=== PATIENT | male | born 1935 | race Caucasian/White ===

== ENCOUNTER → 2017-08-15 09:50 | Outpatient (CLI) | payer MEDICARE, BC, SELFPAY ==
--- NOTE | 2017-08-15 10:01 | XR_ITS ---
EXAM: XR lumbar spine min 4V HISTORY: Low back pain following injury ITS.REASON: LOW BACK PAIN ORDERING PHYSICIAN: Yovani Mosley MD PATIENT AGE: 81 years COMPARISON: None FINDINGS: There is multilevel degenerative disc disease with osteophytosis from L1 to L5. There is slight decrease in height anteriorly at L4. This however was present on previous CT scan of the abdomen on 11/29/2010. No acute fracture or dislocation is evident. No lytic or blastic change. There is minimal thoracolumbar curvature convex left. IMPRESSION: 1. No acute fracture. 2. 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
== END ==
PROVIDERS: PCP Family Medicine; Visit Provider Family Medicine
DX: M54.5 Low back pain (principal)
CPT/HCPCS: 72110

== ENCOUNTER → 2017-08-27 14:02 | Outpatient (CLI) | payer MEDICARE, BC, SELFPAY ==
--- NOTE | 2017-08-27 14:09 | MR_ITS ---
MR lumbar spine wo con, MR 3-d myelogram/MRCP Ordering Physician: Yovani Mosley MD Patient Age: 81 years: Male HISTORY: ITS.REASON: LOW BACK PAIN, LUMBAR DISC DISEASE, LUMBAR SPONDYLOSIS Low back pain left hip pain for many years. No known injury. TECHNIQUE: Sagittal STIR, T1, T2, axial T1 & T2. On 1.5T Siemens wide bore MRI. From Volume acquisition 3-D MR myelogram image performed on MRI wkstation. Additional sagittal thin section T2 weighted dataset obtained from this latter acquisition as well (---76 CPT) COMPARISON :No lumbar studies for comparison Previous axial only CT abdomen pelvis images from 2010 . FINDINGS L5/S1. Disc space fairly well maintained. Moderate posterior element hypertrophy L4/5. Marked degenerative disc space narrowing. Spondylosis with posterior endplate ridging and mild disc bulge most evident towards right & left neuroforamen. Moderate bilateral facet hypertrophy. Appears to be a previous laminectomy based on today images here, as well as February 2011 CT L3/4. Moderately pronounced spinal stenosis most evident at this level. . Marked degenerative disc space narrowing with moderate diffuse disc bulge. Prominent ligament flavum hypertrophy & prominent facet hypertrophy. Features combine yielding pronounced central canal stenosis . Findings here most suspect as origin of right orbit left L3 or L4 symptoms if present L2/3.: Moderate central canal spinal stenosis at L2/3 Mild disc space narrowing. Diffuse disc bulge, eccentric to the left. Prominent, exuberant facet hypertrophy. Features combine to yield moderate central canal stenosis. . Prominent bilateral foraminal encroachment mainly due to the facet hypertrophy L1/2.. Levoscoliosis most evident at this level with associated degenerative disc space narrowing to the right. Prominent Marginal osteophytes to anteriorly into the right most evident at this level. Marginal osteophytes also noted but pronounced at to levels just below this. Posteriorly at L1/2 there is diffuse disc bulge is most evident to the right. Moderate bilateral foraminal encroachment most evident the right. T12/L1 disc intact. Mild facet arthropathy slightly generous posterior thecal sac. T11/12 disc intact. Trace facet arthropathy. Conus ends appropriately at T12/L1 There are reactive endplate signal changes about the degenerated L3/4 & L1/2 narrowed disc space also noted. 3-D MR myelogram image set shows: L3/4 with pronounced spinal stenosis. L2/3 with moderate associated canal stenosis. L1/2: Mild spinal stenosis indentation upon the right aspect of thecal sac with slight bulging of thecal sac posteriorly at L4/5 reflecting the laminectomy Cyst versus motion artifact signal at the posterior midportion both kidneys -----IMPRESSION--------- Multilevel spinal stenosis. Lumbar spondylosis with Prominent degenerative disc changes Prominent multilevel facet and posterior element hypertrophy L3/4: Prominent central canal stenosis L3/4.. . Degenerative disc bulge with Prominent posterior element hypertrophy.--yield pronounced central canal stenosis & bilateral foraminal encroachment, left >right.. . L2/3. Moderate central canal spinal stenosis.: Prominent posterior element hypertrophy with mild central disc bulge the left. Mild foraminal encroachment L1/2. Marked disc space narrowing to right -with levoscoliosis this level Posterior endplate hypertrophic ridging with disc bulge most evident to right.. Generous Facet hypertrophy.. Resulting Bilateral foraminal encroachment right >left;,. Mild central canal stenosis
== END ==
PROVIDERS: PCP Family Medicine; Visit Provider Family Medicine
DX: M54.5 Low back pain (principal); M51.9 Unspecified thoracic, thoracolumbar and lumbosacral intervertebral disc disorder; M47.816 Spondylosis without myelopathy or radiculopathy, lumbar region
CPT/HCPCS: 72148; 76376

== ENCOUNTER → 2017-09-18 10:16 | Outpatient (POV) | payer MEDICARE, BC, SELFPAY ==
[2017-09-18 10:30] VITALS: BP 118/77; PULSE 73; RESP 18; TEMP 36.5; BMI 27.1
--- NOTE | 2017-09-18 10:56 | HMH.PMCON ---
Assessment and Plan (1) Degenerative joint disease (DJD) of lumbar spine Current visit: Yes Status: Chronic Category: Medical Code(s): M47.816 - Spondylosis without myelopathy or radiculopathy, lumbar region (2) Lumbar radiculopathy Current visit: Yes Status: Chronic Category: Medical Code(s): M54.16 - Radiculopathy, lumbar region (3) Facet hypertrophy Current visit: Yes Status: Chronic Category: Medical Code(s): M47.9 - Spondylosis, unspecified (4) Bulging disc Current visit: Yes Status: Chronic Category: Medical (5) Spinal stenosis Current visit: Yes Status: Chronic Category: Medical Code(s): M48.00 - Spinal stenosis, site unspecified (6) Post laminectomy syndrome Current visit: Yes Status: Chronic Category: Medical Code(s): M96.1 - Postlaminectomy syndrome, not elsewhere classified - Assessment and plan all Dx Assessment and Plan for all problems:: The patient and I had a long discussion about differing sources of pain in his back. I believe starting out he would benefit from a lumbar epidural steroid injection at L4-L5. Patient and I discussed the procedure risks and benefits I also gave him education to take home with him. He states he wishes to proceed with this. If the lumbar epidural injection does not help we may consider facet joint injections. Patient not currently on any blood thinners. Patient has had physical therapy in the past with no relief. Patient is not wanting to take any pain medications. Patient is still active and wants to become more functional. We will ask insurance for approval of this. This note was dictated using voice recognition software and may contain errors or omissions HPI - Data of Consult Consult date: 09/18/17 Requesting Physician: Kat Bowman APRN Primary Care Provider: Yovani Mosley MD Family Provider: Referral Provider, - Consult Narrative Reason for consult: Low back pain History of present illness: Mr. Bernstein is a 81 year old male who presents today to discuss his low back pain. Patient has had a laminectomy in the past. Patient rates his pain a 4 out of 10 today. He states that it is achy and constant. Patient has had a recent MRI. Patient states that his pain does worsen when he is standing for long periods of time he has low back pain that radiates into the right leg at times. Pain does not radiate past the knee. Patient not currently on any medications for this. . FINDINGS -----IMPRESSION--------- Multilevel spinal stenosis. Lumbar spondylosis with Prominent degenerative disc changes Prominent multilevel facet and posterior element hypertrophy L3/4: Prominent central canal stenosis L3/4.. . Degenerative disc bulge with Prominent posterior element hypertrophy.--yield pronounced central canal stenosis & bilateral foraminal encroachment, left >right.. . L2/3. Moderate central canal spinal stenosis.: Prominent posterior element hypertrophy with mild central disc bulge the left. Mild foraminal encroachment L1/2. Marked disc space narrowing to right -with levoscoliosis this level Posterior endplate hypertrophic ridging with disc bulge most evident to right.. Generous Facet hypertrophy.. Resulting Bilateral foraminal encroachment right >left;,. Mild central canal stenosis Dictated By: Ramakrishna Noble Signed By: <Electronically signed by Ramakrishna Noble in OV> 08/28/17 [id number] CC: Kat Bowman APRN [facility] History I have reviewed the patient's past medical history: Yes Medical History: Reports:: Hyperlipidemia Denies:: Cancer, Diabetes Mellitus Type 1, Diabetes Mellitus Type 2, Internal Pacemaker, MRSA Other Surgeries: No: Pacemaker Amputation: No - *Social History Educational Level: Completed High School Smoking Status: Never smoker Alcohol Intake: never Occupational Status: retired Housing: house - Psychiatric History Expresses thoughts of harming gareth
--- NOTE | 2017-09-18 11:46 | P.CONS_ITS ---
Assessment and Plan (1) Degenerative joint disease (DJD) of lumbar spine Current visit: Yes Status: Chronic Category: Medical Code(s): M47.816 - Spondylosis without myelopathy or radiculopathy, lumbar region (2) Lumbar radiculopathy Current visit: Yes Status: Chronic Category: Medical Code(s): M54.16 - Radiculopathy, lumbar region (3) Facet hypertrophy Current visit: Yes Status: Chronic Category: Medical Code(s): M47.9 - Spondylosis, unspecified (4) Bulging disc Current visit: Yes Status: Chronic Category: Medical (5) Spinal stenosis Current visit: Yes Status: Chronic Category: Medical Code(s): M48.00 - Spinal stenosis, site unspecified (6) Post laminectomy syndrome Current visit: Yes Status: Chronic Category: Medical Code(s): M96.1 - Postlaminectomy syndrome, not elsewhere classified - Assessment and plan all Dx Assessment and Plan for all problems:: The patient and I had a long discussion about differing sources of pain in his back. I believe starting out he would benefit from a lumbar epidural steroid injection at L4-L5. Patient and I discussed the procedure risks and benefits I also gave him education to take home with him. He states he wishes to proceed with this. If the lumbar epidural injection does not help we may consider facet joint injections. Patient not currently on any blood thinners. Patient has had physical therapy in the past with no relief. Patient is not wanting to take any pain medications. Patient is still active and wants to become more functional. We will ask insurance for approval of this. This note was dictated using voice recognition software and may contain errors or omissions HPI - Data of Consult Consult date: 09/18/17 Requesting Physician: Kat Bowman APRN Primary Care Provider: Yovani Mosley MD Family Provider: Referral Provider, - Consult Narrative Reason for consult: Low back pain History of present illness: Mr. Bernstein is a 81 year old male who presents today to discuss his low back pain. Patient has had a laminectomy in the past. Patient rates his pain a 4 out of 10 today. He states that it is achy and constant. Patient has had a recent MRI. Patient states that his pain does worsen when he is standing for long periods of time he has low back pain that radiates into the right leg at times. Pain does not radiate past the knee. Patient not currently on any medications for this. . FINDINGS -----IMPRESSION--------- Multilevel spinal stenosis. Lumbar spondylosis with Prominent degenerative disc changes Prominent multilevel facet and posterior element hypertrophy L3/4: Prominent central canal stenosis L3/4.. . Degenerative disc bulge with Prominent posterior element hypertrophy.--yield pronounced central canal stenosis & bilateral foraminal encroachment, left >right.. . L2/3. Moderate central canal spinal stenosis.: Prominent posterior element hypertrophy with mild central disc bulge the left. Mild foraminal encroachment L1/2. Marked disc space narrowing to right -with levoscoliosis this level Posterior endplate hypertrophic ridging with disc bulge most evident to right.. Generous Facet hypertrophy.. Resulting Bilateral foraminal encroachment right >left;,. Mild central canal stenosis Dictated By: Ramakrishna Noble Signed By: <Electronically signed by Ramakrishna Noble in OV> 08/28/17 [id number] CC: Kat Bowman APRN [facility] History I have reviewed the patient's past medical history: Yes Medic
== END ==
PROVIDERS: PCP Family Medicine; Visit Provider Clinical Nurse Specialist Family Health
DX: M48.061 Spinal stenosis, lumbar region without neurogenic claudication (principal)
CPT/HCPCS: 99202

== ENCOUNTER 2017-10-19 12:04 | Day surgery (SDC) | payer MEDICARE, BC, SELFPAY ==
[2017-10-19 12:39] VITALS: BP 151/81; PULSE 65; RESP 18; O2SAT 96; BMI 27.1
--- NOTE | 2017-10-19 12:42 | PC.NURSE ---
patient alert/oriented. no labored breathing noted, patient appropriate prior to procedure.
[2017-10-19 13:14] VITALS: BP 145/90; PULSE 68; RESP 18
--- NOTE | 2017-10-19 13:15 | HMH.PMPROC ---
- Procedure Date: 10/19/17 Time: 13:18 Anesthesiologist:: Willy Alonso MD Complications:: None Pre-procedure Diagnosis:: Degenerative disc disease of lumbar spine, lumbar radiculopathy, bulging disc, postlaminectomy syndrome Post-procedure Diagnosis:: Same Indications for Procedure:: Patient is a pleasant 81-year-old male who presents today for his first lumbar epidural steroid injection. Patient rates his pain a 5 out of 10 today. He states that the aching constant. Patient has had a recent MRI. Patient states that his low back pain radiates into his right leg at times. Patient is interested in injectable therapies. Patient and I discussed lumbar epidural steroid injection. He wishes to proceed. Procedure Details:: Informed consent was obtained and the risk and benefits of the procedure was explained to the patient. The patient was taken to the procedure room. The patient was placed prone on the procedure table. The patient was prepped and draped in sterile fashion. C-arm fluoroscopy was used to view the lumbar spine. Skin and subcutaneous tissues were anesthetized using lidocaine. I placed an 18-gauge epidural needle and advanced into the L4-L5 interspace using fluoroscopic guidance and [id number] to air. After confirmation of needle placement in the epidural space with dye I injected 2 mL of lidocaine 1.5% with Depo-Medrol 80 mg. Patient tolerated the procedure well with no complications. Plan and Disposition:: We will follow-up with this patient in 2-3 weeks in our clinic. Patient is to call the office if he has any concerns or needs anything prior to his appointment. We will reassess his symptoms at that time.
[2017-10-19 13:19] VITALS: BP 136/100; PULSE 74; RESP 18
--- NOTE | 2017-10-19 13:20 | P.PCN_ITS ---
- Procedure Date: 10/19/17 Time: 13:18 Anesthesiologist:: Willy lAonso MD Complications:: None Pre-procedure Diagnosis:: Degenerative disc disease of lumbar spine, lumbar radiculopathy, bulging disc, postlaminectomy syndrome Post-procedure Diagnosis:: Same Indications for Procedure:: Patient is a pleasant 81-year-old male who presents today for his first lumbar epidural steroid injection. Patient rates his pain a 5 out of 10 today. He states that the aching constant. Patient has had a recent MRI. Patient states that his low back pain radiates into his right leg at times. Patient is interested in injectable therapies. Patient and I discussed lumbar epidural steroid injection. He wishes to proceed. Procedure Details:: Informed consent was obtained and the risk and benefits of the procedure was explained to the patient. The patient was taken to the procedure room. The patient was placed prone on the procedure table. The patient was prepped and draped in sterile fashion. C-arm fluoroscopy was used to view the lumbar spine. Skin and subcutaneous tissues were anesthetized using lidocaine. I placed an 18-gauge epidural needle and advanced into the L4-L5 interspace using fluoroscopic guidance and [id number] to air. After confirmation of needle placement in the epidural space with dye I injected 2 mL of lidocaine 1.5 % with Depo-Medrol 80 mg. Patient tolerated the procedure well with no complications. Plan and Disposition:: We will follow-up with this patient in 2-3 weeks in our clinic. Patient is to call the office if he has any concerns or needs anything prior to his appointment. We will reassess his symptoms at that time.
[2017-10-19 13:26] VITALS: BP 133/72; PULSE 59; RESP 16; O2SAT 97
== END 2017-10-19 13:30 | disposition home or self-care (01) ==
LOC: SC.PAINP 12:05
PROVIDERS: PCP Family Medicine; Visit Provider Anesthesiology
DX: M51.16 Intervertebral disc disorders with radiculopathy, lumbar region (principal); M96.1 Postlaminectomy syndrome, not elsewhere classified
CPT/HCPCS: 62323; J1040; Q9966

== ENCOUNTER → 2017-11-05 09:43 | Outpatient (POV) | payer MEDICARE, BC, SELFPAY ==
[2017-11-05 10:12] VITALS: BP 122/77; PULSE 79; RESP 20; TEMP 36.4; O2SAT 95; BMI 27.1
--- NOTE | 2017-11-05 10:32 | HMH.PAINSOAP ---
[facility] Pain Management SOAP Note Subjective:: Patient is a pleasant 81-year-old white male who presents today for follow-up after lumbar epidural steroid injections. Patient states his left-sided pain symptomology has resolved completely. Patient is still having a little bit of pain in his low back however he has had about 80% relief in his symptomology. Patient rates his pain a 4 out of 10 today. Patient states that it is achy at times. Patient is interested in another lumbar epidural steroid injection. Patient currently is not on any anticoagulation therapies. ROS General: no recent weight change, no fever, no sleep disturbances Respiratory: no cough, no shortness of air, no recurring pulmonary infections Cardiovascular/Peripheral Vascular: No chest pain, No palpitations, no edema, no shortness of breath. Gastrointestinal: no incontinence, normal bowel movements reported Genitourinary: no incontinence Musculoskeletal: Back pain Psychiatric: normal mood/ affect, Neurological: [denies weakness in extremities], [denies balance issues] Objective:: Physical Exam General: Alert and oriented x3, no acute distress, pleasant and cooperative, [on room air] Lungs: Resps E/U, Symmetrical chest expansion, Eyes: PERRL Musculoskeletal: Flexion and extension of lumbar spine somewhat guarded secondary to pain, deep tendon reflexes normal, strength in upper and lower extremities [5/5], slightly antalgic gait noted, positive straight leg test bilaterally 30? Neurological: speech clear, project admin equal, no gross sensory deficits Assessment:: Degenerative disc disease of lumbar spine, lumbar radiculopathy, bulging disc, postlaminectomy syndrome Plan:: We will do a repeat L4-L5 and and given the efficacy of the last one. Patient and I discussed potentially facet joint injections in the future. Patient states his left-sided pain symptomology has resolved. Patient did well with his injection. Patient's tried and failed medications, anti-inflammatories, physical therapy. This note was dictated using voice recognition software and may contain errors or omissions
--- NOTE | 2017-11-05 10:35 | P.CONS_ITS ---
[facility] Pain Management SOAP Note Subjective:: Patient is a pleasant 81-year-old white male who presents today for follow-up after lumbar epidural steroid injections. Patient states his left-sided pain symptomology has resolved completely. Patient is still having a little bit of pain in his low back however he has had about 80% relief in his symptomology. Patient rates his pain a 4 out of 10 today. Patient states that it is achy at times. Patient is interested in another lumbar epidural steroid injection. Patient currently is not on any anticoagulation therapies. ROS General: no recent weight change, no fever, no sleep disturbances Respiratory: no cough, no shortness of air, no recurring pulmonary infections Cardiovascular/Peripheral Vascular: No chest pain, No palpitations, no edema, no shortness of breath. Gastrointestinal: no incontinence, normal bowel movements reported Genitourinary: no incontinence Musculoskeletal: Back pain Psychiatric: normal mood/ affect, Neurological: [denies weakness in extremities], [denies balance issues] Objective:: Physical Exam General: Alert and oriented x3, no acute distress, pleasant and cooperative, [ on room air] Lungs: Resps E/U, Symmetrical chest expansion, Eyes: PERRL Musculoskeletal: Flexion and extension of lumbar spine somewhat guarded secondary to pain, deep tendon reflexes normal, strength in upper and lower extremities [5/5], slightly antalgic gait noted, positive straight leg test bilaterally 30? Neurological: speech clear, cardiovascular technician equal, no gross sensory deficits Assessment:: Degenerative disc disease of lumbar spine, lumbar radiculopathy, bulging disc, postlaminectomy syndrome Plan:: We will do a repeat L4-L5 and and given the efficacy of the last one. Patient and I discussed potentially facet joint injections in the future. Patient states his left-sided pain symptomology has resolved. Patient did well with his injection. Patient's tried and failed medications, anti-inflammatories, physical therapy. This note was dictated using voice recognition software and may contain errors or omissions
== END ==
PROVIDERS: PCP Family Medicine; Visit Provider Clinical Nurse Specialist Family Health
DX: M54.16 Radiculopathy, lumbar region (principal)
CPT/HCPCS: 99212

== ENCOUNTER → 2017-12-03 14:37 | Outpatient (POV) | payer MEDICARE, BC, SELFPAY ==
[2017-12-03 14:59] VITALS: BP 138/69; PULSE 98; RESP 18; TEMP 36.6; O2SAT 97; BMI 27.1
--- NOTE | 2017-12-03 15:23 | HMH.PAINSOAP ---
[facility] Pain Management SOAP Note Subjective:: Patient is a pleasant 81-year-old white male who presents today for follow-up after his second lumbar epidural steroid injection. Patient states he is 90-95% better. He rates his pain a 0 out of 10 today. Patient is doing extremely well at this time. Patient would like to follow-up on an as-needed basis. ROS General: no recent weight change, no fever, no sleep disturbances Respiratory: no cough, no shortness of air, no recurring pulmonary infections Cardiovascular/Peripheral Vascular: No chest pain, No palpitations, no edema, no shortness of breath. Gastrointestinal: no incontinence, normal bowel movements reported Genitourinary: no incontinence Musculoskeletal: Back pain, bilateral leg pain Psychiatric: normal mood/ affect, [denies depression], [denies anxiety] Neurological: [denies weakness in extremities], [denies balance issues] Objective:: Physical Exam General: Alert and oriented x3, no acute distress, pleasant and cooperative, [on room air] Lungs: Resps E/U, Symmetrical chest expansion, Eyes: PERRL Musculoskeletal: Flexion and extension of lumbar spine somewhat guarded secondary to pain, deep tendon reflexes normal, strength in upper and lower extremities [5/5], slightly antalgic gait noted Neurological: speech clear, pairing machine operator equal, no gross sensory deficits Assessment:: Degenerative disc disease of the lumbar spine with lumbar radiculopathy symptoms and postlaminectomy syndrome of the lumbar spine Plan:: We will follow-up with this patient on an as-needed basis. Patient has been instructed to call the office when his pain begins to return. This note was dictated using voice recognition software and may contain errors or omissions
== END ==
PROVIDERS: PCP Family Medicine; Visit Provider Clinical Nurse Specialist Family Health
DX: M54.16 Radiculopathy, lumbar region (principal)
CPT/HCPCS: 99212

== ENCOUNTER → 2019-03-18 14:28 | Outpatient (CLI) | payer SELFPAY ==
--- NOTE | 2019-03-18 14:48 | CT_ITS ---
PROCEDURE: CT HEART W CALCIUM SCORE CLINICAL HISTORY: SCREENING COMPARISON: No exams were available for comparison TECHNIQUE: Axial images obtained with sagittal and coronal reformats. All CT scans at the facility use one or more dose reduction, viz: automated exposure control, ma/kV adjustment per patient size (including targeted exams where dose is matched to indication, i.e. head), or iterative reconstruction technique. FINDINGS: Coronary artery calcium score is 1905 indicate extensive calcific plaque burden with very high cardiovascular disease risk.. Review of the images shows a small hypoattenuating area in the attic dome on the left at 7 mm consistent with a hepatic cyst There is a noncalcified nodule in the right upper lobe anterior laterally at 3 mm nonspecific. Degenerative changes are present in the thoracic spine. IMPRESSION: Extensive plaque burden with very high cardiovascular disease risk Dictated by: Chapin Morrison MD 03/18/2019 16:41 Signed by: <Electronically signed by Chapin Morrison MD in OV> 03/18/2019 16:41
== END ==
PROVIDERS: PCP Family Medicine; Visit Provider Internal Medicine Cardiovascular Disease
DX: Z13.6 Encounter for screening for cardiovascular disorders (principal)
CPT/HCPCS: 75571

== ENCOUNTER → 2019-04-03 09:16 | Outpatient (CLI) | payer MEDICARE, BC, SELFPAY ==
--- NOTE | 2019-04-03 09:19 | CA_ITS ---
APPROVED REPORT Bedspread Folder: MARIAJOSE Laterality: Bilateral Study Quality: Good Indications: dizziness Risk Factors Hyperlipidemia Doppler Spectral Velocity Analysis ECA (R) 83.80/9.64 cm/s ECA (L) 74.50/9.84 cm/s dICA (R) 79.80/18.50 cm/s dICA (L) 82.30/25.50 cm/s Skyler (R) 77.80/17.80 cm/s Skyler (L) 52.30/16.60 cm/s pICA (R) 51.90/12.60 cm/s pICA (L) 51.70/14.00 cm/s dCCA (R) 51.90/11.90 cm/s dCCA (L) 37.10/8.90 cm/s pCCA (R) 48.10/10.70 cm/s pCCA (L) 51.90/12.60 cm/s Vert (R) 31.90/11.10 cm/s Vert (L) 31.60/9.13 cm/s ICA/CCA 1.54 ICA/CCA 2.22 Findings Duplex evaluation demonstrates stenosis of the right proximal internal carotid artery <20% with PSV <140 cm/sec, EDV <100 cm/sec, and IC/CC Ratio <4.0. Duplex evaluation demonstrates stenosis of the left proximal internal carotid artery <20% with PSV <140 cm/sec, EDV <100 cm/sec, and IC/CC Ratio <4.0. Antegrade flow seen bilateral vertebral arteries. Conclusion Duplex evaluation demonstrates stenosis of the right proximal internal carotid artery <20% with PSV <140 cm/sec, EDV <100 cm/sec, and IC/CC Ratio <4.0. Duplex evaluation demonstrates stenosis of the left proximal internal carotid artery <20% with PSV <140 cm/sec, EDV <100 cm/sec, and IC/CC Ratio <4.0. Antegrade flow seen bilateral vertebral arteries. Electronically signed by : Chapin Morrison MD 04/03/2019 13:20:49
--- NOTE | 2019-04-03 09:19 | US_ITS ---
APPROVED REPORT Exam Type: Lower Extremity Segmental Pressures Head Turbine Operator: Casandra Mccray RDCS Indications Claudication: Rest Pain: Risk Factors Hypertension Hyperlipidemia Cardiac Disease Pressures/Indices Right Indices Left Indices Brachial 148.00 mmHg Brachial 151.00 mmHg Low Thigh 157.00 mmHg 1.04 Low Thigh 159.00 mmHg 1.05 Calf 167.00 mmHg 1.11 Calf 163.00 mmHg 1.08 Ankle(PT) 166.00 mmHg 1.10 Ankle(PT) 174.00 mmHg 1.15 Ankle(DP) 167.00 mmHg 1.11 Ankle(DP) 171.00 mmHg 1.13 Digit 119.00 mmHg 0.79 Digit 148.00 mmHg 0.98 Findings R LUIS A 1.1 L LUIS A 1.2 R TBI .8 L TBI 1.0 NORMAL WAVEFORMS AND PULSES Conclusion Normal Electronically signed by : Chapin Morrison MD 04/03/2019 13:20:02
== END ==
PROVIDERS: PCP Family Medicine; Visit Provider Physician Assistant
DX: M79.604 Pain in right leg; M79.605 Pain in left leg; E78.5 Hyperlipidemia, unspecified; I25.10 Atherosclerotic heart disease of native coronary artery without angina pectoris; R06.09 Other forms of dyspnea; R42 Dizziness and giddiness; R93.1 Abnormal findings on diagnostic imaging of heart and coronary circulation; Z82.49 Family history of ischemic heart disease and other diseases of the circulatory system; Z95.5 Presence of coronary angioplasty implant and graft; I70.213 Atherosclerosis of native arteries of extremities with intermittent claudication, bilateral legs
CPT/HCPCS: 93880; 93923

== ENCOUNTER → 2019-04-07 08:13 | Outpatient (CLI) | payer MEDICARE, BC, SELFPAY ==
[2019-04-07 08:30] LABS: Basophils # 0.1 K/mm3 (0-0.2); Eosinophils # 0.3 K/mm3 (0.0-0.4); Eosinophils % 4.6 % (0.1-12.0); Hematocrit 48.8 % (42.0-52.0); Hemoglobin 16.4 g/dL (14.1-18.0); Lymphocytes # 1.4 K/mm3 (0.7-4.5); Lymphocytes % 19.7 % (10-50); Mean Corpuscular HGB Conc 33.6 g/dL (31.8-35.4); Mean Corpuscular Volume 92.3 fl (80-94); Mean Platelet Volume 7.8 fl (7.4-10.4); Monocytes # 0.5 K/mm3 (0.1-1.0); Monocytes % 6.8 % (1.7-9.3); Neutrophils # 4.8 K/mm3 (1.8-7.8); Neutrophils % 67.8 % (37.0-80.0); Platelet Count 298 K/mm3 (142-424); Red Blood Count 5.29 M/mm3 (4.60-6.20); Red Cell Distribution Width 13.4 % (11.5-17.5); White Blood Count 7.1 K/mm3 (4.8-10.8)
[2019-04-07 08:56] LABS: Anion Gap 9.7 mEq/L (5-15); Blood Urea Nitrogen 26 mg/dL (7-18); Calcium 9.2 mg/dL (8.5-10.1); Carbon Dioxide 30 mmol/L (21.0-32.0); Chloride 105 mmol/L (98-107); Creatinine,Serum 1.21 mg/dL (0.70-1.30); Estimated Glomerular Filt Rate 57 ml/min (>60); GFR (African American) 69 ML/MIN (>60); Glucose 104 mg/dL (74-106); Potassium 4.7 mmoL/L (3.5-5.1); Sodium 140 mmol/L (136-145)
[2019-04-07 09:26] LABS: Alanine Aminotransferase 31 U/L (12-78); Albumin Level 3.5 gm/dL (3.4-5.0); Alkaline Phosphatase 70 U/L (46-116); Aspartate Amino Transferase 24 U/L (15-37); Bilirubin,Direct 0.1 mg/dL (0.0-0.2); Bilirubin,Indirect 0.6 mg/dL (0.0-0.9); Bilirubin,Total 0.7 mg/dL (0.2-1.0); Chol/HDL Ratio 2.9 (1-3.5); Cholesterol 153 mg/dL (140-200); HDL Cholesterol 52 mg/dL (27-67); LDL Cholesterol 82 mg/dL (0-130); Total Protein,Serum 6.7 gm/dL (6.4-8.2); Triglycerides 95 mg/dL (30-200); VLDL Cholesterol 19 mg/dL (0-40)
== END ==
PROVIDERS: Internal Medicine; Visit Provider Physician Assistant
DX: I25.10 Atherosclerotic heart disease of native coronary artery without angina pectoris (principal); E78.5 Hyperlipidemia, unspecified; R06.09 Other forms of dyspnea; R93.1 Abnormal findings on diagnostic imaging of heart and coronary circulation; Z82.49 Family history of ischemic heart disease and other diseases of the circulatory system; Z95.5 Presence of coronary angioplasty implant and graft
CPT/HCPCS: 36415; 80048; 80061; 80076; 85025

== ENCOUNTER → 2019-04-10 10:23 | Outpatient (CLI) | payer MEDICARE, BC, SELFPAY | PROVIDERS: PCP Family Medicine; Visit Provider Physician Assistant | DX: R06.00 Dyspnea, unspecified (principal) | CPT/HCPCS: 94060; 94640 ==

== ENCOUNTER → 2019-12-29 13:49 | Outpatient (CLI) | payer MEDICARE, BC, SELFPAY ==
--- NOTE | 2019-12-29 13:56 | XR_ITS ---
PROCEDURE: XR KNEE LT 4V CLINICAL INDICATION: left knee swelling and pain COMPARISON: No exams were available for comparison FINDINGS: No fracture or dislocation. No lytic or blastic change. There is normal mineralization. There are mild osteoarthritic changes of the medial compartment and patellofemoral joint. Vascular calcifications are present. There is prominent subcutaneous soft tissue swelling in the prepatellar region and infrapatellar area. No underlying radiopaque foreign body or soft tissue gas apparent. Other findings:None. IMPRESSION: Mild degenerative changes with prominent prepatellar and infrapatellar soft tissue swelling which could be seen with bursitis Dictated by: Chapin Morrison MD 12/29/2019 15:53 Electronically signed by Chapin Morrison MD in [place] 12/29/2019 15:53
== END ==
PROVIDERS: PCP Family Medicine; Visit Provider Internal Medicine
DX: E78.5 Hyperlipidemia, unspecified (principal); I25.10 Atherosclerotic heart disease of native coronary artery without angina pectoris; M25.562 Pain in left knee
CPT/HCPCS: 73564

== ENCOUNTER 2020-02-24 15:23 | Emergency (ER) | payer MEDICARE, BC, SELFPAY ==
[2020-02-24 15:24] VITALS: BP 140/90; PULSE 62; RESP 17; TEMP 36.8; O2SAT 99; BMI 22.9
--- NOTE | 2020-02-24 15:35 | HMH.EDEXTP ---
ED Disposition Clinical Impression: Finger avulsion Qualifiers: Encounter type: initial encounter Qualified Code(s): S61.209A - Unspecified open wound of unspecified finger without damage to nail, initial encounter Open fracture of finger of right hand Qualifiers: Encounter type: initial encounter Finger: middle finger Phalanx: distal Fracture alignment: nondisplaced Qualified Code(s): S62.662B - Nondisplaced fracture of distal phalanx of right middle finger, initial encounter for open fracture Disposition: Home, Self-Care Condition on Discharge: Good Instructions: DI for Finger Fracture, DI for Avulsion Laceration (Not Requiring Sutures) Referrals: Kimmy Shukla MD [Physician] - 3 days - Critical Care Critical Care Time: No Attestation: On , the high probability of a clinically significant, sudden or life threatening deterioration of the following system(s) required my full and direct attention, intervention and personal management. The time I documented below is in addition to time spent performing reported procedures but includes the following listed in this critical care notation. Medical Decision Making - Medical Records Medical records reviewed: Yes: I reviewed the patient's medical records. - [place] Inquiry Pt receiving controlled substance: Yes [place] was queried for this patient: No Risks and benefits of using a controlled substance: were discussed with pt by me Vital Signs: 02/24/20 15:24 Temperature 98.2 F Temperature Source Oral Pulse Rate [Right] 62 Respiratory Rate 17 Blood Pressure [Right Arm] 140/90 Blood Pressure Mean [Right Arm] 106 02 Sat by Pulse Oximetry 99 Orders (Tests/Meds): ED MEDICATIONS Discontinued Medications Generic Name Dose Route Start Last Admin Trade Name Joshuaq PRN Reason Stop Dose Admin Cephalexin HCl 500 mg 02/24/20 15:51 Cephalexin 500mg Capsule PO 02/24/20 15:52 ONCE ONE Protocol Lidocaine HCl 20 ml 02/24/20 15:46 Lidocaine 1% 20ml Mdv SQ 02/24/20 15:47 ONCE ONE Tetanus/Reduced Diphtheria/Acell Pertussis 0.5 ml 02/24/20 15:43 Adacel Tdap 0.5ml Syringe IM 02/24/20 15:44 .ONCE ONE ORDERS Category Date Time Status Finger XR right minimum 2 views [XR finger RT min 2V] Exams 02/24/20 15:42 Taken Stat - Radiology Data #1 Image(s): Hand Image Reviewed: Yes I reviewed the patient's radiology image Distal tuft fracture of the right third digit Medical Decision Narrative: Patient with distal tip avulsion. Tetanus updated here. Finger was blocked with 1% lidocaine, wound was cleaned and bandaged. Given Keflex here for technically open fracture of the distal tuft of the finger. Discharged home with prescription for the same and advised follow-up outpatient with Ortho for further wound healing and evaluation. Extremity Problem HPI - General Stated complaint: AO 1430 Laceration to middle f left hand Time Seen by Provider: 02/24/20 15:35 Mode of Arrival: Ambulatory Source of Information: Patient Limitations: No Limitations - History of Present Illness HPI Narrative: This is an 84-year-old [id number] male who presents to the emergency department for injury to the right third digit that occurred just prior to arrival. He states he cut the tip of the finger between 2 pieces of metal. Unknown tetanus status. - Related Data Home Medications Medication Instructions Recorded Confirmed Aspirin [Aspir-Low] 81 mg PO DAILY 09/18/17 12/11/19 Atorvastatin Calcium [Atorvastatin 20 mg PO DAILY 09/18/17 12/11/19 20mg Tab] Levothyroxine Sodium 25 mcg PO DAILY 09/18/17 12/11/19 [Levothyroxine 25mcg (0.025mg) Tab] cholecalciferol (vitamin D3) 1,250 1,250 mcg PO QWEEK 12/29/19 12/29/19 mcg (50,000 unit) capsule Previous Rx's Medication Instructions Recorded clopidogrel 75 mg tablet 75 mg PO DAILY #30 tab 10/13/19 Allergies Allergy/AdvReac Type Severity Reaction Stat
--- NOTE | 2020-02-24 15:42 | XR_ITS ---
PROCEDURE: XR FINGER RT MIN 2V CLINICAL INDICATION: cut finger on metal Laceration/crush injury to distal right middle finger. COMPARISON: No exams were available for comparison FINDINGS: There is amputation of the distal tip of the 3rd distal phalanx/distal end of the right middle finger. The amputation bed of the finger is unremarkable. No fracture or dislocation. No lytic or blastic change. There is normal mineralization. There are mild/moderate degenerative arthritic changes seen in the PIP and DIP joints of the fingers. Other findings:Diffuse mild soft tissue swelling of the right middle finger. IMPRESSION: 1. Amputation of the distal tip of the 3rd distal phalanx/distal end of the right middle finger. 2. Diffuse mild soft tissue swelling of the right middle finger Dictated by: Adria Chavez 02/24/2020 16:32 Electronically signed by Adria Chavez in [place] 02/24/2020 16:32
[2020-02-24 16:58] VITALS: BP 140/85; PULSE 87; RESP 18; TEMP 36.8; O2SAT 98
== END 2020-02-24 17:00 | disposition home or self-care (01) ==
PROVIDERS: Emergency Provider Emergency Medicine; PCP Family Medicine
DX: S61.212A Laceration without foreign body of right middle finger without damage to nail, initial encounter (principal); S62.662B Nondisplaced fracture of distal phalanx of right middle finger, initial encounter for open fracture; W26.8XXA Contact with other sharp object(s), not elsewhere classified, initial encounter; Y92.018 Other place in single-family (private) house as the place of occurrence of the external cause; Z23 Encounter for immunization; E78.5 Hyperlipidemia, unspecified; Z86.718 Personal history of other venous thrombosis and embolism; Z88.5 Allergy status to narcotic agent
CPT/HCPCS: 73140; 90471; 90715; 96372; 99282

== ENCOUNTER → 2020-02-25 14:21 | Outpatient (CLI) | payer MEDICARE, BC, SELFPAY ==
--- NOTE | 2020-02-25 14:43 | ECG_ITS ---
APPROVED REPORT Exam: Resting ECG HR:52 bpm ECG Measurements Heart Rate 52 AXES UT 144 P 57 QRSd 80 QRS 50 QT 424 T 60 QTc 394 <Conclusion> Sinus bradycardia Otherwise normal ECG Electronically signed by : Dion Salvador, 02/27/2020 12:30:59
--- NOTE | 2020-02-25 14:47 | XR_ITS ---
PROCEDURE: XR CHEST 2V CLINICAL HISTORY: SOB Weakness. COMPARISON: CXR CHEST(2 VIEWS-NOT PORTABLE) from 08/12/2014 FINDINGS: No acute bony abnormalities. The cardiomediastinal silhouette and pulmonary vascularity are within normal limits. There is atherosclerotic calcification of the aortic arch. The lungs are somewhat hyperinflated, compatible with COPD. No demonstrated consolidation, vascular congestion or pleural effusion of the visualized lungs. There is bony demineralization. Mildly increased thoracic kyphosis. Degenerative spondylitic changes are seen mostly in the visualized lower cervical spine. IMPRESSION: 1. No acute findings. Stable appearing chest. Dictated by: Adria Chavez 02/25/2020 15:44 Electronically signed by Adria Chavez in [place] 02/25/2020 15:44
[2020-02-25 15:10] LABS: Basophils # 0.1 K/mm3 (0-0.2); Basophils % 0.9 % (0.1-2.0); Eosinophils # 0.3 K/mm3 (0.0-0.4); Eosinophils % 3.8 % (0.1-12.0); Hematocrit 45.6 % (42.0-52.0); Hemoglobin 15.3 g/dL (14.1-18.0); Lymphocytes % 24.8 % (10-50); Mean Corpuscular HGB Conc 33.4 g/dL (31.8-35.4); Mean Corpuscular Hemoglobin 30.6 pg (27.0-31.2); Mean Corpuscular Volume 91.5 fl (80-94); Mean Platelet Volume 8.3 fl (7.4-10.4); Monocytes # 0.5 K/mm3 (0.1-1.0); Neutrophils # 5.3 K/mm3 (1.8-7.8); Neutrophils % 64.6 % (37.0-80.0); Platelet Count 278 K/mm3 (142-424); Red Blood Count 4.99 M/mm3 (4.60-6.20); Red Cell Distribution Width 13.4 % (11.5-17.5); White Blood Count 8.2 K/mm3 (4.8-10.8)
[2020-02-25 16:04] LABS: Chloride 104 mmol/L (98-107); Potassium 5.1 mmoL/L (3.5-5.1); Sodium 139 mmol/L (136-145)
[2020-02-25 16:07] LABS: Alanine Aminotransferase 23 U/L (12-78); Albumin Level 3.7 g/dl (3.5-5.0); Albumin/Globulin Ratio 1.2 (1.1-1.8); Alkaline Phosphatase 74 U/L (38-126); Anion Gap 13.1 mEq/L (5-15); Aspartate Amino Transferase 29 U/L (17-59); Bilirubin,Total 0.7 mg/dl (0.2-1.3); Blood Urea Nitrogen 20 mg/dl (9-20); Calcium 9.3 mg/dl (8.4-10.2); Carbon Dioxide 27 mmol/L (22.0-30.0); Estimated Glomerular Filt Rate 71 ml/min (>60); GFR (African American) 86 ML/MIN (>60); Glucose 93 mg/dl (74-100); Total Protein,Serum 6.7 g/dl (6.3-8.2)
[2020-02-25 17:18] LABS: Coronavirus 19 IgG Antibody Negative (Negative); Coronavirus 19 IgM Antibody Negative (Negative)
== END ==
PROVIDERS: Visit Provider Orthopaedic Surgery
DX: S68.119A Complete traumatic metacarpophalangeal amputation of unspecified finger, initial encounter (principal)
CPT/HCPCS: 36415; 71046; 80053; 85025; 86328; 93005

== ENCOUNTER → 2020-02-26 10:35 | Day surgery (SDC) | payer MEDICARE, BC, SELFPAY ==
[2020-02-26 11:59] VITALS: BP 149/102; PULSE 62; RESP 18; TEMP 36.4; O2SAT 97; BMI 25.4
--- NOTE | 2020-02-26 15:22 | SUR.PREOP ---
Patient requested to leave after surgery was delayed.Dr. Frias Said patient can come in tomorrow for surgery or be seen in the office next week. Patient opted for surgery tomorrow. Ok'd a OR start time of [address] Frias. Patient is to be rescheduled for tomorrow () at 0900.
== END ==
PROVIDERS: PCP Family Medicine; Visit Provider Orthopaedic Surgery
DX: Z53.29 Procedure and treatment not carried out because of patient's decision for other reasons (principal)
CPT/HCPCS: J2704

== ENCOUNTER 2020-02-27 08:09 | Day surgery (SDC) | payer MEDICARE, BC, SELFPAY ==
[2020-02-27 08:12] VITALS: BMI 25.9
[2020-02-27 08:24] VITALS: BP 141/72; PULSE 62; RESP 18; TEMP 36.4; O2SAT 97
--- NOTE | 2020-02-27 09:32 | P.PN_ITS ---
[facility] Anesthesia Checklist - Structural Data Admitted From: Home Planned Operative Procedure/s: i/d r middle finger Consent for Planned Operative Procedure(s) Verified: Yes - Additional verifications Anesthesia Reactions: No Hx Blood Transfusions: No Blood Transfusion Reaction: No - Airway Assessment C-Spine Mobility Assessed: Yes TMJ Mobility Assessed: Yes Dentition: Poor Dentition - Neurological Assessment Level of Consciousness: Awake, Alert, Appropriate - Anesthesia Plan Anesthesia Risk discussed: Yes Anesthesia Plan: Verified ASA Class: II Anesthesia Type: MAC [facility] History I have reviewed the patient's past medical history: Yes Medical History: Reports:: Cancer, Deep Vein Thrombosis, Hyperlipidemia Denies:: Diabetes Mellitus Type 1, Diabetes Mellitus Type 2, Internal Pacemaker, MRSA, Seizures *Have you ever received a pneumonia vaccine?: Yes *Have you received a flu vaccine this season?: Yes Other Medical History: Reports: Thyroid Disease. Denies: Blood Transfusion Reaction Anesthesia experience/problems:: none Laterality Cases: Bilateral: Other Other Surgeries: Yes: Cardiac Catheterization, Colonoscopy, Coronary Stent, Hernia Repair, Other (L5 REPAIR). No: Pacemaker Amputation: No Fractures: Yes - *Social History Last grade of school completed: Advanced degree Smoking Status: Never smoker Alcohol Intake: never Substance Use Type: denies use *Occupational Status:: retired Housing: house Household Members: spouse *Travel in the last 8 weeks: None Family Hx:: No significant family history
[2020-02-27 10:32] VITALS: TEMP 43
[2020-02-27 11:00] VITALS: BP 135/83; PULSE 69; RESP 16; TEMP 36.6; O2SAT 93
[2020-02-27 11:15] VITALS: BP 136/76; PULSE 55; RESP 16; O2SAT 95
[2020-02-27 11:30] VITALS: BP 132/78; PULSE 55; RESP 16; O2SAT 94
--- NOTE | 2020-02-27 12:24 | HMH.OPNOTE ---
Date of procedure: 02/27/20 Pre-op Diagnosis:: Traumatic amputation, left middle finger Post-op Diagnosis:: Same Procedure performed:: Wound debridement/revision amputation tip of middle finger, left Surgeon:: Kieran Frias MD Butcherette(s):: Nurys Cash GOLF CART ASSEMBLER:: Yasir Sneed Anesthesia: MAC, local Estimated blood loss (mL): 2 Clinical Note:: The patient is an 84-year-old male with traumatic amputation through the distal phalanx of his right middle finger with loss of the soft tissues over the tip of the finger.? As patient has exposed bone of the distal phalanx with the deficient soft tissue coverage, further surgery is indicated in the form of wound debridement/revision amputation of the tip of the finger and closure as appropriate.? Nonsurgical management was discussed with the patient which involves letting the wound heal by secondary intention which could take few weeks. Patient preferred to have surgery and primary closure at this time. Please refer to my office note for full details. Operative findings:: Traumatic amputation through the right distal phalanx of the right middle finger with an open wound and loss of soft tissue coverage over the tip of the distal phalanx.? No evidence of obvious infection was noted.? After shortening the distal phalanx and debriding the skin and soft tissue, the stump was healthy with sufficient soft tissue coverage. Operative note:: On the day of the procedure the patient was met in the preoperative area and positively identified. I have again discussed the diagnosis, natural history and management options including both nonsurgical and surgical. The patient opted for debridement of the finger with revision amputation and primary closure of the right third finger. I have discussed the procedure, risks and benefits and alternatives. The complications discussed include but are not limited to infection, injury to nerves and blood vessels, bleeding, painful neuromas, nail deformity, tender scar, DVT/PE, phantom pain, CRPS (complex regional pain syndrome- pain, sensory and temperature changes, swelling and stiffness), incomplete relief of pain, incomplete return of function, and likely need for further surgery in future including amputation at a proximal level and also the risks of anesthesia including heart attack, stroke, and even . I have discussed how there is a small but real possibility of loss of use of the limb, loss of the limb or loss of life itself. I have also explained how additional surgery may be required if there are any complications or the stump is painful or unsightly. I have told the patient that we may have to perform the surgery as a 2-stage procedure with a delayed wound closure if the tissues appear unhealthy at surgery for primary closure. We have also discussed the postoperative management, recovery and rehabilitation and the likely need for hand therapy, the possibility of stiffness, osteomyelitis, chronic pain and we've also discussed the option of nonsurgical treatment.? The patient has asked appropriate questions. All his questions were answered and he verbalized a good understanding.? Patient desires to proceed with the debridement and revision amputation of the right third finger. The limb was appropriately marked and the initialed by me. Patient understood the risks, and no guarantees or assurances were given or implied. Patient was brought to the operating room and placed supine on the operating table. All the bony prominences were appropriately padded.? Patient had a MAC anesthesia. The right upper extremity was prepped and draped in the usual sterile fashion.? A preprocedure timeout was performed as per the hospital protocol. The skin incision was marked for revision amputation through the distal phalanx, preserving the base of the distal phalanx and as much of the normal skin/soft tissue as possible. Local ring block anesthesia was obtained with 10 cc of 0.5% Marcaine.? A finger tourni
== END 2020-02-27 11:30 | disposition home or self-care (01) ==
PROVIDERS: PCP Family Medicine; Visit Provider Orthopaedic Surgery
PROC: (CPT 26236; principal; 2020-02-27 08:45)
DX: S68.123A Partial traumatic metacarpophalangeal amputation of left middle finger, initial encounter (principal); W23.0XXA Caught, crushed, jammed, or pinched between moving objects, initial encounter; Y92.79 Other farm location as the place of occurrence of the external cause; I25.10 Atherosclerotic heart disease of native coronary artery without angina pectoris; Z95.5 Presence of coronary angioplasty implant and graft; E03.9 Hypothyroidism, unspecified; Z79.899 Other long term (current) drug therapy; Z79.01 Long term (current) use of anticoagulants
CPT/HCPCS: 26236; 87070; 87075; 87205; 96374; J2704

== ENCOUNTER → 2020-05-12 08:47 | Outpatient (CLI) | payer MEDICARE, BC, SELFPAY ==
--- NOTE | 2020-05-12 08:52 | XR_ITS ---
PROCEDURE: XR FINGER RT MIN 2V CLINICAL INDICATION: sp RT middle digit Pain, surgery COMPARISON: CR XR FINGER RT MIN 2V from 02/24/2020 FINDINGS: Status post amputation at the proximal aspect the distal phalanx of the 3rd finger. The amputation site is well-circumscribed. No soft tissue gas or radiopaque foreign body. Mild osteoarthritis of the scapho trapezium joint Other findings:None. IMPRESSION: Status post amputation of the distal phalanx proximal aspect with no acute finding Dictated by: Chapin Morrison MD 05/12/2020 16:45 Chapin Morrison MD in [place] 05/12/2020 16:45
== END ==
PROVIDERS: PCP Family Medicine; Visit Provider Orthopaedic Surgery
DX: S62.609B Fracture of unspecified phalanx of unspecified finger, initial encounter for open fracture (principal); Z09 Encounter for follow-up examination after completed treatment for conditions other than malignant neoplasm
CPT/HCPCS: 73140

== ENCOUNTER → 2020-10-05 06:17 | Outpatient (CLI) | payer MEDICARE, BC, SELFPAY ==
--- NOTE | 2020-10-05 06:20 | CA_ITS ---
APPROVED REPORT Exam: Exercise Treadmill Technologist: Maria Alejandra Jeffries Ht: 5 ft 9 in Wt: 177 lbs BSA: 1.96 m2 HR: 58 bpm BP: 147/82 mmHg Indications: Chest pain, Shortness of Breath Medical History Medications: Levothyroxine,,,,, Aspirin,,,,, Vitamin D3,,,,, Atorvastatin,,,,, CloPIdogrel,,,,, Stress Test Details Test: Chase HR Resting HR: 61 bpm Max Heart Rate (APMHR): 136.833220 bpm Max HR Achieved: 118 bpm Target HR (85% APMHR): 115.108108 bpm % of APMHR: 86.76 Recovery HR: 61 bpm BP Resting BP: 147.0/82.0 mmHg Max BP: 192.0/86.0 mmHg Recovery BP: 154.0/91.0 mmHg ECG Resting ECG: Sinus bradycardia, otherwise normal Clinical Exercise duration: 06:00 min Highest Stage Achieved: Exercise capacity: 4.6 METs Stress ECG Conclusion Patient exercised 6:00 on stage I of Chase Protocol (Stage I held to completion). Test stopped due to shortness of air. Symptoms: No chest pain. Arrhythmias/Ectopy: Rare PAC. Rare fusion beat. ST-T Changes: Allowing for motion artifact, the ST response to exercise appears within normal. Conclusion: Normal GXT. Myoview images reported separately. Electronically signed by : Derian Lynch, 10/05/2020 21:01:29
--- NOTE | 2020-10-05 06:20 | CA_ITS ---
APPROVED REPORT EXAM: Comprehensive 2D, Doppler, and color-flow Echocardiogram Commuter Pilot: Nelly Hernandez, RT(R) Ht: 5 ft 9 in Wt: 177lbs BSA: 1.96 BP: 127/69 mmHg Indications: cp, CAD, stent, hyperlipidemia, SOB 2D Dimensions LVOT 2.12 cm (M/F) 1.5-2.5 LVEF (Maharaj's) 56.90 % M: 52 - 72 LV Volume 75.80 mL M: 62 - 150 LV Volume Index 38.67 mL/m2 M: 34 - 74 M-Mode Dimensions RVDd 2.57 cm (0.9-2.6) LA Diam 3.85 cm (1.9-4.0) LVDd 4.64 cm (3.5-5.7) Ao Diam 2.97 cm (2.0-3.7) LVDs 3.35 cm (3.5-5.7) IVSd 0.93 cm (0.6-1.1) PWd 0.71 cm (0.6-1.1) EF (Teich) 53.90% FS 27.80% EDV (Teich) 99.30 mL ESV (Teich) 45.80 mL LV Diastology E Decel Time 170.00 (160-240 msec) E/A Ratio 0.9 MED E' 6.90 (< 7 cm/sec) E'/MED E' Ratio 11.94 (>14) LAT E' 7.30 (<10 cm/sec) E/LAT E' Ratio 11.29 (>14) Aortic Valve LVOT Max 114.00 (70-110 cm/s) LVOT VTI 21.73 cm AoV Peak Madhu. 125.00 (50-130 cm/s) AO Peak GR. 6.20 mmHg AO Mean GR. 3.70 (<5 mmHg) AO VTI 30.45 (18-25 cm) ADRYAN (VTI) 2.52 (2.5-4.5 cm2) Mitral Valve MV E Max Madhu. 82.00 (40-130 cm/s) MV A Velocity 91.00 (40-130 cm/s) E/A Ratio 0.91 MV Decel. Time 170.00 (160-240 ms) MV PHT 50.00 ms Tricuspid Valve TR P. Velocity 212.00 cm/s RAP Estimate 10.00 mmHg RVSP 27.90 mmHg Left Ventricle Left atrium is mildly enlarged, left ventricle is normal size, mild concentric left ventricular hypertrophy, visually estimated ejection fraction 55% with no regional wall motion abnormality, grade 1 diastolic dysfunction seen without tissue Doppler evidence of raise left atrial pressure. Right Ventricle Right atrium and right ventricle are normal size and contractility. Aortic Valve Aortic valve is minimally thickened and fibrosed, there is no aortic stenosis or aortic insufficiency. Mitral Valve Mitral valve leaflets are minimally thickened, there is no mitral stenosis, there is mild mitral regurgitation. Tricuspid Valve Tricuspid valve grossly normal, there is mild tricuspid regurgitation, calculated right ventricular systolic pressure is within normal range. Pulmonic Valve Pulmonic valve is poorly visualized. Great Vessels Aortic root is normal size. Pericardium No significant pericardial effusion noted. Conclusion 1. Mildly enlarged left atrium, normal left ventricular size, mild concentric left ventricular hypertrophy, visually estimated ejection fraction 55% with no regional wall motion abnormality, grade 1 diastolic dysfunction seen without tissue Doppler evidence of raise left atrial pressure. 2. Mild mitral and tricuspid regurgitation, calculated right ventricular systolic pressure within normal range. 3. No significant pericardial effusion noted. Electronically signed by : Derian Lynch, 10/05/2020 20:41:30
--- NOTE | 2020-10-05 06:20 | NM_ITS ---
APPROVED REPORT Exam: Nuclear Stress Test Indication: Chest pain, SOB, CAD, High cholesterol, Family history Patient Location: Outpatient Stress Tech: Maria Alejandra Jeffries MT Tech:Marni Lindsay, ARRT, RT (R)(N) Ht: 5 ft 11 in Wt: 160 lbs HR: 58 bpm BP: 147/87 mmHg BSA: 1.92 m2 BMI: 22.3 History: Chest pain, SOB, CAD, High cholesterol, Family history Procedure: Patient exercised on Chase protocol 6:00 minutes and sec, resting heart rate 58 bpm, resting blood pressure 147/87 mmHg, with exercise maximum heart rate achived was 118 bpm which is 87 % of the maximum predicted heart rate and blood pressure was 192/86 mmHg. Test was stopped due to SOA. Patient denied any complaint of chest pain. Patient has Poor exercise capacity, achieved 4.6 METs of workload on treadmill, the blood pressure response to exercise was Adequate. Electrocardiogram Resting electrocardiogram showed sinus rhythm, with exercise there is less than 1.[address] segment depression noted from the baseline EKG. The EKG portion of the exercise Myoview is negative for ischemia. Cardiac Stress and Resting SPECT Images: Cardiac Stress and Resting SPECT images were obtained using technetium 99m Myoview 30.9 mCi stress and 10.31 mCi at rest. Gated SPECT for analysis of segmental wall motion and calculation of the ejection fraction also done. Prone images were also obtained. Cardiac stress and resting SPECT images show uniform myocardial activity without segmental perfusion abnormality, computer derived ejection fraction is over 65% with no regional wall motion abnormality, right ventricle is normal size and contractility. Conclusion: 1. The EKG portion of the exercise Myoview is negative for ischemia, patient has poor exercise capacity achieving 4.6 METs of workload on treadmill, the blood pressure response to exercise was adequate, there was no exercise-induced chest discomfort. 2. No scintigraphic evidence of reversible ischemia seen at this level of exercise, computer derived ejection fraction is over 65% with no regional wall motion abnormality, right ventricle is normal size and contractility. Electronically signed by : Derian Lynch, 10/05/2020 21:10:16
--- NOTE | 2020-10-05 08:13 | HMH.ITSHM ---
Current Home Medications as stated by this patient [employer] or career services representative. []LEVOTHYROXINE CLOPIDOGREL ATORVASTATIN ASA VITMAIN D3
== END ==
PROVIDERS: PCP Family Medicine; Visit Provider Nurse Practitioner Family
DX: E78.5 Hyperlipidemia, unspecified (principal); I25.10 Atherosclerotic heart disease of native coronary artery without angina pectoris; I73.9 Peripheral vascular disease, unspecified; R06.09 Other forms of dyspnea; R42 Dizziness and giddiness; R93.1 Abnormal findings on diagnostic imaging of heart and coronary circulation; Z82.49 Family history of ischemic heart disease and other diseases of the circulatory system; Z95.5 Presence of coronary angioplasty implant and graft
CPT/HCPCS: 78452; 93017; 93306; A9502

== ENCOUNTER → 2021-03-30 10:06 | Outpatient (CLI) | payer MEDICARE, BC, SELFPAY ==
--- NOTE | 2021-03-30 10:12 | CT_ITS ---
PROCEDURE: CT SINUS WO CON CLINICAL HISTORY: SENSORINEURAL HEARING LOSS, BILATERAL COMPARISON: CT SINUS CT SINUS (MAX-FACIAL W/O CONT) from 09/01/2014 TECHNIQUE: Axial images obtained with sagittal and coronal reformats. All CT scans at the facility use one or more dose reduction, viz: automated exposure control, ma/kV adjustment per patient size (including targeted exams where dose is matched to indication, i.e. head), or iterative reconstruction technique. FINDINGS: No sinus air-fluid level or significant mucosal thickening evident. There is minimal rightward nasal septal deviation. The ostiomeatal complexes are patent. There are small bilateral foreign bullosa. Both maxillary and mandibular dental implants are present. At least 1 stem of the implant projects into the floor the left maxillary sinus and the right maxillary sinus. This is slightly more prominent on the left. Thin section images of the CP angles show no evidence of CP angle mass. No mastoid sinuses have an unremarkable appearance. Small CP angle lesions may not be visualized without IV contrast. IMPRESSION: 1. No obvious CP angle mass. Greater sensitivity could be obtained with IV contrast for small lesions. 2. No evidence of sinusitis. 3. One stem of the maxillary dental implants extend into the floor of the maxillary sinuses on both sides without overlying inflammatory change the Dictated by: Chapin Morrison MD 04/05/2021 08:33 Chapin Morrison MD in [place] 04/05/2021 08:33
== END ==
PROVIDERS: PCP Family Medicine; Visit Provider Otolaryngology
DX: H90.3 Sensorineural hearing loss, bilateral (principal)
CPT/HCPCS: 70486

== ENCOUNTER → 2021-05-03 09:12 | Outpatient (CLI) | payer MEDICARE, BC, SELFPAY | PROVIDERS: PCP Otolaryngology; Visit Provider Nurse Practitioner | DX: Z20.822 Contact with and (suspected) exposure to COVID-19 (principal) | CPT/HCPCS: C9803; U0003; U0005 ==

== ENCOUNTER → 2021-11-25 10:25 | Outpatient (CLI) | payer MEDICARE, BC, SELFPAY ==
--- NOTE | 2021-11-25 10:33 | CA_ITS ---
FINAL REPORT TECHNIQUE: Ultrasound images of the deep venous system were obtained from the left groin to the calf veins. CLINICAL HISTORY: edema x 3 weeks, denies trauma, patient states he takes Plavix daily. FINDINGS: The deep venous system is normally compressible. Normal flow is identified. There is a left inguinal lymph node measuring 1.9 cm. There is subcutaneous soft tissue edema in the left lower extremity. IMPRESSION: No evidence of left lower extremity DVT. Reviewed, Interpreted and Dictated by Yaya Funes MD Transcribed by Sandra Douglas Authenticated by Yaya Funes MD on 11/25/2021 01:27:26 PM [facility]
== END ==
PROVIDERS: PCP Family Medicine; Visit Provider Family Medicine
DX: R60.1 Generalized edema (principal)
CPT/HCPCS: 93971

== ENCOUNTER → 2022-05-30 14:36 | Outpatient (CLI) | payer MEDICARE, BC, SELFPAY ==
--- NOTE | 2022-05-30 14:45 | XR_ITS ---
FINAL REPORT CLINICAL HISTORY: persistant cough COMPARISON: 02/25/2020 FINDINGS: Two views of the chest were obtained. The heart size and pulmonary vascularity are within normal limits. The mediastinum is normal. No acute pulmonary abnormality is identified. There is no pneumothorax. The bony thorax is intact. There is moderate degenerative change of the thoracic spine. IMPRESSION: No active cardiopulmonary disease. Reviewed, Interpreted and Dictated by Tavo George III, MD Transcribed by Sandra Douglas Authenticated and [facility]
[2022-05-30 19:49] LABS: Anion Gap 8.9 mEq/L (5-15); Blood Urea Nitrogen 26 mg/dl (9-20); Calcium 9.4 mg/dl (8.4-10.2); Carbon Dioxide 29 mmol/L (22.0-30.0); Chloride 100 mmol/L (98-107); Estimated Glomerular Filt Rate 71 ml/min (>60); GFR (African American) 86 ML/MIN (>60); Glucose 92 mg/dl (74-100); Potassium 4.9 mmoL/L (3.5-5.1); Sodium 133 mmol/L (136-145)
== END ==
PROVIDERS: PCP Family Medicine; Visit Provider Family Medicine
DX: R05.3 Chronic cough (principal)
CPT/HCPCS: 71046; 80048

== ENCOUNTER → 2022-07-05 10:13 | Outpatient (CLI) | payer MEDICARE, BC, SELFPAY ==
--- NOTE | 2022-07-05 10:17 | CT_ITS ---
FINAL REPORT TECHNIQUE: Axial images were obtained from the lung apex to the mid abdomen by computed tomography. Coronal reformatted images were obtained. This study was performed with techniques to keep radiation doses as low as reasonably achievable, (ALARA). Individualized dose reduction techniques using automated exposure control or adjustment of mA and/or kV according to the patient's size were employed. CLINICAL HISTORY: Chronic COugh FINDINGS: There is no axillary adenopathy. There is no hilar or mediastinal adenopathy. Heart size is normal. There is no pericardial or pleural effusion. Limited images of the upper abdomen are unremarkable. No suspicious infiltrate or nodule is identified. There is mild dependent atelectasis. IMPRESSION: Mild dependent atelectasis, otherwise unremarkable exam. Reviewed, Interpreted and Dictated by Tavo George III, MD Transcribed by Sarah Conrad Authenticated and . [facility]
== END ==
PROVIDERS: PCP Family Medicine; Visit Provider Internal Medicine Pulmonary Disease
DX: R05.3 Chronic cough (principal)
CPT/HCPCS: 71250

== ENCOUNTER 2022-10-08 20:06 | Observation (INO) | payer MEDICARE, BC, SELFPAY ==
[2022-10-08] VITALS (8 sets, daily range): BP systolic 114–144; BP diastolic 59–85; PULSE 65–100; RESP 14–20; TEMP 36.6–36.7; O2SAT 95–98; BMI 23.9; BMI 24.0
--- NOTE | 2022-10-08 20:14 | XR_ITS ---
PROCEDURE INFORMATION: Exam: XR Chest Exam date and time: 10/08/2022 8:11 PM Age: 86 years old Clinical indication: Sternal or substernal pain; Prior surgery; Surgery date: 6+ months; Surgery type: Cardiac stents. ; Additional info: Chest pain, HX cad/stents TECHNIQUE: Imaging protocol: Radiologic exam of the chest. Views: 2 views. COMPARISON: CT CHEST WO CON 07/05/2022 10:20 AM FINDINGS: Lungs: Hyperlucent changes are demonstrated. Increase in the lung volumes is demonstrated. Pleural spaces: Unremarkable. No pleural effusion. No pneumothorax. Heart/Mediastinum: Unremarkable. No cardiomegaly. Diaphragm: There is flattening of the hemidiaphragms. Bones/joints: Unremarkable. IMPRESSION: 1. No evidence of acute cardiopulmonary disease. 2. Chronic obstructive pulmonary disease.
--- NOTE | 2022-10-08 20:14 | ECG_ITS ---
APPROVED REPORT Exam: Resting ECG HR:98 bpm ECG Measurements Heart Rate 98 AXES AK 155 P 63 QRSd 73 QRS 50 QT 316 T 73 QTc 371 Conclusion SINUS RHYTHM EARLY REPOLARIZATION [ST ELEVATION WITH NORMALLY INFLECTED T-WAVE] BORDERLINE ECG UNCONFIRMED REPORT Electronically signed by : Salomon Calloway MD 10/09/2022 19:28:05
--- NOTE | 2022-10-08 20:20 | PC.NURSE ---
patient gone to RAD at this time.
--- NOTE | 2022-10-08 20:24 | PC.NURSE ---
patient back in room at this time.
[2022-10-08 20:26] LABS: Basophils # 0.1 K/mm3 (0-0.2); Basophils % 0.4 % (0.1-2.0); Eosinophils # 0.2 K/mm3 (0.0-0.4); Eosinophils % 1.9 % (0.1-12.0); Hemoglobin 14.7 g/dL (14.1-18.0); Lymphocytes # 0.8 K/mm3 (0.7-4.5); Lymphocytes % 6.9 % (10-50); Mean Corpuscular HGB Conc 32.8 g/dL (31.8-35.4); Mean Corpuscular Hemoglobin 29.6 pg (27.0-31.2); Mean Corpuscular Volume 90.5 fl (80-94); Monocytes # 0.7 K/mm3 (0.1-1.0); Monocytes % 6.2 % (1.7-9.3); Neutrophils # 10.1 K/mm3 (1.8-7.8); Neutrophils % 84.5 % (37.0-80.0); Platelet Count 232 K/mm3 (142-424); Red Blood Count 4.97 M/mm3 (4.60-6.20); Red Cell Distribution Width 13.9 % (11.5-17.5); White Blood Count 11.9 K/mm3 (4.8-10.8)
--- NOTE | 2022-10-08 20:27 | PC.NURSE ---
in room at this time.
--- NOTE | 2022-10-08 20:29 | HMH.EDCP ---
Discharge Plan Disposition Patient Disposition: Admitted As Inpatient Chief Complaint: Chest Pain Prescriptions Prescriptions: No Action cyanocobalamin (vitamin B-12) 1,000 mcg tablet extended release 1,000 mcg PO DAILY Label Comments: TAKE 1 TABLET BY MOUTH ONCE DAILY ascorbic acid (vitamin C) 500 mg capsule 500 mg PO DAILY cholecalciferol (vitamin D3) 25 mcg (1,000 unit) capsule 25 mcg PO DAILY albuterol sulfate [Ventolin HFA] 90 mcg/actuation HFA aerosol inhaler 2 puff inhalation QID Qty: 6.7 2RF atorvastatin 20 mg tablet 20 mg PO DAILY Qty: 30 3RF levothyroxine 25 mcg tablet 25 mcg PO DAILY Qty: 30 4RF aspirin 81 MG tablet,delayed release (DR/EC) 81 mg PO DAILY acetaminophen [Pain Reliever (acetaminophen)] 500 mg tablet 1,000 mg PO Q6HP PRN (Reason: pain or fever) Label Comments: TAKE 2 TABLETS BY MOUTH EVERY 6 HOURS NEEDED FOR PAIN MAY BE TAKEN WITH IBUPROFEN pantoprazole 40 mg tablet,delayed release (DR/EC) 40 mg PO DAILY Label Comments: TAKE 1 TABLET BY MOUTH ONCE DAILY ibuprofen 600 mg tablet 600 mg PO Q6HP PRN (Reason: Pain) Label Comments: TAKE 1 TABLET BY MOUTH EVERY 6 HOURS NEEDED FOR PAIN clopidogrel 75 mg tablet See Rx Instructions .ROUTE .COMPLEX Rx Instructions: Take 1 tablet by mouth once daily famotidine 20 mg tablet 20 mg PO BID triamcinolone acetonide 0.1 % paste 1 applic dental TID Rx Instructions: use after food and/or drink and/or oral hygiene tamsulosin 0.4 mg capsule See Rx Instructions .ROUTE .COMPLEX Rx Instructions: TAKE 1 CAPSULE BY MOUTH ONCE DAILY AT NIGHT azelastine 137 mcg (0.1 %) aerosol,spray 2 spray intranasal HS Rx Instructions: administer into each nostril fluticasone propionate [Flonase Allergy Relief] 50 mcg/actuation spray,suspension 2 spray intranasal DAILY Rx Instructions: administer into each nostril budesonide-formoterol [Symbicort] 160-4.5 mcg/actuation HFA aerosol inhaler 2 puff inhalation BID Referrals Follow up/Referrals: Stephania Mehta MD [Primary Care Provider] - See instructions Clinical Impressions Clinical Impression: CAD (coronary artery disease), Angina at rest Discharge ED Provider: To (ED),Cam Goncalves Chest Pain HPI General Chief Complaint: Chest Pain Stated Complaint: Chest Pain Time Seen by Provider: 10/08/22 20:29 Mode of Arrival: Ambulatory Source of Information: Patient and Medical Record Limitations: No Limitations Description of Symptoms (Recalled from ER Triage Doc. by RN): Pt arrives via private vehicle. States that today at 1500 he was reading his newspaper when he began to have severe chest pain in the center of his chest that radiated to the right said of his neck. States that the pain was worse whenever he would breathe in but since 1500 the pain has eased up. States that the pain is now a 4/10 but whenever it started it was a 6/10. History of Present Illness HPI narrative: onset of chest pain this afternoon at rest with rad to neck - hx of cad with stents 2019- MD complaint: chest pain indicative of cardiac Onset (ago): hour(s) Duration: constant Activity at onset: during rest Pain location: left chest Severity: moderate Quality: tightness Pain radiation: neck Risk Factors for CAD: Family Hx of CAD Treatments prior to or on arrival for Cardiac Chest Pain: none PAO Score for Non-Stemi Age of Patient: 80-89 years old Heart Rate: 50-69 bpm Systolic Blood Pressure: 120-139 mmhg Serum Creatinine: 0.80-1.19 mg/dl CHF [place] Class: I-No CHF Other Risk Factors: None Non-Stemi Risk Score: 135 Risk Stratification: 109-140 = Intermediate Ri Related Data Prior Cardiac Testing/Procedures: Stenting Home Medications Medication Instructions Recorded Confirmed aspirin 81 mg tablet,delayed 81 mg PO DAILY Heart disease 09/18/17 10/08/22 release cholecalciferol
[2022-10-08 20:38] LABS: Coronavirus 19, PCR Not Detected (NotDetected); Influenza A, PCR Not Detected (NotDetected); Influenza B, PCR Not Detected (NotDetected)
[2022-10-08 20:45] LABS: Alanine Aminotransferase 28 U/L (12-78); Alkaline Phosphatase 67 U/L (38-126); Anion Gap 9.5 mEq/L (5-15); Aspartate Amino Transferase 42 U/L (17-59); Bilirubin,Direct 0.2 mg/dl (0.0-0.4); Bilirubin,Indirect 0.6 mg/dL (0.0-0.9); Bilirubin,Total 0.8 mg/dl (0.2-1.3); Bilirubin,Unconjugated 0.5 mg/dL (0.0-1.1); Blood Urea Nitrogen 22 mg/dl (9-20); Calcium 8.7 mg/dl (8.4-10.2); Carbon Dioxide 26 mmol/L (22.0-30.0); Chloride 103 mmol/L (98-107); Creatinine Clearance Estimated 55 mL/min (50-200); Estimated Glomerular Filt Rate 71 ml/min (>60); GFR (African American) 86 ML/MIN (>60); Glucose 159 mg/dl (74-100); Magnesium 1.8 mg/dl (1.6-2.3); Potassium 4.5 mmoL/L (3.5-5.1); Sodium 134 mmol/L (136-145); Total Protein,Serum 6.6 g/dl (6.3-8.2)
[2022-10-08 20:50] LABS: C-Reactive Protein 4.6 mg/L (0-4)
--- NOTE | 2022-10-08 20:53 | PC.NURSE ---
Rounded on patient, no needs voiced at this time.
[2022-10-08 20:56] LABS: NT Pro Brain Natriuretic Pep. 96.1 pg/mL (0-450)
[2022-10-08 20:57] LABS: Erythrocyte Sedimentation Rate 16 mm/hr (0-20); Troponin I < 0.01 ng/ml (0.00-0.034)
[2022-10-08 21:01] LABS: Procalcitonin 0.052 ng/mL (0.0-2.0); T4 (Thyroxine) 8.1 ug/dl (5.53-11.0)
--- NOTE | 2022-10-08 21:05 | PC.NURSE ---
Rechecked pt's pain after placing Nitro paste. He states the pain is more diminished and it is 1 out of 10 on LUGGAGE REPAIRER.
--- NOTE | 2022-10-08 21:08 | PC.NURSE ---
on phone with at this time.
--- NOTE | 2022-10-08 21:11 | PC.NURSE ---
patient Admitted to floor at this time.
[2022-10-08 21:15] LABS: Thyroid Stimulating Hormone 2.83 uIU/mL (0.465-4.68)
--- NOTE | 2022-10-08 21:35 | PC.NURSE ---
Called report to Nury SAMSON on 2nd floor
[2022-10-08 23:50] LABS: Troponin I < 0.01 ng/ml (0.00-0.034)
[2022-10-09] VITALS (13 sets, daily range): BP systolic 115–145; BP diastolic 54–79; PULSE 55–91; RESP 16–20; TEMP 36.4–36.6; O2SAT 93–98
[2022-10-09 02:47] LABS: Troponin I < 0.01 ng/ml (0.00-0.034)
[2022-10-09 06:28] LABS: Anion Gap 9.9 mEq/L (5-15); Blood Urea Nitrogen 18 mg/dl (9-20); Calcium 8.2 mg/dl (8.4-10.2); Carbon Dioxide 26 mmol/L (22.0-30.0); Chloride 104 mmol/L (98-107); Creatinine Clearance Estimated 55 mL/min (50-200); Estimated Glomerular Filt Rate 80 ml/min (>60); GFR (African American) 97 ML/MIN (>60); Glucose 88 mg/dl (74-100); Magnesium 1.9 mg/dl (1.6-2.3); Potassium 3.9 mmoL/L (3.5-5.1); Sodium 136 mmol/L (136-145)
[2022-10-09 06:40] LABS: Basophils # 0.1 K/mm3 (0-0.2); Basophils % 0.7 % (0.1-2.0); Eosinophils # 0.3 K/mm3 (0.0-0.4); Hematocrit 42.9 % (42.0-52.0); Hemoglobin 13.6 g/dL (14.1-18.0); Lymphocytes # 1.1 K/mm3 (0.7-4.5); Lymphocytes % 13.1 % (10-50); Mean Corpuscular HGB Conc 31.7 g/dL (31.8-35.4); Mean Corpuscular Hemoglobin 28.9 pg (27.0-31.2); Monocytes # 0.7 K/mm3 (0.1-1.0); Monocytes % 8.6 % (1.7-9.3); Neutrophils # 6.2 K/mm3 (1.8-7.8); Neutrophils % 74.7 % (37.0-80.0); Platelet Count 219 K/mm3 (142-424); Red Blood Count 4.71 M/mm3 (4.60-6.20); Red Cell Distribution Width 13.8 % (11.5-17.5); White Blood Count 8.3 K/mm3 (4.8-10.8)
--- NOTE | 2022-10-09 07:57 | HMH.PHAINT1 ---
Pharmacy Intervention Comments: Medication reconciliation completed using external fill history and list from recent PCP visit (09/29/22)
--- NOTE | 2022-10-09 08:00 | CA_ITS ---
APPROVED REPORT EXAM: Comprehensive 2D, Doppler, and color-flow Echocardiogram Assistant Hvac Mechanic: Ashlye Pritchard, RCS, RVS Ht: 5 ft 9 in Wt: 162lbs BSA: 1.89 BP: 114/63 mmHg Indications: CP, CAD -STENTS, SOB Echo Enhancing Agent Comments: Low parasternal windows. 2D Dimensions IVSd 0.95 cm M: 0.6-1.2 LVEF (Visual) 85.60 % PWd 0.97 cm M: 0.6 - 1.2 LVDd 4.77 cm M: 4.2 - 5.9 LVDs 2.15 cm M: 2.5 - 4.0 Aortic Root 3.63 cm M: 3.1 - 3.7 Left Atrium 3.24 cm M: 3.0 - 4.0 LVOT 2.05 cm (M/F) 1.5-2.5 M-Mode Dimensions LA Diam 3.81 cm (1.9-4.0) Ao Diam 3.32 cm (2.0-3.7) TAPSE 2.26 (<1.7) LV Diastology E Decel Time 297.00 (160-240 msec) E/A Ratio 0.76 MED E' 6.40 (< 7 cm/sec) MED A' 10.50 cm/s E'/MED E' Ratio 11.19 (>14) LAT E' 7.60 (<10 cm/sec) LAT A' 11.20 cm/s E/LAT E' Ratio 9.42 (>14) Aortic Valve LVOT Max 94.00 (70-110 cm/s) LVOT VTI 24.56 cm AoV Peak Madhu. 121.00 (50-130 cm/s) AO Peak GR. 5.90 mmHg AO Mean GR. 3.00 (<5 mmHg) AO VTI 24.21 (18-25 cm) ADRYAN (VTI) 3.35 (2.5-4.5 cm2) Mitral Valve MV A Velocity 95.00 (40-130 cm/s) E/A Ratio 0.76 MV Decel. Time 297.00 (160-240 ms) MV PHT 63.00 ms Tricuspid Valve TR P. Velocity 212.00 cm/s RAP Estimate 10.00 mmHg RVSP 28.00 mmHg Left Ventricle Technically difficult study because of the patient factors and poor acoustic windows. Left atrium is mildly enlarged, left ventricle is normal size mild concentric left ventricular hypertrophy, estimated ejection fraction 55% with no regional wall motion abnormality, grade 1 diastolic dysfunction seen without tissue Doppler evidence of late left atrial pressure. Right Ventricle Right atrium and right ventricle are mildly enlarged with normal contractility. Aortic Valve Aortic valve is thickened and calcified without aortic stenosis or aortic insufficiency. Mitral Valve Mitral valve leaflets are minimally thickened, there is mild mitral regurgitation. Tricuspid Valve Tricuspid valve grossly normal, there is mild tricuspid regurgitation, tricuspid regurgitation jet plasty is inadequate for calculation of the right ventricular systolic pressure. Pulmonic Valve Pulmonic valve is poorly visualized. Great Vessels Aortic root is normal size. Inferior vena cava is normal size with normal inspiratory collapse. Pericardium No significant pericardial effusion noted. Conclusion 1. Mild biatrial enlargement, normal left ventricular size, estimated ejection fraction 55% with no regional wall motion abnormality, grade 1 diastolic dysfunction seen without tissue Doppler evidence of raise left atrial pressure. 2. Mildly enlarged right ventricle with normal contractility. 3. Mild mitral and tricuspid regurgitation. 4. No significant pericardial effusion noted. 5. Inferior vena cava normal size. Normal inspiratory collapse. Electronically signed by : Derian Lynch MD 10/09/2022 21:04:07
--- NOTE | 2022-10-09 08:34 | EXP.CARD.CON ---
History of Present Illness History of Present Illness Consult date: 10/09/22 Requesting physician: Stephania Mehta Consult reason: chest pain Chief complaint: chest pain Additional Medical History:: 1. CAD A. TL to LAD, circumflex and RCA, 2019. DAPT with aspirin and Plavix since then. History of shortness of breath with Brilinta B. Exercise Myoview 10/05/2020, no ischemia with normal EF. Only achieved 4.6 METS of activity. 2. Hyperlipidemia 3. GERD 4. Echocardiogram, 10/05/2020, mild LAE, normal LV size, mild concentric LVH, EF 55% with no regional WMA, grade 1 day DD. Mild MR and TR. 5. Chronic cough A. CT of the chest, 07/05/2022, mild dependent atelectasis otherwise unremarkable. 6. Carotid duplex, 04/03/2019, less than 20% stenosis bilaterally 7. Abnormal EKG with early repolarization changes, chronic 8. Degenerative changes of the lumbar spine with history of lumbar radiculopathy, facet hypertrophy, bulging disc and spinal stenosis with postlaminectomy syndrome. History of present illness: 86-year-old white male with known history of three-vessel coronary artery disease status post stenting in 2019 presented to the emergency department by private vehicle for onset of chest pain while at rest yesterday. Initially described as a 6 out of 10 pain that improved after nitroglycerin in the ER and resolved overnight with Nitropaste. Patient denies any discomfort this morning. Chest pain described as a heavy pressure sensation across the chest and aching that radiated up into the neck. He denies any exertional symptoms recently but has noted some left-sided chest discomfort and back discomfort recently. He was seeing Dr. Zhao for chronic cough with some treatment for possible GERD. EKG this admission is sinus rhythm with early repolarization changes consistent with prior EKG tracings. Troponins have returned normal. Cardiology consulted for evaluation and recommendation. [facility] Disclaimer: The information contained in this section may have been updated after the patient was seen, as this information can be updated by other users. Medical History (Updated 10/08/22 @ 22:08 by Ciera Antoine RN) Allergic rhinitis Angina, class IV Asthma Benign prostatic hyperplasia (BPH) with straining on urination Bronchitis CAD (coronary artery disease) Chronic cough Dental implant pain Dizziness Dyspnea Family history of heart disease Gastritis GERD without esophagitis High coronary artery calcium score HLD (hyperlipidemia) Lichen planus Lip fissure Other seborrheic keratosis Persistent cough Rhinitis Rupture, artery Slipped intervertebral disc Surgical History (Updated 10/08/22 @ 22:07 by Ciera Antoine RN) Previous back surgery Stented coronary artery Family History No significant family history Heart disease Social History (Updated 10/08/22 @ 22:09 by Ciera Antoine RN) Smoking Status: Never smoker second hand exposure: No alcohol intake: never substance use type: denies use current occupational status: retired Travel in the last 8 weeks: None household members: spouse housing: house current occupational exposures/hazards: No caffeine: Yes Review of Systems Review of Systems Review of systems:: pertinent systems reviewed and negative unless documented below *Cardiovascular Cardiovascular: Reports as per HPI and Reports chest pain *Respiratory Respiratory: Reports cough *Gastrointestinal Gastrointestinal: Reports dyspepsia Exam Data for Last 24 hours Vital signs and Labs for Last 24 Hours: Temp Pulse Resp BP Pulse Ox 98 F 66 16 128/68 98 10/09/22 04:00 10/09/22 04:00 10/09/22 04:00 10/09/22 04:00 10/09/22 04:00 Laboratory Results - last 24 hr 10/08/22 20:10: WBC 11.9 H, RBC 4.97, Hgb 14.7, Hct 45.0, MCV 90.5, MCH 29.6, MCHC 32.8, RDW 13.9, Plt Count 232, MPV 9.0, Neut % (Auto) 84.5 H, Lymph
--- NOTE | 2022-10-09 08:38 | IR_ITS ---
APPROVED REPORT Patient Location: Inpatient Brimming Machine Operator: CURTIS Suh RT (R) PROCEDURES Left heart catheterization Left ventriculogram Selective coronary angiogram INDICATION Known three-vessel coronary disease, Unstable angina Informed consent was obtained prior to the procedure. COMPLICATIONS None Estimated Blood Loss: Less than 10 ML TECHNIQUE One percent lidocaine used to anesthetize the right anterior aspect of the wrist. The right radial artery was accessed via the Seldinger technique. A 6 K[place] sheath was placed in the right radial artery. 2.5 mg of verapamil, 800 mcg of nitroglycerin, 1mg Lidocaine and 5000 U Heparin were given through the arterial sheath. The papa catheter was also used to perform left heart catheterization, left ventriculogram and selective coronary angiogram. At the end of the procedure the sheath was removed good hemostasis was achieved using Traclet band, patient was transferred to the postop holding area in stable condition. ANGIOGRAPHIC RESULTS The left main artery Normal The left anterior descending artery Has a stent in the proximal segment which is widely patent free of in-stent restenosis with excellent proximal and distal transitioning The circumflex artery Has a stent in the proximal segment which is widely patent free of in-stent restenosis with excellent proximal and distal transitioning The right coronary artery Is a dominant vessel and has proximal 10 to 20% stenosis with additional eccentric 20% stenosis followed by a mid vessel stent which is widely patent free of in-stent restenosis with excellent proximal distal transitioning. There are additional distal 20% stenosis The CAL[place]RESE ventriculogram reveals Hyperdynamic 75% The left ventricular end-diastolic pressure 15 mmHg IMPRESSION Widely patent stents with excellent proximal and distal transitioning in all 3 vessels with excellent inline distal flow Hyperdynamic ventricle which is the likely etiology for patient's angina Borderline elevated LVEDP PLAN 1. Medical management 2. Consider evaluation of noncardiac chest pain Electronically signed by : Sean Vizcaino MD 10/09/2022 13:44:58
--- NOTE | 2022-10-09 09:06 | EXP.HP ---
History of Present Illness *Admission Date: 10/09/22 *Reason for visit:: Chest pain *History of present illness: Mr. Bernstein is an 85-year-old male patient with a history of hyperlipidemia, hypothyroidism, diverticulosis, melanoma, lumbar disc disease, hearing deficit and coronary artery disease who presented to [facility] emergency room for evaluation after experiencing 3 hours of midsternal chest discomfort which possibly could have radiated into the right side of his neck. He denies any associated symptoms such as shortness of breath, nausea and vomiting, and palpitations. He denies having leg edema. He states after arriving to the ER medication given there relieved his pain.In the ER he was given a liter of IV fluids with aspirin, nitroglycerin sublingually and Nitropaste. He was then admitted with a cardiology referral. Cardiology has seen him with the following notation: Plan 1.? Chest pain with concern for unstable angina in a patient with known three-vessel disease and prior coronary stenting in 2019.? Recommend left heart catheterization for evaluation of symptoms.? Risk, benefits and procedure explained to the patient he agrees to proceed.? Continue aspirin and Plavix therapy 2.? History of hyperlipidemia, continue statin therapy At present patient is comfortable.Chest x-ray showed no evidence of acute cardiopulmonary disease with chronic obstructive pulmonary disease.Troponin I has been normal with normal renal function and electrolytes. Echocardiogram has been completed with pending results. [facility] Disclaimer: The information contained in this section may have been updated after the patient was seen, as this information can be updated by other users. Medical History (Updated 10/08/22 @ 22:08 by Ciera Antoine RN) Allergic rhinitis Angina, class IV Asthma Benign prostatic hyperplasia (BPH) with straining on urination Bronchitis CAD (coronary artery disease) Chronic cough Dental implant pain Dizziness Dyspnea Family history of heart disease Gastritis GERD without esophagitis High coronary artery calcium score HLD (hyperlipidemia) Lichen planus Lip fissure Other seborrheic keratosis Persistent cough Rhinitis Rupture, artery Slipped intervertebral disc Surgical History (Updated 10/08/22 @ 22:07 by Ciera Antoine RN) Previous back surgery Stented coronary artery Family History (Updated 10/09/22 @ 09:13 by Sandra Horne APRN) Diabetes Coronary artery disease Heart disease Social History (Updated 10/08/22 @ 22:09 by Ciera Antoine RN) Smoking Status: Never smoker second hand exposure: No alcohol intake: never substance use type: denies use current occupational status: retired Travel in the last 8 weeks: None household members: spouse housing: house current occupational exposures/hazards: No caffeine: Yes Review of Systems Constitutional Constitutional: Denies body ache(s), Denies fever(s) and Denies headache(s) Eyes Eyes: Denies change in vision ENT Ears, Nose, Mouth, and Throat: Reports abnormal hearing, Denies dizziness, Denies otalgia, Denies headache(s), Reports post nasal drip and Denies sore throat *Cardiovascular Cardiovascular: Reports chest pain (Midsternal across entire chest), Denies dyspnea, Denies irregular heart rhythm and Denies leg edema *Respiratory Respiratory: Denies chest congestion, Reports cough (Of long duration since last summer), Denies dyspnea and Denies hemoptysis *Gastrointestinal Gastrointestinal: Denies change in stool character, Denies constipation, Denies heartburn, Denies nausea and Denies vomiting *Genitourinary Genitourinary: Denies difficulty urinating *Musculoskeletal Musculoskeletal: Denies muscle weakness and Denies myalgias *Neurologic Neurologic: Reports abnormal hearing, Denies dizziness and Denies headache(s) Meds Home Medications and Allergies Home Medications Medication Instructions Recorded
--- NOTE | 2022-10-09 15:02 | PC.NURSE ---
PT IS RESTING IN BED. ALERT AND ORIENTED X4. PT IS VERY [place]. PT HAS AMBULATED IN THE ROOM SEVERAL TIMES THIS SHIFT. EATING AND DRINKING WELL. CATH VSS. PT IS HOPING TO GET TO GO HOME THIS EVENING. WILL CONTINUE TO MONITOR.
--- NOTE | 2022-10-10 14:24 | CARE MANAGER ---
Attempted to contact patient related to hospital discharge. Phone number is a busy signal and so I contacted his sister and she states he is hard to get ahold of as he doesn't stay home. She will give him my number and message. MALI Berry
--- NOTE | 2022-10-11 09:08 | CARE MANAGER ---
Patient returned call relating to hospital discharge. He states he is doing very well and denies any questions or concerns. MALI Berry
--- NOTE | 2022-10-12 08:35 | EXP.DC.SUM ---
General Admission date:: 10/08/22 Discharge date: 10/10/22 HPI HPI HPI: Mr. Bernstein is an 85-year-old male patient with a history of hyperlipidemia, hypothyroidism, diverticulosis, melanoma, lumbar disc disease, hearing deficit and coronary artery disease who presented to [facility] emergency room for evaluation after experiencing 3 hours of midsternal chest discomfort which possibly could have radiated into the right side of his neck. He denies any associated symptoms such as shortness of breath, nausea and vomiting, and palpitations. He denies having leg edema. He states after arriving to the ER medication given there relieved his pain. In the ER he was given a liter of IV fluids with aspirin, nitroglycerin sublingually and Nitropaste. He was then admitted with a cardiology referral. Cardiology has seen him with the following notation: Plan 1.? Chest pain with concern for unstable angina in a patient with known three-vessel disease and prior coronary stenting in 2019.? Recommend left heart catheterization for evaluation of symptoms.? Risk, benefits and procedure explained to the patient he agrees to proceed.? Continue aspirin and Plavix therapy 2.? History of hyperlipidemia, continue statin therapy At present patient is comfortable. Chest x-ray showed no evidence of acute cardiopulmonary disease with chronic obstructive pulmonary disease. Troponin I has been normal with normal renal function and electrolytes. Echocardiogram has been completed with pending results. Hospital Course Hospital Course Hospital Course: Cardiology recommended a left heart cath and this was performed. The patient had widely patent stents with excellent proximal distal transitioning in all 3 vessels and excellent inline distal flow. There was a hyperdynamic ventricle which was likely the etiology for the patient's angina and a borderline elevated LVEDP. Cardiology recommended medical management and evaluation of noncardiac chest pain. The patient was stable to be discharged and will follow up with both cardiology and Dr. Mehta. Exam Data for Last 24 hours Vital signs and Labs for Last 24 Hours: Temp Pulse Resp BP Pulse Ox 97.5 F L 63 20 122/54 L 95 10/09/22 17:00 10/09/22 18:00 10/09/22 18:00 10/09/22 18:00 10/09/22 18:00 I & O for Last 24 hours: Intake & Output 10/09/22 10/10/22 10/11/22 10/12/22 11:59 11:59 11:59 11:59 Intake Total 1429 / 1429 240 / 240 Output Total 0 / 0 Balance 1429 / 1429 240 / 240 Weight 162 lb 0.001 oz Narrative: Constitutional Constitutional: no acute distress Comments: Lying in bed fully dressed and appears comfortable *Routine HEENT Exam Head: Present normocephalic and atraumatic Eye: Present PERRL; Absent conjunctival icterus, scleral injection or conjunctivae pink ENT: Present mucous membranes moist and oropharynx clear *Routine Neck Exam Neck: Present supple; Absent carotid bruit, lymphadenopathy or thyromegaly Routine Chest/Breast/Axilla Exam Chest wall: Absent tenderness *Routine Respiratory Exam Respiratory: Present rhonchi (Scattered posteriorly) *Routine Cardiovascular Exam Cardiovascular: Present RRR *Routine Abdominal Exam Abdominal: Present soft and normoactive bowel sounds; Absent tenderness or distended *Routine Rectal Exam Rectal:: deferred *Routine Genitalia Exam Genitalia:: deferred *Routine Extremities Exam Extremities: Absent edema or calf tenderness *Routine Neurological Exam Neurological: Present alert and oriented X3 DS: Diagnosis Discharge Diagnosis (1) Angina at rest: Status: Acute (2) CAD (coronary artery disease): Status: Chronic (3) Stented coronary artery: Status: Chronic (4) HLD (hyperlipidemia): Status: Chronic (5) GERD without esophagitis: Status: Acute Meds Home Medications and Allergies Home Medications Medication Instructions Recorded Confirmed Type aspirin 81 mg tablet,delaye
== END 2022-10-09 20:02 | disposition home or self-care (01) ==
LOC: ER 21:09 → 2ND 21:28
PROVIDERS: Internal Medicine; Admitting Provider Family Medicine; Emergency Provider Emergency Medicine; PCP Family Medicine; Visit Provider Family Medicine
DX: I25.118 Atherosclerotic heart disease of native coronary artery with other forms of angina pectoris (principal); Z95.5 Presence of coronary angioplasty implant and graft; E78.2 Mixed hyperlipidemia; K21.9 Gastro-esophageal reflux disease without esophagitis; Z79.899 Other long term (current) drug therapy; R06.9 Unspecified abnormalities of breathing; Z82.49 Family history of ischemic heart disease and other diseases of the circulatory system; Z20.822 Contact with and (suspected) exposure to COVID-19
CPT/HCPCS: G0378; 36415; 71046; 80048; 80076; 83735; 83880; 84145; 84436; 84443; 84484; 85025; 85651; 86140; 93005; 93306; 93458; 99152; 99153; 99285; C1725; C1769; C9803; J1644; Q9967; U0003; U0005

== ENCOUNTER 2022-12-24 02:43 | Observation (INO) | payer MEDICARE, BC, SELFPAY ==
[2022-12-24] VITALS (10 sets, daily range): BP systolic 102–130; BP diastolic 56–89; PULSE 51–96; RESP 16–19; TEMP 36.2–37.1; O2SAT 95–100; BMI 23.6; BMI 24.3; BMI 21.9
--- NOTE | 2022-12-24 03:02 | CT_ITS ---
PROCEDURE INFORMATION: Exam: CT Abdomen And Pelvis With Contrast Exam date and time: 12/24/2022 3:26 AM Age: 87 years old Clinical indication: Other: Rectal bleeding TECHNIQUE: Imaging protocol: Computed tomography of the abdomen and pelvis with contrast. Radiation optimization: All CT scans at this facility use at least one of these dose optimization techniques: automated exposure control; mA and/or kV adjustment per patient size (includes targeted exams where dose is matched to clinical indication); or iterative reconstruction. Contrast material: ISOVUE; Contrast volume: 75 ml; Contrast route: IV; REPORTING DATA: Count of CT and Cardiac NM exams in prior 12 months: This patient has received [address] and 0 known cardiac nuclear medicine studies in the 12 months prior to the current study. COMPARISON: CT CHEST WO CON 07/05/2022 10:20 AM FINDINGS: Coronary arteries: Extensive coronary calcifications. Liver: Normal. No mass. Gallbladder and bile ducts: Normal. No calcified stones. No ductal dilation. Pancreas: The pancreas is diffusely atrophic. Spleen: Normal. No splenomegaly. Adrenal glands: Normal. No mass. Kidneys and ureters: Bilateral simple appearing renal cysts are noted. No renal stone or obstruction present. Stomach and bowel: Rectum is distended. There are multiple sites of what appears to be active hemorrhage within the sigmoid colon. See series 3 image 94 through 96 Appendix: No evidence of appendicitis. Intraperitoneal space: Unremarkable. No free air. No significant fluid collection. Vasculature: Extensive aortic atherosclerosis without evidence of aneurysm. Lymph nodes: Unremarkable. No enlarged lymph nodes. Urinary bladder: Unremarkable as visualized. Reproductive: Unremarkable as visualized. Bones/joints: Unremarkable. No acute fracture. Soft tissues: Unremarkable. IMPRESSION: 1. Active sigmoid hemorrhage likely present. Correlation with colonoscopy may be helpful. This is in the region of diverticuli which may be the cause. 2. Extensive coronary atherosclerosis. COMMENTS: Consistent with the [employer]'s Incidental Findings Committee white paper (J Am Carissa Radiol 2018): Any incidental renal lesion less than 1 cm or classified as too small to characterize, or any incidental cystic renal lesion characterized as simple-appearing, is likely benign. No follow-up imaging is recommended for these lesions per consensus recommendations based on imaging criteria.
[2022-12-24 03:08] LABS: Occult Blood,Stool Positive (Negative)
[2022-12-24 03:09] LABS: Basophils # 0.1 K/mm3 (0-0.2); Basophils % 0.8 % (0.1-2.0); Eosinophils # 0.5 K/mm3 (0.0-0.4); Eosinophils % 6.5 % (0.1-12.0); Hematocrit 42.5 % (42.0-52.0); Hemoglobin 14.1 g/dL (14.1-18.0); Lymphocytes # 1.6 K/mm3 (0.7-4.5); Lymphocytes % 20.6 % (10-50); Mean Corpuscular HGB Conc 33.1 g/dL (31.8-35.4); Mean Corpuscular Hemoglobin 29.3 pg (27.0-31.2); Mean Corpuscular Volume 88.7 fl (80-94); Mean Platelet Volume 8.5 fl (7.4-10.4); Monocytes # 0.6 K/mm3 (0.1-1.0); Neutrophils # 4.8 K/mm3 (1.8-7.8); Neutrophils % 64.1 % (37.0-80.0); Platelet Count 316 K/mm3 (142-424); Red Blood Count 4.79 M/mm3 (4.60-6.20); Red Cell Distribution Width 13.7 % (11.5-17.5); White Blood Count 7.5 K/mm3 (4.8-10.8)
[2022-12-24 03:14] LABS: Alanine Aminotransferase 24 U/L (12-78); Albumin Level 3.9 g/dl (3.5-5.0); Albumin/Globulin Ratio 1.2 (1.1-1.8); Alkaline Phosphatase 72 U/L (38-126); Anion Gap 16.4 mEq/L (5-15); Aspartate Amino Transferase 31 U/L (17-59); Bilirubin,Total 0.4 mg/dl (0.2-1.3); Blood Urea Nitrogen 28 mg/dl (9-20); Carbon Dioxide 25 mmol/L (22.0-30.0); Chloride 103 mmol/L (98-107); Creatinine Clearance Estimated 55 mL/min (50-200); Estimated Glomerular Filt Rate 71 ml/min (>60); GFR (African American) 86 ML/MIN (>60); Globulin 3.2 g/dL (1.3-3.2); Glucose 99 mg/dl (74-100); Potassium 4.4 mmoL/L (3.5-5.1); Sodium 140 mmol/L (136-145); Total Protein,Serum 7.1 g/dl (6.3-8.2)
[2022-12-24 03:14] LABS: Coronavirus 19, PCR Not Detected (NotDetected); Influenza A, PCR Not Detected (NotDetected); Influenza B, PCR Not Detected (NotDetected)
[2022-12-24 03:20] LABS: C-Reactive Protein 51.1 mg/L (0-4)
[2022-12-24 03:33] LABS: Procalcitonin 0.057 ng/mL (0.0-2.0)
[2022-12-24 03:34] LABS: Erythrocyte Sedimentation Rate 41 mm/hr (0-20)
--- NOTE | 2022-12-24 04:12 | PC.NURSE ---
rina on phone with RADHA
--- NOTE | 2022-12-24 04:24 | PC.NURSE ---
Dr. Ariza at
--- NOTE | 2022-12-24 04:25 | HMH.EDGIBL ---
Discharge Plan Disposition Patient Disposition: Admitted Chief Complaint: GI Bleed Clinical Impressions Clinical Impression: Lower gastrointestinal hemorrhage Discharge ED Provider: To (ED)Cam GI Bleed HPI General Chief complaint: GI Bleed Stated complaint: blood in stool Time Seen by Provider: 12/24/22 04:00 Mode of Arrival: Ambulatory Source of Information: Patient and Medical Record Limitations: No Limitations Description of Symptoms (Recalled from ER Triage Doc. by RN): pt reports having a BM this am that was bright red blood the pt has no hx of gi bleed or any other GI isses. the pt states that he did have a slight bloody stool yesterday. the pt has no complaints of pain at this time History of Present Illness HPI Narrative: brrb which started tonight - no fever or vomiting MD complaint: gross hematochezia Onset (ago): hour(s) Consistency: intermittent Severity: moderate Associated symptoms: denies other symptoms Related Data Home Medications Medication Instructions Recorded Confirmed aspirin 81 mg tablet,delayed 81 mg PO DAILY Heart disease 09/18/17 12/24/22 release clopidogrel 75 mg tablet 75 mg PO DAILY Blood thinner 10/23/22 12/24/22 atorvastatin 20 mg tablet See Rx Instructions .Route 12/24/22 12/24/22 .COMPLEX High cholesterol budesonide-formoterol HFA 160 2 puff inhalation BID Breathing 12/24/22 12/24/22 mcg-4.5 mcg/actuation aerosol problems inhaler (Symbicort) tamsulosin 0.4 mg capsule See Rx Instructions .Route 12/24/22 12/24/22 .COMPLEX prostate Previous Rx's Medication Instructions Recorded levothyroxine 25 mcg tablet 25 mcg PO DAILY thyroid #30 tabs 06/07/22 Allergies Allergy/AdvReac Type Severity Reaction Status Date / Time acetaminophen [From Lortab] AdvReac Mild Verified 12/22/22 09:53 hydrocodone [From Lortab] AdvReac Mild Verified 12/22/22 09:53 [facility] Disclaimer: The information contained in this section may have been updated after the patient was seen, as this information can be updated by other users. Medical History Allergic rhinitis Allergic rhinitis Angina, class IV Asthma Benign prostatic hyperplasia (BPH) with straining on urination Bronchitis CAD (coronary artery disease) Chronic cough Dental implant pain Dizziness Dyspnea Family history of heart disease Gastritis GERD without esophagitis High coronary artery calcium score HLD (hyperlipidemia) Lichen planus Lip fissure He needs to let the ENT examine the lip lesion Mild persistent asthma Other seborrheic keratosis Persistent cough Rhinitis Rupture, artery Slipped intervertebral disc Surgical History Previous back surgery Stented coronary artery Family History Other Coronary artery disease Diabetes Heart disease Social History Smoking Status: Never smoker second hand exposure: No alcohol intake: never substance use type: denies use current occupational status: retired Travel in the last 8 weeks: None household members: spouse housing: house current occupational exposures/hazards: No caffeine: Yes ROS Obtained: Yes All systems reviewed & no additional complaints except as documented Physical Exam General General appearance: alert Head Head exam: normocephalic Eye Eye exam: Present PERRL and EOMI; Absent scleral icterus ENT ENT exam: Present mucous membranes moist Neck Neck exam: Present trachea midline Respiratory Respiratory exam: Present normal lung sounds bilaterally; Absent respiratory distress Cardiovascular Cardiovascular exam: Present regular rate, systolic murmur and +S4 Abdominal Exam Abdominal exam: Present soft; Absent tenderness or guarding Extremities Exam Extremities exam: Present f
--- NOTE | 2022-12-24 04:28 | PC.NURSE ---
DR. CORTEZ ON PHONE WITH DR. ROSE.
--- NOTE | 2022-12-24 04:32 | PC.NURSE ---
paged dr ness @ this time
--- NOTE | 2022-12-24 04:34 | PC.NURSE ---
rina on phone with dr ness
--- NOTE | 2022-12-24 04:35 | PC.NURSE ---
PATIENT ADMITTED TO [address] OLIVA TO DR. RUTH WITH DX OF GI BLEED.
--- NOTE | 2022-12-24 05:07 | PC.NURSE ---
Pt arrived to floor via wheelchair @ 0505
--- NOTE | 2022-12-24 05:07 | PC.NURSE ---
Addendum entered by Abby Rianey RN 12/24/22 05:09: PATIENT ARRIVED AT 0505. Original Note: RECEIVED PHONE REPORT FROM MARY/ED NURSE AT 0450. PATIENT ARRIVED TO THE FLOOR VIA W/C. DIAGNOSIS ACTIVE SIGMOID HEMMORRHAGE.
--- NOTE | 2022-12-24 06:43 | PC.NURSE ---
PATIENT WENT TO BR AND REPORTS PASSED PURE BLOOD . FLUSHED BEFORE STAFF INSPECTED.
--- NOTE | 2022-12-24 08:16 | HMH.PHAINT1 ---
Pharmacy Intervention Comments: MEDICATION RECONCILIATION COMPLETED ON PATIENT USING EXTERNAL FILL HISTORY FROM PHARMACY. -MARIE TONG, CODEYD
--- NOTE | 2022-12-24 08:18 | EXP.SURG.CON ---
History of Present Illness *Admission Date: 12/24/22 *Reason for visit:: Diverticular bleed *History of present illness: This is an 87-year-old gentleman seen in consultation from his primary service after presenting to the emergency department with bright red blood per rectum. Evaluation included a CT scan that showed changes consistent with likely diverticular bleed. Please see HPI forwarded from emergency department evaluation below. He states that he feels fine right now . He did note some bright red blood per rectum just a little bit ago with a bowel movement. Forwarded from emergency department evaluation: General Description of Symptoms (Recalled from ER Triage Doc. by RN): pt reports having a BM this am that was bright red blood the pt has no hx of gi bleed or any other GI isses. the pt states that he did have a slight bloody stool yesterday. the pt has no complaints of pain at this time History of Present Illness HPI Narrative: brrb which started tonight - no fever or vomiting MD complaint: gross hematochezia Onset (ago): hour(s) Consistency: intermittent Severity: moderate Associated symptoms: denies other symptoms PFSH PFS Disclaimer: The information contained in this section may have been updated after the patient was seen, as this information can be updated by other users. Medical History Allergic rhinitis Allergic rhinitis Angina, class IV Asthma Benign prostatic hyperplasia (BPH) with straining on urination Bronchitis CAD (coronary artery disease) Chronic cough Dental implant pain Dizziness Dyspnea Family history of heart disease Gastritis GERD without esophagitis High coronary artery calcium score HLD (hyperlipidemia) Lichen planus Lip fissure He needs to let the ENT examine the lip lesion Mild persistent asthma Other seborrheic keratosis Persistent cough Rhinitis Rupture, artery Slipped intervertebral disc Surgical History Previous back surgery Stented coronary artery Family History Other Coronary artery disease Diabetes Heart disease Social History Smoking Status: Never smoker second hand exposure: No alcohol intake: never substance use type: denies use current occupational status: retired Travel in the last 8 weeks: None household members: spouse housing: house current occupational exposures/hazards: No caffeine: Yes Meds Home Medications and Allergies Home Medications Medication Instructions Recorded Confirmed Type aspirin 81 mg tablet,delayed 81 mg PO DAILY Heart disease 09/18/17 12/24/22 History release levothyroxine 25 mcg tablet 25 mcg PO DAILY thyroid #30 tabs 06/07/22 12/24/22 Rx clopidogrel 75 mg tablet 75 mg PO DAILY [employer] 10/23/22 12/24/22 History atorvastatin 20 mg tablet 20 mg PO DAILY Cholesterol 12/24/22 12/24/22 History budesonide-formoterol HFA 160 2 puff inhalation BID Breathing 12/24/22 12/24/22 History mcg-4.5 mcg/actuation aerosol problems inhaler (Symbicort) montelukast 10 mg tablet 10 mg PO PM Allergy symptoms 12/24/22 12/24/22 History tamsulosin 0.4 mg capsule 0.4 mg PO HS prostate 12/24/22 12/24/22 History New Prescriptions to Start Prescriptions: Allergies Allergy/AdvReac Type Severity Reaction Status Date / Time acetaminophen [From Lortab] AdvReac Mild Verified 12/22/22 09:53 hydrocodone [From Lortab] AdvReac Mild Verified 12/22/22 09:53 Exam (Inpt) Vital signs and Labs for Last 24 Hours: Temp Pulse Resp BP Pulse Ox 97.8 F 54 L 17 105/56 L 97 12/24/22 08:00 12/24/22 08:00 12/24/22 08:00 12/24/22 08:00 12/24/22 08:00 Laboratory Results - last 24 hr
--- NOTE | 2022-12-24 08:52 | EXP.HP ---
History of Present Illness *Admission Date: 12/24/22 *Reason for visit:: Rectal bleeding *History of present illness: This is an 87-year-old gentleman seen in consultation from his primary service after presenting to the emergency department with bright red blood per rectum. Evaluation included a CT scan that showed changes consistent with likely diverticular bleed. Please see HPI forwarded from emergency department evaluation below. He states that he feels fine right now . He did note some bright red blood per rectum just a little bit ago with a bowel movement. Above note per surgery consultation: I am cross covering for Dr. Mehta in his absence-I have seen and examined patient this morning. He reports that he has been told he has diverticulosis in the past because he remembers being told I could not eat corn on the cob up. He had no pain but was fairly concerned about the significant rectal bleeding that he noticed at home. No vomiting, no diarrhea. No abdominal pains. No recent dietary indiscretions that he can recall. [facility] Disclaimer: The information contained in this section may have been updated after the patient was seen, as this information can be updated by other users. Medical History Allergic rhinitis Allergic rhinitis Angina, class IV Asthma Benign prostatic hyperplasia (BPH) with straining on urination Bronchitis CAD (coronary artery disease) Chronic cough Dental implant pain Dizziness Dyspnea Family history of heart disease Gastritis GERD without esophagitis High coronary artery calcium score HLD (hyperlipidemia) Lichen planus Lip fissure He needs to let the ENT examine the lip lesion Mild persistent asthma Other seborrheic keratosis Persistent cough Rhinitis Rupture, artery Slipped intervertebral disc Surgical History Previous back surgery Stented coronary artery Family History Other Coronary artery disease Diabetes Heart disease Social History Smoking Status: Never smoker second hand exposure: No alcohol intake: never substance use type: denies use current occupational status: retired Travel in the last 8 weeks: None household members: spouse housing: house current occupational exposures/hazards: No caffeine: Yes Review of Systems Review of Systems Review of systems:: pertinent systems reviewed and negative unless documented below Meds Home Medications and Allergies Home Medications Medication Instructions Recorded Confirmed Type aspirin 81 mg tablet,delayed 81 mg PO DAILY Heart disease 09/18/17 12/24/22 History release levothyroxine 25 mcg tablet 25 mcg PO DAILY thyroid #30 tabs 06/07/22 12/24/22 Rx clopidogrel 75 mg tablet 75 mg PO DAILY [employer] 10/23/22 12/24/22 History atorvastatin 20 mg tablet 20 mg PO DAILY Cholesterol 12/24/22 12/24/22 History budesonide-formoterol HFA 160 2 puff inhalation BID Breathing 12/24/22 12/24/22 History mcg-4.5 mcg/actuation aerosol problems inhaler (Symbicort) montelukast 10 mg tablet 10 mg PO PM Allergy symptoms 12/24/22 12/24/22 History tamsulosin 0.4 mg capsule 0.4 mg PO HS prostate 12/24/22 12/24/22 History New Prescriptions to Start Prescriptions: Allergies Allergy/AdvReac Type Severity Reaction Status Date / Time acetaminophen [From Lortab] AdvReac Mild Verified 12/22/22 09:53 hydrocodone [From Lortab] AdvReac Mild Verified 12/22/22 09:53 Exam Data for Last 24 hours Vital signs and Labs for Last 24 Hours: Temp Pulse Resp BP Pulse Ox 97.8 F 54 L 17 105/56 L 97 12/24/22 08:00 12/24/22 08:00 12/24/22 08:00 12/24/22 08:00 12/24/22 08:00 Laboratory Results - last 24 hr 12/24/22 02:55: WBC 7.5, RBC 4.79, Hgb 14.1, Hct 42.
[2022-12-24 08:58] LABS: Chloride 107 mmol/L (98-107); Potassium 4.3 mmoL/L (3.5-5.1); Sodium 139 mmol/L (136-145)
[2022-12-24 09:01] LABS: Anion Gap 12.3 mEq/L (5-15); Blood Urea Nitrogen 24 mg/dl (9-20); Carbon Dioxide 24 mmol/L (22.0-30.0); Creatinine Clearance Estimated 49 mL/min (50-200); Estimated Glomerular Filt Rate 80 ml/min (>60); GFR (African American) 97 ML/MIN (>60)
[2022-12-24 09:02] LABS: Calcium 8.2 mg/dl (8.4-10.2); Glucose 98 mg/dl (74-100)
[2022-12-24 09:06] LABS: Monocytes # 0.4 K/mm3 (0.1-1.0)
[2022-12-24 09:11] LABS: Basophils % 0.5 % (0.1-2.0); Eosinophils # 0.2 K/mm3 (0.0-0.4); Eosinophils % 3.2 % (0.1-12.0); Hematocrit 36.2 % (42.0-52.0); Lymphocytes # 0.8 K/mm3 (0.7-4.5); Mean Corpuscular HGB Conc 31.8 g/dL (31.8-35.4); Mean Corpuscular Hemoglobin 28.6 pg (27.0-31.2); Mean Corpuscular Volume 90.1 fl (80-94); Mean Platelet Volume 8.5 fl (7.4-10.4); Monocytes % 5.2 % (1.7-9.3); Neutrophils # 5.6 K/mm3 (1.8-7.8); Neutrophils % 79.1 % (37.0-80.0); Platelet Count 265 K/mm3 (142-424); Red Blood Count 4.02 M/mm3 (4.60-6.20); Red Cell Distribution Width 13.6 % (11.5-17.5); White Blood Count 7.1 K/mm3 (4.8-10.8)
[2022-12-24 09:13] LABS: Hemoglobin 11.5 g/dL (14.1-18.0)
[2022-12-24 18:24] LABS: Hematocrit 36.4 % (42.0-52.0); Hemoglobin 11.5 g/dL (14.1-18.0)
[2022-12-25 04:00] VITALS: BP 103/60; PULSE 83; RESP 18; TEMP 36.6; O2SAT 96; BMI 22.0
--- NOTE | 2022-12-25 04:27 | PC.NURSE ---
Pt. is aox4 and very hard of hearing, up with stand by assist times one, on clears, 18g L AC NS @100, VSS.
[2022-12-25 06:21] LABS: Basophils % 0.6 % (0.1-2.0); Eosinophils # 0.3 K/mm3 (0.0-0.4); Eosinophils % 5.4 % (0.1-12.0); Hematocrit 34.7 % (42.0-52.0); Hemoglobin 11.1 g/dL (14.1-18.0); Lymphocytes # 1.1 K/mm3 (0.7-4.5); Lymphocytes % 18.4 % (10-50); Mean Corpuscular Hemoglobin 28.9 pg (27.0-31.2); Mean Corpuscular Volume 90.3 fl (80-94); Mean Platelet Volume 8.3 fl (7.4-10.4); Monocytes # 0.4 K/mm3 (0.1-1.0); Monocytes % 7.4 % (1.7-9.3); Neutrophils # 4.1 K/mm3 (1.8-7.8); Neutrophils % 68.3 % (37.0-80.0); Platelet Count 263 K/mm3 (142-424); Red Blood Count 3.84 M/mm3 (4.60-6.20); Red Cell Distribution Width 13.6 % (11.5-17.5); White Blood Count 5.9 K/mm3 (4.8-10.8)
[2022-12-25 06:26] LABS: Anion Gap 10.1 mEq/L (5-15); Blood Urea Nitrogen 18 mg/dl (9-20); Calcium 8.1 mg/dl (8.4-10.2); Carbon Dioxide 24 mmol/L (22.0-30.0); Chloride 108 mmol/L (98-107); Creatinine Clearance Estimated 50 mL/min (50-200); Estimated Glomerular Filt Rate 80 ml/min (>60); GFR (African American) 97 ML/MIN (>60); Glucose 87 mg/dl (74-100); Potassium 4.1 mmoL/L (3.5-5.1); Sodium 138 mmol/L (136-145)
[2022-12-25 07:25] VITALS: BP 136/74; PULSE 80; RESP 19; TEMP 36.4; O2SAT 91
[2022-12-25 08:00] VITALS: O2SAT 91
--- NOTE | 2022-12-25 09:51 | EXP.SURG.PN ---
Subjective Patient reports: no new complaints and feels better Narrative: The patient states that his last bowel movement was pretty much normal Exam Data for Last 24 hours Vital signs and Labs for Last 24 Hours: Temp Pulse Resp BP Pulse Ox 97.6 F 80 19 136/74 91 L 12/25/22 07:25 12/25/22 07:25 12/25/22 07:25 12/25/22 07:25 12/25/22 08:00 Laboratory Results - last 24 hr 12/24/22 17:45: Hgb 11.5 L, Hct 36.4 L 12/25/22 05:57: WBC 5.9, RBC 3.84 L, Hgb 11.1 L, Hct 34.7 L, MCV 90.3, MCH 28.9, MCHC 32.0, RDW 13.6, Plt Count 263, MPV 8.3, Neut % (Auto) 68.3, Lymph % (Auto) 18.4, Gregg % (Auto) 7.4, Eos % (Auto) 5.4, Baso % (Auto) 0.6, Neut # (Auto) 4.1, Lymph # (Auto) 1.1, Gregg # (Auto) 0.4, Eos # (Auto) 0.3, Baso # (Auto) 0.0 12/25/22 05:57: Sodium 138, Potassium 4.1, Chloride 108 H, Carbon Dioxide 24, Anion Gap 10.1, BUN 18, Creatinine 0.90, Estimated Creat Clear 50, Estimated GFR 80, Est GFR ( Amer) 97, Glucose 87, Calcium 8.1 L I & O for Last 24 hours: Intake & Output 12/22/22 12/23/22 12/24/22 12/25/22 11:59 11:59 11:59 11:59 Intake Total 1520 / 1520 Output Total 0 / 0 525 / 525 Balance 0 / 0 995 / 995 Weight 147 lb 11.2 oz 148 lb 14.4 oz Constitutional Constitutional: no acute distress *Routine Respiratory Exam Respiratory: Absent respiratory distress *Routine Cardiovascular Exam Cardiovascular: Absent tachycardia Progress Note: A&P Assessment and plan (1) Diverticular hemorrhage: Status: Acute Assessment and plan: No evidence of continued blood loss No need for urgent intervention Continue management as per primary service (2) HTN (hypertension): Status: Acute (3) CAD (coronary artery disease): Status: Chronic (4) Stented coronary artery: Status: Chronic (5) HLD (hyperlipidemia): Status: Chronic
[2022-12-25 11:02] VITALS: BP 124/60; PULSE 65; RESP 17; TEMP 36.5; O2SAT 98
--- NOTE | 2022-12-25 11:46 | EXP.ACUTE.PN ---
Subjective *Date: 12/25/22 *Time: 11:46 Interval history: He states he feels well this morning and has rested well. He has had 2 bowel movements without evidence of blood. Medical Exam Vital signs and Labs for Last 24 Hours: Vital Signs Temp Pulse Resp BP Pulse Ox 12/25/22 11:02 97.7 F 65 17 124/60 98 12/25/22 08:00 91 L 12/25/22 07:25 97.6 F 80 19 136/74 91 L 12/25/22 04:00 97.9 F 83 18 103/60 L 96 12/24/22 23:57 97.8 F 96 H 16 114/56 L 96 12/24/22 19:29 97.7 F 62 16 122/65 98 12/24/22 16:00 98.8 F 51 L 19 111/60 98 Intake and Output 12/24/22 12/25/22 12/25/22 19:59 03:59 11:59 Intake Total 480 / 1520 800 / 1520 240 / 1520 Output Total 0 / 525 0 / 525 525 / 525 Balance 480 / 995 800 / 995 -285 / 995 Intake: Intake, Oral Amount 480 / 720 240 / 720 Intake, Total IV Amount 800 / 800 0.9 % Sodium Chloride 1000ML 1, 800 / 800 000 ml @ 100 mls/hr IV .Q10H COUNTS INCLUDE 234 BEDS AT THE [facility] Rx#:[id number] Output: Output, Urine Amount 0 / 525 0 / 525 525 / 525 Other: Number of Unmeasured Voids 1 1 1 Number of Bowel Movements 1 Weight 148 lb 14.4 oz Patient Weight 12/25/22 11:59 Weight 148 lb 14.4 oz Laboratory Results - last 24 hr 12/24/22 17:45: Hgb 11.5 L, Hct 36.4 L 12/25/22 05:57: WBC 5.9, RBC 3.84 L, Hgb 11.1 L, Hct 34.7 L, MCV 90.3, MCH 28.9, MCHC 32.0, RDW 13.6, Plt Count 263, MPV 8.3, Neut % (Auto) 68.3, Lymph % (Auto) 18.4, Noble % (Auto) 7.4, Eos % (Auto) 5.4, Baso % (Auto) 0.6, Neut # (Auto) 4.1, Lymph # (Auto) 1.1, Noble # (Auto) 0.4, Eos # (Auto) 0.3, Baso # (Auto) 0.0 12/25/22 05:57: Sodium 138, Potassium 4.1, Chloride 108 H, Carbon Dioxide 24, Anion Gap 10.1, BUN 18, Creatinine 0.90, Estimated Creat Clear 50, Estimated GFR 80, Est GFR ( Amer) 97, Glucose 87, Calcium 8.1 L I & O for Labs for Last 24 Hours: Intake & Output 12/22/22 12/23/22 12/24/22 12/25/22 11:59 11:59 11:59 11:59 Intake Total 1520 / 1520 Output Total 0 / 0 525 / 525 Balance 0 / 0 995 / 995 Weight 147 lb 11.2 oz 148 lb 14.4 oz Head: Present normocephalic ENT: Present mucous membranes moist Neck: Present normal inspection Respiratory: Present CTA bilaterally and able to speak in complete sentences; Absent respiratory distress Cardiac: Present Reg Rate and Rhythm and S4 GI: Present soft; Absent distention, tenderness, guarding, rebound or rigidity Rectal (male): Present normal rectal tone; Absent black stool, bloody stool, fecal impaction, hemorrhoids or normal prostate (enlarged, smooth) (male): Present normal inspection Extremities: Absent edema Skin: Present intact Neuro: Present alert and oriented x 3 Comment:: Marked hearing deficit Additional Findings:: Note relative stability of H&H Assessment and Plan *Assessment and plan (1) Diverticular hemorrhage: Status: Acute Category: Medical Code(s): K57.31 - Diverticulosis of large intestine without perforation or abscess with bleeding (2) Allergic rhinitis: Status: Acute Category: Medical Code(s): J30.9 - Allergic rhinitis, unspecified (3) Mild persistent asthma: Status: Chronic Category: Medical Code(s): J45.30 - Mild persistent asthma, uncomplicated (4) Chronic cough: Status: Chronic Category: Medical Code(s): R05.3 - Chronic cough (5) Degenerative joint disease (DJD) of lumbar spine: Status: Chronic Category: Medical Code(s): M47.816 - Spondylosis without myelopathy or radiculopathy, lumbar region (6) Benign prostatic hyperplasia (BPH) with straining on urination: Status: Acute Category: Medical Code(s): N40.1 - Benign prostatic hyperplasia with lower urinary tract symptoms; R39.16 - Straining to void (7) Stented coronary artery: Status: Chronic Category: Surgical Code(s): Z95.5 - Presence of coronary angioplasty implant and graft Plan He would like to
--- NOTE | 2022-12-25 12:21 | PC.NURSE ---
called 's and 's office left a message to please call patient with appointment
--- NOTE | 2022-12-25 12:30 | HMH.PHAINT1 ---
Pharmacy Intervention Comments: Discharge medication counseling completed. Patient was starting Align probiotic, Miralax, and levofloxacin. I mentioned possible side effects of stomach upset and/or diarrhea while taking the antibiotic and encouraged him to take it with food to avoid this. He was a bit confused about what the probiotic was for and seemed to understand when I said it would help improve gut health. Patient was told to hold his clopidogrel for now. Verified that these new meds were being sent to the patient's preferred pharmacy ([facility]). Patient is hard of hearing, so much of this had to be repeated a few times. He verbalized understanding and did not have any further questions.
--- NOTE | 2022-12-26 23:57 | EXP.DC.SUM ---
General Admission date:: 12/24/22 Discharge date: 12/25/22 HPI HPI HPI: This is an 87-year-old gentleman seen in consultation from his primary service after presenting to the emergency department with bright red blood per rectum. Evaluation included a CT scan that showed changes consistent with likely diverticular bleed. Please see HPI forwarded from emergency department evaluation below. He states that he feels fine right now . He did note some bright red blood per rectum just a little bit ago with a bowel movement. Above note per surgery consultation: I am cross covering for Dr. Mehta in his absence-I have seen and examined patient this morning. He reports that he has been told he has diverticulosis in the past because he remembers being told I could not eat corn on the cob up. He had no pain but was fairly concerned about the significant rectal bleeding that he noticed at home. No vomiting, no diarrhea. No abdominal pains. No recent dietary indiscretions that he can recall. Hospital Course Hospital Course Hospital Course: The patient had a diverticular hemorrhage. It was felt the vast majority of diverticular bleeds spontaneously resolve therefore there was no proctoscopic evaluation. His aspirin and Plavix were held and a clear liquid diet was ordered. He had no further evidence of blood loss and Dr. Geiger did not feel he needed urgent intervention. By 12/24/2022 he felt well and had 2 bowel movements without evidence of blood. He wanted to be discharged. MiraLAX and align probiotics were both ordered. He was discharged on Levaquin 500 mg daily for 7 days. His Plavix will continue to be held but he will continue his aspirin 81 mg daily and follow-up with Dr. Mehta. Exam Data for Last 24 hours Vital signs and Labs for Last 24 Hours: Temp Pulse Resp BP Pulse Ox 97.7 F 65 17 124/60 98 12/25/22 11:02 12/25/22 11:02 12/25/22 11:02 12/25/22 11:02 12/25/22 11:02 I & O for Last 24 hours: Intake & Output 12/24/22 12/25/22 12/26/22 12/27/22 11:59 11:59 11:59 11:59 Intake Total 1520 / 1520 240 / 240 Output Total 0 / 0 525 / 525 Balance 0 / 0 995 / 995 240 / 240 Weight 147 lb 11.2 oz 148 lb 14.4 oz Narrative: Constitutional Constitutional: no acute distress and cooperative Comments: Lying in bed fully dressed and appears comfortable --- very hard of hearing but otherwise oriented x3 *Routine HEENT Exam Head: Present normocephalic and atraumatic Eye: Present PERRL; Absent conjunctival icterus, scleral injection or conjunctivae pink ENT: Present mucous membranes moist and oropharynx clear *Routine Neck Exam Neck: Present supple; Absent carotid bruit, lymphadenopathy or thyromegaly Routine Chest/Breast/Axilla Exam Chest wall: Absent tenderness *Routine Respiratory Exam Respiratory: Present rhonchi (Scattered posteriorly) *Routine Cardiovascular Exam Cardiovascular: Present RRR *Routine Abdominal Exam Abdominal: Present soft and normoactive bowel sounds; Absent tenderness or distended *Routine Rectal Exam Rectal:: deferred *Routine Genitalia Exam Genitalia:: deferred *Routine Extremities Exam Extremities: Absent edema or calf tenderness *Routine Neurological Exam Neurological: Present alert and oriented X3 DS: Diagnosis Discharge Diagnosis (1) Diverticular hemorrhage: Status: Resolved Code(s): K57.31 - Diverticulosis of large intestine without perforation or abscess with bleeding (2) Allergic rhinitis: Status: Inactive Code(s): J30.9 - Allergic rhinitis, unspecified (3) Mild persistent asthma: Status: Inactive Code(s): J45.30 - Mild persistent asthma, uncomplicated (4) Chronic cough: Status: Inactive Code(s): R05.3 - Chronic cough (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
--- NOTE | 2022-12-27 14:02 | CARE MANAGER ---
Unable to reach patient via telephone to discuss recent discharge. Does not answer and has no VM.
== END 2022-12-25 12:47 | disposition home or self-care (01) ==
LOC: ER 02:49 → 2ND 04:43
PROVIDERS: Admitting Provider Internal Medicine Adolescent Medicine; Emergency Provider Emergency Medicine; PCP Family Medicine; Visit Provider Family Medicine
DX: I10 Essential (primary) hypertension; I25.10 Atherosclerotic heart disease of native coronary artery without angina pectoris; Z95.5 Presence of coronary angioplasty implant and graft; J45.30 Mild persistent asthma, uncomplicated; M47.816 Spondylosis without myelopathy or radiculopathy, lumbar region; N40.1 Benign prostatic hyperplasia with lower urinary tract symptoms; K57.31 Diverticulosis of large intestine without perforation or abscess with bleeding; Z79.899 Other long term (current) drug therapy; R39.16 Straining to void; Z20.822 Contact with and (suspected) exposure to COVID-19
CPT/HCPCS: G0378; 36415; 74177; 80048; 80053; 82272; 84145; 85014; 85018; 85025; 85651; 86140; 87635; 87636; 94640; 99285; C9803; G0328; J2405; Q9967; U0003; U0005

== ENCOUNTER → 2022-12-26 12:40 | Outpatient (CLI) | payer MEDICARE, BC, SELFPAY ==
[2022-12-26 18:48] LABS: Basophils % 0.7 % (0.1-2.0); Eosinophils # 0.3 K/mm3 (0.0-0.4); Eosinophils % 5.4 % (0.1-12.0); Hematocrit 31.9 % (42.0-52.0); Hemoglobin 10.2 g/dL (14.1-18.0); Lymphocytes # 0.9 K/mm3 (0.7-4.5); Lymphocytes % 15.7 % (10-50); Mean Corpuscular HGB Conc 31.8 g/dL (31.8-35.4); Mean Corpuscular Hemoglobin 29.4 pg (27.0-31.2); Mean Corpuscular Volume 92.6 fl (80-94); Mean Platelet Volume 9.3 fl (7.4-10.4); Monocytes # 0.4 K/mm3 (0.1-1.0); Monocytes % 7.3 % (1.7-9.3); Neutrophils # 4.2 K/mm3 (1.8-7.8); Neutrophils % 70.8 % (37.0-80.0); Platelet Count 283 K/mm3 (142-424); Red Blood Count 3.45 M/mm3 (4.60-6.20); Red Cell Distribution Width 13.6 % (11.5-17.5); White Blood Count 5.9 K/mm3 (4.8-10.8)
[2022-12-26 18:53] LABS: Chloride 105 mmol/L (98-107); Sodium 138 mmol/L (136-145)
[2022-12-26 18:54] LABS: Potassium 4.2 mmoL/L (3.5-5.1)
[2022-12-26 18:56] LABS: Blood Urea Nitrogen 21 mg/dl (9-20); Estimated Glomerular Filt Rate 71 ml/min (>60); GFR (African American) 86 ML/MIN (>60)
[2022-12-26 18:57] LABS: Anion Gap 13.2 mEq/L (5-15); Calcium 8.3 mg/dl (8.4-10.2); Carbon Dioxide 24 mmol/L (22.0-30.0); Glucose 126 mg/dl (74-100)
== END ==
PROVIDERS: PCP Family Medicine; Visit Provider Family Medicine
DX: M47.816 Spondylosis without myelopathy or radiculopathy, lumbar region (principal); D64.9 Anemia, unspecified
CPT/HCPCS: 80048; 85025

== ENCOUNTER → 2023-01-03 10:36 | Outpatient (CLI) | payer MEDICARE, BC, SELFPAY ==
[2023-01-03 11:34] LABS: Hematocrit 35.1 % (42.0-52.0); Hemoglobin 11.1 g/dL (14.1-18.0)
== END ==
PROVIDERS: PCP Family Medicine; Visit Provider Surgery
DX: D64.9 Anemia, unspecified (principal)
CPT/HCPCS: 36415; 85014; 85018

== ENCOUNTER → 2023-01-17 12:41 | Outpatient (CLI) | payer MEDICARE, BC, SELFPAY ==
[2023-01-17 12:56] LABS: Hematocrit 36.7 % (42.0-52.0)
== END ==
PROVIDERS: PCP Family Medicine; Visit Provider Surgery
DX: D64.9 Anemia, unspecified (principal)
CPT/HCPCS: 36415; 85014; 85018

== ENCOUNTER → 2023-01-17 14:34 | Outpatient (CLI) | payer MEDICARE, BC, SELFPAY ==
--- NOTE | 2023-01-17 14:39 | XR_ITS ---
FINAL REPORT CLINICAL HISTORY: hoarness FINDINGS: SINGLE VIEW CHEST The heart size is normal. The mediastinum is normal. The lungs are clear. There is no pneumothorax. IMPRESSION: No acute cardiopulmonary process. Reviewed, Interpreted and Dictated by Yaya Funes MD Transcribed by Danielle Ryan Authenticated and [facility]
== END ==
PROVIDERS: PCP Family Medicine; Visit Provider Student in an Organized Health Care Education/Training Program
DX: R49.0 Dysphonia (principal)
CPT/HCPCS: 36415; 71045; 85014; 85018

== ENCOUNTER → 2023-03-20 13:12 | Outpatient (CLI) | payer MEDICARE, BC, SELFPAY ==
[2023-03-20 18:35] LABS: Chloride 106 mmol/L (98-107); Sodium 141 mmol/L (136-145)
[2023-03-20 18:38] LABS: Blood Urea Nitrogen 26 mg/dl (9-20); Carbon Dioxide 26 mmol/L (22.0-30.0); Estimated Glomerular Filt Rate 57 ml/min (>60); GFR (African American) 69 ML/MIN (>60)
[2023-03-20 18:39] LABS: Glucose 86 mg/dl (74-100)
[2023-03-20 18:43] LABS: Basophils % 0.4 % (0.1-2.0); Eosinophils # 0.4 K/mm3 (0.0-0.4); Eosinophils % 4.1 % (0.1-12.0); Hematocrit 46.2 % (42.0-52.0); Hemoglobin 14.7 g/dL (14.1-18.0); Lymphocytes # 1.6 K/mm3 (0.7-4.5); Lymphocytes % 16.4 % (10-50); Mean Corpuscular HGB Conc 31.7 g/dL (31.8-35.4); Mean Corpuscular Hemoglobin 29.4 pg (27.0-31.2); Mean Corpuscular Volume 92.7 fl (80-94); Mean Platelet Volume 10.3 fl (7.4-10.4); Monocytes # 0.6 K/mm3 (0.1-1.0); Monocytes % 6.3 % (1.7-9.3); Neutrophils # 7.1 K/mm3 (1.8-7.8); Neutrophils % 72.9 % (37.0-80.0); Platelet Count 283 K/mm3 (142-424); Red Blood Count 4.98 M/mm3 (4.60-6.20); Red Cell Distribution Width 13.9 % (11.5-17.5); White Blood Count 9.8 K/mm3 (4.8-10.8)
== END ==
PROVIDERS: PCP Family Medicine; Visit Provider Family Medicine
DX: K57.92 Diverticulitis of intestine, part unspecified, without perforation or abscess without bleeding (principal); I10 Essential (primary) hypertension
CPT/HCPCS: 80048; 85025

== ENCOUNTER → 2023-06-19 09:19 | Outpatient (CLI) | payer MEDICARE, BC, SELFPAY ==
[2023-06-19 10:15] VITALS: PULSE 58; PULSE 61
== END ==
PROVIDERS: PCP Family Medicine; Visit Provider Internal Medicine Pulmonary Disease
DX: R06.09 Other forms of dyspnea (principal); J45.30 Mild persistent asthma, uncomplicated; R05.3 Chronic cough
CPT/HCPCS: 94060; 94640; 94726; 94727; 94729

== ENCOUNTER → 2023-06-26 06:49 | Outpatient (CLI) | payer MEDICARE, BC, SELFPAY ==
[2023-06-26 19:00] LABS: Basophils # 0.1 K/mm3 (0-0.2); Basophils % 0.7 % (0.1-2.0); Eosinophils # 0.2 K/mm3 (0.0-0.4); Eosinophils % 2.2 % (0.1-12.0); Hematocrit 46.9 % (42.0-52.0); Hemoglobin 15.4 g/dL (14.1-18.0); Lymphocytes # 1.2 K/mm3 (0.7-4.5); Lymphocytes % 12.9 % (10-50); Mean Corpuscular HGB Conc 32.8 g/dL (31.8-35.4); Mean Corpuscular Volume 94.6 fl (80-94); Mean Platelet Volume 10.8 fl (7.4-10.4); Monocytes # 0.5 K/mm3 (0.1-1.0); Monocytes % 5.9 % (1.7-9.3); Neutrophils # 7.2 K/mm3 (1.8-7.8); Neutrophils % 78.2 % (37.0-80.0); Platelet Count 240 K/mm3 (142-424); Red Blood Count 4.96 M/mm3 (4.60-6.20); Red Cell Distribution Width 14.3 % (11.5-17.5); White Blood Count 9.2 K/mm3 (4.8-10.8)
[2023-06-26 19:16] LABS: Chloride 102 mmol/L (98-107); Potassium 4.4 mmoL/L (3.5-5.1); Sodium 137 mmol/L (136-145)
[2023-06-26 19:19] LABS: Anion Gap 10.4 mEq/L (5-15); Blood Urea Nitrogen 29 mg/dl (9-20); Calcium 8.8 mg/dl (8.4-10.2); Carbon Dioxide 29 mmol/L (22.0-30.0); Estimated Glomerular Filt Rate 57 ml/min (>60); GFR (African American) 69 ML/MIN (>60); Glucose 106 mg/dl (74-100)
== END ==
PROVIDERS: PCP Family Medicine; Visit Provider Family Medicine
DX: I10 Essential (primary) hypertension (principal); M47.816 Spondylosis without myelopathy or radiculopathy, lumbar region
CPT/HCPCS: 80048; 85025

== ENCOUNTER 2023-09-04 11:29 | Emergency (ER) | payer MEDICARE, BC, SELFPAY ==
[2023-09-04 11:30] VITALS: BP 116/63; PULSE 84; RESP 20; TEMP 36.8; O2SAT 98; BMI 22.4
[2023-09-04 11:38] LABS: Influenza A, PCR Not Detected (NotDetected); Influenza B, PCR Not Detected (NotDetected)
--- NOTE | 2023-09-04 11:41 | XR_ITS ---
FINAL REPORT CLINICAL HISTORY: COUGH X 3 WEEKS COMPARISON: 01/17/2023 FINDINGS: SINGLE-VIEW CHEST The heart size is normal. The mediastinum is normal. There are mild bibasilar opacities, may represent atelectasis or pneumonia. There are moderate degenerative changes of the thoracic spine. There is no pneumothorax. IMPRESSION: Bibasilar atelectasis versus pneumonia. Reviewed, Interpreted and Dictated by Tavo George III, MD Transcribed by Sandra Douglas Authenticated and [facility]
--- NOTE | 2023-09-04 11:53 | PC.NURSE ---
PT TO XR
--- NOTE | 2023-09-04 12:05 | PC.NURSE ---
DR HAIDER AT BEDSIDE
[2023-09-04 12:28] VITALS: BP 118/66; PULSE 75; RESP 20; O2SAT 96
[2023-09-04 12:40] LABS: Coronavirus 19, PCR Detected (NotDetected)
--- NOTE | 2023-09-04 12:45 | PC.NURSE ---
rounded on pt he is sleeping in chair no needs,call light at bs
[2023-09-04] MEDS: DEXAMETHASONE 4MG TABLET 10 MG PO (12:48)
--- NOTE | 2023-09-04 12:55 | HMH.EDGENADL ---
Discharge Plan Disposition Patient Disposition: Home, Self-Care Prescriptions Prescriptions: New Paxlovid 300 mg (150 mg x 2)-100 mg tablets,dose pack See Rx Instructions PO .COMPLEX Qty: 30 0RF Rx Instructions: take TWO 150 mg tablets of nirmatrelvir with ONE 100 mg tablet of ritonavir twice daily for 5 days No Action famotidine 20 mg tablet 20 mg PO DAILY ascorbate calcium (vitamin C) 500 mg tablet 500 mg PO DAILY vitamin B complex [B Complex-Vitamin B12] Tablet 1 tab PO DAILY cholecalciferol (vitamin D3) 25 mcg (1,000 unit) capsule 25 mcg PO DAILY fluticasone propionate [Flonase Allergy Relief] 50 mcg/actuation spray,suspension 2 spray intranasal DAILY 90 Days Qty: 16 2RF Rx Instructions: administer into each nostril ferrous sulfate 325 mg (65 mg iron) tablet 325 mg PO DAILY Qty: 30 2RF tamsulosin 0.4 mg capsule 0.4 mg PO HS Qty: 30 5RF atorvastatin 20 mg tablet See Rx Instructions .ROUTE .COMPLEX Qty: 90 0RF Dose Instruction: Take 1 tablet by mouth once daily Rx Instructions: Take 1 tablet by mouth once daily budesonide-formoterol [Symbicort] 160-4.5 mcg/actuation HFA aerosol inhaler 2 puff inhalation BID 90 Days Qty: 10.2 3RF levothyroxine 25 mcg tablet See Rx Instructions .ROUTE .COMPLEX Qty: 30 0RF Dose Instruction: TAKE 1 TABLET BY MOUTH ONCE DAILY FOR THYROID Rx Instructions: TAKE 1 TABLET BY MOUTH ONCE DAILY FOR THYROID aspirin 81 MG tablet,delayed release (DR/EC) 81 mg PO DAILY Referrals Follow up/Referrals: Stephania Camarena MD [Primary Care Provider] - See instructions Activity Restrictions/Add. Instructions Additional Instructions/Restrictions: Take Paxlovid as prescribed. Call your family doctor to establish care for this visit to the emergency department and schedule follow-up within 48 hours to ensure improvement. If you have any worsening of your condition or any other concerning signs or symptoms, return to the emergency department or your primary care doctor for further evaluation. Also taking a daily Zyrtec or Claritin can help with symptoms. Clinical Impressions Clinical Impression: COVID-19 Discharge ED Provider: Franc Cabrera General Adult HPI General Chief complaint: Upper Respiratory Infection Stated complaint: cough congestion, Time Seen by Provider: 09/04/23 11:35 Mode of Arrival: Ambulatory Source of Information: Patient Limitations: No Limitations Description of Symptoms (Recalled from ER Triage Doc. by RN): PT SENT FROM DR. CAMARENA'S OFFICE FOR FURTHER EVALUATION. REPORT CALLED EARLIER BY STAFF THAT PT NEEDED CXR, LABS AND COVID/FLU SWAB. PT C/O PRODUCTIVE COUGH X 3 WEEKS. PT DENIES PAIN OR FEVER History of Present Illness HPI narrative: 87-year-old male brought in as, CAD, hypertension, hyperlipidemia, presented with chronic cough. Patient states that he has had cough for about 3 weeks. Cough is productive of greenish/yellow sputum and has not changed. No fevers or chills, nausea vomiting, diarrhea, constipation, chest pain, shortness of breath, or any other concerns. Went to PCP. I spoke to PCP and he was worried about patient's color, oxygen saturations, and COVID. Referred him to the emergency department for further evaluation. Related Data Home Medications Medication Instructions Recorded Confirmed aspirin 81 mg tablet,delayed 81 mg PO DAILY Heart disease 09/18/17 09/04/23 release ascorbate calcium (vitamin C) 500 500 mg PO DAILY 04/25/23 09/04/23 mg tablet cholecalciferol (vitamin D3) 25 25 mcg PO DAILY 04/25/23 09/04/23 mcg (1,000 unit) capsule famotidine 20 mg tablet 20 mg PO DAILY 04/25/23 09/04/23 vitamin B complex (B 1 tab PO DAILY 04/25/23 09/04/23 Complex-Vitamin B12 tablet) Previous Rx's Medication Instructions Recorded ferrous sulfate 325 mg (65 mg 325 mg PO DAILY #30 tabs 06/12/23 iron) tablet atorvastatin 20 mg tablet See Rx Instructions .Route 06/18/23 .COMPLEX #90 tabs fluticasone propionate 50 2 spray intranasal DAILY 90 days 06/19/23 mcg/actuation nasal #16 grams spray,suspension (Flonase Allergy Relief) budesonide-formoterol HFA 160 2 puff inhalation BID 90 days 06/25/23 mcg-4.5 mcg/actuation aerosol #10.2 grams inhaler (Symbicort) tamsulosin 0.4 mg capsule 0.4 mg PO HS BPH #30 caps 06/26/23 levothyroxine 25 mcg tablet See Rx Instructions .Route 08/06/23 .COMPLEX #30 tabs nirmatrelvir 300 mg (150 mg See Rx Instructions PO .COMPLEX 09/04/23 x2)-ritonavir 100 mg tablet,dose #30 tabs pack (Paxlovid) Allergies Allergy/AdvReac Type Severity Reaction Status Date / Time acetaminophen [From Lortab] AdvReac Mild Verified 09/04/23 09:36 hydrocodone [From Lortab] AdvReac Mild Verified 09/04/23 09:36 [facility] Disclaimer: The information contained in this section may have been updated after the patient was seen, as this information can be updated by other users. Medical History (Updated 09/04/23 @ 12:54 by Franc Cabrera MD) Allergic rhinitis Allergic rhinitis Anemia Angina, class IV Asthma Benign prostatic hyperplasia (BPH) with straining on urination Bronchitis CAD (coronary artery disease) Chronic cough Cough Dental implant pain Dizziness Dyspnea Family history of heart disease Gastritis GERD without esophagitis High coronary artery calcium score HLD (hyperlipidemia) Hoarseness of voice Lichen planus Lip fissure Mild persistent asthma Other seborrheic keratosis Persistent cough Rhinitis Rupture, artery Slipped intervertebral disc Surgical History Previous back surgery Stented coronary artery Family History Other Coronary artery disease Diabetes Heart disease Social History Smoking Status: Never smoker second hand exposure: No alcohol intake: never substance use type: denies use current occupational status: retired Travel in the last 8 weeks: None household members: spouse housing: house current occupational exposures/hazards: No caffeine: Yes ROS Obtained: Yes All systems reviewed & no additional complaints except as documented Physical Exam General General appearance: alert and in no apparent distress Head Head exam: atraumatic and normocephalic Eye Eye exam: Present normal appearance, PERRL and EOMI ENT ENT exam: Present mucous membranes moist Neck Neck exam: Present normal inspection, full ROM and trachea midline Respiratory Respiratory exam: Absent respiratory distress, wheezes, stridor, accessory muscle use or prolonged expiratory phase Cardiovascular Cardiovascular exam: Present normal rhythm Abdominal Exam Abdominal exam: Present soft; Absent distention, tenderness, guarding, rebound or rigidity Extremities Exam Extremities exam: Absent edema Neurological Exam Neurological exam: Present alert, oriented X3, CN II-XII intact and normal gait; Absent motor sensory deficit Skin Skin exam: Present warm and dry; Absent diaphoresis or erythema Medical Decision Making Medical Records Medical records reviewed: Yes I reviewed the patient's medical records. [place] Inquiry Pt receiving controlled substance: No [place] was queried for this patient: No Vital Signs: 09/04/23 11:30 09/04/23 12:28 Temperature 98.2 F Temperature Source Oral Pulse Rate 75 Pulse Rate [Radial] 84 Respiratory Rate 20 20 Blood Pressure 118/66 Blood Pressure [Right Arm] 116/63 Blood Pressure Mean [Right Arm] 80 Blood Pressure Source Automatic Cuff Blood Pressure Source [Right Arm] Automatic Cuff Blood Pressure Position Sitting Blood Pressure Position [Right Arm] Sitting 02 Sat by Pulse Oximetry 98 96 Oxygen Delivery Method Room Air Room Air Lab Data Lab Results 09/04/23 11:34: SARS-CoV-2 (PCR) Detected A, Influenza A Untype (PCR) Not detected, Influenza Type B (PCR) Not detected Orders (Tests/Meds): ED MEDICATIONS Discontinued Medications Generic Name Dose Route Start Last Admin Trade Name Freq PRN Reason Stop Dose Admin Dexamethasone 10 mg 09/04/23 12:17 09/04/23 12:48 Dexamethasone 4mg Tablet PO 09/04/23 12:18 10 mg ONCE ONE Administration ORDERS Category Date Time Status CXR 2 view (NOT portable) [XR chest 2V] Stat Exams 09/04/23 11:41 Taken Rapid PCR Covid and Flu A/B Stat Lab 09/04/23 11:34 Completed Medical Decision Narrative: 87-year-old male brought in as, CAD, hypertension, hyperlipidemia, presented with chronic cough. Patient states that he has had cough for about 3 weeks. Cough is productive of greenish/yellow sputum and has not changed. No fevers or chills, nausea vomiting, diarrhea, constipation, chest pain, shortness of breath, or any other concerns. Went to PCP. I spoke to PCP and he was worried about patient's color, oxygen saturations, and COVID. Referred him to the emergency department for further evaluation. History was obtained via conversation with patient and PCP. On arrival, patient hemodynamically stable, alert, oriented x4, appropriate, GCS 15, moving all extremities spontaneously, pupils equal and reactive to light. Full physical exam performed and significant for well-appearing male no acute distress. Intermittently coughing, not producing anything. 97 to 100% on room air even after exertion. Cardiac exam within normal limits. Lungs clear to auscultation bilaterally anterior and posteriorly. Nontachypneic, nontachycardic. Differential includes viral syndrome, pneumonia, bronchitis, among others. Patient was given Decadron p.o. 10 mg for symptomatic management and correction of underlying abnormalities. Workup independently interpreted and significant for COVID-positive swab. Patient's chest x-ray without acute cardiopulmonary airspace disease. See radiology read for full review of final results. On reevaluation, patient resting comfortably in bed. Given patient presentation, workup, history, this most likely represents acute versus chronic COVID-19 bronchitis without hypoxemia. Because patient at baseline without signs or symptoms of clinical decompensation, deemed appropriate for discharge. Results were relayed to patient who voiced understanding and were agreeable to outpatient management and follow up. At the time of discharge the patient was hemodynamically stable, tolerating PO, and mobilizing appropriately. Critical Care Critical Care Time Critical Care Time: No
[2023-09-04 13:01] VITALS: BP 145/88; PULSE 88; RESP 16; TEMP 36.7
== END 2023-09-04 13:02 | disposition home or self-care (01) ==
PROVIDERS: Emergency Provider Emergency Medicine; PCP Family Medicine
DX: U07.1 COVID-19 (principal); R05.3 Chronic cough; I25.119 Atherosclerotic heart disease of native coronary artery with unspecified angina pectoris; I10 Essential (primary) hypertension; E78.5 Hyperlipidemia, unspecified; J45.30 Mild persistent asthma, uncomplicated; N40.0 Benign prostatic hyperplasia without lower urinary tract symptoms; D64.9 Anemia, unspecified; K21.9 Gastro-esophageal reflux disease without esophagitis
CPT/HCPCS: 71046; 87636; 99283

== ENCOUNTER 2024-08-01 09:27 | Outpatient (CLI) | payer MEDICARE, BC, SELFPAY ==
[2024-08-01] MEDS: ALBUTEROL 0.083% 2.5 MG/3 ML NEB IH (10:03)
--- NOTE | 2024-08-01 10:47 | PC.NURSE ---
PFT and 6 Minute Walk Test completed without incident. Albuterol 0.083% given via HHN, per written protocol, Pt tolerated tx well.
== END 2024-08-01 23:59 | disposition home or self-care (01) ==
LOC: RT 09:28
PROVIDERS: PCP Family Medicine; Visit Provider Internal Medicine Pulmonary Disease
DX: R06.02 Shortness of breath (principal)
CPT/HCPCS: 94060; 94618; 94726; 94729; J7613

== ENCOUNTER 2024-10-28 16:30 | Outpatient (CLI) | payer MEDICARE, BC, SELFPAY ==
[2024-10-28 20:21] LABS: Alanine Aminotransferase 22 U/L (12-78); Albumin Level 3.4 g/dl (3.5-5.0); Albumin/Globulin Ratio 1.4 (1.1-1.8); Alkaline Phosphatase 62 U/L (38-126); Anion Gap 10.6 mEq/L (5-15); Aspartate Amino Transferase 28 U/L (17-59); Bilirubin,Total 0.4 mg/dl (0.2-1.3); Blood Urea Nitrogen 30 mg/dl (9-20); Calcium 9.4 mg/dl (8.4-10.2); Carbon Dioxide 25 mmol/L (22.0-30.0); Chloride 108 mmol/L (98-107); Estimated Glomerular Filt Rate 57 ml/min (>60); GFR (African American) 69 ML/MIN (>60); Globulin 2.5 g/dL (1.3-3.2); Glucose 87 mg/dl (74-100); Potassium 4.6 mmoL/L (3.5-5.1); Sodium 139 mmol/L (136-145); Total Protein,Serum 5.9 g/dl (6.3-8.2)
[2024-10-28 20:51] LABS: Thyroid Stimulating Hormone 2.87 uIU/mL (0.465-4.68)
== END 2024-10-28 23:59 | disposition home or self-care (01) ==
LOC: LAB.DROPOF 10-29 14:06
PROVIDERS: PCP Family Medicine; Visit Provider Family Medicine
DX: I10 Essential (primary) hypertension (principal); E03.9 Hypothyroidism, unspecified
CPT/HCPCS: 80053; 84443

== ENCOUNTER 2025-01-12 00:36 | Emergency (ER) | payer MEDICARE, BC, SELFPAY ==
--- NOTE | 2025-01-12 00:49 | CT_ITS ---
PROCEDURE INFORMATION: Exam: CT Abdomen And Pelvis Without Contrast Exam date and time: 01/12/2025 1:05 AM Age: 89 years old Clinical indication: Other: Low L back paraspinal pain into hip; Additional info: Low L back paraspinal pain into hip no ttp TECHNIQUE: Imaging protocol: Computed tomography of the abdomen and pelvis without contrast. Total images: 298 Radiation optimization: All CT scans at this facility use at least one of these dose optimization techniques: automated exposure control; mA and/or kV adjustment per patient size (includes targeted exams where dose is matched to clinical indication); or iterative reconstruction. COMPARISON: CT ABDOMEN PELVIS W CON 12/24/2022 3:26 AM FINDINGS: Lungs: Lung bases are clear. Heart: Normal heart size. Coronary arteries: Extensive coronary artery calcifications. Liver: Small left hepatic cyst. Otherwise, unremarkable liver. Gallbladder and biliary ducts: Normal. No calcified stones. No ductal dilation. Pancreas: Mild pancreatic atrophy. No discrete mass or acute pancreatitis. Spleen: Normal. No splenomegaly. Adrenal glands: Normal. No mass. Kidneys and ureters: Punctate/fine bilateral intrarenal calculi. Small lower pole bilateral renal cortical cysts. No hydronephrosis or discrete renal mass. Chronic bilateral perinephric fat stranding. No ureteral stones. Stomach and bowel: Unremarkable stomach. Tiny duodenal diverticulum. No ileus or bowel obstruction. Fecalization of the distal ileum compatible with chronic stasis. Unremarkable terminal ileum. Moderate sigmoid diverticulosis without acute diverticulitis. Unremarkable rectum. Appendix: Normal appendix. Intraperitoneal space: Unremarkable. No free air. No significant fluid collection. Vasculature: Severe atherosclerotic vascular disease. Nonaneurysmal abdominal aorta. Lymph nodes: Unremarkable. No enlarged lymph nodes. Urinary bladder: Partially collapsed bladder. Reproductive: Moderate prostatomegaly. Bones/joints: Moderate to severe multilevel degenerative changes of the thoracolumbar spine. Osseous demineralization. Mild degenerative changes bilateral hips and SI joints. No acute osseous abnormality. Status post L4-L5 laminectomy. Soft tissues: Small fat containing right inguinal hernia. Suspect prior left inguinal hernia repair. IMPRESSION: 1. No acute intra-abdominal or pelvic process. 2. Punctate/fine bilateral nephrolithiasis. No obstructive uropathy. 3. Fecalization of distal small bowel compatible with chronic stasis. 4. Moderate sigmoid diverticulosis without acute diverticulitis. 5. Severe multilevel degenerative changes of the thoracolumbar spine. 6. Severe atherosclerotic vascular disease including extensive coronary artery calcifications. 7. Multiple additional chronic and incidental findings. COMMENTS: Consistent with the [employer]'s Incidental Findings Committee white paper (J Am Carissa Radiol 2018): Any incidental renal lesion less than 1 cm or classified as too small to characterize, or any incidental cystic renal lesion characterized as simple-appearing, is likely benign. No follow-up imaging is recommended for these lesions per consensus recommendations based on imaging criteria.
[2025-01-12 00:51] VITALS: BP 152/95; PULSE 64; RESP 18; TEMP 36.6; O2SAT 97; BMI 25.1
[2025-01-12] MEDS: LIDOCAINE 5% TRANSDERMAL PATCH 1 EACH TD (00:58)
[2025-01-12] MEDS: KETOROLAC 30MG/ML VIAL 15 MG IM (00:58)
--- OUTSIDE RECORDS SUMMARY | 2025-01-12 01:12 | XMS_ITS | Clinical Summary ---
Author Organization [facility] Address [address] [place] [address] Phone Care Team Providers Care Professor/Nurse Anesthetist Name Role Phone Lito Mehta MD Primary Care Provider [phone] Allergies Active Allergy Reactions Criticality Noted Date Comments Lorcet (Propoxyphene) Other (See Comments) 08/28/2016 Urine was discolored Medications atorvastatin (LIPITOR) 10 mg Oral Tablet Take 20 mg by mouth nightly. Active aspirin 81 mg Oral Tablet, Delayed Release (E.C.) Take by mouth nightly. Active levothyroxine (SYNTHROID) 25 mcg Oral Tablet Take 25 mcg by mouth daily. Active budesonide (ENTOCORT EC) 3 mg Oral Capsule, Delayed & Ext.Release Take 3 mg by mouth daily. Takes 2 capsules every evening Active FOLIC ACID/MULTIVIT-M IN/LUTEIN (CENTRUM SILVER ORAL) Take by mouth. Activ e cholecalciferol , vitamin D3, 25 mcg (1,000 unit) Oral Tablet Take 2 Tabs by mouth daily. Active moxifloxacin (VIGAMOX) 0.5 % Opht Drops Place 1 Drop into the right eye 4 times daily. Active nepafenac (ILEVRO) 0.3 % Opht Drops, Suspension Apply 1 Drop to eye daily. Active difluprednate (DUREZOL) 0.05 % Opht Drops Place 1 Drop into the right eye daily. Starting after after surgery Active clopidogreL (PLAVIX) 75 mg Oral Tablet Take 75 mg by mouth daily. Active cyanocobalamin 100 mcg Oral Tablet Take 100 mcg by mouth daily. Active ascorbic acid, vitamin C, (VITAMIN C) 100 mg Oral Tablet Take 100 mg by mouth daily. Active moxifloxacin (VIGAMOX) 0.5 % Opht Drops Place 1 Drop into the left eye 2 times daily. 0 2 Active difluprednate (DUREZOL) 0.05 % Opht Drops Place 1 Drop into the left eye 2 times daily. Can substitute Inveltys or Prednisolone 1 mL 2 Active nepafenac (ILEVRO) 0.3 % Opht Drops, Suspension Place 1 Drop into the left eye daily. Can substitute Bromsite or Prolensa 3 mL 2 Active fluticasone propionate (FLONASE) 50 mcg/actuation Nasl [place], Suspension 2 Sprays by Nasal route daily. Active famotidine (PEPCID) 20 mg Oral Tablet Take 20 mg by mouth daily. Active ferrous sulfate 325 mg (65 mg iron) Oral Tablet Take 325 mg by mouth daily. Active budesonide-form oteroL (SYMBICORT) 160-4.5 mcg/actuation Inhl HFA Aerosol Inhaler Inhale 2 Puffs into the lungs 2 times daily. Active olopatadine HCl (PATADAY ONCE DAILY RELIEF OPHT) Apply to eye. 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 CARDIAC SURGERY 07/30/2018 - 07/29/2019 cardiac stents CATARACT REMOVAL 2021 Eye/Left LEFT EYE COMPLEX CATARACT EXTRACTION WITH PHACOEMULSIFICATION AND INTRAOCULAR LENS; Surgeon: Alessandro Avery MD; Location: [facility]; Service: Ophthalmology Medical devices from this surgery are in the Medical Devices section. 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 Wears glasses Motion sickness Family History Medical History Relation Name Comments Early Father at age 64 Heart Disease Father Cataracts Mother Stroke Mother Relation Name Status Comments Father Mother Social History Tobacco Use Types Packs/Day Years Used Date Smoking Tobacco: Never Smokeless Tobacco: Never Alcohol Use Standard Drinks/Week Comments No 0 (1 standard drink = 0.6 oz pur e alcohol) Sex and Gender Information Value Date Recorded Sex Assigned at Not on file Legal Sex Male 8:17 AM EST Gender Identity Not on file Sexual Orientation Not on file Obstetrics History Last Filed Vital Signs Vital Sign Reading Time Taken Comments Blood Pressure 129/67 08/02/2023 1:10 PM EST Pulse 60 08/02/2023 1:10 PM EST Temperature 36.4 C (97.6 F) 08/02/2023 12:03 PM EST Respiratory Rate 16 08/02/2023 1:10 PM EST Oxygen Saturation 98% 08/02/2023 1:10 PM EST Inhaled Oxygen Concentration - - Weight 72.6 kg (160 lb) 07/19/2023 5:12 PM EST Height 175.3 cm (5' 9 ) 07/19/2023 5:12 PM EST Body Mass Index 23.63 07/19/2023 5:12 PM EST Plan of Treatment Health Maintenance Due Date Last Done Comments Wellness Exam Medicare 12/20/1938 Pneumococcal Vaccine 50+ (1 of 1 - PCV) 12/20/1985 Zoster (1 of 2) 12/20/1985 RSV or 60+ (1 - 1-dose 75+ series) 12/20/2010 COVID-19 Vaccine ( season) 2024 05/08/2022, 10/06/2021, 03/31/2021, Additional history exists Influenza Vaccine (Season Ended) 2025 05/29/2022, 06/07/2021, 05/01/2019, Additional history exists DTaP/TDaP/Td (2 - Td or Tdap) 02/23/2030 02/24/2020, 10/03/1996 Hepatitis B Vaccine Aged Out No longe r eligible based on patient's age to complete this topic Meningococcal B Vaccine Aged Out No l onger eligible based on patient's age to complete this topic Medical Devices Implanted Type Area Business Coordinator Device Identifier Shelf Expiration Date Model / Serial / Lot Dental Implants X 6 Left Inguinal Hernia Mesh (~2008) Lens Intraocular Preloaded 19.0 Diopter - [id number] Implanted:Qty: 1 on 08/30/2016 by Alessandro Avery MD at [facility] Right: Eye [employer]:SURG [id number] 10/27/2018 AU00T0.190 / [id number] / Lens Iol 1-Piece 19.0 Diopter Preloaded Acrylic Foldable Pc - [id number] Implanted:Qty: 1 on 2021 by Alessandro Avery MD at [facility] Left: Eye [employer]:SURG [id number] 08/24/2024 CNA0T0.190 / [id number] / Insurance MEDICARE [place] PART A AND B Member Subscriber Plan / Payer (Ef fective 2000-Present) Name:Kodak Bernstein Member ID:[id number] Relation to Subscriber:Self Name:Kodak Bernstein Subscriber ID:[id number] Payer ID:Not on file Group ID:Not on file Type:Not on file Address: [facility] [address] Care Teams Professor/Nurse Anesthetist Relationship Specialty Start Date End Date Lito Mehta MD PCP - General Psychiatry & Neurology-Neurology 12/12/21
--- OUTSIDE RECORDS SUMMARY | 2025-01-12 01:12 | XMS_ITS | Clinical Summary ---
Author Organization Healthcare Address [address] [place] [address] Care Team Providers Care Outsole Cementer Name Role Phone Yovani Mosley MD Primary Care Provider [phone] Social History Tobacco Use Types Packs/Day Years Used Date Smoking Tobacco: Never Alcohol Use Standard Drinks/Week Comments No 0 (1 standard drink = 0.6 oz pur e alcohol) Sex and Gender Information Value Date Recorded Sex Assigned at Not on file Legal Sex Male 8:51 PM EDT Gender Identity Not on file Sexual Orientation Not on file Last Filed Vital Signs Vital Sign Reading Time Taken Comments Blood Pressure - - Pulse - - Temperature - - Respiratory Rate - - Oxygen Saturation - - Inhaled Oxygen Concentration - - Weight 82.2 kg (181 lb 2.1 oz) 12/13/2016 11:19 AM EDT Height 175.3 cm (5' 9 ) 12/13/2016 11:19 AM EDT Body Mass Index 26.75 12/13/2016 11:19 AM EDT Plan of Treatment Not on file Care Teams Outsole Cementer Relationship Specialty Start Date End Date Yovani Mosley MD [address] [place] [address] [place] [address] PCP - General 12/10/20
--- NOTE | 2025-01-12 01:20 | HMH.EDGENADL ---
Discharge Plan Disposition Patient Disposition: Home, Self-Care Condition: Good Prescriptions Prescriptions: New lidocaine 5 % adhesive patch,medicated See Rx Instructions .ROUTE .COMPLEX Qty: 15 0RF Rx Instructions: Apply to most painful area for 12 hours, remove and leave off for 12 hours before using a new patch No Action ascorbate calcium (vitamin C) 500 mg tablet 500 mg PO DAILY vitamin B complex [B Complex-Vitamin B12] Tablet 1 tab PO DAILY cholecalciferol (vitamin D3) 25 mcg (1,000 unit) capsule 25 mcg PO DAILY ferrous sulfate 325 mg (65 mg iron) tablet See Rx Instructions .ROUTE .COMPLEX Qty: 90 1RF Dose Instruction: Take 1 tablet by mouth once daily Rx Instructions: Take 1 tablet by mouth once daily fluticasone propionate [Allergy Relief (fluticasone)] 50 mcg/actuation spray,suspension 1 spray intranasal DAILY Qty: 16 2RF Rx Instructions: administer into each nostril montelukast [Singulair] 10 mg tablet 10 mg PO DAILY Qty: 90 2RF atorvastatin 40 mg tablet 40 mg PO HS Qty: 90 3RF levothyroxine 50 mcg tablet 50 mcg PO DAILY Qty: 60 4RF tamsulosin 0.4 mg capsule See Rx Instructions .ROUTE .COMPLEX Qty: 90 0RF Dose Instruction: TAKE 1 CAPSULE BY MOUTH AT BEDTIME NIGHTLY Rx Instructions: TAKE 1 CAPSULE BY MOUTH AT BEDTIME NIGHTLY budesonide-formoterol [Breyna] 160-4.5 mcg/actuation HFA aerosol inhaler 1 inh inhalation QID PRN (Reason: shortness of breath or wheezing) Qty: 10.2 2RF aspirin 81 MG tablet,delayed release (DR/EC) 81 mg PO DAILY Referrals Follow up/Referrals: Provider,Referral, MD [Primary Care Provider, Medical] - See instructions Activity Restrictions/Add. Instructions Additional Instructions/Restrictions: You were evaluated in the ER and are believed to be appropriate for discharge at this time. Take Tylenol and ibuprofen at home if needed for pain, do not exceed the recommended dose on the bottle. Drink water and eat a small snack each time you take these medications to avoid side effects. Use the prescribed lidocaine patches as directed. Make an appointment with your primary care doctor for reevaluation in 2 to 3 days to discuss the age-related changes on your CT scan. Return to the ER with any new, worsening, or otherwise concerning symptoms. Clinical Impressions Clinical Impression: Degenerative joint disease (DJD) of lumbar spine, Bilateral kidney stones, Low back pain, Atherosclerosis of aorta Instructions Patient Instructions: DI for Low Back Pain Print Language Print Language: Turkmen Discharge ED Provider: Mel Del Real General Adult HPI General Chief complaint: Back Pain/Injury Stated complaint: back pain Time Seen by Provider: 01/12/25 00:42 Mode of Arrival: Ambulatory Source of Information: Patient Description of Symptoms (Recalled from ER Triage Doc. by RN): pt reports low back pain on the left side, pt denies any numbness or tingling. pt also denies any urinary symptoms. pt reports the pain is worse with laying and sitting. History of Present Illness HPI narrative: 89-year-old male presents to the ER with low left back pain and demonstrates to the left very low lumbar paraspinal area. Patient has no numbness, tingling, or weakness. No difficulty urinating or bowel or bladder incontinence. No saddle anesthesia. Patient reports the pain is worse when laying or sitting. He reports the pain has been going on for about 3 to 4 days. He has not taken any medications for it. He does not recall a specific injury. 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 He states he has not had any falls. No history of symptoms like this previously. Patient denies any dysuria or hematuria, no diarrhea, nausea, vomiting, or constipation. No history of kidney stones. Related Data Home Medications ?Medication ?Instructions ?Recorded ?Confirmed aspirin 81 mg tablet,delayed 81 mg PO DAILY Heart disease 09/18/17 10/28/24 release ascorbate calcium (vitamin C) 500 500 mg PO DAILY 04/25/23 10/28/24 mg tablet cholecalciferol (vitamin D3) 25 25 mcg PO DAILY 04/25/23 10/28/24 mcg (1,000 unit) capsule vitamin B complex (B 1 tab PO DAILY 04/25/23 10/28/24 Complex-Vitamin B12 tablet) Previous Rx's ?Medication ?Instructions ?Recorded montelukast 10 mg tablet 10 mg PO DAILY #90 tabs 08/01/24 (Singulair) levothyroxine 50 mcg tablet 50 mcg PO DAILY #60 tabs 10/14/24 atorvastatin 40 mg tablet 40 mg PO HS #90 tabs 10/28/24 ferrous sulfate 325 mg (65 mg See Rx Instructions .Route 10/28/24 iron) tablet .COMPLEX #90 tabs fluticasone propionate 50 1 spray intranasal DAILY rhinitis 10/28/24 mcg/actuation nasal #16 grams spray,suspension (Allergy Relief (fluticasone)) budesonide-formoterol HFA 160 1 inh inhalation QID PRN shortness 11/04/24 mcg-4.5 mcg/actuation aerosol of breath or wheezing #10.2 grams inhaler (Breyna) tamsulosin 0.4 mg capsule See Rx Instructions .Route 11/04/24 .COMPLEX #90 caps lidocaine 5 % topical patch See Rx Instructions topical 01/12/25 .COMPLEX #15 ea Allergies Allergy/AdvReac Type Severity Reaction Status Date / Time acetaminophen (From Lortab) AdvReac Mild Verified 10/28/24 15:06 hydrocodone (From Lortab) AdvReac Mild Verified 10/28/24 15:06 PFSH PFSH Disclaimer: The information contained in this section may have been updated after the patient was seen, as this information can be updated by other users. Medical History (Updated 01/12/25 @ 01:53 by Mel Del Real MD) Rhinitis Neoplasm of skin of face Candidal balanitis Papilloma Chronic asthmatic bronchitis Acquired hypothyroidism Hypoxia Cough Hoarseness of voice Anemia Allergic rhinitis Mild persistent asthma Slipped intervertebral disc Dental implant pain Rupture, artery Lip fissure Lichen planus GERD without esophagitis Gastritis Asthma Allergic rhinitis Chronic cough Other seborrheic keratosis Benign prostatic hyperplasia (BPH) with straining on urination Persistent cough Bronchitis Dizziness CAD (coronary artery disease) HLD (hyperlipidemia) High coronary artery calcium score Family history of heart disease Dyspnea Angina, class IV Surgical History Previous back surgery Stented coronary artery Family History Other Coronary artery disease Diabetes Heart disease Social History Smoking Status: Never smoker second hand exposure: No alcohol intake: never substance use type: denies use current occupational status: retired Travel in the last 8 weeks?: None household members: spouse housing: house current occupational exposures/hazards: No caffeine: Yes Have you lived/traveled outside US in past 30 days?: No Contact w/someone who lives/traveled outside US past 30 days?: No Exposure to someone with infectious disease in past 14 days?: No Do you have a fever (greater than 100.4 F or 38 C)?: No Have you tested positive for COVID-19?: No Exposed to someone with COVID-19 in past 14 days?: No Do you have a sore throat?: No Do you have a cough?: No Do you have any weakness?: No Do you have any diarrhea?: No Are you experiencing any unusual bleeding?: No Do you have any muscle aches/pain?: No Do you have any abdominal pain?: No Are you experiencing loss of taste or smell?: No Other Medical History Have you received the Flu Vaccine for this season: No Have you received the Pneumonia Vaccine: Yes ROS Obtained: Yes Systems reviewed as appropriate & no additional complaints except as documented Per HPI Physical Exam General General appearance: alert and in no apparent distress Head Head exam: atraumatic and normocephalic Eye Eye exam: Present PERRL and EOMI ENT ENT exam: Present mucous membranes moist Neck Neck exam: Present normal inspection and full ROM Chest Chest inspection: Present symmetric chest wall rise Respiratory Respiratory exam: Present normal lung sounds bilaterally; Absent respiratory distress, wheezes or stridor Cardiovascular Cardiovascular exam: Present regular rate and normal rhythm Abdominal Exam Abdominal exam: Present soft; Absent distention or tenderness Extremities Exam Extremities exam: Present full ROM; Absent edema or joint swelling Back Exam Back exam: Present full ROM; Absent tenderness, CVA tenderness (R), CVA tenderness (L) or muscle spasm Comment: Low left lumbar paraspinal area and area overlying the left sciatic notch as the area where patient reports pain but it is not reproducible with palpation, there is no evidence of trauma Neurological Exam Neurological exam: Present alert, oriented X3 and other (No saddle anesthesia, strength fully intact in all extremities, no other abnormalities on exam.); Absent motor sensory deficit Psychiatric Psychiatric exam: Present normal affect and normal mood Skin Skin exam: Present warm and dry Medical Decision Making Medical Records Medical records reviewed: Yes I reviewed the patient's medical records. Screening: Per USPSTF and CDC recommendations, given the prevalence of disease in our region, it is our hospital?s policy to screen for HIV and viral Hepatitis for all patients aged 18 and over and those with ongoing risk factors. [place] Inquiry Pt receiving controlled substance: No Vital Signs: 01/12/25 00:51 01/12/25 01:46 01/12/25 01:58 Temperature 97.9 F 98.1 F Temperature Source Oral Pulse Rate 64 64 Pulse Rate [Right] 64 Respiratory Rate 18 16 Blood Pressure 165/74 H 165/74 H Blood Pressure [Right Arm] 152/95 H Blood Pressure Mean [Right Arm] 114 02 Sat by Pulse Oximetry 97 96 Oxygen Delivery Method Room Air Orders (Tests/Meds): ED MEDICATIONS Discontinued Medications Generic Name Dose Route Start Last Admin Trade Name Freq PRN Reason Stop Dose Admin Ketorolac Tromethamine 15 mg 01/12/25 00:49 01/12/25 00:58 Ketorolac 30mg/Ml Vial IM 01/12/25 00:50 15 mg ONCE ONE Administration Lidocaine 1 each 01/12/25 00:49 01/12/25 00:58 Lidocaine 5% Transdermal Patch TD 01/12/25 00:50 1 each ONCE ONE Administration ORDERS Category Date Time Status CT abdomen pelvis wo con Stat Cat Scan 01/12/25 00:49 Completed Medical Decision Narrative: In summary, this 89-year-old male with history of CAD, hyperlipidemia, hypertension presents to the emergency department today with left-sided low back pain for multiple days. On initial evaluation patient is hemodynamically stable, afebrile, independently ambulatory into the ER, no red flag symptoms of cauda equina, no saddle anesthesia, paralysis, or bowel or bladder incontinence or retention. Patient also has no midline pain. He does not have any reproducible tenderness in the area where he describes pain. No CVA tenderness. No urinary or GI symptoms. Differential diagnosis includes but is not limited to muscle spasm, degenerative changes, radiculopathy, kidney stone was considered but is much less likely since patient has no CVA tenderness and no urinary symptoms as well as no history of stones, additionally I considered mass or more dangerous pathology but have low suspicion for these. Based on these concerns, I ordered CT abdomen pelvis without contrast to examine the muscles, bones, and organs in this area of the pain. Patient received Toradol and lidocaine patch for treatment. CT personally interpreted demonstrates degenerative changes of the low back, there are multiple areas of dense calcification including one that appears to be very close to if not slightly pressing on the psoas in the area of patient's pain which could be causing his discomfort. No surgical pathology. See radiology read for final interpretation. Incidental findings were discussed with the patient and he was recommended to follow these up with his primary care doctor. The patient is resting more comfortably since receiving Toradol and lidocaine patch. We discussed his results. I believe he is appropriate for discharge at this time and he is comfortable with this plan. Lidocaine patches were prescribed. Patient was given instructions on symptomatic management, follow up instructions, and return precautions for the emergency department. Patient indicated understanding and was discharged in stable condition. Patient ambulated independently from the ER Critical Care Critical Care Time Critical Care Time: No
[2025-01-12 01:46] VITALS: BP 165/74; PULSE 64; O2SAT 96
[2025-01-12 01:58] VITALS: BP 165/74; PULSE 64; RESP 16; TEMP 36.7; O2SAT 96
== END 2025-01-12 02:18 | disposition home or self-care (01) ==
PROVIDERS: Emergency Provider Emergency Medicine
DX: M47.816 Spondylosis without myelopathy or radiculopathy, lumbar region (principal); N20.0 Calculus of kidney; I70.0 Atherosclerosis of aorta; M54.50 Low back pain, unspecified
CPT/HCPCS: 74176; 96372; 99284; J1885

== ENCOUNTER 2025-01-15 02:36 | Emergency (ER) | payer MEDICARE, BC, SELFPAY ==
[2025-01-15 02:42] VITALS: BP 171/101; PULSE 69; RESP 18; TEMP 36.6; O2SAT 96; BMI 23.6
--- OUTSIDE RECORDS SUMMARY | 2025-01-15 02:47 | XMS_ITS | Clinical Summary ---
Author Organization Healthcare Address [address] [place] [address] Care Team Providers Care Light Rail Transit Operator Name Role Phone Yovani Mosley MD Primary Care Provider [phone] Social History Tobacco Use Types Packs/Day Years [...] of Treatment Not on file Care Teams Light Rail Transit Operator Relationship Specialty Start Date End Date Yovani Mosley MD [address] [place] [address] [place] [address] PCP - General 12/10/20
--- OUTSIDE RECORDS SUMMARY | 2025-01-15 02:48 | XMS_ITS | Clinical Summary ---
Author Organization [facility] Address [address] [facility] [place] [address] Phone Care Team Providers Care Coconut Boiler Name Role Phone Lito Mehta MD Primary Care Provider [phone] Allergies Active Allergy Reactions Criticality Noted Date [...] Active fluticasone propionate (FLONASE) 50 mcg/actuation Nasl [place], Suspension 2 Sprays by Nasal route daily. [...] LENS ; Surgeon: Alessandro Avery MD; Location: [facility]; Service: Ophthalmology Medical devices from this surgery are in the Medical Devices section. CARDIAC SURGERY 07/30/2018 - 07/29/2019 cardiac stents CATARACT REMOVAL 2021 Eye/Left LEFT EYE COMPLEX CATARACT EXTRACTION WITH PHACOEMULSIFICATION AND INTRAOCULAR LENS; Surgeon: Alessandro Avery MD; Location: [facility]; Service: Ophthalmology Medical devices from this surgery are in the Medical Devices section. BACK SURGERY EYE SURGERY 08/02/2023 Right RIGHT EYE YAG LASER CAPSULOTOMY; Surgeon: Alessandro Avery MD; Location: [facility]; Service: Ophthalmology Medical History Medical History Date [...] this topic Medical Devices Implanted Type Area Relocation Services Specialist Device Identifier Shelf Expiration Date Model / Serial / Lot Dental Implants X 6 Left Inguinal Hernia Mesh (~2008) Lens Intraocular Preloaded 19.0 Diopter - [id number] Implanted:Qty: 1 on 08/30/2016 by Alessandro Avery MD at [facility] Right: Eye [employer]:SURG [id number] 10/27/2018 AU00T0.190 / [id number] / Lens Iol 1-Piece 19.0 Diopter Preloaded Acrylic Foldable Pc - [id number] Implanted:Qty: 1 on 2021 by Alessandro Avery MD at [facility] Left: Eye [employer]:SURG [id number] 08/24/2024 CNA0T0.190 / [id number] / Insurance MEDICARE [place] PART A AND B Member Subscriber Plan / Payer (Ef fective 2000-Present) Name:Kodak Bernstein Member ID:[id number] Relation to Subscriber:Self Name:Kodak Bernstein Subscriber ID:[id number] Payer ID:Not on file Group ID:Not on file Type:Not on file Address: [facility] [address] Care Teams Coconut Boiler Relationship Specialty Start Date End Date Lito Mehta MD PCP - General Psychiatry & Neurology-Neurology 12/12/21
--- NOTE | 2025-01-15 02:55 | XR_ITS ---
PROCEDURE INFORMATION: Exam: XR Left Femur Exam date and time: 01/15/2025 3:18 AM Age: 89 years old Clinical indication: Pain; Thigh; Left; Additional info: Left hip pain TECHNIQUE: Imaging protocol: Radiologic exam of the left femur. Views: 2 views. COMPARISON: CR XR HIP LT 2-3V W/PELVIS 01/15/2025 3:18 AM FINDINGS: Bones/joints: No acute fracture. Tibiofemoral and patellofemoral degenerative changes. Soft tissues: Soft tissue vascular calcification. Other findings: Cortical density intact. IMPRESSION: No acute findings left femur radiographs.
--- NOTE | 2025-01-15 02:55 | XR_ITS ---
PROCEDURE INFORMATION: Exam: XR Left Hip Exam date and time: 01/15/2025 3:18 AM Age: 89 years old Clinical indication: Hip pain; Left hip; Additional info: Left posterior hip pain TECHNIQUE: Imaging protocol: Radiologic exam of the left hip. Views: 2 or 3 views hip with pelvis when performed. COMPARISON: CT ABDOMEN PELVIS WO CON 01/12/2025 1:05 AM FINDINGS: Bones/joints: No acute fracture or dislocation. Cortical density intact. Minimal bilateral hip medial joint space reduction. Lower lumbar degenerative disc disease with bridging syndesmophytes. Soft tissues: Soft tissues unremarkable. IMPRESSION: No acute findings.
--- NOTE | 2025-01-15 02:55 | XR_ITS ---
PROCEDURE INFORMATION: Exam: XR Left Knee Exam date and time: 01/15/2025 3:18 AM Age: 89 years old Clinical indication: Pain; Knee; Left; Additional info: Left hip pain TECHNIQUE: Imaging protocol: Radiologic exam of the left knee. Views: 3 views. COMPARISON: DX XR KNEE LT 4V 12/29/2019 2:06 PM FINDINGS: Bones/joints: Tibiofemoral and patellofemoral mild degenerative changes. No acute fracture. Cortical density intact. Soft tissues: Soft tissue vascular calcifications. IMPRESSION: No acute findings left knee radiographs.
[2025-01-15] MEDS: KETOROLAC 30MG/ML VIAL 15 MG IV (03:02)
[2025-01-15] MEDS: MORPHINE 2MG/ML SYRINGE 2 MG IV (03:02)
--- NOTE | 2025-01-15 03:08 | PC.NURSE ---
pt taken to radiology
[2025-01-15 03:10] LABS: Basophils % 0.5 % (0.1-2.0); Eosinophils # 0.4 Kmm3 (0.0-0.4); Eosinophils % 4.3 % (0.1-12.0); Hematocrit 42.1 % (42.0-52.0); Immature Granulocytes # 0.02 10^3uL; Immature Granulocytes % 0.2 %; Lymphocytes # 1.7 K/mm3 (0.7-4.5); Lymphocytes % 20.3 % (10-50); Mean Corpuscular HGB Conc 33.3 g/dL (31.8-35.4); Mean Corpuscular Volume 90.1 fl (80-94); Mean Platelet Volume 10.6 fl (7.4-10.4); Monocytes # 0.7 K/mm3 (0.1-1.0); Monocytes % 8.5 % (1.7-9.3); Neutrophils # 5.7 K/mm3 (1.8-7.8); Neutrophils % 66.2 % (37.0-80.0); Nucleated Red Blood Cells # 0 10^3/uL; Nucleated Red Blood Cells % 0 %; Platelet Count 238 K/mm3 (142-424); Red Blood Count 4.67 M/mm3 (4.60-6.20); Red Cell Distribution Width 13.2 % (11.5-17.5); White Blood Count 8.6 K/mm3 (4.8-10.8)
[2025-01-15 03:20] LABS: Alanine Aminotransferase 18 U/L (12-78); Albumin Level 3.9 g/dl (3.5-5.0); Albumin/Globulin Ratio 1.3 (1.1-1.8); Alkaline Phosphatase 67 U/L (38-126); Anion Gap 8.5 mEq/L (5-15); Aspartate Amino Transferase 25 U/L (17-59); Bilirubin,Total 0.7 mg/dl (0.2-1.3); Blood Urea Nitrogen 30 mg/dl (9-20); Carbon Dioxide 27 mmol/L (22.0-30.0); Chloride 107 mmol/L (98-107); Creatinine Clearance Estimated 40 mL/min (50-200); Estimated Glomerular Filt Rate 52 ml/min (>60); GFR (African American) 63 ML/MIN (>60); Globulin 3.1 g/dL (1.3-3.2); Glucose 90 mg/dl (74-100); Potassium 4.5 mmoL/L (3.5-5.1); Sodium 138 mmol/L (136-145)
--- NOTE | 2025-01-15 03:46 | HMH.EDGENADL ---
Discharge Plan Disposition Patient Disposition: Home, Self-Care Condition: Good Prescriptions Prescriptions: New methocarbamol 500 mg tablet 500 mg PO Q6H PRN (Reason: pain) Qty: 30 0RF No Action ascorbate calcium (vitamin C) 500 mg tablet 500 mg PO DAILY vitamin B complex [B Complex-Vitamin B12] Tablet 1 tab PO DAILY cholecalciferol (vitamin D3) 25 mcg (1,000 unit) capsule 25 mcg PO DAILY ferrous sulfate 325 mg (65 mg iron) tablet See Rx Instructions .ROUTE .COMPLEX Qty: 90 1RF Dose Instruction: Take 1 tablet by mouth once daily Rx Instructions: Take 1 tablet by mouth once daily fluticasone propionate [Allergy Relief (fluticasone)] 50 mcg/actuation spray,suspension 1 spray intranasal DAILY Qty: 16 2RF Rx Instructions: administer into each nostril montelukast [Singulair] 10 mg tablet 10 mg PO DAILY Qty: 90 2RF atorvastatin 40 mg tablet 40 mg PO HS Qty: 90 3RF levothyroxine 50 mcg tablet 50 mcg PO DAILY Qty: 60 4RF tamsulosin 0.4 mg capsule See Rx Instructions .ROUTE .COMPLEX Qty: 90 0RF Dose Instruction: TAKE 1 CAPSULE BY MOUTH AT BEDTIME NIGHTLY Rx Instructions: TAKE 1 CAPSULE BY MOUTH AT BEDTIME NIGHTLY budesonide-formoterol [Breyna] 160-4.5 mcg/actuation HFA aerosol inhaler 1 inh inhalation QID PRN (Reason: shortness of breath or wheezing) Qty: 10.2 2RF aspirin 81 MG tablet,delayed release (DR/EC) 81 mg PO DAILY lidocaine 5 % adhesive patch,medicated See Rx Instructions .ROUTE .COMPLEX Qty: 15 0RF Rx Instructions: Apply to most painful area for 12 hours, remove and leave off for 12 hours before using a new patch Referrals Follow up/Referrals: Hermelindo Major DO [Staff Physician, Orthopedics] - See instructions Tyson GILBERT MD [Primary Care Provider, Family Practice] - See instructions Activity Restrictions/Add. Instructions Additional Instructions/Restrictions: Please call Dr. Major's office and follow-up to be seen about your hip pain. Please follow-up with your primary care provider. Please return to the emergency department if you develop any new or worsening symptoms or become concerned for your health. I am sending in a prescription for Robaxin, a muscle relaxer. Please take it as needed for pain. Please use ice and heat as needed. Please continue to take Tylenol as needed. Clinical Impressions Clinical Impression: Acute pain of left hip Print Language Print Language: Chinese Discharge ED Provider: Sudeep Davis General Adult HPI General Chief complaint: PAIN Stated complaint: hip pain Time Seen by Provider: 01/15/25 02:40 Mode of Arrival: Ambulatory Source of Information: Patient Description of Symptoms (Recalled from ER Triage Doc. by RN): pt presents for eval of left hip pain that began x1 week ago with no injury. Pt reports recent ER visit for same complaint with no findings on imgaing and RX for lidocaine and muscle relaxers that are not helping his pain. Pt ambulatory to room with slow steady gait. History of Present Illness HPI narrative: 89-year-old male with no significant past medical history presents for continued left hip pain. He was seen here 3 days ago for similar symptoms. At that time per the note it was described more as low back. Today it seems more hip and is also radiating into his left knee, likely from changes in his ambulation pattern. Patient reports that he is able to walk on it without any significant difficulty besides pain. He does not feel unsteady or weak at all. He denies any falls. Related Data Home Medications ?Medication ?Instructions ?Recorded ?Confirmed aspirin 81 mg tablet,delayed 81 mg PO DAILY Heart disease 09/18/17 10/28/24 release ascorbate calcium (vitamin C) 500 500 mg PO DAILY 04/25/23 10/28/24 mg tablet cholecalciferol (vitamin D3) 25 25 mcg PO DAILY 04/25/23 10/28/24 mcg (1,000 unit) capsule vitamin B complex (B 1 tab PO DAILY 04/25/23 10/28/24 Complex-Vitamin B12 tablet) Previous Rx's ?Medication ?Instructions ?Recorded montelukast 10 mg tablet 10 mg PO DAILY #90 tabs 08/01/24 (Singulair) levothyroxine 50 mcg tablet 50 mcg PO DAILY #60 tabs 10/14/24 atorvastatin 40 mg tablet 40 mg PO HS #90 tabs 10/28/24 ferrous sulfate 325 mg (65 mg See Rx Instructions .Route 10/28/24 iron) tablet .COMPLEX #90 tabs fluticasone propionate 50 1 spray intranasal DAILY rhinitis 10/28/24 mcg/actuation nasal #16 grams spray,suspension (Allergy Relief (fluticasone)) budesonide-formoterol HFA 160 1 inh inhalation QID PRN shortness 11/04/24 mcg-4.5 mcg/actuation aerosol of breath or wheezing #10.2 grams inhaler (Breyna) tamsulosin 0.4 mg capsule See Rx Instructions .Route 11/04/24 .COMPLEX #90 caps lidocaine 5 % topical patch See Rx Instructions topical 01/12/25 .COMPLEX #15 ea methocarbamol 500 mg tablet 500 mg PO Q6H PRN pain #30 tabs 01/15/25 Allergies Allergy/AdvReac Type Severity Reaction Status Date / Time acetaminophen (From Lortab) AdvReac Mild Verified 10/28/24 15:06 hydrocodone (From Lortab) AdvReac Mild Verified 10/28/24 15:06 PFSH PFSH Disclaimer: The information contained in this section may have been updated after the patient was seen, as this information can be updated by other users. Medical History (Updated 01/15/25 @ 04:18 by Sudeep Davis MD) Rhinitis Neoplasm of skin of face Candidal balanitis Papilloma Chronic asthmatic bronchitis Acquired hypothyroidism Hypoxia Cough Hoarseness of voice Anemia Allergic rhinitis Mild persistent asthma Slipped intervertebral disc Dental implant pain Rupture, artery Lip fissure Lichen planus GERD without esophagitis Gastritis Asthma Allergic rhinitis Chronic cough Other seborrheic keratosis Benign prostatic hyperplasia (BPH) with straining on urination Persistent cough Bronchitis Dizziness CAD (coronary artery disease) HLD (hyperlipidemia) High coronary artery calcium score Family history of heart disease Dyspnea Angina, class IV Surgical History Previous back surgery Stented coronary artery Family History Other Coronary artery disease Diabetes Heart disease Social History Smoking Status: Never smoker second hand exposure: No alcohol intake: never substance use type: denies use current occupational status: retired Travel in the last 8 weeks?: None household members: spouse housing: house current occupational exposures/hazards: No caffeine: Yes Have you lived/traveled outside [place] in past 30 days?: No Contact w/someone who lives/traveled outside [place] past 30 days?: No Exposure to someone with infectious disease in past 14 days?: No Do you have a fever (greater than 100.4 F or 38 C)?: No Have you tested positive for COVID-19?: No Exposed to someone with COVID-19 in past 14 days?: No Do you have a sore throat?: No Do you have a cough?: No Do you have any weakness?: No Do you have any diarrhea?: No Are you experiencing any unusual bleeding?: No Do you have any muscle aches/pain?: No Do you have any abdominal pain?: No Are you experiencing loss of taste or smell?: No Other Medical History Have you received the Flu Vaccine for this season: No Have you received the Pneumonia Vaccine: Yes ROS Obtained: Yes All systems reviewed & no additional complaints except as documented Physical Exam General General appearance: alert and in no apparent distress Head Head exam: atraumatic and normocephalic Eye Eye exam: Present normal appearance, PERRL and EOMI ENT ENT exam: Present normal oropharynx and normal external ear exam Neck Neck exam: Present normal inspection and full ROM Chest Chest inspection: Present normal inspection and symmetric chest wall rise; Absent tenderness Respiratory Respiratory exam: Present normal lung sounds bilaterally; Absent respiratory distress Cardiovascular Cardiovascular exam: Present regular rate and normal rhythm Abdominal Exam Abdominal exam: Present soft; Absent distention, tenderness or guarding Extremities Exam Extremities exam: Present normal inspection; Absent edema or joint swelling Back Exam Back exam: Present normal inspection; Absent tenderness Neurological Exam Neurological exam: Present alert and oriented X3; Absent motor sensory deficit Psychiatric Psychiatric exam: Present normal affect and normal mood Skin Skin exam: Present warm, dry and normal color Lymphatic Lymphatic Findings: no adenopathy Medical Decision Making Medical Records Medical records reviewed: Yes I reviewed the patient's medical records. Screening: Per USPSTF and CDC recommendations, given the prevalence of disease in our region, it is our hospital?s policy to screen for HIV and viral Hepatitis for all patients aged 18 and over and those with ongoing risk factors. [place] Inquiry Pt receiving controlled substance: No [place] was queried for this patient: No Vital Signs: 01/15/25 02:42 01/15/25 04:02 Temperature 97.8 F Temperature Source Oral Pulse Rate 52 L Pulse Rate [Radial] 69 Respiratory Rate 18 16 Blood Pressure 163/72 H Blood Pressure [Right Arm] 171/101 H Blood Pressure Mean [Right Arm] 124 Blood Pressure Position [Right Arm] Sitting 02 Sat by Pulse Oximetry 96 96 Oxygen Delivery Method Room Air Room Air Lab Data Lab results reviewed: Yes I reviewed the patient's lab results. Lab Results 01/15/25 03:05: WBC 8.6, RBC 4.67, Hgb 14.0 L, Hct 42.1, MCV 90.1, MCH 30.0, MCHC 33.3, RDW 13.2, Plt Count 238, MPV 10.6 H, Neut % (Auto) 66.2, Lymph % (Auto) 20.3, [place] % (Auto) 8.5, Eos % (Auto) 4.3, Baso % (Auto) 0.5, Neut # (Auto) 5.7, Lymph # (Auto) 1.7, [place] # (Auto) 0.7, Eos # (Auto) 0.4, Baso # (Auto) 0.0, Sodium 138, Potassium 4.5, Chloride 107, Carbon Dioxide 27, Anion Gap 8.5, BUN 30 H, Creatinine 1.30 H, Estimated Creat Clear 40, Estimated GFR 52 L, Est GFR ( Amer) 63, Glucose 90, Calcium 10.0, Total Bilirubin 0.7, AST 25, ALT 18, Alkaline Phosphatase 67, Total Protein 7.0, Albumin 3.9, Globulin 3.1, Albumin/Globulin Ratio 1.3 01/15/25 03:05 01/15/25 03:05 Orders (Tests/Meds): ED MEDICATIONS Discontinued Medications Generic Name Dose Route Start Last Admin Trade Name Florina PRN Reason Stop Dose Admin Acetaminophen 1,000 mg 01/15/25 02:55 01/15/25 03:08 Acetaminophen 500mg Tab PO 01/15/25 02:56 Not Given ONCE ONE Ketorolac Tromethamine 15 mg 01/15/25 02:55 01/15/25 03:02 Ketorolac 30mg/Ml Vial IV 01/15/25 02:56 15 mg ONCE ONE Administration Morphine Sulfate 2 mg 01/15/25 02:55 01/15/25 03:02 Morphine 2mg/Ml Syringe IV 01/15/25 02:56 2 mg ONCE ONE Administration ORDERS Category Date Time Status Femur XR left 2 views [XR femur LT 2V] Stat Exams 01/15/25 02:55 Completed Hip XR left minimum 2 views [XR hip LT 2-3V w/pelvis] Exams 01/15/25 02:55 Completed Stat Knee XR left 3 views [XR knee LT 3V] Stat Exams 01/15/25 02:55 Taken CBC w/Auto Diff [Complete Blood Count Auto Diff] Stat Lab 01/15/25 03:05 Completed CMP [Comprehensive Metabolic Panel] Stat Lab 01/15/25 03:05 Completed Medical Decision Narrative: 89-year-old male with history of coronary artery disease, hypertension presents for left hip and left knee pain.. History was obtained via interactive discussion with patient, chart review. On arrival, patient is [afebrile, hemodynamically stable, satting appropriately, alert, oriented x4, GCS 15], moving all extremities spontaneously. Full physical exam performed and significant for no significant tenderness on exam. Patient points to his left buttock as the location of pain. He has normal sensation, strength and range of motion. Differential includes but is not limited to fracture, dislocation, arthritis, neurovascular/ligamentous injury. Patient had a CT scan a few days ago which showed no acute abnormalities to explain patient's pain. He reports it is remained stable/slightly worse since then. Patient was given 15 of Toradol and 2 of morphine IV, will evaluate with radiographs, basic labs ordered. On re-evaluation, patient reports some improvement in pain Laboratory workup independently interpreted by me and significant for stable chronic kidney disease, no significant leukocytosis.. Imaging independently interpreted by me and significant for chronic degenerative changes without acute fracture or dislocation. See radiology read for full review of final results. Admission for MRI for occult hip fracture was considered, but deemed unnecessary due to the fact the patient is still ambulatory without significant difficulty. I considered repeating CT imaging, but there does not seem to be any intra-abdominal pathology which is likely to be contributory given the buttock location of pain. Patient has normal cap refill, nothing to suggest vascular insufficiency. No radiating numbness tingling burning or neurodeficits to suggest spinal cord pathology. Given patient history, exam and workup, patient's presentation most likely represents osteoarthritis. Patient was discharged with prescription for low-dose Robaxin and given the clinic number for Dr. Major to follow-up. Return precautions given.. Procedures Risk/Benefits of Procedure(s) Were Explained: Yes Critical Care Critical Care Time Critical Care Time: No
[2025-01-15 04:02] VITALS: BP 163/72; PULSE 52; RESP 16; O2SAT 96
[2025-01-15 04:24] VITALS: BP 163/72; PULSE 59; RESP 18; TEMP 36.6; O2SAT 98
== END 2025-01-15 04:26 | disposition home or self-care (01) ==
PROVIDERS: Emergency Provider Emergency Medicine; PCP Family Medicine
DX: M25.552 Pain in left hip (principal)
CPT/HCPCS: 73502; 73552; 73562; 80053; 85025; 96374; 96375; 99284; J1885; J2270

== ENCOUNTER 2025-01-18 10:45 | Emergency (ER) | payer MEDICARE, BC, SELFPAY ==
[2025-01-18 10:55] VITALS: PULSE 71; RESP 16; TEMP 36.6; O2SAT 98; BMI 23.6
--- NOTE | 2025-01-18 11:18 | CT_ITS ---
PROCEDURE INFORMATION: Exam: CT Pelvis Without Contrast, Skeleton Exam date and time: 01/18/2025 11:33 AM Age: 89 years old Clinical indication: Other: Left hip pain, atraumatic TECHNIQUE: Imaging protocol: Computed tomography of the pelvis without contrast. Exam focused on the skeleton. Radiation optimization: All CT scans at this facility use at least one of these dose optimization techniques: automated exposure control; mA and/or kV adjustment per patient size (includes targeted exams where dose is matched to clinical indication); or iterative reconstruction. COMPARISON: CT ABDOMEN PELVIS WO CON 01/12/2025 1:05 AM FINDINGS: Intestine: Colonic diverticulosis without CT evidence of diverticulitis. Bones/joints: No acute fracture or dislocation. Mild degenerative changes at the sacroiliac joints bilaterally. Moderate disc space narrowing at L4-L5. Soft tissues: Unremarkable. IMPRESSION: No acute findings.
--- NOTE | 2025-01-18 11:20 | HMH.EDGENADL ---
Discharge Plan Disposition Patient Disposition: Home, Self-Care Condition: Fair Prescriptions Prescriptions: No Action ascorbate calcium (vitamin C) 500 mg tablet 500 mg PO DAILY vitamin B complex [B Complex-Vitamin B12] Tablet 1 tab PO DAILY cholecalciferol (vitamin D3) 25 mcg (1,000 unit) capsule 25 mcg PO DAILY ferrous sulfate 325 mg (65 mg iron) tablet See Rx Instructions .ROUTE .COMPLEX Qty: 90 1RF Dose Instruction: Take 1 tablet by mouth once daily Rx Instructions: Take 1 tablet by mouth once daily fluticasone propionate [Allergy Relief (fluticasone)] 50 mcg/actuation spray,suspension 1 spray intranasal DAILY Qty: 16 2RF Rx Instructions: administer into each nostril montelukast [Singulair] 10 mg tablet 10 mg PO DAILY Qty: 90 2RF atorvastatin 40 mg tablet 40 mg PO HS Qty: 90 3RF levothyroxine 50 mcg tablet 50 mcg PO DAILY Qty: 60 4RF tamsulosin 0.4 mg capsule See Rx Instructions .ROUTE .COMPLEX Qty: 90 0RF Dose Instruction: TAKE 1 CAPSULE BY MOUTH AT BEDTIME NIGHTLY Rx Instructions: TAKE 1 CAPSULE BY MOUTH AT BEDTIME NIGHTLY budesonide-formoterol [Breyna] 160-4.5 mcg/actuation HFA aerosol inhaler 1 inh inhalation QID PRN (Reason: shortness of breath or wheezing) Qty: 10.2 2RF aspirin 81 MG tablet,delayed release (DR/EC) 81 mg PO DAILY lidocaine 5 % adhesive patch,medicated See Rx Instructions .ROUTE .COMPLEX Qty: 15 0RF Rx Instructions: Apply to most painful area for 12 hours, remove and leave off for 12 hours before using a new patch methocarbamol 500 mg tablet 500 mg PO Q6H PRN (Reason: pain) Qty: 30 0RF Referrals Follow up/Referrals: Stephania Mehta MD [Primary Care Provider, Medical] - See instructions Hermelindo Major DO [Staff Physician, Orthopedics] - See instructions Activity Restrictions/Add. Instructions Additional Instructions/Restrictions: Your workup is significant for degenerative disease in your spine and your hip that is likely causing your pain. We recommend following up with your primary care provider to be referred to physical therapy. You can also speak to orthopedic surgery about options for injections or surgery for your pain. Clinical Impressions Clinical Impression: Degenerative joint disease (DJD) of lumbar spine, Osteoarthritis Print Language Print Language: Lao Discharge ED Provider: Luisa Courtney General Adult HPI General Chief complaint: PAIN Stated complaint: L Hip Pain Time Seen by Provider: 01/18/25 11:12 Mode of Arrival: Ambulatory Source of Information: Patient Description of Symptoms (Recalled from ER Triage Doc. by RN): pt c/o L hip pain that is 9/10 ongoing x10d. pt took methocaramol about 6h ago and tylenol early this am without any relief. pt has been seen here twice for the same pain and had images each time. pt denies any injury History of Present Illness HPI narrative: Patient is an 89-year-old with past medical history significant for degenerative disc disease osteoarthritis diverticulosis presents with left hip pain. Pain has been going on for 10 days patient took prescribed Robaxin without improvement of symptoms so came back this morning for reevaluation. No new falls no fevers chills numbness tingling. Has not followed up with his primary care provider because he has not been able to get an appointment and has not followed up with orthopedic surgery because he thought he could come back to the emergency department for pain relief. Pain is worse at the end of the day Related Data Home Medications ?Medication ?Instructions ?Recorded ?Confirmed aspirin 81 mg tablet,delayed 81 mg PO DAILY Heart disease 09/18/17 10/28/24 release ascorbate calcium (vitamin C) 500 500 mg PO DAILY 04/25/23 10/28/24 mg tablet cholecalciferol (vitamin D3) 25 25 mcg PO DAILY 04/25/23 10/28/24 mcg (1,000 unit) capsule vitamin B complex (B 1 tab PO DAILY 04/25/23 10/28/24 Complex-Vitamin B12 tablet) Previous Rx's ?Medication ?Instructions ?Recorded montelukast 10 mg tablet 10 mg PO DAILY #90 tabs 08/01/24 (Singulair) levothyroxine 50 mcg tablet 50 mcg PO DAILY #60 tabs 10/14/24 atorvastatin 40 mg tablet 40 mg PO HS #90 tabs 10/28/24 ferrous sulfate 325 mg (65 mg See Rx Instructions .Route 10/28/24 iron) tablet .COMPLEX #90 tabs fluticasone propionate 50 1 spray intranasal DAILY rhinitis 10/28/24 mcg/actuation nasal #16 grams spray,suspension (Allergy Relief (fluticasone)) budesonide-formoterol HFA 160 1 inh inhalation QID PRN shortness 11/04/24 mcg-4.5 mcg/actuation aerosol of breath or wheezing #10.2 grams inhaler (Breyna) tamsulosin 0.4 mg capsule See Rx Instructions .Route 11/04/24 .COMPLEX #90 caps lidocaine 5 % topical patch See Rx Instructions topical 01/12/25 .COMPLEX #15 ea methocarbamol 500 mg tablet 500 mg PO Q6H PRN pain #30 tabs 01/15/25 Allergies Allergy/AdvReac Type Severity Reaction Status Date / Time acetaminophen (From Lortab) AdvReac Mild Unknown Verified 01/18/25 11:01 allergy reaction hydrocodone (From Lortab) AdvReac Mild Unknown Verified 01/18/25 11:01 allergy reaction PFSH PFS Disclaimer: The information contained in this section may have been updated after the patient was seen, as this information can be updated by other users. Medical History (Updated 01/18/25 @ 13:18 by Luisa Courtney MD) Rhinitis Neoplasm of skin of face Candidal balanitis Papilloma Chronic asthmatic bronchitis Acquired hypothyroidism Hypoxia Cough Hoarseness of voice Anemia Allergic rhinitis Mild persistent asthma Slipped intervertebral disc Dental implant pain Rupture, artery Lip fissure Lichen planus GERD without esophagitis Gastritis Asthma Allergic rhinitis Chronic cough Other seborrheic keratosis Benign prostatic hyperplasia (BPH) with straining on urination Persistent cough Bronchitis Dizziness CAD (coronary artery disease) HLD (hyperlipidemia) High coronary artery calcium score Family history of heart disease Dyspnea Angina, class IV Surgical History Previous back surgery Stented coronary artery Family History Other Coronary artery disease Diabetes Heart disease Social History Smoking Status: Never smoker second hand exposure: No alcohol intake: never substance use type: denies use current occupational status: retired Travel in the last 8 weeks?: None household members: spouse housing: house current occupational exposures/hazards: No caffeine: Yes Have you lived/traveled outside US in past 30 days?: No Contact w/someone who lives/traveled outside US past 30 days?: No Exposure to someone with infectious disease in past 14 days?: No Do you have a fever (greater than 100.4 F or 38 C)?: No Have you tested positive for COVID-19?: No Exposed to someone with COVID-19 in past 14 days?: No Do you have a sore throat?: No Do you have a cough?: No Do you have any weakness?: No Do you have any diarrhea?: No Are you experiencing any unusual bleeding?: No Do you have any muscle aches/pain?: No Do you have any abdominal pain?: No Are you experiencing loss of taste or smell?: No Other Medical History Have you received the Flu Vaccine for this season: No Have you received the Pneumonia Vaccine: Yes ROS Obtained: Yes All systems reviewed & no additional complaints except as documented Physical Exam General General appearance: alert and in no apparent distress Head Head exam: atraumatic and normocephalic Eye Eye exam: Present PERRL ENT ENT exam: Present normal exam Neck Neck exam: Present full ROM; Absent tenderness Chest Chest inspection: Present normal inspection and symmetric chest wall rise Respiratory Respiratory exam: Absent respiratory distress Cardiovascular Cardiovascular exam: Present regular rate and normal rhythm Abdominal Exam Abdominal exam: Present soft; Absent distention, tenderness or guarding Extremities Exam Extremities exam: Present full ROM (Full range of motion of the left hip, no erythema of the hip) Back Exam Back exam: Present tenderness (Tenderness to the left paraspinal) Neurological Exam Neurological exam: Present alert, oriented X3 and normal gait; Absent motor sensory deficit Skin Skin exam: Present warm and dry Medical Decision Making Medical Records Screening: Per USPSTF and CDC recommendations, given the prevalence of disease in our region, it is our hospital?s policy to screen for HIV and viral Hepatitis for all patients aged 18 and over and those with ongoing risk factors. [place] Inquiry Pt receiving controlled substance: No Vital Signs: 01/18/25 10:55 01/18/25 12:43 01/18/25 13:20 Temperature 97.9 F Temperature Source Oral Pulse Rate 64 59 L Pulse Rate [Left] 71 Respiratory Rate 16 13 18 Blood Pressure 154/70 H 140/74 Blood Pressure Source [Right Arm] Automatic Cuff Blood Pressure Position [Right Arm] Sitting 02 Sat by Pulse Oximetry 98 100 98 Oxygen Delivery Method Room Air Room Air Lab Data Lab Results 01/18/25 12:40: Urine Color Yellow, Urine Appearance Clear, Urine pH 6.0, Ur Specific Delta 1.020, Urine Protein Negative, Urine Glucose (UA) Negative, Urine Ketones Negative, Urine Blood Trace-i, Urine Nitrate Negative, Urine Bilirubin Negative, Urine Urobilinogen 0.2, Ur Leukocyte Esterase Negative, Urine RBC Occasional, Urine WBC Occasional, Ur Squamous Epith Cells Occasional, Urine Bacteria Trace 01/18/25 12:41: WBC 9.4, RBC 4.79, Hgb 14.3, Hct 43.4, MCV 90.6, MCH 29.9, MCHC 32.9, RDW 13.2, Plt Count 240, MPV 10.7 H, Neut % (Auto) 70.4, Lymph % (Auto) 15.6, Drew % (Auto) 8.5, Eos % (Auto) 4.4, Baso % (Auto) 0.6, Neut # (Auto) 6.6, Lymph # (Auto) 1.5, Drew # (Auto) 0.8, Eos # (Auto) 0.4, Baso # (Auto) 0.1, ESR 13, Sodium 136, Potassium 4.5, Chloride 108 H, Carbon Dioxide 24, Anion Gap 8.5, BUN 34 H, Creatinine 1.20, Estimated Creat Clear 43, Estimated GFR 57 L, Est GFR ( Amer) 69, Glucose 99, Calcium 9.6, Total Bilirubin 0.6, AST 33, ALT 19, Alkaline Phosphatase 57, C-Reactive Protein 2.3, Total Protein 7.3, Albumin 4.1, Globulin 3.2, Albumin/Globulin Ratio 1.3 01/18/25 12:41 01/18/25 12:41 Orders (Tests/Meds): ED MEDICATIONS Generic Name Dose Route Start Last Admin Trade Name Freq PRN Reason Stop Dose Admin Oxycodone HCl 5 mg 01/18/25 12:35 01/18/25 13:04 Oxycodone 5mg Immediate Release Tablet PO 02/17/25 12:34 5 mg Q6HP PRN Administration Severe Pain (7-10) ORDERS Category Date Time Status CT bony pelvis Stat Cat Scan 01/18/25 11:18 Completed C-Reactive Protein Stat Lab 01/18/25 12:41 Completed Complete Blood Count Auto Diff Stat Lab 01/18/25 12:41 Completed Comprehensive Metabolic Panel Stat Lab 01/18/25 12:41 Completed Erythrocyte Sedimentation Rate Stat Lab 01/18/25 12:41 Completed Urinalysis and Microscopic Stat Lab 01/18/25 12:40 Completed Medical Decision Narrative: In summary, this 89-year-old male presents to the emergency department today with left hip pain. On initial evaluation patient is hemodynamically stable saturating properly on room air afebrile no acute distress. Differential diagnosis includes but is not limited to occult fracture osteoarthritis degenerative disc disease urolithiasis. Based on these concerns, I ordered CT bony pelvis UA ESR CRP. I reviewed prior ED visit note had CT abdomen pelvis with IV contrast and radiographs of the left hip with degenerative disc disease and osteoarthritis likely causing patient's pain. CT bony pelvis ordered for evaluation of occult fracture which is negative. Patient received oxycodone for treatment. Labs personally reviewed demonstrate no leukocytosis normal CRP. CT imaging personally interpreted demonstrate No acute fracture or dislocation, degenerative disease of the spine and hip. On reevaluation patient continues to be ambulatory. He requests pain medication to help him sleep. I recommended continuing the Tylenol and Robaxin and lidocaine patches that were prescribed by Dr. Davis and to follow-up with his primary care provider for physical therapy referral and Dr. Major with orthopedic surgery for further options and pain control for his likely osteoarthritis. Patient agreeable with this plan agreeable to discharge at this time. Critical Care Critical Care Time Critical Care Time: No
--- OUTSIDE RECORDS SUMMARY | 2025-01-18 11:21 | XMS_ITS | Clinical Summary ---
Author Organization [facility] Address [address] [facility] [place] [address] Phone Care Team Providers Care Silver Recovery Operator Name Role Phone Lito Mehta MD Primary Care Provider [phone] Allergies Active Allergy Reactions Criticality Noted Date [...] Active fluticasone propionate (FLONASE) 50 mcg/actuation Nasl Neola, Suspension 2 Sprays by Nasal route daily. [...] LENS ; Surgeon: Alessandro Avery MD; Location: [facility]; Service: Ophthalmology Medical devices from this surgery are in the Medical Devices section. CARDIAC SURGERY 07/30/2018 - 07/29/2019 cardiac stents CATARACT REMOVAL 2021 Eye/Left LEFT EYE COMPLEX CATARACT EXTRACTION WITH PHACOEMULSIFICATION AND INTRAOCULAR LENS; Surgeon: Alessandro Avery MD; Location: [facility]; Service: Ophthalmology Medical devices from this surgery are in the Medical Devices section. BACK SURGERY EYE SURGERY 08/02/2023 Right RIGHT EYE YAG LASER CAPSULOTOMY; Surgeon: Alessandro Avery MD; Location: [facility]; Service: Ophthalmology Medical History Medical History [...] this topic Medical Devices Implanted Type Area Cattle Trader Device Identifier Shelf Expiration Date Model / Serial / Lot Dental Implants X 6 Left Inguinal Hernia Mesh (~2008) Lens Intraocular Preloaded 19.0 Diopter - [id number] Implanted:Qty: 1 on 08/30/2016 by Alessandro Avery MD at [facility] Right: Eye [facility]:SURG [id number] 10/27/2018 AU00T0.190 / [id number] / Lens Iol 1-Piece 19.0 Diopter Preloaded Acrylic Foldable Pc - [id number] Implanted:Qty: 1 on 2021 by Alessandro Avery MD at [facility] Left: Eye [facility]:SURG [id number] 08/24/2024 CNA0T0.190 / [id number] / Insurance MEDICARE [place] PART A AND B Member Subscriber Plan / Payer (Ef fective 2000-Present) Name:Kodak Bernstein Member ID:[id number] Relation to Subscriber:Self Name:Kodak Bernstein Subscriber ID:[id number] Payer ID:Not on file Group ID:Not on file Type:Not on file Address: [facility] [address] Care Teams Silver Recovery Operator Relationship Specialty Start Date End Date Lito Mehta MD PCP - General Psychiatry & Neurology-Neurology 12/12/21
--- OUTSIDE RECORDS SUMMARY | 2025-01-18 11:21 | XMS_ITS | Clinical Summary ---
Author Organization Healthcare Address [address] [place] [address] Care Team Providers Care Coagulating Bath Mixer Name Role Phone Yovani Mosley MD Primary Care Provider [phone] Social History Tobacco Use Types Packs/Day Years [...] of Treatment Not on file Care Teams Coagulating Bath Mixer Relationship Specialty Start Date End Date Yovani Mosley MD [address] [place] [address] [place] [address] PCP - General 12/10/20
[2025-01-18 12:43] VITALS: BP 154/70; PULSE 64; RESP 13; O2SAT 100
[2025-01-18 12:47] LABS: Microscopic, Urine URINE MICROSCOPIC (MICROSCOPIC)
[2025-01-18 12:49] LABS: Basophils # 0.1 K/mm3 (0-0.2); Basophils % 0.6 % (0.1-2.0); Eosinophils # 0.4 Kmm3 (0.0-0.4); Eosinophils % 4.4 % (0.1-12.0); Hematocrit 43.4 % (42.0-52.0); Hemoglobin 14.3 g/dL (14.1-18.0); Immature Granulocytes # 0.05 10^3uL; Immature Granulocytes % 0.5 %; Lymphocytes # 1.5 K/mm3 (0.7-4.5); Lymphocytes % 15.6 % (10-50); Mean Corpuscular HGB Conc 32.9 g/dL (31.8-35.4); Mean Corpuscular Hemoglobin 29.9 pg (27.0-31.2); Mean Corpuscular Volume 90.6 fl (80-94); Mean Platelet Volume 10.7 fl (7.4-10.4); Monocytes # 0.8 K/mm3 (0.1-1.0); Monocytes % 8.5 % (1.7-9.3); Neutrophils # 6.6 K/mm3 (1.8-7.8); Neutrophils % 70.4 % (37.0-80.0); Nucleated Red Blood Cells # 0 10^3/uL; Nucleated Red Blood Cells % 0 %; Platelet Count 240 K/mm3 (142-424); Red Blood Count 4.79 M/mm3 (4.60-6.20); Red Cell Distribution Width 13.2 % (11.5-17.5); Red Cell Distribution Width-SD 44.1 fL; White Blood Count 9.4 K/mm3 (4.8-10.8)
[2025-01-18 12:58] LABS: Appearance,Urine CLEAR (Clear); Bilirubin,Urine Negative (Negative); Blood, Urine TRACE-I (Negative); Color,Urine YELLOW (Yellow); Glucose,Urine (UA) Negative (Negative); Ketones,Urine Negative (Negative); Leukocyte Esterase,Urine Negative (Negative); Nitrate,Urine Negative (Negative); Protein,Urine Negative (Negative); Urobilinogen,Urine 0.2 EU/dl (0.2)
[2025-01-18 13:00] LABS: Alanine Aminotransferase 19 U/L (12-78); Albumin Level 4.1 g/dl (3.5-5.0); Albumin/Globulin Ratio 1.3 (1.1-1.8); Alkaline Phosphatase 57 U/L (38-126); Anion Gap 8.5 mEq/L (5-15); Aspartate Amino Transferase 33 U/L (17-59); Bilirubin,Total 0.6 mg/dl (0.2-1.3); Blood Urea Nitrogen 34 mg/dl (9-20); Calcium 9.6 mg/dl (8.4-10.2); Carbon Dioxide 24 mmol/L (22.0-30.0); Chloride 108 mmol/L (98-107); Creatinine Clearance Estimated 43 mL/min (50-200); Estimated Glomerular Filt Rate 57 ml/min (>60); GFR (African American) 69 ML/MIN (>60); Globulin 3.2 g/dL (1.3-3.2); Glucose 99 mg/dl (74-100); Potassium 4.5 mmoL/L (3.5-5.1); Sodium 136 mmol/L (136-145); Total Protein,Serum 7.3 g/dl (6.3-8.2)
[2025-01-18] MEDS: OXYCODONE 5MG IMMEDIATE RELEASE TABLET 5 MG PO (13:04)
[2025-01-18 13:05] LABS: C-Reactive Protein 2.3 mg/L (0-4)
[2025-01-18 13:20] VITALS: BP 140/74; PULSE 59; RESP 18; O2SAT 98
[2025-01-18 13:20] LABS: Bacteria,Urine Trace /lpf; RBC,Urine Occasional #/hpf (0-3); Squamous Epithelial Cell,Urine Occasional #/hpf (0-5); WBC,Urine Occasional #/hpf (0-3)
[2025-01-18 13:22] LABS: Erythrocyte Sedimentation Rate 13 mm/hr (0-20)
[2025-01-18 13:36] VITALS: BP 136/75; PULSE 66; RESP 16; TEMP 36.6
== END 2025-01-18 13:37 | disposition home or self-care (01) ==
PROVIDERS: Emergency Provider Student in an Organized Health Care Education/Training Program; PCP Family Medicine
DX: M25.552 Pain in left hip (principal); M47.816 Spondylosis without myelopathy or radiculopathy, lumbar region
CPT/HCPCS: 72192; 80053; 81001; 85025; 85651; 86140; 99284

== ENCOUNTER 2025-02-02 15:00 | Outpatient (CLI) | payer MEDICARE, BC, SELFPAY ==
[2025-02-02 14:56] LABS: Microscopic, Urine URINE MICROSCOPIC (MICROSCOPIC)
--- OUTSIDE RECORDS SUMMARY | 2025-02-02 15:02 | XMS_ITS | Clinical Summary ---
Author Organization [facility] Address [address] [facility] [place] [address] Phone Care Team Providers Care Agricultural Equipment Design Engineer Name Role Phone Lito Mehta MD Primary Care Provider [phone] Allergies Active Allergy Reactions Criticality Noted Date [...] Active fluticasone propionate (FLONASE) 50 mcg/actuation Nasl Neon, Suspension 2 Sprays by Nasal route daily. [...] LENS ; Surgeon: Alessandro Avery MD; Location: [facility]; Service: Ophthalmology Medical devices from this surgery are in the Medical Devices section. CARDIAC SURGERY 07/30/2018 - 07/29/2019 cardiac stents CATARACT REMOVAL 2021 Eye/Left LEFT EYE COMPLEX CATARACT EXTRACTION WITH PHACOEMULSIFICATION AND INTRAOCULAR LENS; Surgeon: Alessandro Avery MD; Location: [facility]; Service: Ophthalmology Medical devices from this surgery are in the Medical Devices section. BACK SURGERY EYE SURGERY 08/02/2023 Right RIGHT EYE YAG LASER CAPSULOTOMY; Surgeon: Alessandro Avery MD; Location: [facility]; Service: Ophthalmology Medical History Medical History [...] 10/06/2021, 03/31/2021, Additional history exists Influenza Vaccine (#1) 2025 2, 06/07/2021, 05/01/2019, Additional history exists DTaP/TDaP/Td (2 - Td or Tdap) 02/23/2030 02/24/2020, 10/03/1996 Hepatitis B Vaccine Aged Out No longe r eligible based on patient's age to complete this topic Meningococcal B Vaccine Aged Out No l onger eligible based on patient's age to complete this topic Medical Devices Implanted Type Area Manager Strategic Sourcing Device Identifier Shelf Expiration Date Model / Serial / Lot Dental Implants X 6 Left Inguinal Hernia Mesh (~2008) Lens Intraocular Preloaded 19.0 Diopter - [id number] Implanted:Qty: 1 on 08/30/2016 by Alessandro Avery MD at [facility] Right: Eye [facility]:SURG [id number] 10/27/2018 AU00T0.190 / [id number] / Lens Iol 1-Piece 19.0 Diopter Preloaded Acrylic Foldable Pc - [id number] Implanted:Qty: 1 on 2021 by Alessandro Avery MD at [facility] Left: Eye [facility]:SURG [id number] 08/24/2024 CNA0T0.190 / [id number] / Insurance MEDICARE [place] PART A AND B Member Subscriber Plan / Payer (Ef fective 2000-Present) Name:Kodak Bernstein Member ID:[id number] Relation to Subscriber:Self Name:Kodak Bernstein Subscriber ID:[id number] Payer ID:Not on file Group ID:Not on file Type:Not on file Address: [facility] [address] Care Teams Agricultural Equipment Design Engineer Relationship Specialty Start Date End Date Lito Mehta MD PCP - General Psychiatry & Neurology-Neurology 12/12/21
--- OUTSIDE RECORDS SUMMARY | 2025-02-02 15:02 | XMS_ITS | Clinical Summary ---
Author Organization Healthcare Address [address] [place] [address] Care Team Providers Care Middle School English Teacher Name Role Phone Yovani Mosley MD Primary Care Provider + [phone] Social History Tobacco Use Types Packs/Day Years [...] of Treatment Not on file Care Teams Middle School English Teacher Relationship Specialty Start Date End Date Yovani Mosley MD [address] [place] [address] [place] [address] PCP - General 12/10/20
[2025-02-02 15:04] LABS: Bilirubin,Urine Negative (Negative); Color,Urine YELLOW (Yellow); Glucose,Urine (UA) Negative (Negative); Ketones,Urine Negative (Negative); Leukocyte Esterase,Urine Negative (Negative); PH,Urine 6.0 (5.0-8.5); Protein,Urine Negative (Negative); Specific Gravity, Urine 1.015 (1.005-1.030); Urobilinogen,Urine 0.2 EU/dl (0.2)
[2025-02-02 15:42] LABS: Bacteria,Urine Trace /lpf; Squamous Epithelial Cell,Urine Occasional #/hpf (0-5); WBC,Urine Occasional #/hpf (0-3)
== END 2025-02-02 23:59 | disposition home or self-care (01) ==
LOC: LAB.DROPOF 15:00
PROVIDERS: PCP Urology; Visit Provider Urology
DX: R31.9 Hematuria, unspecified (principal)
CPT/HCPCS: 81001

== ENCOUNTER 2025-02-08 00:11 | Emergency (ER) | payer MEDICARE, BC, SELFPAY ==
[2025-02-08] VITALS (7 sets, daily range): BP systolic 124–143; BP diastolic 66–86; PULSE 64–76; RESP 13–20; TEMP 36.7–37.1; O2SAT 94–98; BMI 23.6
--- NOTE | 2025-02-08 00:21 | CT_ITS ---
PROCEDURE INFORMATION: Exam: CTA Head With Contrast, Arteriography Exam date and time: 02/08/2025 12:41 AM Age: 89 years old Clinical indication: Stroke-like symptoms; Speech disturbance; Additional info: Possible stroke TECHNIQUE: Imaging protocol: Computed tomographic angiography of the head with contrast. Exam focused on the arteries. 3D rendering (Not supervised by radiologist): MIP and/or 3D reconstructed images were created by the technologist. Radiation optimization: All CT scans at this facility use at least one of these dose optimization techniques: automated exposure control; mA and/or kV adjustment per patient size (includes targeted exams where dose is matched to clinical indication); or iterative reconstruction. Contrast material: ISOVUE; Contrast volume: 80 ml; Contrast route: INTRAVENOUS (IV); COMPARISON: CT HEAD/BRAIN WO CON 02/08/2025 12:37 AM FINDINGS: ANTERIOR CIRCULATION: Right internal carotid artery: There are mural calcifications and plaque along the course of the intracranial internal carotid artery. There is 50% stenosis of the paraophthalmic segment. Right middle cerebral artery: No occlusion or significant stenosis. No aneurysm. Right anterior cerebral artery: No occlusion or significant stenosis. No aneurysm. Left internal carotid artery: There are mural calcifications and plaque along the course of the intracranial internal carotid artery. There is 50% stenosis of the paraophthalmic segment. Left middle cerebral artery: No occlusion or significant stenosis. No aneurysm. Left anterior cerebral artery: No occlusion or significant stenosis. No aneurysm. POSTERIOR CIRCULATION: Right vertebral artery: There are mural calcifications and plaque along the course of the intracranial vertebral artery. No occlusion or significant stenosis. No aneurysm. Left vertebral artery: There are mural calcifications and plaque along the course of the intracranial vertebral artery. No occlusion or significant stenosis. No aneurysm. Basilar artery: No occlusion or significant stenosis. No aneurysm. Right posterior cerebral artery: No occlusion or significant stenosis. No aneurysm. Left posterior cerebral artery: No occlusion or significant stenosis. No aneurysm. Brain: No definite mass, mass effect, or midline shift. Cerebral ventricles: No ventriculomegaly. Bones/joints: Unremarkable. No acute fracture. Soft tissues: Unremarkable. IMPRESSION: 1. There are atherosclerotic changes of the bilateral intracranial internal carotid artery segments. There is 50% stenosis of the bilateral paraophthalmic segments. 2. There are atherosclerotic changes of the bilateral intracranial vertebral artery segments. No significant stenosis or occlusion. 3. Otherwise no evidence of intracranial large vessel stenosis or occlusion of the remaining cerebral arteries. No evidence of aneurysm or AVM.
--- NOTE | 2025-02-08 00:21 | ECG_ITS ---
APPROVED REPORT Exam: Resting ECG HR:70 bpm ECG Measurements Heart Rate 70 AXES MA 154 P 61 QRSd 98 QRS -37 QT 364 T 69 QTc 385 Conclusion SINUS RHYTHM LEFT AXIS DEVIATION [QRS AXIS < -30] POSSIBLE RIGHT VENTRICULAR CONDUCTION DELAY [RSR (QR) IN V1/V2] MODERATE VOLTAGE CRITERIA FOR LVH, CONSIDER NORMAL VARIANT [MEETS CRITERIA IN ONE OF: R(aVL), S(V1), R(V5), R(V5/V6)+S(V1)] ABNORMAL ECG No STEMI Electronically signed by : WESTON BAR, 02/08/2025 07:07:08
--- NOTE | 2025-02-08 00:21 | CT_ITS ---
PROCEDURE INFORMATION: Exam: CTA Neck With Contrast Exam date and time: 02/08/2025 12:41 AM Age: 89 years old Clinical indication: Stroke-like symptoms; Speech disturbance; Additional info: Possible stroke TECHNIQUE: Imaging protocol: Computed tomographic angiography of the neck with contrast. Exam focused on the cervical segments of the vasculature. 3D rendering (Not supervised by radiologist): MIP and/or 3D reconstructed images were created by the technologist. Radiation optimization: All CT scans at this facility use at least one of these dose optimization techniques: automated exposure control; mA and/or kV adjustment per patient size (includes targeted exams where dose is matched to clinical indication); or iterative reconstruction. Contrast material: ISOVUE; Contrast volume: 80 ml; Contrast route: INTRAVENOUS (IV); COMPARISON: CT HEAD/BRAIN WO CON 02/08/2025 12:37 AM FINDINGS: Right common carotid artery: Unremarkable. No significant stenosis. No dissection or occlusion. Right internal carotid artery: There is calcified mural plaque at the carotid bifurcation, but no significant stenosis. The remaining extracranial segment is patent with no significant stenosis. No dissection or occlusion. Right external carotid artery: No occlusion or stenosis of the origin. Left common carotid artery: Unremarkable. No significant stenosis. No dissection or occlusion. Left internal carotid artery: There is calcified mural plaque at the carotid bifurcation, but no significant stenosis. The remaining extracranial segment is patent with no significant stenosis. No dissection or occlusion. Left external carotid artery: No occlusion or stenosis of the origin. Right vertebral artery: No stenosis. No dissection or occlusion. Left vertebral artery: No stenosis. No dissection or occlusion. Soft tissues: No significant soft tissue swelling. Bones/joints: No acute fracture. IMPRESSION: 1. Calcific atherosclerotic changes at the bilateral carotid bifurcations, but no significant stenosis or occlusion. 2. No evidence of stenosis or occlusion of the remaining cervical great vessels. No evidence of dissection. REFERENCES: NASCET CRITERIA. The degree of stenosis in the cervical segment of the internal carotid artery is based on NASCET criteria. Normal is no stenosis. Mild is less than 50% stenosis. Moderate is 50-69% stenosis. Severe is 70% to 99% stenosis. Total occlusion is no detectable patent lumen.
--- NOTE | 2025-02-08 00:21 | CT_ITS ---
PROCEDURE INFORMATION: Exam: CT Head Without Contrast Exam date and time: 02/08/2025 12:37 AM Age: 89 years old Clinical indication: Stroke-like symptoms; Speech disturbance; Additional info: Possible stroke TECHNIQUE: Imaging protocol: Computed tomography of the head without contrast. Radiation optimization: All CT scans at this facility use at least one of these dose optimization techniques: automated exposure control; mA and/or kV adjustment per patient size (includes targeted exams where dose is matched to clinical indication); or iterative reconstruction. Other technique: STROKE PROTOCOL was implemented. COMPARISON: CT SINUS WO CON 03/30/2021 10:20 AM FINDINGS: Brain: There is diffuse cortical volume loss and hypoattenuation of the deep white matter. No evidence of acute intracranial hemorrhage. No acute cerebral edema, mass effect or shift. Cerebral ventricles: No ventriculomegaly. Paranasal sinuses: Visualized sinuses are unremarkable. No fluid levels. Mastoid air cells: Visualized mastoid air cells are well aerated. Bones: Unremarkable. No acute fracture. Soft tissues: Unremarkable. IMPRESSION: No acute intracranial process. 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 ASSESSMENT: ASPECTS ([place] Stroke Program Early CT Score) is 10.
--- OUTSIDE RECORDS SUMMARY | 2025-02-08 00:27 | XMS_ITS | Clinical Summary ---
Author Organization Healthcare Address [address] [place] [address] Care Team Providers Care Mis Director Name Role Phone Yovani Mosley MD Primary Care Provider [phone] Social History Tobacco Use Types Packs/Day Years [...] of Treatment Not on file Care Teams Mis Director Relationship Specialty Start Date End Date Yovani Mosley MD [address] [place] [address] [place] [address] PCP - General 12/10/20
--- OUTSIDE RECORDS SUMMARY | 2025-02-08 00:27 | XMS_ITS | Clinical Summary ---
Author Organization [facility] Address [address] [place] [address] Phone Care Team Providers Care Die Lay Out Worker Name Role Phone Lito Mehta MD Primary Care Provider [phone] Allergies Active Allergy Reactions Criticality Noted Date [...] Active fluticasone propionate (FLONASE) 50 mcg/actuation Nasl [place], Suspension 2 Sprays by Nasal route daily. [...] LENS ; Surgeon: Alessandro Avery MD; Location: [facility]; Service: Ophthalmology Medical devices from this surgery are in the Medical Devices section. CARDIAC SURGERY 07/30/2018 - 07/29/2019 cardiac stents CATARACT REMOVAL 2021 Eye/Left LEFT EYE COMPLEX CATARACT EXTRACTION WITH PHACOEMULSIFICATION AND INTRAOCULAR LENS; Surgeon: Alessandro Avery MD; Location: [facility]; Service: Ophthalmology Medical devices from this surgery are in the Medical Devices section. BACK SURGERY EYE SURGERY 08/02/2023 Right RIGHT EYE YAG LASER CAPSULOTOMY; Surgeon: Alessandro Avery MD; Location: [facility]; Service: Ophthalmology Medical History Medical History Date [...] this topic Medical Devices Implanted Type Area House Decorator Device Identifier Shelf Expiration Date Model / Serial / Lot Dental Implants X 6 Left Inguinal Hernia Mesh (~2008) Lens Intraocular Preloaded 19.0 Diopter - [id number] Implanted:Qty: 1 on 08/30/2016 by Alessandro Avery MD at [facility] Right: Eye [employer] [facility]:SURG [id number] 10/27/2018 AU00T0.190 / [id number] / Lens Iol 1-Piece 19.0 Diopter Preloaded Acrylic Foldable Pc - [id number] Implanted:Qty: 1 on 2021 by Alessandro Avery MD at [facility] Left: Eye [employer] [id number] 08/24/2024 [id number] / [id number] / Insurance MEDICARE [place] PART A AND B Member Subscriber Plan / Payer (Ef fective 2000-Present) Name:Kodak Bernstein Member ID:[id number] Relation to Subscriber:Self Name:Kodak Bernstein Subscriber ID:[id number] Payer ID:Not on file Group ID:Not on file Type:Not on file Address: [facility] [address] Care Teams Die Lay Out Worker Relationship Specialty Start Date End Date Lito Mehta MD PCP - General Psychiatry & Neurology-Neurology 12/12/21
[2025-02-08] MEDS: SODIUM CHLORIDE 0.9% 10ML SYR (RAD ONLY) 10 ML IV (00:51)
[2025-02-08] MEDS: 0.9 % SODIUM CHLORIDE 50 ML VIAL IV (00:51)
[2025-02-08] MEDS: IOPAMIDOL-370 (76%);100ML BOTTLE 80 ML IV (00:51)
[2025-02-08 00:53] LABS: Albumin Level 3.7 g/dl (3.5-5.0); Chloride 101 mmol/L (98-107); Potassium 4.5 mmoL/L (3.5-5.1); Sodium 136 mmol/L (136-145)
[2025-02-08 00:56] LABS: Activated Partial Thrombo Time 26.2 seconds (22.8-30.6); Alanine Aminotransferase 17 U/L (12-78); Albumin/Globulin Ratio 1.3 (1.1-1.8); Alkaline Phosphatase 65 U/L (38-126); Anion Gap 14.5 mEq/L (5-15); Aspartate Amino Transferase 25 U/L (17-59); Bilirubin,Total 1.0 mg/dl (0.2-1.3); Blood Urea Nitrogen 26 mg/dl (9-20); Calcium 9.4 mg/dl (8.4-10.2); Carbon Dioxide 25 mmol/L (22.0-30.0); Cholesterol 184 mg/dl (140-200); Creatinine Clearance Estimated 43 mL/min (50-200); Creatinine,Serum 1.20 mg/dl (0.66-1.25); Estimated Glomerular Filt Rate 57 ml/min (>60); GFR (African American) 69 ML/MIN (>60); Globulin 2.8 g/dL (1.3-3.2); Glucose 100 mg/dl (74-100); INR 1.07 (0.9-1.1); Prothrombin Time 11.8 seconds (10.1-12.5); Total Protein,Serum 6.5 g/dl (6.3-8.2); Triglycerides 105 mg/dl (30-150)
--- NOTE | 2025-02-08 00:58 | PC.NURSE ---
Notified pt need of urine specimen
--- NOTE | 2025-02-08 01:00 | HMH.EDGENADL ---
Discharge Plan Disposition Patient Disposition: Xfer Short-Term Hosp Condition: Fair Prescriptions Prescriptions: No Action ascorbate calcium (vitamin C) 500 mg tablet 500 mg PO DAILY vitamin B complex [B Complex-Vitamin B12] Tablet 1 tab PO DAILY cholecalciferol (vitamin D3) 25 mcg (1,000 unit) capsule 25 mcg PO DAILY budesonide-formoterol [Breyna] 160-4.5 mcg/actuation HFA aerosol inhaler 1 inh inhalation BID 90 Days Qty: 10.2 2RF montelukast [Singulair] 10 mg tablet 10 mg PO DAILY Qty: 90 2RF ferrous sulfate 325 mg (65 mg iron) tablet See Rx Instructions .ROUTE .COMPLEX Qty: 90 1RF Dose Instruction: Take 1 tablet by mouth once daily Rx Instructions: Take 1 tablet by mouth once daily fluticasone propionate [Allergy Relief (fluticasone)] 50 mcg/actuation spray,suspension 1 spray intranasal DAILY Qty: 16 2RF Rx Instructions: administer into each nostril atorvastatin 40 mg tablet 40 mg PO HS Qty: 90 3RF ibuprofen 600 mg tablet 600 mg PO BID Qty: 40 0RF pregabalin 50 mg capsule 50 mg PO BID Qty: 60 2RF levothyroxine 50 mcg tablet 50 mcg PO DAILY Qty: 60 4RF tamsulosin [Flomax] 0.4 mg capsule 0.4 mg PO DAILY 90 Days Qty: 90 1RF Rx Instructions: Take 1/2 hour after same meal daily. nystatin-triamcinolone 100,000-0.1 unit/g-% cream 1 applic topical BID 30 Days Qty: 30 1RF Rx Instructions: apply lightly under the foreskin bid as needed aspirin 81 MG tablet,delayed release (DR/EC) 81 mg PO DAILY lidocaine 5 % adhesive patch,medicated See Rx Instructions .ROUTE .COMPLEX Qty: 15 0RF Rx Instructions: Apply to most painful area for 12 hours, remove and leave off for 12 hours before using a new patch methocarbamol 500 mg tablet 500 mg PO Q6H PRN (Reason: pain) Qty: 30 0RF Referrals Follow up/Referrals: Provider,Referral, [Primary Care Provider, Medical] - See instructions Clinical Impressions Clinical Impression: TIA (transient ischemic attack), Prerenal azotemia Print Language Print Language: Marshallese Discharge ED Provider: Del Real,Mikalah General Adult HPI General Chief complaint: Neuro Symptoms/Deficit Stated complaint: stroke like symptoms Time Seen by Provider: 02/08/25 00:20 Mode of Arrival: Wheelchair Source of Information: Patient and Relative Description of Symptoms (Recalled from ER Triage Doc. by RN): Pt family memer states pt was at mothers home at 6pm yesterday and family thought pt was having slurred speech. Family could not get a hold of pt later that evening. Sent cricket coach to do welfare check and pt states he is ok. Family state threy were worried he was having a stroke so they brought him in. Pt AOx4. Only complaint is lower back pain that is chronic. Stroke scale score 0 on assessment. History of Present Illness HPI narrative: 89-year-old male who lives independently presents to ER with family member concerned that other family members think the patient has slurred speech and may be having a stroke. The last time patient was seen to be normal was more than 24 hours ago on Sunday. Patient was visiting with family this evening around 6 PM and when he arrived and was visiting they noted that his speech seemed slurred and he did not seem like himself. Patient ended up going home and they could not get a hold of him so they sent the cricket coach to do a welfare check and the patient thought he was fine but family was worried he was potentially having a stroke so they brought him to the ER for further evaluation. Patient reports his only complaint currently is chronic low back pain which is no worse than normal. He does not feel like his speech is slurred or abnormal. He is completely oriented and aware of the situation. Patient reports no history of stroke or TIA, he does have history of CAD with stents, hyperlipidemia. Patient denies any headache or dizziness, no numbness, tingling, or weakness. He states he feels like with time his legs have gotten weaker but this is not anything new, this has been a chronic slow progression. He is not having any bowel or bladder incontinence or saddle anesthesia. No chest pain or difficulty breathing, no palpitations, he states he has been eating and drinking normally. Patient does not have a history of diabetes. No recent illness. Related Data Home Medications ?Medication ?Instructions ?Recorded ?Confirmed aspirin 81 mg tablet,delayed 81 mg PO DAILY Heart disease 09/18/17 02/02/25 release ascorbate calcium (vitamin C) 500 500 mg PO DAILY 04/25/23 02/02/25 mg tablet cholecalciferol (vitamin D3) 25 25 mcg PO DAILY 04/25/23 02/02/25 mcg (1,000 unit) capsule vitamin B complex (B 1 tab PO DAILY 04/25/23 02/02/25 Complex-Vitamin B12 tablet) Previous Rx's ?Medication ?Instructions ?Recorded atorvastatin 40 mg tablet 40 mg PO HS #90 tabs 10/28/24 ferrous sulfate 325 mg (65 mg See Rx Instructions .Route 10/28/24 iron) tablet .COMPLEX #90 tabs fluticasone propionate 50 1 spray intranasal DAILY rhinitis 10/28/24 mcg/actuation nasal #16 grams spray,suspension (Allergy Relief (fluticasone)) lidocaine 5 % topical patch See Rx Instructions topical 01/12/25 .COMPLEX #15 ea methocarbamol 500 mg tablet 500 mg PO Q6H PRN pain #30 tabs 01/15/25 ibuprofen 600 mg tablet 600 mg PO BID #40 tabs 01/20/25 pregabalin 50 mg capsule 50 mg PO BID pain #60 caps 01/27/25 levothyroxine 50 mcg tablet 50 mcg PO DAILY #60 tabs 01/28/25 budesonide-formoterol HFA 160 1 inh inhalation BID shortness of 01/29/25 mcg-4.5 mcg/actuation aerosol breath or wheezing 90 days #10.2 inhaler (Breyna) grams montelukast 10 mg tablet 10 mg PO DAILY #90 tabs 01/29/25 (Singulair) nystatin-triamcinolone 100,000 1 applic topical BID 30 days #30 02/02/25 unit/g-0.1 % topical cream grams tamsulosin 0.4 mg capsule (Flomax) 0.4 mg PO DAILY 90 days #90 caps 02/02/25 Allergies Allergy/AdvReac Type Severity Reaction Status Date / Time acetaminophen (From Lortab) AdvReac Mild Unknown Verified 02/02/25 08:49 allergy reaction hydrocodone (From Lortab) AdvReac Mild Unknown Verified 02/02/25 08:49 allergy reaction [facility] Disclaimer: The information contained in this section may have been updated after the patient was seen, as this information can be updated by other users. Medical History Phimosis of penis Resume use of the clotrimazole/betamethasone. May need referral. Sacroiliac joint disease Rhinitis Neoplasm of skin of face Candidal balanitis Papilloma Chronic asthmatic bronchitis Acquired hypothyroidism Hypoxia Cough Hoarseness of voice Anemia Allergic rhinitis Mild persistent asthma Slipped intervertebral disc Dental implant pain Rupture, artery Lip fissure He needs to let the ENT examine the lip lesion Lichen planus GERD without esophagitis Gastritis Asthma Allergic rhinitis Chronic cough Other seborrheic keratosis Benign prostatic hyperplasia (BPH) with straining on urination Persistent cough Bronchitis Dizziness CAD (coronary artery disease) HLD (hyperlipidemia) High coronary artery calcium score Family history of heart disease Dyspnea Angina, class IV Surgical History Previous back surgery Stented coronary artery Family History Other Coronary artery disease Diabetes Heart disease Social History Smoking Status: Never smoker second hand exposure: No alcohol intake: never substance use type: denies use current occupational status: retired Travel in the last 8 weeks?: None household members: spouse housing: house current occupational exposures/hazards: No caffeine: Yes Other Medical History Have you received the Flu Vaccine for this season: No Have you received the Pneumonia Vaccine: Yes ROS Obtained: Yes Systems reviewed as appropriate & no additional complaints except as documented Per HPI Physical Exam General General appearance: alert and in no apparent distress Head Head exam: atraumatic and normocephalic Eye Eye exam: Present PERRL and EOMI ENT ENT exam: Present mucous membranes moist Neck Neck exam: Present normal inspection and full ROM Chest Chest inspection: Present symmetric chest wall rise Respiratory Respiratory exam: Present normal lung sounds bilaterally; Absent respiratory distress, wheezes or stridor Cardiovascular Cardiovascular exam: Present regular rate and normal rhythm Abdominal Exam Abdominal exam: Present soft; Absent distention or tenderness Extremities Exam Extremities exam: Present full ROM and normal capillary refill; Absent tenderness or edema Back Exam Back exam: Present full ROM; Absent tenderness (No focal tenderness), CVA tenderness (R) or CVA tenderness (L) Neurological Exam Neurological exam: Present alert, oriented X3, CN II-XII intact (NIH 0 on my assessment, however family still believes patient has very mild slurred speech, if I am being generous with the NIH, his maximum NIH would be 1 based on family's report though I do not appreciate dysarthria) and normal gait; Absent motor sensory deficit Psychiatric Psychiatric exam: Present normal affect and normal mood Skin Skin exam: Present warm and dry Medical Decision Making Medical Records Medical records reviewed: Yes I reviewed the patient's medical records. Screening: Per USPSTF and CDC recommendations, given the prevalence of disease in our region, it is our hospital?s policy to screen for HIV and viral Hepatitis for all patients aged 18 and over and those with ongoing risk factors. [place] Inquiry Pt receiving controlled substance: No Vital Signs: 02/08/25 00:26 02/08/25 00:30 02/08/25 01:00 Temperature 98.7 F Temperature Source Oral Pulse Rate 64 76 Pulse Rate [Right Radial] 69 Respiratory Rate 13 18 18 Blood Pressure 131/71 128/67 Blood Pressure [Right Arm] 124/72 Blood Pressure Mean 103 101 Blood Pressure Mean [Right Arm] 89 Blood Pressure Source [Right Arm] Automatic Cuff Blood Pressure Position [Right Arm] Supine 02 Sat by Pulse Oximetry 94 L 94 L 95 Oxygen Delivery Method Room Air 02/08/25 01:30 02/08/25 02:01 02/08/25 02:31 Temperature Temperature Source Pulse Rate 72 Pulse Rate [Right Radial] Respiratory Rate 18 20 20 Blood Pressure 143/75 H 142/66 H 142/86 H Blood Pressure [Right Arm] Blood Pressure Mean Blood Pressure Mean [Right Arm] Blood Pressure Source [Right Arm] Blood Pressure Position [Right Arm] 02 Sat by Pulse Oximetry 97 Oxygen Delivery Method Lab Data Lab Results 02/08/25 00:15: PT 11.8, INR 1.07, APTT 26.2, Sodium 136, Potassium 4.5, Chloride 101, Carbon Dioxide 25, Anion Gap 14.5, BUN 26 H, Creatinine 1.20, Estimated Creat Clear 43, Estimated GFR 57 L, Est GFR ( Amer) 69, Glucose 100, Calcium 9.4, Total Bilirubin 1.0, AST 25, ALT 17, Alkaline Phosphatase 65, Troponin I 0.02, Total Protein 6.5, Albumin 3.7, Globulin 2.8, Albumin/Globulin Ratio 1.3, Triglycerides 105, Cholesterol 184, LDL Cholesterol Direct 101.08, VLDL Cholesterol 21, HDL Cholesterol 47, Cholesterol/HDL Ratio 3.9 H, Plasma/Serum Alcohol < 10, HCV Ab JAMAL w/Rflx PCR Qn Negative, HIV Ag/Ab Combo Qual Negative 02/08/25 00:57: WBC 7.4, RBC 3.91 L, Hgb 11.8 L, Hct 35.2 L, MCV 90.0, MCH 30.2, MCHC 33.5, RDW 13.3, Plt Count 195, MPV 10.5 H, Neut % (Auto) 82.1 H, Lymph % (Auto) 8.6 L, [place] % (Auto) 7.5, Eos % (Auto) 1.2, Baso % (Auto) 0.1, Neut # (Auto) 6.1, Lymph # (Auto) 0.6 L, [place] # (Auto) 0.6, Eos # (Auto) 0.1, Baso # (Auto) 0.0 02/08/25 01:40: Urine Color Yellow, Urine Appearance Clear, Urine pH 6.5, Ur Specific [place] <= 1.005, Urine Protein Negative, Urine Glucose (UA) Negative, Urine Ketones Negative, Urine Blood Trace-i, Urine Nitrate Negative, Urine Bilirubin Negative, Urine Urobilinogen 0.2, Ur Leukocyte Esterase Negative, Urine RBC 3-5, Ur Squamous Epith Cells Occasional, Urine Bacteria Trace, Urine Opiates Screen Negative, Urine Methadone Screen Negative, Ur Barbituates Screen Negative, Ur Phencyclidine Scrn Negative, Ur Amphetamines Screen Negative, U Benzodiazepines Scrn Negative, Urine Cocaine Screen Negative, U Marijuana (THC) Screen Negative 02/08/25 04:24: Troponin I 0.06 H 02/08/25 00:57 02/08/25 00:15 Orders (Tests/Meds): ED MEDICATIONS Generic Name Dose Route Start Last Admin Trade Name Freq PRN Reason Stop Dose Admin Sodium Chloride 10 ml 02/08/25 00:21 Sodium Chloride 0.9% 10ml Flush Syringe IV 03/10/25 00:20 NEEDED PRN Maintain IV Site Discontinued Medications Generic Name Dose Route Start Last Admin Trade Name Freq PRN Reason Stop Dose Admin Aspirin 324 mg 02/08/25 02:46 02/08/25 02:50 Aspirin 81mg Chewable Tablet PO 02/08/25 02:47 324 mg ONCE ONE Administration Lactated Ringer's 500 mls @ 999 mls/hr 02/08/25 02:45 02/08/25 02:50 Lactated Ringer's 500ml IV 02/08/25 03:15 999 mls/hr .Q31M ONE Administration Iopamidol 80 ml 02/08/25 00:49 02/08/25 00:51 Iopamidol-370 (76%);100ml Bottle IV 02/08/25 00:50 80 ml ONCE ONE Administration Sodium Chloride 50 ml 02/08/25 00:49 02/08/25 00:51 0.9 % Sodium Chloride 50 Ml Vial IV 02/08/25 00:50 50 ml ONCE ONE Administration Sodium Chloride 10 ml 02/08/25 00:49 02/08/25 00:51 Sodium Chloride 0.9% 10ml Syr (Rad Only) IV 02/08/25 00:50 10 ml ONCE ONE Administration ORDERS Category Date Time Status CT angio head Stat Cat Scan 02/08/25 00:[address] angio neck Stat Cat Scan 02/08/25 00:[address] head/brain wo con Stat Cat Scan 02/08/25 00:21 Completed POCUS Point of Care (ER Only) Stat Exams 02/08/25 00:23 Completed Activated Partial Thrombo Time Stat Lab 02/08/25 00:15 Completed Complete Blood Count Auto Diff Stat Lab 02/08/25 00:57 Completed Comprehensive Metabolic Panel Stat Lab 02/08/25 00:15 Completed Drug Screen,Urine Stat Lab 02/08/25 01:40 Completed Ethyl Alcohol Stat Lab 02/08/25 00:15 Completed HIV Combo Routine Lab 02/08/25 00:15 Completed Hepatitis C Ab Qual. W/ RFX Routine Lab 02/08/25 00:15 Completed Lipid Panel Stat Lab 02/08/25 00:15 Completed Prothrombin Time INR Stat Lab 02/08/25 00:15 Completed Troponin I Q3H Lab 02/08/25 04:24 Completed Troponin I Q3H Lab 02/08/25 06:30 Ordered Troponin I Stat Lab 02/08/25 00:15 Completed Urinalysis and Microscopic Stat Lab 02/08/25 01:40 Completed ECG Request Stat Y 02/08/25 00:21 Ordered Medical Decision Narrative: In summary, this 89-year-old male with comorbidities described in the HPI which may not be at goal therapy but contribute to his overall morbidity presents to the emergency department today with concerns from family of slurred speech. On initial evaluation patient is hemodynamically stable, afebrile, GCS 15, my NIH assessment is 0, family believes he sounds slightly slurred and his speech, I have seen this patient myself before and do not appreciate any changes in his speech from previous encounters, however if I am being generous with the NIH, I can give him a warning based on family's report of slightly slurred speech/dysarthria. Physical exam is otherwise unremarkable and appropriate for patient's age. Differential diagnosis includes but is not limited to intracranial bleed, mass, midline shift, ischemic stroke, hemorrhagic stroke, TIA, metabolic abnormality, infection, arrhythmia, hypo or hyperglycemia, among others. Ruling out the most morbid conditions drove my assessment. Patient's last known normal was more than 24 hours ago so he is not a stroke alert. Based on these concerns, I ordered serum labs, though the patient is not a stroke alert he was still sent for emergent CT imaging. ECG personally interpreted demonstrates normal sinus rhythm, rate 70, left axis deviation, normal MO and QTc, no STEMI. Labs personally reviewed demonstrate no leukocytosis, anemia hemoglobin 11.8, normal platelets, PT/INR and APTT normal, CMP with mild prerenal azotemia, patient is receiving small fluid bolus. Initial troponin 0.02, UA negative for findings of infection, UDS negative. CT head personally interpreted does not demonstrate acute intracranial bleed, mass, or midline shift, see radiology read from interpretation. Reading radiologist called me to inform me that he does not appreciate anything abnormal on the Noncon CT. CT angiography head and neck were also reviewed and I do not appreciate acute occlusive lesion. Radiologist called and discussed both of the studies with me, you mention atherosclerotic disease with up to 50% stenosis but no large vessel occlusion. I appreciate his interpretation. See radiology read for full report. On reassessment patient remained stable and resting comfortably. He is unchanged from prior. I discussed transfer with him since I believe he needs TIA workup and we are unable to get MRI at this time at this facility. He is comfortable with being transferred to [facility] if needed. I reached out to them and spoke with the media marketing coordinator, Viola, nurse practitioner. She recommended full dose of aspirin be administered and agrees with the plan for transfer. Patient is formally excepted under Dr. Gordon with the hospitalist team. Patient remained in the ER until transportation was available. He continued to be reassessed and monitored. He remains hemodynamically stable, neuroexam unchanged. He was assessed immediately prior to transfer and note continues to be a GCS 15, neuroexam stable and unchanged, vital stable, protecting his airway, patient is appropriate for transfer. Patient was transferred to [facility] by ambulance in stable condition. Critical Care Critical Care Time Critical Care Time: Yes Attestation: On 02/08/25, the high probability of a clinically significant, sudden or life threatening deterioration of the following system(s) required my full and direct attention, intervention and personal management. The time I documented below is in addition to time spent performing reported procedures but includes the following listed in this critical care notation. Total Time Total Critical Care Time: 35
[2025-02-08 01:03] LABS: Hematocrit 35.2 % (42.0-52.0); Hemoglobin 11.8 g/dL (14.1-18.0); Immature Granulocytes % 0.5 %; Mean Corpuscular HGB Conc 33.5 g/dL (31.8-35.4); Mean Corpuscular Hemoglobin 30.2 pg (27.0-31.2); Mean Corpuscular Volume 90.0 fl (80-94); Nucleated Red Blood Cells % 0 %; Platelet Count 195 K/mm3 (142-424); Red Blood Count 3.91 M/mm3 (4.60-6.20); Red Cell Distribution Width-SD 44.0 fL; White Blood Count 7.4 K/mm3 (4.8-10.8)
[2025-02-08 01:10] LABS: Troponin I 0.02 ng/ml (0.00-0.034)
[2025-02-08 01:44] LABS: Microscopic, Urine URINE MICROSCOPIC (MICROSCOPIC)
[2025-02-08 01:45] LABS: Bilirubin,Urine Negative (Negative); Color,Urine YELLOW (Yellow); Glucose,Urine (UA) Negative (Negative); Ketones,Urine Negative (Negative); Leukocyte Esterase,Urine Negative (Negative); PH,Urine 6.5 (5.0-8.5); Protein,Urine Negative (Negative); Specific Gravity, Urine <= 1.005 (1.005-1.030); Urobilinogen,Urine 0.2 EU/dl (0.2)
[2025-02-08 01:48] LABS: Squamous Epithelial Cell,Urine Occasional #/hpf (0-5)
[2025-02-08 01:49] LABS: Bacteria,Urine Trace /lpf
[2025-02-08 01:57] LABS: Amphetamine/Metha Screen,Urine Negative ng/ml (<1000)
[2025-02-08 01:58] LABS: Barbiturates Screen,Urine Negative ng/ml (<200)
[2025-02-08 01:59] LABS: Benzodiazepines Screen,Urine Negative ng/ml (<200)
[2025-02-08 02:00] LABS: Methadone Screen,Urine Negative ng/ml (<300)
[2025-02-08 02:01] LABS: Opiate Screen,Urine Negative ng/ml (<300)
[2025-02-08 02:02] LABS: Phencyclidine Screen,Urine Negative ng/ml (<25)
--- NOTE | 2025-02-08 02:28 | PC.NURSE ---
Report called to Harry at [facility].
[2025-02-08] MEDS: RINGERS SOLUTION,LACTATED 500 ML 999 ML IV (02:50)
[2025-02-08] MEDS: ASPIRIN 81MG CHEWABLE TABLET 324 MG PO (02:50)
[2025-02-08 02:58] LABS: HDL Cholesterol 47 mg/dl (40-60)
[2025-02-08 04:17] LABS: Hepatitis C Ab Qual. W/ RFX NEGATIVE (Negative)
[2025-02-08 04:53] LABS: Troponin I 0.06 ng/ml (0.00-0.034)
== END 2025-02-08 05:34 | disposition short-term general hospital (02) ==
PROVIDERS: Emergency Provider Emergency Medicine
DX: G45.9 Transient cerebral ischemic attack, unspecified (principal); R79.89 Other specified abnormal findings of blood chemistry; J44.89 Other specified chronic obstructive pulmonary disease; E03.9 Hypothyroidism, unspecified; I10 Essential (primary) hypertension; E78.5 Hyperlipidemia, unspecified
CPT/HCPCS: 70450; 70496; 70498; 80053; 80061; 80307; 80320; 81001; 84484; 85025; 85610; 85730; 86803; 87389; 93005; 99291; J7120; Q9967

== ENCOUNTER 2025-02-26 09:44 | Outpatient (RCR) | payer MEDICARE, BC, SELFPAY ==
--- NOTE | 2025-02-26 12:00 | HMH.PTOPEV ---
PT Outpatient Evaluation Rehab PT Outpatient Evaluation Start: 02/26/25 10:52 Freq: Status: Active Protocol: Document 02/26/25 11:47 KAREN (Rec: 02/26/25 12:00 KAREN [id number]) E-signed By Medhat Lua, PT Outpatient Therapy Subjective History Subjective History This is the initial PT eval for Kodak Bernstein, 89 yowm who presents with c/o chronic low back pain for many years, worse x ~ 1 mo now with associated L LE weakness . He reports pain is worse with standing, walking, or using his string cheko. He reports pain is decreased with sitting. He reports no c/o numbness or tingling in his L LE, but the pain does travel laterally down the L LE to his knee at times. Chief Complaint Pain Symptom Type Ache Symptoms Relieved By Rest/Positioning Symptoms Aggravated Walking By Prior Functional None Limitations Current Functional Standing,Walking Limitations Level of pain today 0 (0-10) Pain scale - at its 8 worst (0-10) Lumbopelvic Eval Posture Lumbar Spine Posture Flattened Standing Position Accessory Movement L4 bilateral L5 bilateral S1 bilateral Range of Motion Lumbar Spine Active 0-45 Flexion Range of Motion (degrees) Lumbar Spine Active 0-10 Extension Range of Motion (degrees) Left Lumbar Spine 0-5 Lateral Flexion Active Range of Motion (degrees) Right Lumbar Spine 0-10 Lateral Flexion Active Range of Motion (degrees) Manual Muscle Test Left Knee Extension 5 Normal Strength Grade Knee Flexion 5 Normal Strength Grade Hip Flexion Strength 4- Good- Grade Hip Abduction 4 Good Strength Grade Hip Adduction 5 Normal Strength Grade Ankle Dorsiflexion 5 Normal Strength Grade Gastronemius/Soleus 5 Normal Strength Grade Special Tests Forward Bending Test Negative Right,Positive Left - Standing Hip Scouring ( Negative Left,Negative Right Quadrant) Test Hip Noah (JOSE RAMON) Negative Right,Positive Left Test Hip Piriformis Test Negative Left,Negative Right Hip Bowstring (Cram) Negative Left,Negative Right Test Sciatic Nerve Negative Left,Negative Right Tension Test Unilateral Straight Negative Left,Negative Right Leg Raise (Lasegue) Test Lumbar Long Miller Negative Distraction Test/ Manual Traction Oswestry Index Section 1 Pain Intensity The pain comes and goes and is severe Section 2 Personal Care ( change my way of washing or dressing in order to avoid Washing,Dresing) pain Section 3 Lifting lifting heavy weights off the floor, but I can manage if they are Section 4 Walking I cannot walk more than 1/4 mile without increasing pain Section 5 Sitting I can sit in my favorite chair for as long as I like Section 6 Standing I cannot stand more than 10 minutes without increasing pain Section 7 Sleeping I get pain in bed, but it does not prevent me from sleeping well Section 8 Social Life My social life is normal and gives me no extra pain Section 9 Traveling I get some pain when traveling, but none of my usual forms of travel m Section 10 Changing Degreee of My pain is neither getting better or worse Pain Score and Risk Level Oswestry Sc 21 Oswestry Risk Level Moderate Disability Miscellaneous Dx PT Eval Objective Objective B Hamstring tightness noted, L piriformis tightness noted. No pain with SI compression or shear tests Miscellaneous Goals Short Term Goals in 2 wks pt will: 1) Decrease LACEY score to 19 or less 2) Decrease pain in L side low back to 6 /10 or less 3) Increase L LE MMT to at least 4/5 throughout Jail Goals in 4 wks pt will: 1) Decrease LACEY score to 16 or less 2) Decrease pain in L side low back to 4/10 or less 3) Increase L LE MMT to at least 4+/5 throughout 4) Be independent with all HEP Outpatient Therapy Assessment Impairments Problems/ Impaired Range of Motion,Impaired Strength,Impaired Impairmments Endurance,Impaired Walking,Impaired Standing,Impaired Household Care,Impaired Work Activities,Subjective C/O Pain,Impaired Self Care/Self Management Prognosis Rehab Potential Good Comment Skilled therapy is indicated to reduce pain, increase strength, and improve ambulation in order to aid pt improvement in QOL. Clinical Impression Consistent with Yes Diagnosis Outpatient Therapy Plan of Care Treatment Plan May Include Therapeutic Exercise Yes Including Home Exercise Program Manual Therapy Yes Techniques Neuromuscular Re- Yes education Therapeutic Yes Activities to Return to Previous Functional/Work Level ADL/Self Care Yes Education Thermal Modalities Yes Electrical Yes Stimulation Ultrasound/ Yes Phonophoresis Massage Yes Eval/Re-Eval Yes Frequency Times per week 2 Duration Number of Weeks 4 Addendums This patient is a No candidate for social or vocational rehab ? Patient/Guardian Yes verbally acknowledges understanding of treatment program and consents to further treatment? Patient/Guardian Yes verbally acknowledges understanding of diagnosis, prognosis and goals for treatment? Eval Complexity PT Charges 76318 - High Complexity Shoulder/Elbow Eval Shoulder Objective Measurements Elbow Objective Measurements PHYSICIAN CERTIFICATION: I certify the specified therapy services for Kodak Bernstein are required, authorized, and reviewed every 30 days.
== END 2025-02-26 23:59 | disposition home or self-care (01) ==
LOC: PT 09:44
PROVIDERS: PCP Family Medicine; Visit Provider Family Medicine
DX: R29.898 Other symptoms and signs involving the musculoskeletal system (principal); M54.50 Low back pain, unspecified; G89.29 Other chronic pain
CPT/HCPCS: 97110; 97163

== ENCOUNTER 2025-03-17 13:06 | Outpatient (CLI) | payer MEDICARE, BC, SELFPAY ==
--- OUTSIDE RECORDS SUMMARY | 2025-02-08 06:35 | XMS_ITS | Encounter Summary ---
[facility] Address [address] [place] [id number] Care Team Providers Care Seo Team Lead Name Role Phone Provider, No Known Primary Care Provider Unavail able Reason for Referral * Physical Therapy (Routine) - Pending Review Specialty Diagnoses / Procedures Referred By Terence tamez Referred To Contact Physical Therapy / Speech Therapy Diagnoses Cognitive communication disorder Dysarthria Procedures WA OFFICE/OUTPATIENT NEW MODERATE MDM 45 MINUTES Alex Alan MD [address] [place] [address] Phone: tel: fax: [facility] SPEECH LANGUAGE [address] [place] [address] Phone: tel: fax: Referral ID Status Reason Start Date Expiration Date Visits Requested Visits Authorized [id number] Pending Review Specialty Services Required 02/09/2025 05/11/2026 1 1 Reason for Visit * Auth/Cert Specialty Diagnoses / Procedures Referred By Terence tamez Referred To Contact Diagnoses Transient Ischemic Attack STROKE Protocol Referral ID Status Reason Start Date Expiration Date Visits Re quested Visits Authorized [id number] 1 1 Encounter Details Date Type Department Care Team (Late st Contact Info) Description 02/08/2025 6:35 AM EDT - 02/09/2025 5:27 PM EDT Hospital Encounter [facility] 3F [address] [place] [address] Nelly Dacosta MD [address] [place], [place] [id number] Alex Alan MD [address] [place] [address] Cognitive communication disorder (Primary Dx); Dysarthria Discharge [...] or training? Not on file Preferred Language Yemeni 02/09/2025 Sex and Gender Information Value Date [...] 7:24 AM EDT Melinda Ross RN * [place] Suicide Severity Rating Scale (Screener/Recent Self-Report) Question Answer Date of Assessment Author 6. Suicidal Behavior (Lifetime) No 7:24 AM EDT Melinda Ross RN documented as of this encounter Discharge Summaries * Evelyn Patel RN - 02/09/2025 1:50 PM EDT Images from the original note were not included. Tera Larios (89 y.o. Male) Evelyn CM [phone] Date of 1935 Social Security Number [id number] [place] [address] Bahai None Marital Status Single Admission Date 02/08/2025 Admission Type Urgent Admitting Provider Alex Alan MD Attending Provider Alex Alan MD Department, Room/Bed [facility] 3F, S320/1 Discharge Date Discharge Disposition Home or Self Care Discharge Destination Attending Provider: Alex Alan MD Allergies: No Known Allergies Isolation: None Infection: None Code Status: CPR Ht: 175.3 cm (69 ) Wt: 77.1 kg (170 lb) Admission Cmt: None Principal Problem: Dysarthria [R47.1] Active Insurance as of 02/08/2025 Primary Coverage Payor Plan Insurance Group Employer/Plan Group [employer] CROSS ANTHEM [facility] Payor Plan Address Payor Plan Phone Number Payor Plan Fax Number Effective Dates [address] 07/30/1988 - None Entered [facility] [address] Subscriber Name Subscriber Date Member ID TERA LARIOS 1935 [id number] Secondary Coverage Payor Plan Insurance Group Employer/Plan Group MEDICARE MEDICARE A & B Payor Plan Address Payor Plan Phone Number Payor Plan Fax Number Effective Dates [address] 01/27/2025 - None Entered [facility] [id number] Subscriber Name Subscriber Date Member ID TERA LARIOS 1935 [id number] Emergency Contacts Urban Sociologist (Rel.) Home Phone Work Phone Mobile Phone Delma Sahni (Sister) [phone] -- [phone] Physical Therapy Notes (most recent note) Amber [...] Name 02/08/25 1551 Bed Mobility Bed Mobility xpkzlf-qzc-jsrrsw -KG Joufsl-Ihg-Znkoyi [place] (Bed Mobility) modified independence -KG Assistive Device (Bed Mobility) head of bed elevated -KG Comment, (Bed Mobility) cues log roll -KG Row Name 02/08/25 1551 Transfers Comment, (Transfers) SBA, FWW -KG Row Name 02/08/25 1551 Sit-Stand Transfer Sit-Stand [place] (Transfers) standby assist;verbal cues;1 person assist -KG Assistive Device (Sit-Stand Transfers) walker, front-wheeled -KG Row Name 02/08/25 1551 Gait/Stairs (Locomotion) [place] Level (Gait) standby assist;1 person assist -KG [...] tilts, knee to chest stretch, STS -KG [facility] Name 02/08/25 1558 Balance Balance Assessment standing static balance -KG Static Standing Balance standby assist -KG Position/Device Used, Standing Balance supported;walker, rolling -KG Balance Interventions standing;sit to stand -KG User Smith (r) = Recorded By, (t) = Taken By, (c) = Cosigned By Initials Name Provider Type NIDHI Amber Koo Physical Therapist Goals/Plan Row [facility] 02/08/25 1604 Bed Mobility Goal 1 (PT) Activity/Assistive Device (Bed Mobility Goal 1, PT) sit to supine/supine to sit -KG [place] Level/Cues Needed (Bed Mobility Goal 1, PT) independent -KG Time Frame (Bed Mobility Goal 1, PT) short term goal (STG);2 days -KG Progress/Outcomes (Bed Mobility Goal 1, PT) continuing progress toward goal -KG [facility] Name 02/08/25 1604 Transfer Goal 1 (PT) Activity/Assistive Device (Transfer Goal 1, PT) brp-wc-iudpc/fyhmo-vx-qlr;zqy-hw-besiv/keauh-xt-oah-KG [place] Level/Cues Needed (Transfer Goal 1, PT) independent -KG Time Frame (Transfer Goal 1, PT) detention goal (LTG);5 days -KG Progress/Outcome (Transfer Goal 1, PT) continuing progress toward goal -KG Row Name 02/08/25 1604 Gait Training Goal 1 (PT) Activity/Assistive Device (Gait Training Goal 1, PT) gait (walking locomotion);walker, rolling -KG [place] Level (Gait Training Goal 1, PT) independent -KG Distance (Gait Training Goal 1, PT) 350 -KG Time Frame (Gait Training Goal 1, PT) hospital aide goal (LTG);5 days -KG Progress/Outcome (Gait Training [...] Amber Doty Physical Therapist Outcome Measures Row [facility] 02/08/25 1606 02/08/25 0721 How much help [...] -KG Walk 10 Steps or More-6 -HB [facility] 02/08/25 1606 Modified [place] Scale Pre-Stroke Modified [place] Scale 0 - No Symptoms at all. -KG Modified [place] Scale 1 - No significant disability despite symptoms. Able to carry out all usual duties and activities. -KG [facility] Name 02/08/25 1606 Functional Assessment Outcome Measure Options AM-PAC 6 Clicks Basic Mobility (PT);Modified [place] -KG User Smith (r) = Recorded By, (t) = Taken By, (c) = Cosigned By Initials Name Provider Type Amber Doty Physical Therapist Melinda Ross RN Registered Nurse Physical Therapy Education Title: PT OT UNDERTAKER HELPER Therapies (In Progress) Topic: Physical Therapy (In [...] Re-Cert Due Date 02/18/25 -KG Timed Charges 11675 - PT Therapeutic Exercise Minutes 15 -KG Total Minutes Timed Charges Total Minutes 15 -KG Total Minutes 15 -KG User Smith (r) = Recorded By, (t) = Taken By, (c) = Cosigned By Initials Name Provider Type KG Amber Koo Physical Therapist Therapy Charges for Today Code Description Service Date Service Provider Modifiers Qty [id number] HC PT EVAL LOW COMPLEXITY 4 02/08/2025 Amber Koo GP 1 [id number] HC PT THER PROC EA 15 MIN [...] 0733 Acute Care - Occupational Therapy Discharge [facility] Patient Name: Tera Larios : 1935 Today's [...] pain -CS Existing Precautions/Restrictions fall;spinal;other (see comments) [place] -CS Barriers to Rehab none identified -CS [...] Bed Mobility Bed Mobility supine-sit;scooting/bridging -CS Scooting/Bridging [place] (Bed Mobility) independent -CS Supine-Sit [place] (Bed Mobility) modified independence -CS Assistive Device (Bed Mobility) head of bed elevated -CS Comment, (Bed Mobility) appropriate sequencing intact, no dizziness reported in sitting, no increase in pain -CS Row Name 02/09/25851 Transfers Transfers bed-chair transfer;sit-stand transfer -CS Comment, (Transfers) no AD or LOB during ADL related mobility this date -CS Row Name 02/09/25 08 Bed-Chair Transfer Bed-Chair [place] (Transfers) standby assist -CS Row Name 02/09/25 [facility] Sit-Stand Transfer Sit-Stand [place] (Transfers) standby assist -CS Row Name 02/09/25 [facility] Functional Mobility Functional Mobility- Comment defer to PT for gait specifics, no LOB during household distance this morning, discussed improved stability with RW for longer distances and on days with increased fatigue or pain -CS Patient was able to Ambulate yes -CS Row Name 02/09/25 08 Activities of Daily Living BADL Assessment/Intervention lower body dressing;grooming;feeding - Row Name 02/09/25 Lower Body Dressing Assessment/Training [place] Level (Lower Body Dressing) don;socks;standby assist -CS Assistive Devices (Lower Body Dressing) long-handled shoe horn;client liaison -CS Position (Lower Body Dressing) edge of bed sitting -CS Comment, (Lower Body Dressing) provided AE Pt agreeable to (LHS, client liaison) and demo'd safe use for ease of reach during shoes. Therapist educated on use of client liaison for threading w/ pants -CS Row Name 02/09/25851 Self-Feeding Assessment/Training [place] Level (Feeding) feeding skills;prepare tray/open items;scoop food and bring to mouth;independent -CS Position (Feeding) supported sitting -CS User Smith (r) = Recorded By, (t) = Taken By, (c) = Cosigned By Initials Name Provider Type Pete Díaz OT Occupational Therapist Obj/Interventions [facility] Name 02/09/25903 Sensory Assessment (Somatosensory) Sensory Assessment (Somatosensory) bilateral UE -CS Bilateral UE Sensory Assessment general sensation;light touch awareness;light touch localization;intact -CS [facility] Name 02/09/25903 Range of Motion Comprehensive General Range of Motion no range of motion deficits identified -[facility] 02/09/25903 Strength Comprehensive (MMT) General Manual Muscle Testing (MMT) Assessment upper extremity strength deficits identified -CS Comment, General Manual Muscle Testing (MMT) Assessment BUE grossly 4+/5, no significant asymmetry -[facility] Name 02/09/25903 Balance Balance Assessment sitting static [...] Occupational Therapist Goals/Plan No documentation. Clinical Impression [facility] Name 02/09/25904 Pain Assessment Pretreatment Pain Rating 0/10 - no pain -CS Posttreatment Pain Rating 0/10 - no pain -[facility] 02/09/25904 Plan of Care Review Plan of Care Reviewed With patient -CS Progress no change -CS Outcome Evaluation Pt presents at baseline for ADL completion w/ mild low-back and LLE pain this morning. Performed dressing, grooming, and feeding tasks independently. Issued client liaison and LHS w/ education on safe use [...] Row Name 02/09/25908 Modified [place] Scale Modified [place] Scale 1 - No significant disability despite symptoms. Able to carry out all usual duties and activities. - Row Name 02/09/25908 Functional Assessment Outcome Measure Options AM-PAC 6 Clicks Daily Activity (OT);Modified [place] -CS User Smith (r) = Recorded By, (t) = Taken By, (c) = Cosigned By Initials Name Provider Type Pete Díaz OT Occupational Therapist Occupational Therapy Education Title: PT OT UNDERTAKER HELPER Therapies (In Progress) Topic: Occupational Therapy (In [...] dressing, grooming, and feeding tasks independently. Issued client liaison and LHS w/ education on safe use [...] dressing, grooming, and feeding tasks independently. Issued client liaison and LHS w/ education on safe use [...] Description Service Date Service Provider Modifiers Qty [id number] OT EVAL LOW COMPLEXITY 4 02/09/2025 Pete Kerr OT GO 1 Pete Kerr OT 02/09/2025 0919 [facility] [address]F [address] [facility] [address] Date: Feb 09, 2025 Ambulatory Referral to Physical Therapy for Evaluation & Treatment Patient: Tera Larios [address] [facility] [address] : 1935 SSN: [id number] Sex: 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 GROUP # SUBSCRIBER ID Primary: Secondary: [employer] MEDICARE [id number] Referring Provider Information: ALEX ALAN Referral Information: [...] regarding this request for services. Please contact [address] at [phone] during normal business hours. Verbal Order Mode: Verbal with readback Authorizing Provider: Alex Alan MD Authorizing Provider's Order Entered By: Evelyn Patel RN 02/09/2025 1:50 PM * Alex Alan MD - 02/09/2025 12:58 PM EDT Images from the original note were not included. [facility] Medicine Services DISCHARGE SUMMARY Patient Name: Tera [...] and do this as an outpatient. --s/p PT/OT/UNDERTAKER HELPER evals. PT recs home with outpatient therapy [...] MD 02/08/2025 11:43 AM EDT Workstation ID: [id number] CT Outside Films Result Date: 02/08/2025 This [...] as: SYNTHROID, LEVOTHROID 50 mcg, Oral, Every [employer] montelukast 10 MG tablet Commonly known as: [...] minutes on this discharge activity which included: iwje-ts-kyidqdfwddwtj with the patient, reviewing the data in the system, coordination of the care with the nursing staff as well as consultants, documentation, and entering orders. * Pete Kerr, OT - 02/09/2025 7:33 AM EDT Images from the original note were not included. Acute Care - Occupational Therapy Discharge [facility] Patient Name: Tera Larios : 1935 Today's Date: 02/09/2025 Admit Date: 02/08/2025 Visit Dx: ICD-10-CM ICD-9-CM 1. 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 315.32 Patient Active Problem List Diagnosis Dysarthria HTN (hypertension) Hyperlipidemia Hypothyroid Past Medical History: Diagnosis Date Hyperlipidemia Hypertension Stroke Past Surgical History: Procedure Laterality Date BACK SURGERY CAROTID STENT General Information Row Name 02/09/25 8550 OT Time and Intention Document Type discharge evaluation/summary -CS Mode of Treatment occupational therapy -CS Patient Effort good -CS Row Name 02/09/25 0830 General Information Patient Profile Reviewed yes -CS Prior Level of Function independent:;all household mobility;ADL's reports owning crutches and usingrecently to mitigate back/hip pain -CS Existing Precautions/Restrictions fall;spinal;other (see comments) [place] -CS Barriers to Rehab none identified -CS [...] Bed Mobility Bed Mobility supine-sit;scooting/bridging -CS Scooting/Bridging [place] (Bed Mobility) independent -CS Supine-Sit [place] (Bed Mobility) modified independence -CS Assistive Device (Bed Mobility) head of bed elevated -CS Comment, (Bed Mobility) appropriate sequencing intact, no dizziness reported in sitting, no increase in pain -CS Row Name 02/09/2568 Transfers Transfers bed-chair transfer;sit-stand transfer -CS Comment, (Transfers) no AD or LOB during ADL related mobility this date -CS Row Name 02/09/25851 Bed-Chair Transfer Bed-Chair [place] (Transfers) standby assist -CS Row Name 02/09/2533 Sit-Stand Transfer Sit-Stand [place] (Transfers) standby assist -CS Row Name 02/09/25 0894 Functional Mobility Functional Mobility- Comment defer to PT for gait specifics, no LOB during household distance this morning, discussed improved stability with RW for longer distances and on days with increased fatigue or pain -CS Patient was able to Ambulate yes - Row Name 02/09/25 08 Activities of Daily Living BADL Assessment/Intervention lower body dressing;grooming;feeding -[facility] Name 02/09/25851 Lower Body Dressing Assessment/Training [place] Level (Lower Body Dressing) don;socks;standby assist - Assistive Devices (Lower Body Dressing) long-handled shoe horn;client liaison - Position (Lower Body Dressing) edge of bed sitting - Comment, (Lower Body Dressing) provided AE Pt agreeable to (LHS, client liaison) and demo'd safe use for ease of reach during shoes. Therapist educated on use of client liaison for threading w/ pants -[facility] Name 02/09/25851 Self-Feeding Assessment/Training [place] Level (Feeding) feeding skills;prepare tray/open items;scoop food and bring to mouth;independent - Position (Feeding) supported sitting - User Smith (r) = Recorded By, (t) = Taken By, (c) = Cosigned By Initials Name Provider Type CS Pete Kerr OT Occupational Therapist Obj/Interventions [facility] Name 02/09/25903 Sensory Assessment (Somatosensory) Sensory Assessment (Somatosensory) bilateral UE - Bilateral UE Sensory Assessment general sensation;light touch awareness;light touch localization;intact -[facility] Name 02/09/25903 Range of Motion Comprehensive General Range of Motion no range of motion deficits identified -[facility] 02/09/25903 Strength Comprehensive (MMT) General Manual Muscle Testing (MMT) Assessment upper extremity strength deficits identified - Comment, General Manual Muscle Testing (MMT) Assessment BUE grossly 4+/5, no significant asymmetry -[facility] Name 02/09/25903 Balance Balance Assessment sitting static [...] dressing, grooming, and feeding tasks independently. Issued client liaison and LHS w/ education on safe use [...] Options AM-PAC 6 Clicks Daily Activity (OT);Modified [place] -CS User Smith (r) = Recorded By, (t) = Taken By, (c) = Cosigned By Initials Name Provider Type CS Pete Kerr OT Occupational Therapist Occupational Therapy Education Title: PT OT UNDERTAKER HELPER Therapies (In Progress) Topic: Occupational Therapy (In [...] dressing, grooming, and feeding tasks independently. Issued client liaison and LHS w/ education on safe use [...] dressing, grooming, and feeding tasks independently. Issued client liaison and LHS w/ education on safe use [...] Description Service Date Service Provider Modifiers Qty [id number] HC OT EVAL LOW COMPLEXITY 4 02/09/2025 Pete Kerr OT GO 1 Pete Kerr OT 02/09/2025 documented in this encounter Discharge Instructions * Attachments The following attachments cannot be sent through Care Everywhere. * Transient Ischemic Attack Uhvw-pj-Seqs (Yemeni) * Ischemic Stroke Lrcg-me-Bhgs (Yemeni) * Managing Your Hypertension (Yemeni) * High Cholesterol (Yemeni) * Aspirin Tablets (Yemeni) * Atorvastatin Tablets (Yemeni) documented in this encounter Medications at Time [...] light touch throughout Coordination: no ataxia with vyknee-lr-cyxf testing Gait/Station: deferred Results Review: I reviewed [...] MD 02/08/2025 11:43 AM EDT Workstation ID: [id number] Results for orders placed during the hospital [...] HTN, HLD, CAD, GERD. He presented to [facility] accompanied by family members for dysarthria. Patient visited family at approximately 6 PM yesterday (02/07/2025), family noticed his speech seemed slurred. Family was concerned and brought patient to OSH ER for further evaluation. NIH 1 while in ED for speech difficulty. Patient was transferred to [facility] for higher level care and further stroke work up. Patient is not a candidate for IV thrombolytic therapy due to last known well greater than 4.5 hours. Patient is not a candidate for endovascular therapy due to no LVO noted on OSH CT scans. Antiplatelet ADDICTION MEDICINE PHYSICIAN: Aspirin Anticoagulant ADDICTION MEDICINE PHYSICIAN: None #Chronic lower back pain #Dysarthria -Etiology [...] normotension -Activity as tolerated, fall risk precautions -PT/OT/UNDERTAKER HELPER evaluation -Consider further workup for the lower [...] Francisco Landa MD, Msc, PhD Vascular Neurologist [facility] documented in this encounter H&P Notes * Alex Alan MD - 02/08/2025 11:45 AM EDT Images from the original note were not included. [facility] Medicine Services HISTORY AND PHYSICAL Patient Name: [...] MD 02/08/2025 11:43 AM EDT Workstation ID: [id number] CT Outside Films Result Date: 02/08/2025 This [...] --stroke neuro following --continue asa/lipitor --check echo --PT/OT/UNDERTAKER HELPER evals CAD s/p stents HTN HL Hypothyroid [...] 02/09/2025 8:44 AM EDT Chart review for inclusion special educator consult. At the time of this [...] STROKE TEAM CALLED: 0139 EST ARRIVAL TO [facility] 0710 EST TIME PATIENT SEEN: 0730 EST Handedness: Right Race: White Chief Complaint/Reason for Consultation: Dysarthria HPI: Mr. Larios is a 89 year-old male with PMH of asthma, HTN, HLD, CAD, GERD. He presented to [facility] accompanied by family members for dysarthria. Patient visited family at approximately 6 PM yesterday (02/07/2025), family noticed his speech seemed slurred. Family was concerned and brought patient to OSH ER for further evaluation. NIH 1 while in ED for speech difficulty. Patient was transferred to [facility] for higher level care and further [...] in upper and lower extremities. Coordination Right: Simcgd-cl-wotf normal. Csmv-lz-snhi normal.Left: Hzntmr-tm-ildt normal. Newh-lz-wris normal. Gait Unable to assess. Physical Exam [...] encounter. PRNs- Functional Status Prior to Current Stroke/[place] Score: MODIFIED [place] SCALE (to be assessed [...] Best Language: 0-->No aphasia, normal 10. Dysarthria: 1-->Aiec-nk-tgdaenbx dysarthria, patient slurs at least some words [...] HTN, HLD, CAD, GERD. He presented to [facility] accompanied by family members for dysarthria. Patient visited family at approximately 6 PM yesterday (02/07/2025), family noticed his speech seemed slurred. Family was concerned and brought patient to OSH ER for further evaluation. NIH 1 while in ED for speech difficulty. Patient was transferred to [facility] for higher level care and further stroke work up. Patient is not a candidate for IV thrombolytic therapy due to last known well greater than 4.5 hours. Patient is not a candidate for endovascular therapy due to no LVO noted on OSH CT scans. Antiplatelet ADDICTION MEDICINE PHYSICIAN: Aspirin Anticoagulant ADDICTION MEDICINE PHYSICIAN: None # Dysarthria Differentials include TIA, CVA, [...] prevention -Activity as tolerated, fall risk precautions -PT/OT/UNDERTAKER HELPER evaluation # Essential hypertension, -Allow autoregulation of [...] dressing, grooming, and feeding tasks independently. Issued client liaison and LHS w/ education on safe use [...] services, home with assist * Priscilla Cespedes MA,CCC-UNDERTAKER HELPER - 02/08/2025 9:59 AM EDT Goal Outcome Evaluation: Plan of Care Reviewed With: patient Anticipated Discharge Disposition (UNDERTAKER HELPER): home with assist UNDERTAKER HELPER Diagnosis: mild, cognitive-linguistic disorder, dysarthria (02/08/25 0919) UNDERTAKER HELPER Swallowing Diagnosis: swallow WFL/no suspected pharyngeal impairment (02/08/25 0919) documented in this encounter Miscellaneous Notes * Case Management/Social Work - Evelyn Patel RN - 02/09/2025 1:24 PM EDT Images from the original note were not included. Discharge Planning Assessment [facility] Patient Name: Tera Larios Today's Date: 02/09/2025 Admit Date: 02/08/2025 Plan: IDP Discharge Needs Assessment No documentation. Discharge Plan Row Name 02/09/25 1317 Plan Plan IDP Patient/Family in Agreement with Plan yes Plan Comments Spoke with patient at bedside for IDP. Lives in [facility] in house alone. No DME/HH/OPPT. PCP listed in [facility]. [place] Medicare A&B. Plan is home with referral faxed to [facility] for OPPT per therapy rec. Plan is [...] list Reason for Consult decision-making Preferred Language Yemeni Functional Status Row Name 02/09/25 1316 Functional [...] CAROTID STENT General Information Row Name 02/09/25 1349 Physical Therapy Time and Intention Document Type therapy note (daily note) -CD Mode of Treatment physical therapy -CD Row Name 02/09/25 1344 General Information Patient Profile Reviewed yes -CD Existing Precautions/Restrictions fall;spinal [place] -CD Barriers to Rehab none identified -CD Row Name 02/09/25 134 Living Environment Current Living Arrangements home -CD Row Name 02/09/25 1349 Cognition Orientation Status (Cognition) oriented x 3 [...] PT Physical Therapist Mobility Row Name 02/09/25 9894 Bed Mobility Comment, (Bed Mobility) PT [facility] [place] [facility] DENIES DIZZINESS. -CD Row Name 02/09/25 1355 Transfers Comment, (Transfers) STS FROM RECLINER TO WALKER. -CD Row Name 02/09/25 1359 Sit-Stand Transfer Sit-Stand [place] (Transfers) standby assist -CD Assistive Device (Sit-Stand Transfers) walker, front-wheeled -CD Row Name 02/09/25 1351 Gait/Stairs (Locomotion) [place] Level (Gait) standby assist -CD Assistive Device [...] PT Physical Therapist Obj/Interventions Row Name 02/09/25 6403 Balance Static Sitting Balance independent -CD Dynamic [...] No documentation. Clinical Impression Row Name 02/09/25 4467 Pain Pretreatment Pain Rating 3/10 -CD Posttreatment Pain Rating 3/10 -CD Pain Location back;extremity -CD Pain Side/Orientation lower;left -CD Pain Management Interventions exercise or physical activity utilized;positioning techniques utilized -CD Response to Pain Interventions no change per patient report -CD Row Name 02/09/25 6819 Plan of Care Review Plan of Care [...] Row Name 02/09/25 1415 02/09/25 0909 Modified [place] Scale Modified [place] Scale 1 - No significant disability despite [...] Therapist Physical Therapy Education Title: PT OT UNDERTAKER HELPER Therapies (In Progress) Topic: Physical Therapy (Done) [...] Minutes- PT 27 minute(s) -CD Timed Charges 35942 - PT Therapeutic Exercise Minutes -- -CD 14244 - Gait Training Minutes 15 -CD 96378 - PT Therapeutic Activity Minutes 12 -CD Total Minutes Timed Charges Total Minutes 27 -CD Total Minutes 27 -CD User Smith (r) = Recorded By, (t) = Taken By, (c) = Cosigned By Initials Name Provider Type CD Mohini Pinzon, PT Physical Therapist Therapy Charges for Today Code Description Service Date Service Provider Modifiers Qty [id number] GAIT TRAINING EA 15 MIN 02/09/2025 Mohini Pinzon, PT GP 1 [id number] PT THERAPEUTIC ACT EA 15 MIN 02/09/2025 Mohini Pinzon, PT GP 1 PT G-Codes Outcome Measure Options: AM-PAC 6 Clicks Daily Activity (OT), Modified [place] AM-PAC 6 Clicks Score (PT): 22 AM-PAC [...] Name 02/08/25 1551 Bed Mobility Bed Mobility srsusg-oef-dfonkv -KG Xkgfgr-Vty-Hpguaa [place] (Bed Mobility) modified independence -KG Assistive Device (Bed Mobility) head of bed elevated -KG Comment, (Bed Mobility) cues log roll -KG Row Name 02/08/25 1551 Transfers Comment, (Transfers) SBA, FWW -KG Row Name 02/08/25 1551 Sit-Stand Transfer Sit-Stand [place] (Transfers) standby assist;verbal cues;1 person assist -KG Assistive Device (Sit-Stand Transfers) walker, front-wheeled -KG Row Name 02/08/25 1551 Gait/Stairs (Locomotion) [place] Level (Gait) standby assist;1 person assist -KG [...] Type NIDHI Amber Koo Physical Therapist Obj/Interventions [facility] 02/08/25 1558 Range of Motion Comprehensive General Range of Motion no range of motion deficits identified -KG [facility] 02/08/25 1558 Strength Comprehensive (MMT) General Manual Muscle Testing (MMT) Assessment lower extremity strength deficits identified -KG Comment, General Manual Muscle Testing (MMT) Assessment LLE 4-/5, RLE 4/5 except 3/5 DF/ great toe extension -KG [facility] Name 02/08/25 1558 Motor Skills Therapeutic Exercise other (see comments) pelvic tilts, knee to chest stretch, STS -KG [facility] 02/08/25 1558 Balance Balance Assessment standing static balance -KG Static Standing Balance standby assist -KG Position/Device Used, Standing Balance supported;walker, rolling -KG Balance Interventions standing;sit to stand -KG User Smith (r) = Recorded By, (t) = Taken By, (c) = Cosigned By Initials Name Provider Type NIDHI Amber Koo Physical Therapist Goals/Plan [facility] 02/08/25 1604 Bed Mobility Goal 1 (PT) Activity/Assistive Device (Bed Mobility Goal 1, PT) sit to supine/supine to sit -KG [place] Level/Cues Needed (Bed Mobility Goal 1, PT) independent -KG Time Frame (Bed Mobility Goal 1, PT) short term goal (STG);2 days -KG Progress/Outcomes (Bed Mobility Goal 1, PT) continuing progress toward goal -KG [facility] 02/08/25 1604 Transfer Goal 1 (PT) Activity/Assistive Device (Transfer Goal 1, PT) gdy-ut-dutkg/pwqnp-ez-ocn;zeg-yx-eytqp/qjzqu-bo-xsc-KG [place] Level/Cues Needed (Transfer Goal 1, PT) independent -KG Time Frame (Transfer Goal 1, PT) detention goal (LTG);5 days -KG Progress/Outcome (Transfer Goal 1, PT) continuing progress toward goal -KG [facility] 02/08/25 1604 Gait Training Goal 1 (PT) Activity/Assistive Device (Gait Training Goal 1, PT) gait (walking locomotion);walker, rolling -KG [place] Level (Gait Training Goal 1, PT) independent -KG Distance (Gait Training Goal 1, PT) 350 -KG Time Frame (Gait Training Goal 1, PT) detention goal (LTG);5 days -KG Progress/Outcome (Gait Training Goal 1, PT) continuing progress toward goal -KG User Smith (r) = Recorded By, (t) = Taken By, (c) = Cosigned By Initials Name Provider Type NIDHI Amber Koo Physical Therapist Clinical Impression [facility] 02/08/25 1600 Pain Pretreatment Pain Rating 2/10 -KG Posttreatment Pain Rating 0/10 - no pain -KG Pain Location back;extremity -KG Pain Side/Orientation left -KG Pain Management Interventions exercise or physical activity utilized -KG Response to Pain Interventions activity participation with decreased pain -KG [facility] Name 02/08/25 1600 Plan of Care Review [...] and low back conditioning at d/c. -KG [facility] 02/08/25 1600 Therapy Assessment/Plan (PT) Patient/Family Therapy Goals Statement (PT) improve pain and strength -KG Rehab Potential (PT) good -KG Criteria for Skilled Interventions Met (PT) yes;meets criteria;skilled treatment is necessary -KG Therapy Frequency (PT) daily -KG Predicted Duration of Therapy Intervention (PT) 5 days -KG [facility] Name 02/08/25 1600 Vital Signs Pre Systolic [...] O2 Delivery Post Treatment nasal cannula -KG [facility] 02/08/25 1600 Positioning and Restraints Pre-Treatment Position [...] 02/08/25 1606 Modified [place] Scale Pre-Stroke Modified [place] Scale 0 - No Symptoms at all. -KG Modified [place] Scale 1 - No significant disability despite symptoms. Able to carry out all usual duties and activities. -KG Row Name 02/08/25 1606 Functional Assessment Outcome Measure Options AM-PAC 6 Clicks Basic Mobility (PT);Modified [place] -KG User Smith (r) = Recorded By, (t) = Taken By, (c) = Cosigned By Initials Name Provider Type Amber Doty Physical Therapist Melinda Ross RN Registered Nurse Physical Therapy Education Title: PT OT UNDERTAKER HELPER Therapies (In Progress) Topic: Physical Therapy (In [...] Re-Cert Due Date 02/18/25 -KG Timed Charges 93187 - PT Therapeutic Exercise Minutes 15 -KG Total Minutes Timed Charges Total Minutes 15 -KG Total Minutes 15 -KG User Smith (r) = Recorded By, (t) = Taken By, (c) = Cosigned By Initials Name Provider Type KG Amber Koo Physical Therapist Therapy Charges for Today Code Description Service Date Service Provider Modifiers Qty [id number] HC PT EVAL LOW COMPLEXITY 4 02/08/2025 Amber Koo GP 1 [id number] HC PT THER PROC EA 15 MIN 02/08/2025 Amber Koo GP 1 PT G-Codes Outcome Measure Options: AM-PAC 6 Clicks Basic Mobility (PT), Modified [place] AM-PAC 6 Clicks Score (PT): 20 Modified [place] Scale: 1 - No significant disability despite symptoms. Able to carry out all usual duties and activities. PT Discharge Summary Anticipated Discharge Disposition (PT): home with outpatient therapy services, home with assist Amber Koo 02/08/2025 * Therapy Evaluation - Priscilla Cespedes MA,CCC-UNDERTAKER HELPER - 02/08/2025 10:09 AM EDT Images from [...] Procedure Laterality Date BACK SURGERY CAROTID STENT UNDERTAKER HELPER Recommendation and Plan UNDERTAKER HELPER Swallowing Diagnosis: swallow WFL/no suspected pharyngeal impairment (02/08/25918) UNDERTAKER HELPER Diet Recommendation: regular textures, thin liquids (02/08/25918) Recommended Precautions and Strategies: upright posture during/after eating, small bites of food and sips of liquid, general aspiration precautions (02/08/25918) UNDERTAKER HELPER Rec. for Method of Medication Administration: meds whole, with thin liquids, as tolerated (02/08/25918) Monitor for Signs of Aspiration: notify UNDERTAKER HELPER if any concerns (02/08/25918) Swallow Criteria for Skilled Therapeutic Interventions Met: baseline status (02/08/25918) Anticipated Discharge Disposition (UNDERTAKER HELPER): home with assist (02/08/25918) Therapy Frequency (Swallow): evaluation only (02/08/25918) Predicted Duration Therapy Intervention (Days): 1 week (02/08/25918) Oral Care Recommendations: Oral Care BID/PRN, Toothbrush (02/08/25918) SWALLOW EVALUATION (Last 72 Hours) UNDERTAKER HELPER Adult Swallow Evaluation Row Name 02/08/25918 General Information Current Method of Nutrition NPO -MD Prior Level of Function-Communication unknown -MD Prior Level of Function-Swallowing no diet consistency restrictions;thin liquids;regular textures -MD Oral Motor Structure and Function Secretion Management WNL/WFL -MD General Eating/Swallowing Observations Respiratory Support Currently in Use room air -MD Eating/Swallowing Skills fed by UNDERTAKER HELPER;self-fed;appropriate self-feeding skills observed -MD Positioning During Eating upright in bed -MD Utensils Used spoon;cup;straw -MD Consistencies Trialed regular textures;pureed;ice chips;thin liquids -MD Respiratory Respiratory Status WFL -MD Clinical Swallow Eval Oral Prep Phase WFL -MD Oral Transit WFL -MD Oral Residue WFL -MD Pharyngeal Phase no overt signs/symptoms of pharyngeal impairment -MD Esophageal Phase unremarkable -MD UNDERTAKER HELPER Evaluation Clinical Impression UNDERTAKER HELPER Swallowing Diagnosis swallow WFL/no suspected pharyngeal impairment -MD Functional Impact no impact on function -MD Swallow Criteria for Skilled Therapeutic Interventions Met baseline status -MD Recommendations Therapy Frequency (Swallow) evaluation only -MD UNDERTAKER HELPER Diet Recommendation regular textures;thin liquids -MD Recommended Diagnostics -- -MD Recommended Precautions and Strategies upright posture during/after eating;small bites of food and sips of liquid;general aspiration precautions -MD Oral Care Recommendations Oral Care BID/PRN;Toothbrush -MD UNDERTAKER HELPER Rec. for Method of Medication Administration meds whole;with thin liquids;as tolerated - Monitor for Signs of Aspiration notify UNDERTAKER HELPER if any concerns -MD User Smith (r) = Recorded By, (t) = Taken By, (c) = Cosigned By Initials Name Effective Dates Priscilla Aguilar MA,CCC-UNDERTAKER HELPER 01/01/25 - EDUCATION The patient has been educated in the following areas: Dysphagia (Swallowing Impairment) Oral Care/Hydration. UNDERTAKER HELPER GOALS Row Name 02/08/25 0919 02/08/25 0900 Patient will demonstrate functional cognitive-linguistic skills for return to discharge environment [place] Independently -MD -- -MD Time frame 1 week -MD -- -MD Progress/Outcomes new goal -MD -- -MD UNDERTAKER HELPER Diagnostic Treatment Patient will participate in further assessment in the following areas clarification of baseline cognitive communication status;motor speech -MD -- -MD Time Frame (Diagnostic) 1 week -MD -- -MD Progress/Outcomes (Additional Goal 1, UNDERTAKER HELPER) new goal -MD -- -MD Memory Skills Goal 1 (UNDERTAKER HELPER) Improve Memory Skills Through Goal 1 (UNDERTAKER HELPER) recalling related word lists with an imposed delay;recalling unrelated word lists with an imposed delay;visual memory task;use external memory aid;use memory strategies;90%;with minimal cues (75- 90%) -MD -- -MD Time Frame (Memory Skills Goal 1, UNDERTAKER HELPER) 1 week -MD -- -MD Progress/Outcomes (Memory Skills Goal 1, UNDERTAKER HELPER) new goal -MD -- -MD Functional Problem Solving Skills Goal 1 (UNDERTAKER HELPER) Improve Problem Solving Through Goal 1 (UNDERTAKER HELPER) determine solutions to multifactorial problems;complete organization/home management task;sequence steps in a task;use organization aids;90%;with minimal cues (75-90%) -MD -- -MD Time Frame (Problem Solving Goal 1, UNDERTAKER HELPER) 1 week -MD -- -MD Progress/Outcomes (Problem Solving Goal 1, UNDERTAKER HELPER) new goal -MD -- -MD User Smith (r) = Recorded By, (t) = Taken By, (c) = Cosigned By Initials Name Provider Type Priscilla Aguilar MA,CCC-UNDERTAKER HELPER Speech and Language Pathologist Time Calculation: Time Calculation- UNDERTAKER HELPER Row Name 02/08/25 1005 Time Calculation- UNDERTAKER HELPER UNDERTAKER HELPER Start Time 09 -MD UNDERTAKER HELPER Received On 02/08/25 -MD Untimed Charges UNDERTAKER HELPER Eval/Re-eval ST Eval Speech and Production w/ Language - 80116;ST Eval Oral Pharyng Swallow - 05271 -MD 81138-TC Eval Speech and Production w/ Language Minutes 55 -MD 06117-LH Eval Oral Pharyng Swallow Minutes 54 -MD Total Minutes Untimed Charges Total Minutes 109 -MD Total Minutes 109 -MD User Smith (r) = Recorded By, (t) = Taken By, (c) = Cosigned By Initials Name Provider Type Priscilla Aguilar MA,CCC-UNDERTAKER HELPER Speech and Language Pathologist Therapy Charges for Today Code Description Service Date Service Provider Modifiers Qty [id number] HC ST EVAL ORAL PHARYNG SWALLOW 4 02/08/2025 Priscilla Cespedes MA,CCC- UNDERTAKER HELPER GN [id number] EVAL SPEECH AND PROD W LANG 4 02/08/2025 Priscilla Cespedes MA,CCC- UNDERTAKER HELPER GN 1 Priscilla Cespedes MA,CCC-UNDERTAKER HELPER 02/08/2025 and Acute Care - Speech Language Pathology Initial Evaluation [facility] Patient Name: Tera Larios : 1935 Today's Date: 02/08/2025 Admit Date: 02/08/2025 Visit Dx: ICD-10-CM ICD-9-CM 1. 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 Past Medical History: Diagnosis Date Hyperlipidemia Hypertension Stroke Past Surgical History: Procedure Laterality Date BACK SURGERY CAROTID STENT UNDERTAKER HELPER Recommendation and Plan UNDERTAKER HELPER Diagnosis: mild, cognitive-linguistic disorder, dysarthria (02/08/25918) Monitor for Signs of Aspiration: notify UNDERTAKER HELPER if any concerns (02/08/25918) Swallow Criteria for Skilled Therapeutic Interventions Met: baseline status (02/08/25918) SLC Criteria for Skilled Therapy Interventions Met: yes (02/08/25918) Anticipated Discharge Disposition (UNDERTAKER HELPER): home with assist (02/08/25918) Therapy Frequency (Swallow): evaluation only (02/08/25918) Therapy Frequency (UNDERTAKER HELPER SLC): 5 days per week (02/08/25918) Predicted Duration Therapy Intervention (Days): 1 week (02/08/25918) Oral Care Recommendations: Oral Care BID/PRN, Toothbrush (02/08/25918) UNDERTAKER HELPER EVALUATION (Last 72 Hours) UNDERTAKER HELPER SLC Evaluation Row Name 02/08/25918 Communication Assessment/Intervention [...] up. PMH HTN, HLD, DM2, tabacco use, [place]. No imaging completed at time of evals. -MD Precautions/Limitations, Vision WFL with corrective lenses;for purposes of eval -MD Precautions/Limitations, Hearing WFL;for purposes of eval;hearing impairment, left;other (see comments) Used pocket talker in R ear but patient did not like it. 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 -MD Prior Level of Function-Communication unknown -MD [...] Resonance (Voice) WFL -MD Cognitive Assessment Intervention- UNDERTAKER HELPER Cognitive Function (Cognition) mild impairment -MD Orientation Status (Cognition) WFL -MD Memory (Cognitive) mild impairment;delayed;simple;WFL;immediate -MD Attention (Cognitive) WFL -MD Thought Organization (Cognitive) WFL -MD Reasoning (Cognitive) WFL -MD Problem Solving (Cognitive) mild impairment;multifactorial;temporal -MD Functional Math (Cognitive) WFL;simple -MD Pragmatics (Communication) WFL -MD Right Hemisphere Function WFL -MD UNDERTAKER HELPER Evaluation Clinical Impressions UNDERTAKER HELPER Diagnosis mild;cognitive-linguistic disorder;dysarthria -MD Rehab Potential/Prognosis good -MD SLC Criteria for Skilled Therapy Interventions Met yes -MD Functional Impact difficulty completing home management task -MD Recommendations Therapy Frequency (UNDERTAKER HELPER SLC) 5 days per week -MD Predicted Duration Therapy Intervention (Days) 1 week -MD Anticipated Discharge Disposition (UNDERTAKER HELPER) home with assist -MD User Smith (r) = Recorded By, (t) = Taken By, (c) = Cosigned By Initials Name Effective Dates Priscilla Aguilar MA,[facility]-UNDERTAKER HELPER 01/01/25 - EDUCATION The patient has been educated in the following areas: Cognitive Impairment Communication Impairment. UNDERTAKER HELPER GOALS Row Name 02/08/25 0919 02/08/25 0900 Patient will demonstrate functional cognitive-linguistic skills for return to discharge environment [place] Independently -MD -- -MD Time frame 1 week -MD -- -MD Progress/Outcomes new goal -MD -- -MD UNDERTAKER HELPER Diagnostic Treatment Patient will participate in further assessment in the following areas clarification of baseline cognitive communication status;motor speech -MD -- -MD Time Frame (Diagnostic) 1 week -MD -- -MD Progress/Outcomes (Additional Goal 1, UNDERTAKER HELPER) new goal -MD -- -MD Memory Skills Goal 1 (UNDERTAKER HELPER) Improve Memory Skills Through Goal 1 (UNDERTAKER HELPER) recalling related word lists with an imposed delay;recalling unrelated word lists with an imposed delay;visual memory task;use external memory aid;use memory strategies;90%;with minimal cues (75- 90%) -MD -- -MD Time Frame (Memory Skills Goal 1, UNDERTAKER HELPER) 1 week -MD -- -MD Progress/Outcomes (Memory Skills Goal 1, UNDERTAKER HELPER) new goal -MD -- -MD Functional Problem Solving Skills Goal 1 (UNDERTAKER HELPER) Improve Problem Solving Through Goal 1 (UNDERTAKER HELPER) determine solutions to multifactorial problems;complete organization/home management task;sequence steps in a task;use organization aids;90%;with minimal cues (75-90%) -MD -- -MD Time Frame (Problem Solving Goal 1, UNDERTAKER HELPER) 1 week -MD -- -MD Progress/Outcomes (Problem Solving Goal 1, UNDERTAKER HELPER) new goal -MD -- -MD User Smith (r) = Recorded By, (t) = Taken By, (c) = Cosigned By Initials Name Provider Type Priscilla Aguilar MA,CCC-UNDERTAKER HELPER Speech and Language Pathologist Time Calculation: Time Calculation- UNDERTAKER HELPER Row Name 02/08/25 1005 Time Calculation- UNDERTAKER HELPER UNDERTAKER HELPER Start Time 09 -MD UNDERTAKER HELPER Received On 02/08/25 -MD Untimed Charges UNDERTAKER HELPER Eval/Re-eval ST Eval Speech and Production w/ Language - 77018;ST Eval Oral Pharyng Swallow - 76020 -MD 09327-AU Eval Speech and Production w/ Language Minutes 55 -MD 28455-LR Eval Oral Pharyng Swallow Minutes 54 -MD Total Minutes Untimed Charges Total Minutes 109 -MD Total Minutes 109 -MD User Smith (r) = Recorded By, (t) = Taken By, (c) = Cosigned By Initials Name Provider Type Priscilla Aguilar MA,CCC-UNDERTAKER HELPER Speech and Language Pathologist Therapy Charges for Today Code Description Service Date Service Provider Modifiers Qty [id number] HC ST EVAL ORAL PHARYNG SWALLOW 4 02/08/2025 Priscilla Cespedes MA,CCC- UNDERTAKER HELPER GN [id number] EVAL SPEECH AND PROD W LANG 4 02/08/2025 Priscilla Cespedes MA,CCC- UNDERTAKER HELPER GN 1 Priscilla Cespedes MA,[place]-UNDERTAKER HELPER 02/08/2025 documented in this encounter Plan of [...] Basic Metabolic Panel (02/09/2025 9:36 AM EDT) [facility] Signature Glucose 115(H) 65 - 99 mg/dL 02/09/2025 10:56 AM EDT [facility] BUN 24.2(H) 8.0 - 23.0 mg/dL 02/09/2025 10:56 AM EDT [facility] Creatinine 1.13 0.76 - 1.27 mg/dL 02/09/2025 10:56 AM EDT [facility] Sodium 139 136 - 145 mmol/L 02/09/2025 10:56 AM EDT [facility] Potassium 4.4 3.5 - 5.2 mmol/L 02/09/2025 10:56 AM EDT [facility] Chloride 103 98 - 107 mmol/L 02/09/2025 10:56 AM EDT [facility] CO2 23.3 22.0 - 29.0 mmol/L 02/09/2025 10:56 AM EDT [facility] Calcium 9.3 8.6 - 10.5 mg/dL 02/09/2025 10:56 AM EDT [facility] BUN/Creatinine Ratio 21.4 7.0 - 25.0 02/09/2025 10:56 AM EDT [facility] Anion Gap 12.7 5.0 - 15.0 mmol/L 02/09/2025 10:56 AM EDT [facility] eGFR 62.1 >60.0 mL/min/1.7 3 02/09/2025 10:56 AM EDT [facility] Blood Venipuncture / Unknown 02/09/2025 9:36 AM EDT 02/09/2025 10:27 AM EDT [facility] - 02/09/2025 10:56 AM EDT GFR [...] MD LAB BLOOD ORDERABLES Final Res ult [facility]
[address] [place] [address], * CBC (No Diff) (02/09/2025 9:36 AM EDT) WBC 7.80 3.40 - 10.80 10*3/mm3 02/09/2025 10:33 AM EDT [facility] RBC 4.59 4.14 - 5.80 10*6/mm3 02/09/2025 10:33 AM EDT [facility] Hemoglobin 13.8 13.0 - 17.7 g/dL 02/09/2025 10:33 AM EDT [facility] Hematocrit 42.1 37.5 - 51.0 % 02/09/2025 10:33 AM EDT [facility] MCV 91.7 79.0 - 97.0 fL 02/09/2025 10:33 AM EDT [facility] MCH 30.1 26.6 - 33.0 pg 02/09/2025 10:33 AM EDT [facility] MCHC 32.8 31.5 - 35.7 g/dL 02/09/2025 10:33 AM EDT [facility] RDW 13.3 12.3 - 15.4 % 02/09/2025 10:33 AM EDT [facility] RDW-SD 45.0 37.0 - 54.0 fl 02/09/2025 10:33 AM EDT [facility] MPV 11.0 6.0 - 12.0 fL 02/09/2025 10:33 AM EDT [facility] Platelets 207 140 - 450 10*3/mm3 02/09/2025 10:33 AM EDT [facility] Blood Venipuncture / Unknown 02/09/2025 9:36 AM EDT 02/09/2025 10:26 AM EDT us Alex Alan MD LAB BLOOD ORDERABLES Final Res ult [facility]
[address] [place] [address], * ECG 12 Lead Stroke Evaluation (02/09/2025 [...] previous ECGs available Confirmed by CATHERINE MARES ([id number]) on 02/09/2025 1:39:29 PM Referred By: DAJA [...] previous ECGs available Confirmed by CATHERINE MARES ([id number]) on 02/09/2025 1:39:29 PM Referred By: DAJA Confirmed By: CATHERINE MARES Alex Alan MD ECG ORDERABLES Final Result ECG * POC Glucose Once (02/09/2025 12:03 AM EDT) Glucose 104 70 - 130 mg/dL 02/09/2025 12:05 AM EDT [facility] Blood 02/09/2025 12:0 3 AM EDT 02/09/2025 12:05 AM EDT Alex Alan MD POINT OF CARE TEST ORDERABLES Final Result [facility]
[address] [place] [address], * POC Glucose Once (02/08/2025 7:16 PM EDT) Glucose 128 70 - 130 mg/dL 02/08/2025 7:17 PM EDT [facility] Blood 02/08/2025 7:16 PM EDT 02/08/2025 7:17 PM EDT us Alex Alan MD POINT OF CARE TEST ORDERABLES Final Result Performing Organization Address City/[facility]/ZIP Co de Phone Number [facility]
[address] [place] [address], * POC Glucose Once (02/08/2025 4:03 PM EDT) Glucose 106 70 - 130 mg/dL 02/08/2025 4:04 PM EDT [facility] Blood 02/08/2025 4:03 PM EDT 02/08/2025 4:04 PM EDT us Alex Alan MD POINT OF CARE TEST ORDERABLES Final Result Performing Organization Address City/[facility]/ZIP Co de Phone Number [facility]
[address] [place] [address], * MRI Brain Without Contrast (02/08/2025 11:20 AM EDT) Anatomical Region Laterality Modality Head, Neck N/A Magnetic Resonan ce 02/08/2025 11:4 2 AM EDT Impressions 02/08/2025 11:43 AM EDT Impression: Moderate chronic and age-related changes are noted as above. There is otherwise no evidence of acute infarct, hemorrhage, mass or mass effect. Electronically Signed: Joss Vance MD 02/08/2025 11:43 AM EDT Workstation ID: [id number] Narrative 02/08/2025 11:43 AM EDT MRI BRAIN [...] MD 02/08/2025 11:43 AM EDT Workstation ID: [id number] us May Kuldip [facility] MRI ORDERABLES Kanwal l Result * ECHO [...] technically adequate for diagnosis. us May Kuldip NEURODIAGNOSTIC TECHNICIAN CV ECHO ORDERABLES Kanwal l Result * [...] - 200 mg/dL 02/08/2025 8:20 AM EDT [facility] Triglycerides 76 0 - 150 mg/dL 02/08/2025 8:20 AM EDT [facility] HDL Cholesterol 46 40 - 60 mg/dL 02/08/2025 8:20 AM EDT [facility] LDL Cholesterol 101(H) 0 - 100 mg/dL 02/08/2025 8:20 AM EDT [facility] VLDL Cholesterol 15 5 - 40 mg/dL 02/08/2025 8:20 AM EDT [facility] LDL/HDL Ratio 2.19 02/08/2025 8:20 AM EDT [facility] Blood Venipuncture / Unknown 02/08/2025 7:31 AM EDT 02/08/2025 7:53 AM EDT Narrative [facility] - 02/08/2025 8:20 AM EDT [...] YANG LAB BLOOD ORDERABLES Fi nal Result [facility]
[address] [place] [address], * (ABNORMAL) Hemoglobin A1c (02/08/2025 7:31 AM EDT) Hemoglobin A1C 5.94(H) 4.80 - 5.60 % 02/08/2025 10:29 AM EDT [facility] Blood Venipuncture / Unknown 02/08/2025 7:31 AM EDT 02/08/2025 7:53 AM EDT Narrative [facility] - 02/08/2025 10:29 AM EDT Hemoglobin A1C Ranges: Increased Risk for Diabetes 5.7% to 6.4% Diabetes >= 6.5% Diabetic Goal < 7.0% Viola Christiansen TREY LAB BLOOD ORDERABLES Fi nal Result Performing Organization Address [facility] Co de Phone Number [facility]
[address] [place] [address], * POC Glucose Once (02/08/2025 6:43 AM EDT) [facility] Signature Glucose 83 70 - 130 mg/dL 02/08/2025 6:46 AM EDT [facility] Blood 02/08/2025 6:43 AM EDT 02/08/2025 6:46 AM EDT Nelly Dacosta MD POINT OF CARE TEST DUSTIN SINGH Final Result Performing Organization Address [facility] de Phone Number [facility]
[address] [place] [address], documented in this encounter Visit Diagnoses Diagnosis [...] 02/08/25 at 0900, If patient fails dysphagia, WA option MUST be given. Do not exceed [...] 02/08/25 at 0900, If patient fails dysphagia, WA option MUST be given. Do not exceed [...] 02/08/25 at 0900, If patient fails dysphagia, WA option MUST be given. Do not exceed [...] 02/08/25 at 0900, If patient fails dysphagia, WA option MUST be given. Do not exceed [...] tablet 50 mcg 50 mcg, Oral, Every [employer], First dose on Sun02/09/25 at 0600, Take [...] Provider: Melinda Ross RN)2027 (Given - Provider: Sophei Briggs RN) 0804 (Given - Provider: Melinda [...] BPA Driven Protocol [facility] Electrolyte Replacement Protocol Algorithm to View Details Magnesium Standard Dose Replacement - Follow Nurse / BPA Driven Protocol [facility] Electrolyte Replacement Protocol Algorithm to View Details [...] BPA Driven Protocol [facility] Electrolyte Replacement Protocol Algorithm to View Details [...] BPA Driven Protocol [facility] Electrolyte Replacement Protocol Algorithm to View Details [...] 02/08/25 at 0900, If patient fails dysphagia, WA option MUST be given. Do not exceed [...] 02/08/25 at 0900, If patient fails dysphagia, WA option MUST be given. Do not exceed [...] ineffective. documented in this encounter Care Teams Seo Team Lead Relationship Specialty Start Date End Date Provider, [place] [address] PCP - General 02/08/25 documented as of this encounter
--- OUTSIDE RECORDS SUMMARY | 2025-03-19 09:35 | XMS_ITS | Clinical Summary ---
Author Organization [facility] Address [facility] [place] [address] Phone Care Team Providers Care Slitter Processed Film Name Role Phone Lito Mehta MD Primary Care Provider [phone] Allergies Active Allergy Reactions Criticality Noted Date [...] Active fluticasone propionate (FLONASE) 50 mcg/actuation Nasl [place], Suspension 2 Sprays by Nasal route daily. [...] LENS ; Surgeon: Alessandro Avery MD; Location: [facility]; Service: Ophthalmology Medical devices from this surgery are in the Medical Devices section. CARDIAC SURGERY 07/30/2018 - 07/29/2019 cardiac stents CATARACT REMOVAL 2021 Eye/Left LEFT EYE COMPLEX CATARACT EXTRACTION WITH PHACOEMULSIFICATION AND INTRAOCULAR LENS; Surgeon: Alessandro Avery MD; Location: [facility]; Service: Ophthalmology Medical devices from this surgery are in the Medical Devices section. BACK SURGERY EYE SURGERY 08/02/2023 Right RIGHT EYE YAG LASER CAPSULOTOMY; Surgeon: Alessandro Avery MD; Location: [facility]; Service: Ophthalmology Medical History Medical [...] this topic Medical Devices Implanted Type Area Environmental Associate Device Identifier Shelf Expiration Date Model / Serial / Lot Dental Implants X 6 Left Inguinal Hernia Mesh (~2008) Lens Intraocular Preloaded 19.0 Diopter - [id number] Implanted:Qty: 1 on 08/30/2016 by Alessandro Avery MD at [facility] Right: Eye [facility] [id number] 10/27/2018 [id number] / [id number] / Lens Iol 1-Piece 19.0 Diopter Preloaded Acrylic Foldable Pc - [id number] Implanted:Qty: 1 on 2021 by Alessandro Avery MD at [facility] Left: Eye [facility] [id number] 08/24/2024 [id number] / [id number] / Insurance MEDICARE [place] PART A AND B Member Subscriber Plan / Payer (Ef fective 2000-Present) Name:Kodak Bernstein Member ID:[id number] Relation to Subscriber:Self Name:Kodak Bernstein Subscriber ID:[id number] Payer ID:Not on file Group ID:Not on file Type:Not on file Address: [facility] [address] Care Teams Slitter Processed Film Relationship Specialty Start Date End Date Lito Mehta MD PCP - General Psychiatry & Neurology-Neurology 12/12/21
--- OUTSIDE RECORDS SUMMARY | 2025-03-19 09:35 | XMS_ITS | Clinical Summary ---
Author Organization Healthcare Address [address] [place] [address] Care Team Providers Care Traffic Law Attorney Name Role Phone Yovani Mosley MD Primary Care Provider [phone] Social History Tobacco Use Types Packs/Day Years [...] of Treatment Not on file Care Teams Traffic Law Attorney Relationship Specialty Start Date End Date Yovani Mosley MD [address] [place] [address] [place] [address] PCP - General 12/10/20
--- OUTSIDE RECORDS SUMMARY | 2025-03-19 09:35 | XMS_ITS | Encounter Summary ---
[facility] Address [address] [place] [address] Care Team Providers Care Tawer Name Role Phone Provider, No Known Primary Care Provider Unavail able Encounter Details Date Type Department Care Team (Late st Contact Info) Description 02/23/2025 Readmission Management [facility] [address] [place] [phone] Aubrie Ravi, RN Social History Tobacco Use Types Packs/Day Years Used Date Smoking Tobacco: Never Smokeless Tobacco: Never Alcohol Use Standard Drinks/Week Comments Never 0 [...] or training? Not on file Preferred Language Bahraini 02/09/2025 Sex and Gender Information Value Date Recorded Sex Assigned at Not on file Legal Sex Male 2:09 AM EDT Gender Identity Not on file Sexual Orientation Not on file documented as of this encounter Miscellaneous Notes * Outreach Note - Aubrie Ravi, RN - 02/23/2025 12:00 PM EDT Medical Week 2 Survey Flowsheet Row Responses [facility] patient discharged from? [facility] Does the patient have one of the following disease processes/diagnoses(primary or secondary)? Other Week 2 attempt successful? No Unsuccessful attempts Attempt 1 Revoke Masha Goncalves - Registered Nurse documented in this encounter Plan of Treatment Not on file documented as of this encounter Visit Diagnoses Not on filedocumented in this encounter Care Teams Tawer Relationship Specialty Start Date End Date Provider, No Known [facility] [place] [address] PCP - General 02/08/25 documented as of this encounter
--- OUTSIDE RECORDS SUMMARY | 2025-03-19 09:35 | XMS_ITS | Encounter Summary ---
[facility] Address [address] [place] [id number] Care Team Providers Care Lens Cutter Name Role Phone Provider, No Known Primary Care Provider Unavail able Encounter Details Date Type Department Care Team (Latest Contact Info) Description 02/08/2025 Travel Social History Tobacco Use Types Packs/Day Years [...] or training? Not on file Preferred Language Gabonese 02/09/2025 Sex and Gender Information Value Date Recorded Sex Assigned at Not on file Legal Sex Male 2:09 AM EDT Gender Identity Not on file Sexual Orientation Not on file documented as of this encounter Functional Status * Question Answer [...] 7:24 AM EDT Melinda Ross RN * [place] Suicide Severity Rating Scale (Screener/Recent Self-Report) Question Answer Date of Assessment Author 6. Suicidal Behavior (Lifetime) No 7:24 AM EDT Melinda Ross RN documented as of this encounter Plan of Treatment Not on file documented as of this encounter Visit Diagnoses Not on filedocumented in this encounter Care Teams Lens Cutter Relationship Specialty Start Date End Date Provider, [place] [address] PCP - General 02/08/25 documented as of this encounter
--- OUTSIDE RECORDS SUMMARY | 2025-03-19 09:35 | XMS_ITS | Clinical Summary ---
Author Organization [facility] Address [address] [place] [id number] Care Team Providers Care Laboratory Chief Name Role Phone Provider, No Known Primary Care Provider Unavail able Allergies No known active allergies Medications aspirin 81 MG chewable tablet Chew 1 tablet Daily. Active vitamin B-12 (CYANOCOBALAMIN ) 100 MCG tablet Take 1 tablet by mouth Daily. Active Cholecalciferol 10 MCG (400 UNIT) tablet Take 1 tablet by mouth Daily. Active vitamin C (ASCORBIC ACID) 250 MG tablet Take 2 tablets by mouth Daily. Active tamsulosin (FLOMAX) 0.4 MG capsule 24 hr capsule Take 1 capsule by mouth Daily. Active montelukast (SINGULAIR) 10 MG tablet Take 1 tablet by mouth Every Night. Active Ferrous Sulfate 300 (60 Fe) MG/5ML solution Take 5 mL by mouth Daily. Active levothyroxine (SYNTHROID, LEVOTHROID) 50 MCG tablet Take 1 tablet by mouth Every Morning. Active pregabalin (LYRICA) 50 MG capsule Take 1 capsule by mouth 3 (Three) Times a Day. Active atorvastatin (LIPITOR) 80 MG tablet Take 1 tablet by mouth Every Night. 30 tablet 02/09/2025 Active Active Problems Problem Noted Date Diagnosed Date Dysarthria 02/08/2025 HTN (hypertension) 02/08/2025 Hyperlipidemia 02/08/2025 Hypothyroid 02/08/2025 Encounters Date Type Department Care Team Description 02/23/2025 Readmission Management [facility] [address] [place] [address] Aubrie Ravi RN 02/10/2025 Transitional Care Management Telephone Encounter [facility] [address] [place] [address] Paco Aranda RN 02/09/2025 Readmission Management [facility] [address] [place] [address] Leisa Calloway RN 02/08/2025 6:35 AM EDT - 02/09/2025 5:27 PM EDT Hospital Encounter [address] [place] [address] Nelly Dacosta MD Lyons, Andrea L, MD Cognitive communication disorder (Primary Dx); Dysarthria Discharge Disposition: Home or Self Care 02/08/2025 Travel from Last 3 Months Social History Tobacco Use Types Packs/Day Years [...] or training? Not on file Preferred Language Guamanian 02/09/2025 Sex and Gender Information Value Date [...] Mass Index 25.1 02/08/2025 10:23 AM EDT Plan of Treatment Health Maintenance Due Date Last Done Comments Pneumococcal Vaccine 50+ (1 of 1 - PCV) 12/20/1985 RSV Vaccine - Adults (1 - 1- dose 75+ series) 12/20/2010 ZOSTER VACCINE (2 of 2) 03/05/2023 01/08/2023 COVID-19 Vaccine (2023-2 5 season) 2024 04/03/2024, 05/23/2023, 05/08/2022, Additional history exists ANNUAL WELLNESS VISIT 02/13/2025 INFLUENZA VACCINE 04/29/2025 04/03/2024, , 05/29/2022, Additional history exists LIPID PANEL 02/08/2026 02/08/2025 TDAP/TD VACCINES (4 - Td or Tdap) 01/08/2033 01/08/2023, 02/24/2020, 10/03/1996 Procedures Procedure Name Priority Date/Time Associated Diagnosis Comments BASIC METABOLIC PANEL Urgent 02/09/2025 9:36 AM EDT CBC (NO DIFF) Urgent 02/09/2025 9:36 AM EDT ECG 12-LEAD [...] OUTSIDE FILMS Routine 02/08/2025 7:57 AM EDT LIPID PANEL Urgent 02/08/2025 7:31 AM EDT HEMOGLOBIN A1C Urgent 02/08/2025 7:31 AM EDT POCT GLUCOSE FINGERSTICK Routine 02/08/2025 6:43 AM EDT from Last 3 Months Results * CBC (No Diff) (02/09/2025 9:36 AM EDT) [facility] WBC 7.80 3.40 - 10.80 10*3/mm3 02/09/2025 10:33 AM EDT [facility] RBC 4.59 4.14 - 5.80 10*6/mm3 02/09/2025 10:33 AM EDT [facility] Hemoglobin 13.8 13.0 - 17.7 g/dL 02/09/2025 10:33 AM EDT [facility] Hematocrit 42.1 37.5 - 51.0 % 02/09/2025 10:33 AM EDT [facility] MCV 91.7 79.0 - 97.0 fL 02/09/2025 10:33 AM EDT [facility] MCH 30.1 26.6 - 33.0 pg 02/09/2025 10:33 AM EDT [facility] MCHC 32.8 31.5 - 35.7 g/dL 02/09/2025 10:33 AM EDT [facility] RDW 13.3 12.3 - 15.4 % 02/09/2025 10:33 AM EDT [facility] RDW-SD 45.0 37.0 - 54.0 fl 02/09/2025 10:33 AM EDT [facility] MPV 11.0 6.0 - 12.0 fL 02/09/2025 10:33 AM EDT [facility] Platelets 207 140 - 450 10*3/mm3 02/09/2025 10:33 AM T [facility] Blood Venipuncture / Unknown 02/09/2025 9:36 AM EDT 02/09/2025 10:26 AM EDT us Alex Alan MD LAB BLOOD ORDERABLES Final Res ult [facility]
[address] [place] [address], * (ABNORMAL) Basic Metabolic Panel (02/09/2025 9:36 AM EDT) Glucose 115(H) 65 - 99 mg/dL 02/09/2025 10:56 AM EDT [facility] BUN 24.2(H) 8.0 - 23.0 mg/dL 02/09/2025 10:56 AM [facility] Creatinine 1.13 0.76 - 1.27 mg/dL 02/09/2025 10:56 AM [facility] Sodium 139 136 - 145 mmol/L 02/09/2025 10:56 AM [facility] Potassium 4.4 3.5 - 5.2 mmol/L 02/09/2025 10:56 AM [facility] Chloride 103 98 - 107 mmol/L 02/09/2025 10:56 AM [facility] CO2 23.3 22.0 - 29.0 mmol/L 02/09/2025 10:56 AM [facility] Calcium 9.3 8.6 - 10.5 mg/dL 02/09/2025 10:56 AM [facility] BUN/Creatinine Ratio 21.4 7.0 - 25.0 02/09/2025 10:56 AM [facility] Anion Gap 12.7 5.0 - 15.0 mmol/L 02/09/2025 10:56 AM [facility] eGFR 62.1 >60.0 mL/min/1.7 3 02/09/2025 10:56 AM [facility] Blood Venipuncture / Unknown 02/09/2025 9:36 AM EDT 02/09/2025 10:27 AM [facility] - 02/09/2025 10:56 AM EDT GFR [...] does not include race as a factor Alex Alan MD LAB BLOOD ORDERABLES Final Res ult [facility]
[address] [place] [id number], * ECG 12 Lead Stroke Evaluation (02/09/2025 [...] No previous ECGs available Confirmed by CATHERINE MULLIGAN ([id number]) on 02/09/2025 1:39:29 PM Referred By: DAJA Confirmed By: CATHERINE MULLIGAN Procedure Note Catherine Mulligan MD - 02/09/2025 Test Reason : Stroke [...] No previous ECGs available Confirmed by CATHERINE MULLIGAN ([id number]) on 02/09/2025 1:39:29 PM Referred By: DAJA Confirmed By: CATHERINE MULLIGAN Alex Alan MD ECG ORDERABLES Final Result ECG * POC Glucose Once (02/09/2025 12:03 AM EDT) Only the most recent of4 resultswithin the time period is included. Glucose 104 70 - 130 mg/dL 02/09/2025 12:05 AM EDT [facility] Blood 02/09/2025 12:0 3 AM EDT 02/09/2025 12:05 AM EDT Alex Alan MD POINT OF CARE TEST ORDERABLES Final Result [facility]
[address] [place] [address], * MRI Brain Without Contrast (02/08/2025 11:20 AM EDT) Anatomical Region Laterality Modality Head, Neck N/A Magnetic Resonan ce 02/08/2025 11:4 2 AM EDT Impressions 02/08/2025 11:43 AM EDT Impression: Moderate chronic and age-related changes are noted as above. There is otherwise no evidence of acute infarct, hemorrhage, mass or mass effect. Electronically Signed: Joss Vance MD 02/08/2025 11:43 AM EDT Workstation ID: [id number] Narrative 02/08/2025 11:43 AM EDT MRI BRAIN [...] MD 02/08/2025 11:43 AM EDT Workstation ID: [id number] us May Kuldip YANG IMG MRI ORDERABLES Kanwal l Result * ECHO [...] is technically adequate for diagnosis. us May Ulises-Cary VARNISH MAKER HELPER CV ECHO ORDERABLES Kanwal l Result * CT Outside Films (02/08/2025 7:57 AM EDT) Only the most recent of3 resultswithin the time period is included. Narrative SYSTEMGENERATED, DOCUMENTATION - 02/08/2025 7:57 AM EDT This procedure was auto-finalized with no dictation required. us Radiant Outside Films IMG CT ORDERABLES Final Re sult * (ABNORMAL) Hemoglobin A1c (02/08/2025 7:31 AM EDT) Hemoglobin A1C 5.94(H) 4.80 - 5.60 % 02/08/2025 10:29 AM EDT [facility] Blood Venipuncture / Unknown 02/08/2025 7:31 AM EDT 02/08/2025 7:53 AM EDT [facility] - 02/08/2025 10:29 AM EDT Hemoglobin A1C Ranges: Increased Risk for Diabetes 5.7% to 6.4% Diabetes >= 6.5% Diabetic Goal < 7.0% us November Kuldip VARNISH MAKER HELPER LAB BLOOD ORDERABLES Fi nal Result [facility]
[address] [place] [address], * (ABNORMAL) Lipid Panel (02/08/2025 7:31 AM EDT) Total Cholesterol 162 0 - 200 mg/dL 02/08/2025 8:20 AM EDT [facility] Triglycerides 76 0 - 150 mg/dL 02/08/2025 8:20 AM EDT [facility] HDL Cholesterol 46 40 - 60 mg/dL 02/08/2025 8:20 AM EDT [facility] LDL Cholesterol 101(H) 0 - 100 mg/dL 02/08/2025 8:20 AM EDT [facility] VLDL Cholesterol 15 5 - 40 mg/dL 02/08/2025 8:20 AM EDT [facility] LDL/HDL Ratio 2.19 02/08/2025 8:20 AM EDT [facility] Blood Venipuncture / Unknown 02/08/2025 7:31 AM EDT 02/08/2025 7:53 AM EDT [facility] - 02/08/2025 8:20 AM EDT Cholesterol [...] calculated using the NIH LDL-C calculation. us May Kuldip YANG LAB BLOOD ORDERABLES nal Result [facility]
[address] [place] [address], from Last 3 Months Insurance MEDICARE A & B Member Subscriber Plan / Payer (Ef fective 2000-Present) Name:[employer] Member ID:[id number] Relation to Subscriber:Self Name:Amandeep [employer] Raf Subscriber ID:[id number] Payer ID:[id number] Group ID:Not on file Type:Not on file Address: [id number] [place] [id number] [facility] Advance Directives * CPR (Attempt to Resuscitate) (Latest Code Status on File) Date Activated Date Inactivated Comments 02/08/2025 11:45 AM 02/09/2025 7:27 PM Question Answer Comments Code Status (Patient has no pulse and is not breathing): CPR (Attempt to Resuscitate) Medical Interventions (Patie nt has pulse or is breathing): Full Support Level Of Support Discussed With: Patient Care Teams Laboratory Chief Relationship Specialty Start Date End Date Provider, No Known [facility] [place] [address] PCP - General 02/08/25
--- OUTSIDE RECORDS SUMMARY | 2025-03-19 09:35 | XMS_ITS | Encounter Summary ---
[facility] Address [address] [place] [address] Care Team Providers Care It Desktop Support Specialist Name Role Phone Provider, No Known Primary Care Provider Unavail able Encounter Details Date Type Department Care Team (Late st Contact Info) Description 02/09/2025 Readmission Management [facility] [address] [place] [phone] Leisa Calloway, RN Social History Tobacco Use Types Packs/Day [...] or training? Not on file Preferred Language Kenyan 02/09/2025 Sex and Gender Information Value Date Recorded Sex Assigned at Not on file Legal Sex Male 2:09 AM EDT Gender Identity Not on file Sexual Orientation Not on file documented as of this encounter Miscellaneous Notes * Outreach Note - Leisa Calloway, RN - 02/09/2025 8:06 PM EDT Prep Survey Flowsheet Row [facility] ? No Eligibility [facility] Date of Admission 02/08/25 Date of Discharge 02/09/25 Discharge Disposition Home or Self Care Discharge diagnosis Dysarthria Does the patient have one of the following disease processes/diagnoses(primary or secondary)? Other Comments regarding appointments new PCP appt Prep survey completed? Yes Leisa Ballard - Registered Nurse documented in this encounter Plan of Treatment Not on file documented as of this encounter Visit Diagnoses Not on filedocumented in this encounter Care Teams It Desktop Support Specialist Relationship Specialty Start Date End Date Provider, [place] [address] PCP - General 02/08/25 documented as of this encounter
--- OUTSIDE RECORDS SUMMARY | 2025-03-19 09:35 | XMS_ITS | Encounter Summary ---
[facility] Address [address] [place] [address] Care Team Providers Care Office Supervisor Name Role Phone Provider, No Known Primary Care Provider Unavail able Encounter Details Date Type Department Care Team (Late st Contact Info) Description 02/10/2025 Transitional Care Management Telephone Encounter [facility] [address] [place] [phone] Paco Aranda, RN Social History Tobacco Use Types Packs/Day [...] or training? Not on file Preferred Language Andorran 02/09/2025 Sex and Gender Information Value Date Recorded Sex Assigned at Not on file Legal Sex Male 2:09 AM EDT Gender Identity Not on file Sexual Orientation Not on file documented as of this encounter Miscellaneous Notes * Outreach Note - Paco Aranda RN - 02/10/2025 11:00 AM EDT Call Center TCM Note Flowsheet Row Responses [facility] [place] patient discharged from? [place] Does the patient have one of the following disease processes/diagnoses(primary or secondary)? Other TCM attempt successful? Yes Call start time 1111 Call end time 1121 General alerts for this patient [place] Discharge diagnosis Dysarthria Person spoke with today (if not patient) and relationship Patient Meds reviewed with patient/caregiver? Yes Is the patient having any side effects they believe may be caused by any medication additions or changes? No Does the patient have all medications ordered at discharge? Yes Is the patient taking all medications as directed (includes completed medication regime)? Yes Comments Patient has a new patient appt scheduled on 02/[address] Martinez (PCP) Does the patient have an appointment with their PCP within 7-14 days of discharge? Yes Psychosocial issues? No Did the patient receive a copy of their discharge instructions? Yes Nursing interventions Reviewed instructions with patient What is the patient's perception of their health status since discharge? Improving Is the patient/caregiver able to teach back signs and symptoms related to disease process for when to call PCP? Yes Is the patient/caregiver able to teach back signs and symptoms related to disease process for when to call 911? Yes Is the patient/caregiver able to teach back the hierarchy of who to call/visit for symptoms/problems? PCP, Specialist, Home health nurse, Urgent Care, ED, 911 Yes If the patient is a current smoker, are they able to teach back resources for cessation? Not a smoker TCM call completed? Yes Call end time 1121 Would this patient benefit from a Referral to [facility] Social Work? No Is the patient interested in additional calls from an ambulatory telephonic case manager? No Paco Edgar - Registered Nurse 02/10/2025, 11:21 EDT documented in this encounter Plan of Treatment Not on file documented as of this encounter Visit Diagnoses Not on filedocumented in this encounter Care Teams Office Supervisor Relationship Specialty Start Date End Date Provider, [place] [address] PCP - General 02/08/25 documented as of this encounter
== END 2025-03-17 23:59 | disposition home or self-care (01) ==
LOC: LAB.DROPOF 03-19 09:17
PROVIDERS: PCP Family Medicine; Visit Provider Family Medicine
DX: R63.4 Abnormal weight loss (principal); E03.9 Hypothyroidism, unspecified
CPT/HCPCS: 84443; 85007; 85014; 85018; 85048; 85049

== ENCOUNTER 2025-03-18 14:00 | Outpatient (CLI) | payer MEDICARE, BC, SELFPAY ==
--- OUTSIDE RECORDS SUMMARY | 2025-02-08 06:35 | XMS_ITS | Encounter Summary ---
[facility] Address [address] [place] [id number] Care Team Providers Care Fifth Hand Name Role Phone Provider, No Known Primary Care Provider Unavail able Reason for Referral * Physical Therapy (Routine) - Pending Review Specialty Diagnoses / Procedures Referred By Terence tamez Referred To Contact Physical Therapy / Speech Therapy Diagnoses Cognitive communication disorder Dysarthria Procedures MT OFFICE/OUTPATIENT NEW MODERATE MDM 45 MINUTES Alex Alan MD [address] [place] [address] Phone: tel: fax: [facility] SPEECH LANGUAGE [address] [place] [address] Phone: tel: fax: Referral ID Status Reason Start Date Expiration Date Visits Requested Visits Authorized [id number] Pending Review Specialty Services Required 02/09/2025 05/11/2026 1 1 Reason for Visit * Auth/Cert Specialty Diagnoses / Procedures Referred By Terence tamez Referred To Contact Diagnoses Transient Ischemic Attack STROKE Protocol Referral ID Status Reason Start Date Expiration Date Visits Re quested Visits Authorized [id number] 1 1 Encounter Details Date Type Department Care Team (Late st Contact Info) Description 02/08/2025 6:35 AM EDT - 02/09/2025 5:27 PM EDT Hospital Encounter [facility] [address]F [address] [place] [address] Nelly Dacosta MD [address] [facility] [address] [place], [place] [id number] Alex Alan MD [address] [place] [address] Cognitive communication disorder (Primary Dx); Dysarthria Discharge Disposition: Home or Self Care Social History Tobacco Use Types Packs/Day Years Used Date Smoking Tobacco: Never Smokeless Tobacco: Never Tobacco Cessation:Counseling Given: Not Answered Alcohol Use Standard Drinks/Week Comments Never 0 (1 standard drink = 0.6 oz pur e alcohol) AUDIT-C Answer Date Recorded Q1: How often do you have a drink containing alcohol? Never 02/08/2025 Q2: How many drinks containi ng alcohol do you have on a typical day when you are drinking? Patient does not drink Q3: How often do you have si x or more drinks on one occasion? Never 02/08/2025 Exercise Vital Sign Answer Date Recorde d On average, how many days pe r week do you engage in moderate to strenuous exercise (like a brisk walk)? 3 days 02/09/2025 On average, how many minutes do you engage in exercise at this level? 30 min 02/09/2025 Abuse Screen Answer Date Recorded Feels Unsafe at Home or Work/School no 02/08/2025 Feels Threatened by Someone no 01/27 Does Anyone Try to Keep You From Having Contact with Others or Doing Things Outside Your Home? no 02/08/2025 Physical Signs of Abuse Present no 02/08/2025 Housing Stability Answer Date Recorded Current Living Arrangements home 01/27 Potentially Unsafe Housing Conditions Not on rangel e 02/09/2025 Family and Community Support Answer Jamey e Recorded If for any reason you need h elp with day-to-day activities such as bathing, preparing meals, shopping, managing finances, etc., do you get the help you need? I get all the help I need 02/09/2025 Lonely or Isolated Not on file 02/09/2025 Disabilities Answer Date Recorded Difficulty Concentrating, Remembering or Making Decisions no 02/08/2025 Difficulty Managing Errands Independently no 02/08/2025 Education Answer Date Recorded Help with school or training? Not on file Preferred Language Burundian 02/09/2025 Sex and Gender Information Value Date Recorded Sex Assigned at Not on file Legal Sex Male 2:09 AM EDT Gender Identity Not on file Sexual Orientation Not on file documented as of this encounter Last Filed Vital Signs Vital Sign Reading Time Taken Comments Blood Pressure 138/69 02/09/2025 1:35 PM EDT Pulse 87 02/09/2025 7:55 AM EDT Temperature 36.6 C (97.8 F) 02/09/2025 11:55 AM EDT Respiratory Rate 16 02/09/2025 11:55 AM EDT Oxygen Saturation 98% 02/09/2025 11:55 AM EDT Inhaled Oxygen Concentration - - Weight 77.1 kg (170 lb) 02/08/2025 10:23 AM EDT Height 175.3 cm (5' 9 ) 02/08/2025 10:23 AM EDT Body Mass Index 25.1 02/08/2025 10:23 AM EDT documented in this encounter Functional Status * Question Answer Date of Assessment Author 1. Wish to be (Past 1 Month) No 025 7:24 AM EDT Melinda Ross RN 2. Non-Specific Active Suici satish Thoughts (Past 1 Month) No 02/08/2025 7:24 AM EDT Alvaro Ross RN * Calculated C-SSRS Risk Score (Lifetime/Recent) Answer Date of Assessment Author No Risk Indicated 02/08/2025 7:24 AM EDT Melinda Ross RN * Black Suicide Severity Rating Scale (Screener/Recent Self-Report) Question Answer Date of Assessment Author 6. Suicidal Behavior (Lifetime) No 7:24 AM EDT Melinda Ross RN documented as of this encounter Discharge Summaries * Evelyn Patel RN - 02/09/2025 1:50 PM EDT Images from the original note were not included. Tera Larios (89 y.o. Male) Evelyn CM [phone] Date of 1935 Social Security Number [id number] [place] [address] Jew None Marital Status Single Admission Date 02/08/2025 Admission Type Urgent Admitting Provider Alex Alan MD Attending Provider Alex Alan MD Department, Room/Bed [facility] 3F, S320/1 Discharge Date Discharge Disposition Home or Self Care Discharge Destination Attending Provider: Alex Alan MD Allergies: No Known Allergies Isolation: None Infection: None Code Status: CPR Ht: 175.3 cm (69 ) Wt: 77.1 kg (170 lb) Admission Cmt: None Principal Problem: Dysarthria [R47.1] Active Insurance as of 02/08/2025 Primary Coverage Payor Plan Insurance Group Employer/Plan Group [employer] [facility] Payor Plan Address Payor Plan Phone Number Payor Plan Fax Number Effective Dates [address] 07/30/1988 - None Entered [facility] [address] Subscriber Name Subscriber Date Member ID TERA LARIOS 1935 [id number] Secondary Coverage Payor Plan Insurance Group Employer/Plan Group MEDICARE MEDICARE A & B Payor Plan Address Payor Plan Phone Number Payor Plan Fax Number Effective Dates [address] 01/27/2025 - None Entered [facility] [address] Subscriber Name Subscriber Date Member ID TERA LARIOS 1935 [id number] Emergency Contacts Rail Transit Operator (Rel.) Home Phone Work Phone Mobile Phone Delma Sahni (Sister) [phone] -- [phone] Physical Therapy Notes (most recent note) Amber Koo at 02/08/25 1505 Version 1 of 1 Patient Name: Tera Larios : 1935 Today's Date: 02/08/2025 Admit Date: 02/08/2025 Visit Dx: ICD-10-CM ICD-9-CM 1. 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 315.32 Patient Active Problem List Diagnosis Dysarthria HTN (hypertension) Hyperlipidemia Hypothyroid Past Medical History: Diagnosis Date Hyperlipidemia Hypertension Stroke Past Surgical History: Procedure Laterality Date BACK SURGERY CAROTID STENT General Information Row Name 02/08/25 1548 Physical Therapy Time and Intention Document Type evaluation -KG Mode of Treatment physical therapy -KG Row Name 02/08/25 1548 General Information Patient Profile Reviewed yes -KG Prior Level of Function independent:;all household mobility;ADL's only AD has been crutches some past 2 weeks from pain in left low back, hip that sometimes radiates in L5 pattern to knee -KG Existing Precautions/Restrictions fall;spinal several recent falls -KG Barriers to Rehab none identified -KG Row Name 02/08/25 1548 Living Environment Current Living Arrangements home -KG People in Home alone -KG Row Name 02/08/25 1548 Home Main Entrance Number of Stairs, Main Entrance one -KG Stair Railings, Main Entrance none -KG Row Name 02/08/25 1548 Stairs Within Home, Primary Stairs, Within Home, Primary does not use stairs within home, lives on main level -KG Number of Stairs, Within Home, Primary twelve -KG Row Name 02/08/25 1548 Cognition Orientation Status (Cognition) oriented x 3 -KG Row Name 02/08/25 1548 Safety Issues/Impairments Affecting Functional Mobility Safety Issues Affecting Function (Mobility) insight into deficits/self- awareness;safety precaution awareness -KG Impairments Affecting Function (Mobility) balance -KG User Smith (r) = Recorded By, (t) = Taken By, (c) = Cosigned By Initials Name Provider Type KG Amber Koo Physical Therapist Mobility Row Name 02/08/25 1551 Bed Mobility Bed Mobility fabzal-seu-yedvsz -KG Bpqbxu-Axc-Idupxr Sutton (Bed Mobility) modified independence -KG Assistive Device (Bed Mobility) head of bed elevated -KG Comment, (Bed Mobility) cues log roll -KG Row Name 02/08/25 1551 Transfers Comment, (Transfers) SBA, FWW -KG Row Name 02/08/25 1551 Sit-Stand Transfer Sit-Stand [place] (Transfers) standby assist;verbal cues;1 person assist -KG Assistive Device (Sit-Stand Transfers) walker, front-wheeled -KG Row Name 02/08/25 1551 Gait/Stairs (Locomotion) Sutton Level (Gait) standby assist;1 person assist -KG Assistive Device (Gait) walker, front-wheeled -KG Patient was able to Ambulate yes -KG Distance in Feet (Gait) 200 -KG Deviations/Abnormal Patterns (Gait) antalgic;gait speed decreased -KG Bilateral Gait Deviations forward flexed posture -KG Comment, (Gait/Stairs) Pt's gait and pain signficantly improved with use of FWW. Without walker, ptwith antalgic flexed knee gait with slight buckling L knee. With walker, SBA, 200', and no buckling, improved balance and pain -KG User Smith (r) = Recorded By, (t) = Taken By, (c) = Cosigned By Initials Name Provider Type NIDHI Amber Koo Physical Therapist Obj/Interventions Row Name 02/08/25 1558 Range of Motion Comprehensive General Range of Motion no range of motion deficits identified -KG Row Name 02/08/25 1558 Strength Comprehensive (MMT) General Manual Muscle Testing (MMT) Assessment lower extremity strength deficits identified -KG Comment, General Manual Muscle Testing (MMT) Assessment LLE 4-/5, RLE 4/5 except 3/5 DF/ great toe extension -KG Row Name 02/08/25 1558 Motor Skills Therapeutic Exercise other (see comments) pelvic tilts, knee to chest stretch, STS -KG [facility] Name 02/08/25 1558 Balance Balance Assessment standing static balance -KG Static Standing Balance standby assist -KG Position/Device Used, Standing Balance supported;walker, rolling -KG Balance Interventions standing;sit to stand -KG User Smith (r) = Recorded By, (t) = Taken By, (c) = Cosigned By Initials Name Provider Type NIDHI Amber Koo Physical Therapist Goals/Plan Row [facility] 02/08/25 1604 Bed Mobility Goal 1 (PT) Activity/Assistive Device (Bed Mobility Goal 1, PT) sit to supine/supine to sit -KG Sutton Level/Cues Needed (Bed Mobility Goal 1, PT) independent -KG Time Frame (Bed Mobility Goal 1, PT) short term goal (STG);2 days -KG Progress/Outcomes (Bed Mobility Goal 1, PT) continuing progress toward goal -KG [facility] Name 02/08/25 1604 Transfer Goal 1 (PT) Activity/Assistive Device (Transfer Goal 1, PT) kel-bz-wqocy/gqwws-kg-mpp;zos-lt-lheum/fbgrq-go-kws-KG Sutton Level/Cues Needed (Transfer Goal 1, PT) independent -KG Time Frame (Transfer Goal 1, PT) halfway goal (LTG);5 days -KG Progress/Outcome (Transfer Goal 1, PT) continuing progress toward goal -KG Row Name 02/08/25 1604 Gait Training Goal 1 (PT) Activity/Assistive Device (Gait Training Goal 1, PT) gait (walking locomotion);walker, rolling -KG Sutton Level (Gait Training Goal 1, PT) independent -KG Distance (Gait Training Goal 1, PT) 350 -KG Time Frame (Gait Training Goal 1, PT) coremaking supervisor goal (LTG);5 days -KG Progress/Outcome (Gait Training Goal 1, PT) continuing progress toward goal -KG User Smith (r) = Recorded By, (t) = Taken By, (c) = Cosigned By Initials Name Provider Type KG Amber Koo Physical Therapist Clinical Impression Row Name 02/08/25 1600 Pain Pretreatment Pain Rating 2/10 -KG Posttreatment Pain Rating 0/10 - no pain -KG Pain Location back;extremity -KG Pain Side/Orientation left -KG Pain Management Interventions exercise or physical activity utilized -KG Response to Pain Interventions activity participation with decreased pain -KG Row Name 02/08/25 1600 Plan of Care Review Plan of Care Reviewed With patient -KG Progress no change -KG Outcome Evaluation PT eval performed: Pt reports decline in functional mobility over past 2 weeks with left sided low back pain that occasionally radiates in L5 distribution to knee, pain worse with standing/ walker, recent falls, pain improves with lumbar flexion. Pt's gait and pain signficantly improved with use of FWW. Without walker, pt with antalgic flexed knee gait with slight buckling L knee. With walker, SBA, 200', and no buckling, improved balance and pain. Pt would greatly benefit from being issued a FWW and OP PT to address strength and low back conditioning at d/c. -KG Row Name 02/08/25 1600 Therapy Assessment/Plan (PT) Patient/Family Therapy Goals Statement (PT) improve pain and strength -KG Rehab Potential (PT) good -KG Criteria for Skilled Interventions Met (PT) yes;meets criteria;skilled treatment is necessary -KG Therapy Frequency (PT) daily -KG Predicted Duration of Therapy Intervention (PT) 5 days -KG Row Name 02/08/25 1600 Vital Signs Pre Systolic BP Rehab 147 -KG Pre Treatment Diastolic BP 78 -KG Post Systolic BP Rehab 158 -KG Post Treatment Diastolic BP 87 -KG Pretreatment Heart Rate (beats/min) 60 -KG Posttreatment Heart Rate (beats/min) 56 -KG Pre SpO2 (%) 94 -KG O2 Delivery Pre Treatment nasal cannula -KG Intra SpO2 (%) 91 -KG O2 Delivery Intra Treatment nasal cannula -KG Post SpO2 (%) 94 -KG O2 Delivery Post Treatment nasal cannula -KG Row Name 02/08/25 1600 Positioning and Restraints Pre-Treatment Position in bed -KG Post Treatment Position bed -KG In Bed notified nsg;fowlers;call light within reach;encouraged to call for assist;exit alarm on -KG User Smith (r) = Recorded By, (t) = Taken By, (c) = Cosigned By Initials Name Provider Type Amber Doty Physical Therapist Outcome Measures Row [facility] 02/08/25 1606 02/08/25 0721 How much help from another person do you currently need... Turning from your back to your side while in flat bed without using bedrails? 4 -KG 3 -HB Moving from lying on back to sitting on the side of a flat bed without bedrails? 3 -KG 4 -HB Moving to and from a bed to a chair (including a wheelchair)? 3 -KG 4 -HB Standing up from a chair using your arms (e.g., wheelchair, bedside chair)? 4 - KG 4 -HB Climbing 3-5 steps with a railing? 3 -KG 3 -HB To walk in hospital room? 3 -KG 3 -HB AM-PAC 6 Clicks Score (PT) 20 -KG 21 -HB Highest Level of Mobility Goal Walk 10 Steps or More-6 -KG Walk 10 Steps or More-6 -HB [facility] 02/08/25 1606 Modified Lemmon Scale Pre-Stroke Modified Lemmon Scale 0 - No Symptoms at all. -KG Modified Lemmon Scale 1 - No significant disability despite symptoms. Able to carry out all usual duties and activities. -KG [facility] Name 02/08/25 1606 Functional Assessment Outcome Measure Options AM-PAC 6 Clicks Basic Mobility (PT);Modified Lemmon -KG User Smith (r) = Recorded By, (t) = Taken By, (c) = Cosigned By Initials Name Provider Type Amber Doty Physical Therapist Melinda Ross RN Registered Nurse Physical Therapy Education Title: PT OT LEGAL EDITOR Therapies (In Progress) Topic: Physical Therapy (In Progress) Point: Mobility training (Done) Learning Progress Summary Patient Acceptance, E, VU by KG at 02/08/2025 1606 Point: Home exercise program (Done) Learning Progress Summary Patient Acceptance, E, VU by KG at 02/08/2025 1606 Point: Body mechanics (Done) Learning Progress Summary Patient Acceptance, E, VU by KG at 02/08/2025 1606 Point: Precautions (Not Started) Learner Progress: Not documented in this visit. User Smith Initials Effective Dates Name Provider Type Discipline KG 07/11/24 - Amber Koo Physical Therapist PT PT Recommendation and Plan Progress: no change Outcome Evaluation: PT eval performed: Pt reports decline in functional mobility over past 2 weeks with left sided low back pain that occasionally radiates in L5 distribution to knee, pain worse withstanding/ walker, recent falls, pain improves with lumbar flexion. Pt's gait and pain signficantly improved with use of FWW. Without walker, pt with antalgic flexed knee gait with slight buckling L knee. With walker, SBA, 200', and no buckling, improved balance and pain. Pt would greatly benefit from being issued a FWW and OP PT to address strength and low back conditioning at d/c. Time Calculation: PT Charges Row Name 02/08/25 1612 Time Calculation Start Time 1505 -KG PT Received On 02/08/25 -KG PT Goal Re-Cert Due Date 02/18/25 -KG Timed Charges 52794 - PT Therapeutic Exercise Minutes 15 -KG Total Minutes Timed Charges Total Minutes 15 -KG Total Minutes 15 -KG User Smith (r) = Recorded By, (t) = Taken By, (c) = Cosigned By Initials Name Provider Type KG Amber Koo Physical Therapist Therapy Charges for Today Code Description Service Date Service Provider Modifiers Qty 80442091064 HC PT EVAL LOW COMPLEXITY 4 02/08/2025 Amber Koo GP 1 [id number] HC PT THER PROC EA 15 MIN 02/08/2025 Amber Koo GP 1 PT G-Codes Outcome Measure Options: AM-PAC 6 Clicks Basic Mobility (PT), Modified [place] AM-PAC 6 Clicks Score (PT): 20 Modified [place]inton Scale: 1 - No significant disability despite symptoms. Able to carry out all usual duties and activities. PT Discharge Summary Anticipated Discharge Disposition (PT): home with outpatient therapy services, home with assist Amber Koo 02/08/2025 1613 Occupational Therapy Notes (most recent note) Pete Kerr, OT at 02/09/25 0733 Acute Care - Occupational Therapy Discharge [facility] Patient Name: Tera Larios : 1935 Today's Date: 02/09/2025 Admit Date: 02/08/2025 Visit Dx: ICD-10-CM ICD-9-CM 1. 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 315.32 Patient Active Problem List Diagnosis Dysarthria HTN (hypertension) Hyperlipidemia Hypothyroid Past Medical History: Diagnosis Date Hyperlipidemia Hypertension Stroke Past Surgical History: Procedure Laterality Date BACK SURGERY CAROTID STENT General Information Row Name 02/09/25 0850 OT Time and Intention Document Type discharge evaluation/summary -CS Mode of Treatment occupational therapy -CS Patient Effort good -CS Row Name 02/09/25 0850 General Information Patient Profile Reviewed yes -CS Prior Level of Function independent:;all household mobility;ADL's reports owning crutches and usingrecently to mitigate back/hip pain -CS Existing Precautions/Restrictions fall;spinal;other (see comments) [place] -CS Barriers to Rehab none identified -CS Row Name 02/09/25 0850 Occupational Profile Reason for Services/Referral (Occupational Profile) stroke eval, discharge planning -CS Row Name 02/09/25 0850 Living Environment Current Living Arrangements home -CS People in Home alone -CS Row Name 02/09/25 0850 Home Main Entrance Number of Stairs, Main Entrance one -CS Row Name 02/09/25 0850 Stairs Within Home, Primary Stairs, Within Home, Primary remains on main floor for all needs -CS Number of Stairs, Within Home, Primary twelve -CS Row Name 02/09/25 0850 Cognition Orientation Status (Cognition) oriented x 3 -CS Row Name 02/09/25 0850 Safety Issues/Impairments Affecting Functional Mobility Safety Issues Affecting Function (Mobility) insight into deficits/self- awareness;safety precaution awareness;safety precautions follow- through/compliance -CS Impairments Affecting Function (Mobility) balance;pain -CS Comment, Safety Issues/Impairments (Mobility) LB/LLE pain - tolerated session w/ no complaints during mobility -CS User Smith (r) = Recorded By, (t) = Taken By, (c) = Cosigned By Initials Name Provider Type CS Pete Kerr OT Occupational Therapist Mobility/ADL's Row Name 02/09/25 08 Bed Mobility Bed Mobility supine-sit;scooting/bridging -CS Scooting/Bridging Sutton (Bed Mobility) independent -CS Supine-Sit [place] (Bed Mobility) modified independence -CS Assistive Device (Bed Mobility) head of bed elevated -CS Comment, (Bed Mobility) appropriate sequencing intact, no dizziness reported in sitting, no increase in pain -CS Row Name 02/09/25851 Transfers Transfers bed-chair transfer;sit-stand transfer -CS Comment, (Transfers) no AD or LOB during ADL related mobility this date -CS Row Name 02/09/25 08 Bed-Chair Transfer Bed-Chair Sutton (Transfers) standby assist -CS Row Name 02/09/25 [facility] Sit-Stand Transfer Sit-Stand Sutton (Transfers) standby assist -CS Row Name 02/09/25 [facility] Functional Mobility Functional Mobility- Comment defer to PT for gait specifics, no LOB during household distance this morning, discussed improved stability with RW for longer distances and on days with increased fatigue or pain -CS Patient was able to Ambulate yes -CS Row Name 02/09/25 08 Activities of Daily Living BADL Assessment/Intervention lower body dressing;grooming;feeding - Row Name 02/09/25 Lower Body Dressing Assessment/Training Sutton Level (Lower Body Dressing) don;socks;standby assist -CS Assistive Devices (Lower Body Dressing) long-handled shoe horn;cardiology specialist -CS Position (Lower Body Dressing) edge of bed sitting -CS Comment, (Lower Body Dressing) provided AE Pt agreeable to (LHS, cardiology specialist) and demo'd safe use for ease of reach during shoes. Therapist educated on use of cardiology specialist for threading w/ pants -CS Row Name 02/09/25851 Self-Feeding Assessment/Training Sutton Level (Feeding) feeding skills;prepare tray/open items;scoop food and bring to mouth;independent -CS Position (Feeding) supported sitting -CS User Smith (r) = Recorded By, (t) = Taken By, (c) = Cosigned By Initials Name Provider Type Pete Díaz OT Occupational Therapist Obj/Interventions [facility] Name 02/09/25903 Sensory Assessment (Somatosensory) Sensory Assessment (Somatosensory) bilateral UE -CS Bilateral UE Sensory Assessment general sensation;light touch awareness;light touch localization;intact -CS [facility] Name 02/09/25903 Range of Motion Comprehensive General Range of Motion no range of motion deficits identified -[facility] 02/09/25903 Strength Comprehensive (MMT) General Manual Muscle Testing (MMT) Assessment upper extremity strength deficits identified -CS Comment, General Manual Muscle Testing (MMT) Assessment BUE grossly 4+/5, no significant asymmetry -[facility] Name 02/09/25903 Balance Balance Assessment sitting static balance;sitting dynamic balance;standing static balance;standing dynamic balance -CS Static Sitting Balance independent;supervision -CS Dynamic Sitting Balance standby assist -CS Position, Sitting Balance unsupported -CS Static Standing Balance supervision -CS Dynamic Standing Balance standby assist -CS Position/Device Used, Standing Balance unsupported -CS Balance Interventions sitting;standing;sit to stand;occupation based/functional task -CS Comment, Balance improved stability w/ RW use, defer to PT for further balance needs - User Smith (r) = Recorded By, (t) = Taken By, (c) = Cosigned By Initials Name Provider Type Pete Díaz OT Occupational Therapist Goals/Plan No documentation. Clinical Impression [facility] Name 02/09/25904 Pain Assessment Pretreatment Pain Rating 0/10 - no pain -CS Posttreatment Pain Rating 0/10 - no pain -[facility] 02/09/25904 Plan of Care Review Plan of Care Reviewed With patient -CS Progress no change -CS Outcome Evaluation Pt presents at baseline for ADL completion w/ mild low-back and LLE pain this morning. Performed dressing, grooming, and feeding tasks independently. Issued cardiology specialist and LHS w/ education on safe use to mitigate pain when needd. SBA for mobility with no LOB. OT signing off, defer to PT for further mobility and conditioning needs. Rec d/c to home with assist prn, endorse PT rec for OPPT. - Row Name 02/09/25904 Vital Signs Pre Systolic BP Rehab 164 RN cleared for eval -CS Pre Treatment Diastolic BP 104 -CS Post Systolic BP Rehab 170 -CS Post Treatment Diastolic BP 91 -CS O2 Delivery Pre Treatment room air -CS O2 Delivery Intra Treatment room air -CS O2 Delivery Post Treatment room air -CS Pre Patient Position Supine -CS Intra Patient Position Standing -CS Post Patient Position Sitting -CS Row Name 02/09/2505 Positioning and Restraints Pre-Treatment Position in bed -CS Post Treatment Position chair -CS In Chair notified nsg;reclined;sitting;call light within reach;encouraged to call for assist;exit alarm on;with nsg;waffle cushion;legs elevated -CS User Smith (r) = Recorded By, (t) = Taken By, (c) = Cosigned By Initials Name Provider Type Pete Díaz OT Occupational Therapist Outcome Measures Row Name 02/09/25908 How much help from another is currently needed... Putting on and taking off regular lower body clothing? 4 -CS Bathing (including washing, rinsing, and drying) 3 seated -CS Toileting (which includes using toilet bed brannon or urinal) 4 -CS Putting on and taking off regular upper body clothing 4 -CS Taking care of personal grooming (such as brushing teeth) 4 -CS Eating meals 4 -CS AM-PAC 6 Clicks Score (OT) 23 -CS Row Name 02/09/25908 Modified Quinton Scale Modified Lemmon Scale 1 - No significant disability despite symptoms. Able to carry out all usual duties and activities. - Row Name 02/09/25908 Functional Assessment Outcome Measure Options AM-PAC 6 Clicks Daily Activity (OT);Modified Lemmon -CS User Smith (r) = Recorded By, (t) = Taken By, (c) = Cosigned By Initials Name Provider Type Pete Díaz OT Occupational Therapist Occupational Therapy Education Title: PT OT LEGAL EDITOR Therapies (In Progress) Topic: Occupational Therapy (In Progress) Point: ADL training (Done) Learning Progress Summary Patient Acceptance, E,D, VU,DU by at 02/09/2025911 Comment: LH AE Point: Precautions (Done) Learning Progress Summary Patient Acceptance, E,D, VU,DU by at 02/09/2025911 Comment: LH AE Point: Body mechanics (Done) Learning Progress Summary Patient Acceptance, E,D, VU,DU by at 02/09/2025 0912 Comment: AE User Smith Initials Effective Dates Name Provider Type Discipline 01/12/21 - Pete Kerr OT Occupational Therapist OT OT Recommendation and Plan Plan of Care Review Plan of Care Reviewed With: patient Progress: no change Outcome Evaluation: Pt presents at baseline for ADL completion w/ mild low-back and LLE pain this morning. Performed dressing, grooming, and feeding tasks independently. Issued cardiology specialist and LHS w/ education on safe use to mitigate pain when needd. SBA for mobility with no LOB. OT signing off, defer to PT for further mobility and conditioning needs. Rec d/c to home with assist prn, endorse PT rec for OPPT. Plan of Care Reviewed With: patient Outcome Evaluation: Pt presents at baseline for ADL completion w/ mild low-back and LLE pain this morning. Performed dressing, grooming, and feeding tasks independently. Issued cardiology specialist and LHS w/ education on safe use to mitigate pain when needd. SBA for mobility with no LOB. OT signing off, defer to PT for further mobility and conditioning needs. Rec d/c to home with assist prn, endorse PT rec for OPPT. Time Calculation: Evaluation Complexity (OT) Review Occupational Profile/Medical/Therapy History Complexity: brief/low complexity Assessment, Occupational Performance/Identification of Deficit Complexity: 1-3 performance deficits Clinical Decision Making Complexity (OT): problem focused assessment/low complexity Overall Complexity of Evaluation (OT): low complexity Time Calculation- OT Row Name 02/09/25 0912 Time Calculation- OT OT Start Time 0733 -CS OT Received On 02/09/25 -CS Untimed Charges OT Eval/Re-eval Minutes 48 -CS Total Minutes Untimed Charges Total Minutes 48 -CS Total Minutes 48 -CS User Smith (r) = Recorded By, (t) = Taken By, (c) = Cosigned By Initials Name Provider Type CS Pete Kerr OT Occupational Therapist Therapy Charges for Today Code Description Service Date Service Provider Modifiers Qty [id number] OT EVAL LOW COMPLEXITY 4 02/09/2025 Pete Kerr OT GO 1 Pete Kerr OT 02/09/2025 0919 [facility] [address]F [address] [facility] [address] Date: Feb 09, 2025 Ambulatory Referral to Physical Therapy for Evaluation & Treatment Patient: Tera Larios [address] [facility] [address] : 1935 SSN: [id number] Sex: 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 [employer] # SUBSCRIBER ID Primary: Secondary: [employer] [id number] Referring Provider Information: ALEX ALAN Referral Information: # Visits: 1 Referral Type: Physical Therapy [AE1] Urgency: Routine Referral Reason: Specialty Services Required Start Date: Feb 09, 2025 End Date: To be determined by Insurer 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 To determine eligibility, please contact the members Insurance carrier to verifyand review coverage. If you have medical questions regarding this request for services. Please contact [address] at [phone] during normal business hours. Verbal Order Mode: Verbal with readback Authorizing Provider: Alex Alan MD Authorizing Provider's Order Entered By: Evelyn Patel RN 02/09/2025 1:50 PM * Alex Alan MD - 02/09/2025 12:58 PM EDT Images from the original note were not included. [facility] DISCHARGE SUMMARY Patient Name: Tera Larios : 1935 Date of Admission: 02/08/2025 6:35 AM Date of Discharge: 02/09/2025 Primary Care Physician: Provider, No Known Consults No orders found for last 30 day(s). Hospital Course Presenting Problem: Active Hospital Problems Diagnosis POA Dysarthria [R47.1] Yes HTN (hypertension) [I10] Yes Hyperlipidemia [E78.5] Yes Hypothyroid [E03.9] Unknown Resolved Hospital Problems No resolved problems to display. Hospital Course: Tera Larios is a 89 y.o. male with h/o HTN, HL, CAD s/p stents transfer from OSH for stroker/o concerns of dysarthria Dysarthria --CT ok at OSH --MRI brain showed only age related changes, no acute --echo showed normal EF --LDL 101 A1C 5.94 --stroke neuro following, ?etiology more likely d/t metabolic encephalopathy in setting of chornic pain meds/lyrica that TIA per neuro. recs continue asa/lipitor increased to 80mg Needs imaging of his lower back and left hip/MRI's, patient prefers to go home and do this as an outpatient. --s/p PT/OT/LEGAL EDITOR evals. PT recs home with outpatient therapy services/home with assist CAD s/p stents HTN HL Hypothyroid --continue levothyroxine Discharge Follow Up Recommendations for outpatient labs/diagnostics: F/u with PCP in 1 week, needs imaging for low back/left hip pain/MRI's F/u with stroke neuro per their rec Day of Discharge HPI: Feels ok. C/o left hip pain that some times goes into left paraspinal muscles of back. Has seen a doctor for but has not had an MRI. No further dysarthria, wishes to go home with outpatient work up of pain. Review of Systems Gen- No fevers, chills CV- No chest pain, palpitations Resp- No cough, dyspnea GI- No N/V/D, abd pain Vital Signs: Temp: [97.8 ??F (36.6 ??C)-98.2 ??F (36.8 ??C)] 97.8 ??F (36.6 ??C) Heart Rate: [57-87] 87 Resp: [16-18] 16 BP: (127-170)/(61-95) 152/88 Physical Exam: Constitutional: No acute distress, awake, alert, sitting up in chair HENT: NCAT, mucous membranes moist Respiratory: Clear to auscultation bilaterally, respiratory effort normal Cardiovascular: RRR, no murmurs, rubs, or gallops Gastrointestinal: Positive bowel sounds, soft, nontender, nondistended Musculoskeletal: No bilateral ankle edema Psychiatric: Appropriate affect, cooperative Neurologic: Oriented x 3, strength symmetric in all extremities, Cranial Nerves grossly intact to confrontation, speech clear Skin: No rashes Pertinent and/or Most Recent Results LAB RESULTS: Lab 02/09/25 0936 WBC 7.80 HEMOGLOBIN 13.8 HEMATOCRIT 42.1 PLATELETS 207 MCV 91.7 Lab 02/09/25 0936 02/08/25 0731 SODIUM 139 -- POTASSIUM 4.4 -- CHLORIDE 103 -- CO2 23.3 -- ANION GAP 12.7 -- BUN 24.2* -- CREATININE 1.13 -- EGFR 62.1 -- GLUCOSE 115* -- CALCIUM 9.3 -- HEMOGLOBIN A1C -- 5.94* Lab 02/08/25 0731 CHOLESTEROL 162 LDL CHOL 101* HDL CHOL 46 TRIGLYCERIDES 76 Brief Urine Lab Results None Microbiology Results (last 10 days) No results found for the last 240 hours. MRI Brain Without Contrast Result Date: 02/08/2025 MRI BRAIN WO CONTRAST Date of Exam: 02/08/2025 11:07 AM EDT Indication: Stroke, follow up dysarthria. Comparison: None available. Technique: Routine multiplanar/multisequence sequence images of the brain were obtained without contrast administration. Findings: No acute infarct is present on diffusion weighted sequences. Midline structures are normal and the craniocervical junction appears satisfactory. Age-related changes are present with moderate generalized volume loss and typical pontine and periventricular leukomalacia. There is otherwise no evidence of intracranial hemorrhage, mass or mass effect. There is ex vacuo prominence of the ventricles and sulci. The orbits are normal. The paranasal sinuses are grossly clear. Impression: Moderate chronic and age-related changes are noted as above. There is otherwise no evidence of acute infarct, hemorrhage, mass or mass effect. Electronically Signed: Joss Vance MD 02/08/2025 11:43 AM EDT Workstation ID: [id number] CT Outside Films Result Date: 02/08/2025 This procedure was auto-finalized with no dictation required. CT Outside Films Result Date: 02/08/2025 This procedure was auto-finalized with no dictation required. CT Outside Films Result Date: 02/08/2025 This procedure was auto-finalized with no dictation required. Results for orders placed during the hospital encounter of 02/08/25 Adult Transthoracic Echo Complete W/ Cont if Necessary Per Protocol (With Agitated Saline) 02/08/2025 3:51 PM Interpretation Summary Left ventricular systolic function is normal. Estimated left ventricular EF = 70% Left ventricular wall thickness is consistent with mild concentric hypertrophy. Aortic valve is calcified with no significant stenosis or regurgitation present. Estimated right ventricular systolic pressure from tricuspid regurgitation is normal (<35 mmHg). Mild dilation of the ascending aorta is present. Plan for Follow-up of Pending Labs/Results: Discharge Details Discharge Medications Changes to Medications Instructions Start Date atorvastatin 80 MG tablet Commonly known as: LIPITOR What changed: medication strength how much to take when to take this 80 mg, Oral, Nightly Continue These Medications Instructions Start Date aspirin 81 MG chewable tablet 81 mg, Oral, Daily cholecalciferol 10 MCG (400 UNIT) tablet Commonly known as: VITAMIN D3 400 Units, Oral, Daily Ferrous Sulfate 300 (60 Fe) MG/5ML solution 300 mg, Oral, Daily levothyroxine 50 MCG tablet Commonly known as: SYNTHROID, LEVOTHROID 50 mcg, Oral, Every Mill Operator Head montelukast 10 MG tablet Commonly known as: SINGULAIR 10 mg, Oral, Nightly pregabalin 50 MG capsule Commonly known as: LYRICA 50 mg, Oral, 3 Times Daily tamsulosin 0.4 MG capsule 24 hr capsule Commonly known as: FLOMAX 1 capsule, Oral, Daily vitamin B-12 100 MCG tablet Commonly known as: CYANOCOBALAMIN 100 mcg, Oral, Daily vitamin C 250 MG tablet Commonly known as: ASCORBIC ACID 500 mg, Oral, Daily No Known Allergies Discharge Disposition: Home or Self Care Diet: Hospital: Diet Order Procedures Diet: Cardiac, Diabetic; Healthy Heart (2-3 Na+); Consistent Carbohydrate; Texture: Regular (IDDSI 7); Fluid Consistency: Thin (IDDSI 0) Activity: Restrictions or Other Recommendations: CODE STATUS: Code Status and Medical Interventions: CPR (Attempt to Resuscitate); Full Support Ordered at: 02/08/25 1145 Code Status (Patient has no pulse and is not breathing): CPR (Attempt to Resuscitate) Medical Interventions (Patient has pulse or is breathing): Full Support Level Of Support Discussed With: Patient No future appointments. Additional Instructions for the Follow-ups that You Need to Schedule Discharge Follow-up with PCP As directed Currently Documented PCP: Provider, No Known PCP Phone Number: None Follow Up Details: ith PCP in 1 week. needs w/u of lower back/left hip pain, possible imaging/MRI of both Discharge Follow-up with Specified Provider: with stroke neuro As directed To: with stroke neuro Follow Up Details: per their rec Alex Alan MD 02/09/25 Time Spent on Discharge: I spent 38 minutes on this discharge activity which included: [id number] with the patient, reviewing the data in the system, coordination of the care with the nursing staff as well as consultants, documentation, and entering orders. * Pete Kerr, OT - 02/09/2025 7:33 AM EDT Images from the original note were not included. Acute Care - Occupational Therapy Discharge [facility] Patient Name: Tera Larios : 1935 Today's Date: 02/09/2025 Admit Date: 02/08/2025 Visit Dx: ICD-10-CM ICD-9-CM 1. 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 315.32 Patient Active Problem List Diagnosis Dysarthria HTN (hypertension) Hyperlipidemia Hypothyroid Past Medical History: Diagnosis Date Hyperlipidemia Hypertension Stroke Past Surgical History: Procedure Laterality Date BACK SURGERY CAROTID STENT General Information Row Name 02/09/25 3250 OT Time and Intention Document Type discharge evaluation/summary -CS Mode of Treatment occupational therapy -CS Patient Effort good -CS Row Name 02/09/25 0806 General Information Patient Profile Reviewed yes -CS Prior Level of Function independent:;all household mobility;ADL's reports owning crutches and usingrecently to mitigate back/hip pain -CS Existing Precautions/Restrictions fall;spinal;other (see comments) [place] -CS Barriers to Rehab none identified -CS Row Name 02/09/25 0850 Occupational Profile Reason for Services/Referral (Occupational Profile) stroke eval, discharge planning -CS Row Name 02/09/25 0850 Living Environment Current Living Arrangements home -CS People in Home alone -CS Row Name 02/09/25 0850 Home Main Entrance Number of Stairs, Main Entrance one -CS Row Name 02/09/25 0850 Stairs Within Home, Primary Stairs, Within Home, Primary remains on main floor for all needs -CS Number of Stairs, Within Home, Primary twelve -CS Row Name 02/09/25 0850 Cognition Orientation Status (Cognition) oriented x 3 -CS Row Name 02/09/25 0850 Safety Issues/Impairments Affecting Functional Mobility Safety Issues Affecting Function (Mobility) insight into deficits/self- awareness;safety precaution awareness;safety precautions follow- through/compliance -CS Impairments Affecting Function (Mobility) balance;pain -CS Comment, Safety Issues/Impairments (Mobility) LB/LLE pain - tolerated session w/ no complaints during mobility -CS User Smith (r) = Recorded By, (t) = Taken By, (c) = Cosigned By Initials Name Provider Type CS Pete Kerr OT Occupational Therapist Mobility/ADL's Row Name 02/09/25851 Bed Mobility Bed Mobility supine-sit;scooting/bridging -CS Scooting/Bridging Sutton (Bed Mobility) independent -CS Supine-Sit [place] (Bed Mobility) modified independence -CS Assistive Device (Bed Mobility) head of bed elevated -CS Comment, (Bed Mobility) appropriate sequencing intact, no dizziness reported in sitting, no increase in pain -CS Row Name 02/09/2502 Transfers Transfers bed-chair transfer;sit-stand transfer -CS Comment, (Transfers) no AD or LOB during ADL related mobility this date -CS Row Name 02/09/25851 Bed-Chair Transfer Bed-Chair [place] (Transfers) standby assist -CS Row Name 02/09/2538 Sit-Stand Transfer Sit-Stand [place] (Transfers) standby assist -CS Row Name 02/09/25 0870 Functional Mobility Functional Mobility- Comment defer to PT for gait specifics, no LOB during household distance this morning, discussed improved stability with RW for longer distances and on days with increased fatigue or pain -CS Patient was able to Ambulate yes - Row Name 02/09/25 08 Activities of Daily Living BADL Assessment/Intervention lower body dressing;grooming;feeding -[facility] Name 02/09/25851 Lower Body Dressing Assessment/Training Sutton Level (Lower Body Dressing) don;socks;standby assist - Assistive Devices (Lower Body Dressing) long-handled shoe horn;cardiology specialist - Position (Lower Body Dressing) edge of bed sitting - Comment, (Lower Body Dressing) provided AE Pt agreeable to (LHS, cardiology specialist) and demo'd safe use for ease of reach during shoes. Therapist educated on use of cardiology specialist for threading w/ pants -[facility] Name 02/09/25851 Self-Feeding Assessment/Training [place] Level (Feeding) feeding skills;prepare tray/open items;scoop food and bring to mouth;independent - Position (Feeding) supported sitting - User Smith (r) = Recorded By, (t) = Taken By, (c) = Cosigned By Initials Name Provider Type CS Pete Kerr OT Occupational Therapist Obj/Interventions [facility] Name 02/09/25903 Sensory Assessment (Somatosensory) Sensory Assessment (Somatosensory) bilateral UE - Bilateral UE Sensory Assessment general sensation;light touch awareness;light touch localization;intact -[facility] Name 02/09/25903 Range of Motion Comprehensive General Range of Motion no range of motion deficits identified -[facility] 02/09/25903 Strength Comprehensive (MMT) General Manual Muscle Testing (MMT) Assessment upper extremity strength deficits identified - Comment, General Manual Muscle Testing (MMT) Assessment BUE grossly 4+/5, no significant asymmetry -[facility] Name 02/09/25903 Balance Balance Assessment sitting static balance;sitting dynamic balance;standing static balance;standing dynamic balance - Static Sitting Balance independent;supervision - Dynamic Sitting Balance standby assist -CS Position, Sitting Balance unsupported - Static Standing Balance supervision - Dynamic Standing Balance standby assist -CS Position/Device Used, Standing Balance unsupported -CS Balance Interventions sitting;standing;sit to stand;occupation based/functional task - Comment, Balance improved stability w/ RW use, defer to PT for further balance needs - User Smith (r) = Recorded By, (t) = Taken By, (c) = Cosigned By Initials Name Provider Type Pete Díaz OT Occupational Therapist Goals/Plan No documentation. Clinical Impression Row Name 02/09/25904 Pain Assessment Pretreatment Pain Rating 0/10 - no pain -CS Posttreatment Pain Rating 0/10 - no pain -CS Row Name 02/09/25904 Plan of Care Review Plan of Care Reviewed With patient -CS Progress no change -CS Outcome Evaluation Pt presents at baseline for ADL completion w/ mild low-back and LLE pain this morning. Performed dressing, grooming, and feeding tasks independently. Issued cardiology specialist and LHS w/ education on safe use to mitigate pain when needd. SBA for mobility with no LOB. OT signing off, defer to PT for further mobility and conditioning needs. Rec d/c to home with assist prn, endorse PT rec for OPPT. -CS Row Name 02/09/25904 Vital Signs Pre Systolic BP Rehab 164 RN cleared for eval -CS Pre Treatment Diastolic BP 104 -CS Post Systolic BP Rehab 170 -CS Post Treatment Diastolic BP 91 -CS O2 Delivery Pre Treatment room air -CS O2 Delivery Intra Treatment room air -CS O2 Delivery Post Treatment room air -CS Pre Patient Position Supine -CS Intra Patient Position Standing -CS Post Patient Position Sitting -CS Row Name 02/09/25904 Positioning and Restraints Pre-Treatment Position in bed -CS Post Treatment Position chair -CS In Chair notified nsg;reclined;sitting;call light within reach;encouraged to call for assist;exit alarm on;with nsg;waffle cushion;legs elevated -CS User Smith (r) = Recorded By, (t) = Taken By, (c) = Cosigned By Initials Name Provider Type Pete Díaz OT Occupational Therapist Outcome Measures Row Name 02/09/25908 How much help from another is currently needed... Putting on and taking off regular lower body clothing? 4 -CS Bathing (including washing, rinsing, and drying) 3 seated -CS Toileting (which includes using toilet bed brannon or urinal) 4 -CS Putting on and taking off regular upper body clothing 4 -CS Taking care of personal grooming (such as brushing teeth) 4 -CS Eating meals 4 -CS AM-PAC 6 Clicks Score (OT) 23 -CS Row Name 02/09/25908 Modified Quinton Scale Modified Quinton Scale 1 - No significant disability despite symptoms. Able to carry out all usual duties and activities. - Row Name 02/09/25908 Functional Assessment Outcome Measure Options AM-PAC 6 Clicks Daily Activity (OT);Modified Lemmon -CS User Smith (r) = Recorded By, (t) = Taken By, (c) = Cosigned By Initials Name Provider Type CS Pete Kerr OT Occupational Therapist Occupational Therapy Education Title: PT OT LEGAL EDITOR Therapies (In Progress) Topic: Occupational Therapy (In Progress) Point: ADL training (Done) Learning Progress Summary Patient Acceptance, E,D, VU,DU by at 02/09/2025911 Comment: LH AE Point: Precautions (Done) Learning Progress Summary Patient Acceptance, E,D, VU,DU by at 02/09/2025911 Comment: AE Point: Body mechanics (Done) Learning Progress Summary Patient Acceptance, E,D, VU,DU by at 02/09/2025911 Comment: LH AE User Smith Initials Effective Dates Name Provider Type Discipline 01/12/21 - Pete Kerr OT Occupational Therapist OT OT Recommendation and Plan Plan of Care Review Plan of Care Reviewed With: patient Progress: no change Outcome Evaluation: Pt presents at baseline for ADL completion w/ mild low-back and LLE pain this morning. Performed dressing, grooming, and feeding tasks independently. Issued cardiology specialist and LHS w/ education on safe use to mitigate pain when needd. SBA for mobility with no LOB. OT signing off, defer to PT for further mobility and conditioning needs. Rec d/c to home with assist prn, endorse PT rec for OPPT. Plan of Care Reviewed With: patient Outcome Evaluation: Pt presents at baseline for ADL completion w/ mild low-back and LLE pain this morning. Performed dressing, grooming, and feeding tasks independently. Issued cardiology specialist and LHS w/ education on safe use to mitigate pain when needd. SBA for mobility with no LOB. OT signing off, defer to PT for further mobility and conditioning needs. Rec d/c to home with assist prn, endorse PT rec for OPPT. Time Calculation: Evaluation Complexity (OT) Review Occupational Profile/Medical/Therapy History Complexity: brief/low complexity Assessment, Occupational Performance/Identification of Deficit Complexity: 1-3 performance deficits Clinical Decision Making Complexity (OT): problem focused assessment/low complexity Overall Complexity of Evaluation (OT): low complexity Time Calculation- OT Row Name 02/09/25 0912 Time Calculation- OT OT Start Time 732 -CS OT Received On 02/09/25 -CS Untimed Charges OT Eval/Re-eval Minutes 48 -CS Total Minutes Untimed Charges Total Minutes 48 -CS Total Minutes 48 -CS User Smith (r) = Recorded By, (t) = Taken By, (c) = Cosigned By Initials Name Provider Type CS Pete Kerr OT Occupational Therapist Therapy Charges for Today Code Description Service Date Service Provider Modifiers Qty [id number] HC OT EVAL LOW COMPLEXITY 4 02/09/2025 Pete Kerr OT GO 1 Pete Kerr OT 02/09/2025 documented in this encounter Discharge Instructions * Attachments The following attachments cannot be sent through Care Everywhere. * Transient Ischemic Attack Obkt-[id number] (Burundian) * Ischemic Stroke Vtzn-dg-[id number] (Burundian) * Managing Your Hypertension (Burundian) * High Cholesterol (Burundian) * Aspirin Tablets (Burundian) * Atorvastatin Tablets ([place]undian) documented in this encounter Medications at Time of Discharge aspirin 81 MG chewable tablet Chew 1 tablet Daily. atorvastatin (LIPITOR) 80 MG tablet Take 1 tablet by mouth Every Night. 30 tablet 02/09/2025 Cholecalciferol 10 MCG (400 UNIT) tablet Take 1 tablet by mouth Daily. Ferrous Sulfate 300 (60 Fe) MG/5ML solution Take 5 mL by mouth Daily. levothyroxine (SYNTHROID, LEVOTHROID) 50 MCG tablet Take 1 tablet by mouth Every Morning. montelukast (SINGULAIR) 10 MG tablet Take 1 tablet by mouth Every Night. pregabalin (LYRICA) 50 MG capsule Take 1 capsule by mouth 3 (Three) Times a Day. tamsulosin (FLOMAX) 0.4 MG capsule 24 hr capsule Take 1 capsule by mouth Daily. vitamin B-12 (CYANOCOBALAMIN) 100 MCG tablet Take 1 tablet by mouth Daily. vitamin C (ASCORBIC ACID) 250 MG tablet Take 2 tablets by mouth Daily. documented as of this encounter Progress Notes * Al-Janabi, Francisco M, MD - 02/09/2025 12:40 PM EDT Stroke Progress Note Chief Complaint: Dysarthria Subjective Subjective Subjective: The patient is lying down in the bed in NAD. No family were at the bedside. The patient stated thathis sister was concerned that his speech was slurred the other day which is why she asked him to goto the hospital. He stated that he has been doing fine and denies having any new stroke or strokelike symptoms. I discussed with the patient the imaging findings and what could possibly explain his symptoms. We also discussed management plan moving forward. All patient's questions and concerns wereanswered. No other acute complains at this time Review of Systems Neurological: Negative for tremors. Objective Temp: [97.8 ??F (36.6 ??C)-98.2 ??F (36.8 ??C)] 97.8 ??F (36.6 ??C) Heart Rate: [57-87] 87 Resp: [16-18] 16 BP: (127-170)/(61-95) 152/88 Objective GEN: lying in bed; in NAD HENT: normocephalic, non-erythematous oropharynx NEURO: Mental Status: A&O x 3, interactive, able to follow commands Speech: Intact Articulation CN 2-12: II - PERRLA III, IV, - EOMI V - Facial sensation intact VII -no gross facial asymmetry VIII -the patient is hard hearing XII - Tongue protrudes midline Motor: Patient can move all 4 extremities against gravity with no drift appreciated Sensory: intact light touch throughout Coordination: no ataxia with rwyvyy-dy-pbhd testing Gait/Station: deferred Results Review: I reviewed the patient's new clinical results. WBC Date Value Ref Range Status 02/09/2025 7.80 3.40 - 10.80 10*3/mm3 Final RBC Date Value Ref Range Status 02/09/2025 4.59 4.14 - 5.80 10*6/mm3 Final Hemoglobin Date Value Ref Range Status 02/09/2025 13.8 13.0 - 17.7 g/dL Final Hematocrit Date Value Ref Range Status 02/09/2025 42.1 37.5 - 51.0 % Final MCV Date Value Ref Range Status 02/09/2025 91.7 79.0 - 97.0 fL Final MCH Date Value Ref Range Status 02/09/2025 30.1 26.6 - 33.0 pg Final MCHC Date Value Ref Range Status 02/09/2025 32.8 31.5 - 35.7 g/dL Final RDW Date Value Ref Range Status 02/09/2025 13.3 12.3 - 15.4 % Final RDW-SD Date Value Ref Range Status 02/09/2025 45.0 37.0 - 54.0 fl Final MPV Date Value Ref Range Status 02/09/2025 11.0 6.0 - 12.0 fL Final Platelets Date Value Ref Range Status 02/09/2025 207 140 - 450 10*3/mm3 Final Lab Results Component Value Date GLUCOSE 115 (H) 02/09/2025 BUN 24.2 (H) 02/09/2025 CREATININE 1.13 02/09/2025 NA 139 02/09/2025 K 4.4 02/09/2025 CL 103 02/09/2025 CALCIUM 9.3 02/09/2025 BCR 21.4 02/09/2025 ANIONGAP 12.7 02/09/2025 EGFR 62.1 02/09/2025 MRI Brain Without Contrast Result Date: 02/08/2025 Impression: Moderate chronic and age-related changes are noted as above. There is otherwise no evidence of acute infarct, hemorrhage, mass or mass effect. Electronically Signed: Joss Vance MD 02/08/2025 11:43 AM EDT Workstation ID: [id number] Results for orders placed during the hospital encounter of 02/08/25 Adult Transthoracic Echo Complete W/ Cont if Necessary Per Protocol (With Agitated Saline) 02/08/2025 3:51 PM Interpretation Summary Left ventricular systolic function is normal. Estimated left ventricular EF = 70% Left ventricular wall thickness is consistent with mild concentric hypertrophy. Aortic valve is calcified with no significant stenosis or regurgitation present. Estimated right ventricular systolic pressure from tricuspid regurgitation is normal (<35 mmHg). Mild dilation of the ascending aorta is present. -CTH wo on 02/08/2025 images were personally reviewed and showed no acute ischemic or hemorrhagic stroke -CTA of the head and neck images from 02/08/2025 were personally reviewed and showed mild stenosis from a complex plaque at the left ICA. Otherwise no large vessel occlusion or significant stenosis -MRI brain images from 02/08/2025 were personally reviewed and showed no ischemic or hemorrhagic stroke -Transthoracic echocardiogram from 02/08/2025 report was personally reviewed and showed left ventricular ejection fraction of 70%, no left atrial dilation -A1c from 02/08/2025 was 5.94% -LDL from 02/08/2025 was 101 Assessment/Plan Mr. Larios is a 89 year-old male with PMH of asthma, HTN, HLD, CAD, GERD. He presented to [facility] accompanied by family members for dysarthria. Patient visited family at approximately 6 PM yesterday (02/07/2025), family noticed his speech seemed slurred. Family was concerned and brought patient to OSH ER for further evaluation. NIH 1 while in ED for speech difficulty. Patient was transferred to [facility] for higher level care and further stroke work up. Patient is not a candidate for IV thrombolytic therapy due to last known well greater than 4.5 hours. Patient is not a candidate for endovascular therapy due to no LVO noted on OSH CT scans. Antiplatelet CAREER DEVELOPMENT COORDINATOR/TEACHER: Aspirin Anticoagulant CAREER DEVELOPMENT COORDINATOR/TEACHER: None #Chronic lower back pain #Dysarthria -Etiology of patient's symptoms likely due to metabolic encephalopathy in the setting of chronic pain on pain medications including Lyrica versus hypertensive encephalopathy versus less likely a TIA -CTH wo on 02/08/2025 images were personally reviewed and showed no acute ischemic or hemorrhagic stroke -CTA of the head and neck images from 02/08/2025 were personally reviewed and showed mild stenosis from a complex plaque at the left ICA. Otherwise no large vessel occlusion or significant stenosis -MRI brain images from 02/08/2025 were personally reviewed and showed no ischemic or hemorrhagic stroke -Transthoracic echocardiogram from 02/08/2025 report was personally reviewed and showed left ventricular ejection fraction of 70%, no left atrial dilation -A1c from 02/08/2025 was 5.94% -LDL from 02/08/2025 was 101 Recommendations -Continue aspirin 81 mg daily for secondary stroke prevention. -Continue atorvastatin 80 mg nightly for secondary stroke prevention. Target LDL level of less than70 -Target blood pressure goals of normotension -Activity as tolerated, fall risk precautions -PT/OT/LEGAL EDITOR evaluation -Consider further workup for the lower back pain including an MRI of the lumbar spine that can be done as an outpatient as appropriate by the primary team #Essential hypertension, -Target blood pressure goals of normotension #Hyperlipidemia -Atorvastatin 80mg nightly Patient education: call 911 or present to emergency department with any stroke symptom, including unilateral face, arm, or leg weakness, numbness, or paresthesias, unilateral facial droop, speech deficits, dizziness with nausea, vomiting, nystagmus, and incoordination, visual deficits, or severe onset headache. Stroke will sign off. Please call for any further questions or concerns Francisco Landa MD, Msc, PhD Vascular Neurologist [facility] documented in this encounter H&P Notes * Alex Alan MD - 02/08/2025 11:45 AM EDT Images from the original note were not included. [facility] HISTORY AND PHYSICAL Patient Name: Tera Larios : 1935 Primary Care Physician: Provider, No Known Date of admission: 02/08/2025 Subjective Subjective Chief Complaint: Transfer OSH for r/o stroke, dysarthria HPI: Tera Larios is a 89 y.o. male with h/o HTN, HL, CAD s/p stents transfer from OSH for stroker/o concerns of dysarthria. Patient states that his sister was worried yesterday that he was slurring his speech so he presented to the OSH ER. OSH CT was ok. Was sent her for stroke w/u. This AM he is without complaints. Dysarthria is resolved. He denies any other weakness or numbness/tingling. Personal History Past Medical History: Diagnosis Date Hyperlipidemia Hypertension Stroke Past Surgical History: Procedure Laterality Date BACK SURGERY CAROTID STENT Family History: family history is not on file. Social History: reports that he has never smoked. He has never used smokeless tobacco. He reports that he does not drink alcohol and does not use drugs. Social History Social History Narrative Not on file Medications: Available home medication information reviewed. Ferrous Sulfate, aspirin, atorvastatin, cholecalciferol, levothyroxine, montelukast, pregabalin, tamsulosin, vitamin B-12, and vitamin C No Known Allergies Objective Objective Vital Signs: Temp: [97.8 ??F (36.6 ??C)-98 ??F (36.7 ??C)] 98 ??F (36.7 ??C) Heart Rate: [51-57] 51 Resp: [18] 18 BP: (147-156)/(78-88) 147/78 Total (NIH Stroke Scale): 2 Physical Exam Constitutional: Awake, alert Eyes: PERRLA, sclerae anicteric, no conjunctival injection HENT: NCAT, mucous membranes moist Neck: Supple, no thyromegaly, no lymphadenopathy, trachea midline Respiratory: Clear to auscultation bilaterally, nonlabored respirations Cardiovascular: RRR, no murmurs, rubs, or gallops, palpable pedal pulses bilaterally Gastrointestinal: Positive bowel sounds, soft, nontender, nondistended Musculoskeletal: No bilateral ankle edema, no clubbing or cyanosis to extremities Psychiatric: Appropriate affect, cooperative Neurologic: Oriented x 3, strength symmetric in all extremities, Cranial Nerves grossly intact to confrontation, speech clear Skin: No rashes Result Review: I have personally reviewed the results from the time of this admission to 02/08/2025 12:01 EDT and agree with these findings: [x] Laboratory list / accordion [x] Microbiology [x] Radiology [x] EKG/Telemetry [] Cardiology/Vascular [] Pathology [] Old records [] Other: Most notable findings include: LAB RESULTS: Lab 02/08/25 0731 HEMOGLOBIN A1C 5.94* Lab 02/08/25 0731 CHOLESTEROL 162 LDL CHOL 101* HDL CHOL 46 TRIGLYCERIDES 76 Microbiology Results (last 10 days) No results found for the last 240 hours. MRI Brain Without Contrast Result Date: 02/08/2025 MRI BRAIN WO CONTRAST Date of Exam: 02/08/2025 11:07 AM EDT Indication: Stroke, follow up dysarthria. Comparison: None available. Technique: Routine multiplanar/multisequence sequence images of the brain were obtained without contrast administration. Findings: No acute infarct is present on diffusion weighted sequences. Midline structures are normal and the craniocervical junction appears satisfactory. Age-related changes are present with moderate generalized volume loss and typical pontine and periventricular leukomalacia. There is otherwise no evidence of intracranial hemorrhage, mass or mass effect. There is ex vacuo prominence of the ventricles and sulci. The orbits are normal. The paranasal sinuses are grossly clear. Impression: Impression: Moderate chronic and age-related changes are noted as above. There is otherwise no evidence of acute infarct, hemorrhage, mass or mass effect. Electronically Signed: Joss Vance MD 02/08/2025 11:43 AM EDT Workstation ID: [id number] CT Outside Films Result Date: 02/08/2025 This procedure was auto-finalized with no dictation required. CT Outside Films Result Date: 02/08/2025 This procedure was auto-finalized with no dictation required. CT Outside Films Result Date: 02/08/2025 This procedure was auto-finalized with no dictation required. Assessment & Plan Assessment & Plan Dysarthria HTN (hypertension) Hyperlipidemia Hypothyroid Tera Larios is a 89 y.o. male with h/o HTN, HL, CAD s/p stents transfer from OSH for stroker/o concerns of dysarthria Dysarthria --CT ok at OSH --MRI brain pending --stroke neuro following --continue asa/lipitor --check echo --PT/OT/LEGAL EDITOR evals CAD s/p stents HTN HL Hypothyroid --continue levothyroxine VTE Prophylaxis: Mechanical VTE prophylaxis orders are present. CODE STATUS: Code Status and Medical Interventions: CPR (Attempt to Resuscitate); Full Support Ordered at: 02/08/25 1145 Code Status (Patient has no pulse and is not breathing): CPR (Attempt to Resuscitate) Medical Interventions (Patient has pulse or is breathing): Full Support Level Of Support Discussed With: Patient Expected Discharge Expected discharge date/ time has not been documented. Alex Alan MD 02/08/25 documented in this encounter Consult Notes * Dontae Arevalo RN - 02/09/2025 8:44 AM EDT Chart review for tobacco educator consult. At the time of this review patient A1c is 5.94 , they have no noted history of diabetes and no homemedications noted for treatment of diabetes. At this time we do not feel the patient would benefit from diabetes education. Thank you for this consult, should patient needs change please re consult us. * Nate Cleveland APRN - 02/08/2025 4:55 AM EDT Stroke Consult Note Patient Name: Tera Larios Age: 89 y.o. Sex: male : 1935 Primary Care Physician: Provider, No Known Referring Physician: OS ER physician TIME STROKE TEAM CALLED: [id number] EST ARRIVAL TO [facility] 0710 EST TIME PATIENT SEEN: 0730 EST Handedness: Right Race: White Chief Complaint/Reason for Consultation: Dysarthria HPI: Mr. Larios is a 89 year-old male with PMH of asthma, HTN, HLD, CAD, GERD. He presented to [facility] accompanied by family members for dysarthria. Patient visited family at approximately 6 PM yesterday (02/07/2025), family noticed his speech seemed slurred. Family was concerned and brought patient to OSH ER for further evaluation. NIH 1 while in ED for speech difficulty. Patient was transferred to [facility] for higher level care and further stroke work up. Initial NIH 2. Blood pressure 156/88. On exam patient is able to answer questions appropriately andfollow two-step commands. Denies any sensory deficits at this time. No headache, nausea, dizziness or recent trauma. Slight right facial droop with mild dysarthria noted during conversation. Strengthin all extremities 5/5. Non-smoker and no EtOH use. Takes prescribed medications routinely. Last Known Normal Date/Time: 02/06/2025 @1800 EST Review of Systems Constitutional: Negative for fever. HENT: Negative for trouble swallowing and voice change. Eyes: Negative for visual disturbance. Respiratory: Negative for shortness of breath. Cardiovascular: Negative for chest pain. Gastrointestinal: Negative for abdominal pain and nausea. Neurological: Positive for facial asymmetry and speech difficulty. Negative for dizziness, weakness, light-headedness, numbness and headaches. Psychiatric/Behavioral: Negative for confusion. No past medical history on file. No past surgical history on file. No family history on file. Social History Socioeconomic History Marital status: Single Not on File Prior to Admission medications Not on File BP: ()/() Arterial Line BP: ()/() Neurological Exam Mental Status Alert. Oriented to person, place and time. Mild dysarthria present. Language is fluent with no aphasia. Cranial Nerves CN II: Visual sanders full to confrontation. CN III, IV, : Extraocular movements intact bilaterally. Pupils equal round and reactive to light bilaterally. CN V: Facial sensation is normal. CN VII: Right: There is central facial weakness. CN VIII: Hard of hearing. CN XI: Shoulder shrug strength is normal. CN XII: Tongue midline without atrophy or fasciculations. Motor Normal muscle bulk throughout. Normal muscle tone. Strength is 5/5 throughout all four extremities. Sensory Light touch is normal in upper and lower extremities. Coordination Right: Mnmbvg-zr-qtqx normal. Hrpm-po-mrqs normal.Left: Zentta-nd-auwe normal. Snwv-zo-ffwx normal. Gait Unable to assess. Physical Exam Constitutional: General: He is not in acute distress. HENT: Head: Normocephalic and atraumatic. Nose: Nose normal. Mouth/Throat: Mouth: Mucous membranes are dry. Eyes: Extraocular Movements: Extraocular movements intact. Pupils: Pupils are equal, round, and reactive to light. Cardiovascular: Pulses: Normal pulses. Pulmonary: Effort: Pulmonary effort is normal. Abdominal: General: Abdomen is flat. Musculoskeletal: General: Normal range of motion. Cervical back: Normal range of motion. Skin: General: Skin is warm and dry. Neurological: Mental Status: He is alert. Cranial Nerves: Cranial nerve deficit and dysarthria present. Sensory: No sensory deficit. Motor: Motor strength is normal.No weakness. Coordination: Coordination normal. Psychiatric: Mood and Affect: Mood normal. Behavior: Behavior normal. Acute Stroke Data Thrombolytic Inclusion / Exclusion Criteria Time: 04:57 EDT Person Administering Scale: Viola Christiansen APRN YES NO INCLUSION CRITERIA CLASS I [x] [] Suspected diagnosis of acute ischemic stroke with measureable neurological deficit. Low NIHSS with disabling stroke symptoms. [] [x] Onset of stroke symptoms < 3 hours before beginning treatment >/ 18 years old Stroke symptom onset = time patient was last seen well or without symptoms (LKW) [] [x] Onset of symptoms between 3-4.5 hours: >/= 80 years old (safe Class IIa) with history of both diabetes and prior CVA (reasonable Class IIb) AND NIHSS </= 25 *If not eligible for IV Thrombolytic consider neuro intervention for LKW within 24 hours YES NO EXCLUSION CRITERIA (CONTRAINDICATIONS) CLASS III EVIDENCE HARM [] [] Blood pressure >185/110 medically refractory to IV medications [] [] Active bleeding at a non-compressible site [] [] Active intracranial hemorrhage (ICH) [] [] Symptoms suggestive of subarachnoid hemorrhage (SAH) [] [] GI bleed within 21 days [] [] Ischemic stroke within 3 months [] [] Severe head trauma within 3 months [] [] Intracranial or intraspinal surgery within 3 months [] [] Current GI malignancy [] [] Intracranial neoplasm [] [] Infective endocarditis [] [] Aortic arch dissection [] [] Active coagulopathy with INR >1.7, platelets <100,000, PTT > 40 sec, PT > 15 sec *For warfarin, administration can begin before blood tests resulted. Discontinue for above values. [] [] Treatment dose* of LMWH (Lovenox) in last 24 hours *prophylactic dosages are not a contraindication [] [] Concurrent use of antiplatelet agents' glycoprotein inhibitors IIb/IIIa (Integrilin, etc.) [] [] Thrombin or factor Xa inhibitors (Eliquis, Xarelto, Arixtra) taken in last 48 hours YES NO CLASS II: AIS WITH THE FOLLOWING CONDITIONS - TREATMENT RISKS SHOULD BE WEIGHED AGAINST POSSIBLE BENEFITS. [] [] Major trauma in last 14 days, recent major surgery in last 14 days, intracranial arterial dissection, giant unruptured and unsecured intracranial aneurysm, pericarditis [] [] The risks and benefits have been discussed with the patient or family related to the administration of IV thrombolytic therapy for stroke symptoms. [] [] I have discussed and reviewed the patient's case and imaging with the attending prior to IV thrombolytic therapy. TIME NA Time IV thrombolytic administered Hospital Meds: Scheduled- Infusions- No current facility-administered medications for this encounter. PRNs- Functional Status Prior to Current Stroke/Lemmon Score: MODIFIED QUINTON SCALE (to be assessed for each patient having history of stroke) []Stroke history but not assessed [x]0: No symptoms at all []1: No significant disability despite symptoms []2: Slight disability []3: Moderate disability []4: Moderately severe disability []5: Severe disability []6: NIH Stroke Scale Time: 04:57 EDT Person Administering Scale: Nate Cleveland APRN Interval: baseline 1a. Level of Consciousness: 0-->Alert, keenly responsive 1b. LOC Questions: 0-->Answers both questions correctly 1c. LOC Commands: 0-->Performs both tasks correctly 2. Best Gaze: 0-->Normal 3. Visual: 0-->No visual loss 4. Facial Palsy: 1-->Minor paralysis (flattened nasolabial fold, asymmetry on smiling) 5a. Motor Arm, Left: 0-->No drift, limb holds 90 (or 45) degrees for full 10 secs 5b. Motor Arm, Right: 0-->No drift, limb holds 90 (or 45) degrees for full 10 secs 6a. Motor Leg, Left: 0-->No drift, leg holds 30 degree position for full 5 secs 6b. Motor Leg, Right: 0-->No drift, leg holds 30 degree position for full 5 secs 7. Limb Ataxia: 0-->Absent 8. Sensory: 0-->Normal, no sensory loss 9. Best Language: 0-->No aphasia, normal 10. Dysarthria: 1-->Xszg-bw-jzzgaumn dysarthria, patient slurs at least some words and, at worst, can be understood with some difficulty 11. Extinction and Inattention (formerly Neglect): 0-->No abnormality Total (NIH Stroke Scale): 2 Results Reviewed: I have personally reviewed current lab, radiology, and data and agree with results. CBC WBC 7.4 RBC 3.91 Hemoglobin 11.8 Hematocrit 35.2 Platelet count 195 PT 11.8 INR 1.07 CMP Sodium 136 Potassium 4.5 Chloride 101 CO2 25 Creatinine 1.20 AST [address] head Impression: No acute intracranial process. 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 OSH CTA head Impression: 1. There are atherosclerotic changes of the bilateral intracranial internal carotid artery segments. There is 50% stenosis of the bilateral paraophthalmic segments. 2. There are atherosclerotic changes of the bilateral intracranial vertebral artery segments. No significant stenosis or occlusion. 3. Otherwise no evidence of intracranial large vessel stenosis or occlusion of the remaining cerebral arteries. No evidence of aneurysm or AVM. OSH CTA neck Impression: 1. Calcific atherosclerotic changes at the bilateral carotid bifurcations, but no significant stenosis or occlusion. 2. No evidence of stenosis or occlusion of the remaining cervical great vessels. No evidence of dissection. Assessment/Plan: Mr. Larios is a 89 year-old male with PMH of asthma, HTN, HLD, CAD, GERD. He presented to [facility] accompanied by family members for dysarthria. Patient visited family at approximately 6 PM yesterday (02/07/2025), family noticed his speech seemed slurred. Family was concerned and brought patient to OSH ER for further evaluation. NIH 1 while in ED for speech difficulty. Patient was transferred to [facility] for higher level care and further stroke work up. Patient is not a candidate for IV thrombolytic therapy due to last known well greater than 4.5 hours. Patient is not a candidate for endovascular therapy due to no LVO noted on OSH CT scans. Antiplatelet CAREER DEVELOPMENT COORDINATOR/TEACHER: Aspirin Anticoagulant CAREER DEVELOPMENT COORDINATOR/TEACHER: None # Dysarthria Differentials include TIA, CVA, nerve palsy -TIA/CVA order set without thrombolytic therapy has been initiated -NPO until bedside nursing dysphagia screen completed -MRI brain without contrast to evaluate possible stroke burden -TTE ordered and pending -A1c and lipid panel in AM -Meds: Will increase ASA to 325 mg PO or 300mg rectal for secondary stroke prevention -Activity as tolerated, fall risk precautions -PT/OT/LEGAL EDITOR evaluation # Essential hypertension, -Allow autoregulation of blood pressure for adequate cerebral blood flow -Nicardipine as needed for SBP >220 # Hyperlipidemia -Lipid panel in AM -Atorvastatin 80mg nightly Plan of care was discussed with patient and primary RN. Stroke neurology will continue to follow. Thank you for this consult. Please call with any questions or concerns. Nate Cleveland APRN February 08, 2025 07:30 EDT documented in this encounter Nursing Notes * Mohini Pinzon, PT - 02/09/2025 1:16 PM EDT Goal Outcome Evaluation: Plan of Care Reviewed With: patient Progress: improving Outcome Evaluation: PT REPORTS HISTORY OF 2 FALLS RELATED TO L LEG GIVING OUT . 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 BACK PAIN IS BETTER TODAY. NO LOB OR DIFFICULTY WITH TRANSFERS OR GAIT X350 FEET USING R WALKER. WOULD BENEFIT FROM HHPT AND R WALKER AT D/C. Anticipated Discharge Disposition (PT): home with outpatient therapy services * Pete Kerr OT - 02/09/2025 7:33 AM EDT Goal Outcome Evaluation: Plan of Care Reviewed With: patient Progress: no change Outcome Evaluation: Pt presents at baseline for ADL completion w/ mild low-back and LLE pain this morning. Performed dressing, grooming, and feeding tasks independently. Issued cardiology specialist and LHS w/ education on safe use to mitigate pain when needd. SBA for mobility with no LOB. OT signing off, defer to PT for further mobility and conditioning needs. Rec d/c to home with assist prn, endorse PT rec for OPPT. * Sophie Briggs RN - 02/09/2025 4:46 AM EDT Problem: Adult Inpatient Plan of Care Goal: Plan of Care Review Outcome: Progressing Goal: Patient-Specific Goal (Individualized) Outcome: Progressing Goal: Absence of Hospital-Acquired Illness or Injury Outcome: Progressing Intervention: Identify and Manage Fall Risk Recent Flowsheet Documentation Taken 02/09/2025 0400 by Sophie Briggs, MALI Safety Promotion/Fall Prevention: activity supervised assistive device/personal items within reach clutter free environment maintained fall prevention program maintained lighting adjusted nonskid shoes/slippers when out of bed room organization consistent safety round/check completed Taken 02/09/2025 0200 by Sophie Briggs, RN Safety Promotion/Fall Prevention: activity supervised assistive device/personal items within reach clutter free environment maintained fall prevention program maintained lighting adjusted nonskid shoes/slippers when out of bed room organization consistent safety round/check completed Taken 02/09/2025 0000 by Sophie Briggs RN Safety Promotion/Fall Prevention: activity supervised assistive device/personal items within reach clutter free environment maintained fall prevention program maintained lighting adjusted nonskid shoes/slippers when out of bed room organization consistent safety round/check completed Taken 02/08/2025 2200 by Sophie Briggs RN Safety Promotion/Fall Prevention: activity supervised assistive device/personal items within reach clutter free environment maintained fall prevention program maintained lighting adjusted nonskid shoes/slippers when out of bed room organization consistent safety round/check completed Taken 02/08/20252027 by Sophie Briggs RN Safety Promotion/Fall Prevention: activity supervised assistive device/personal items within reach clutter free environment maintained fall prevention program maintained nonskid shoes/slippers when out of bed room organization consistent safety round/check completed Intervention: Prevent Skin Injury Recent Flowsheet Documentation Taken 02/09/2025 0400 by Sophie Briggs RN Body Position: position changed independently Skin Protection: incontinence pads utilized transparent dressing maintained Taken 02/09/2025 0200 by Sophie Briggs RN Body Position: position changed independently Skin Protection: incontinence pads utilized transparent dressing maintained Taken 02/09/2025 0000 by Sophie Briggs RN Body Position: position changed independently Skin Protection: incontinence pads utilized transparent dressing maintained Taken 02/08/2025 2200 by Sophie Briggs RN Body Position: position changed independently Skin Protection: incontinence pads utilized transparent dressing maintained Taken 02/08/20252027 by Sophie Briggs RN Body Position: position changed independently Skin Protection: incontinence pads utilized transparent dressing maintained Intervention: Prevent and Manage VTE (Venous Thromboembolism) Risk Recent Flowsheet Documentation Taken 02/08/20252027 by Sophie Briggs RN VTE Prevention/Management: bilateral SCDs (sequential compression devices) off Intervention: Prevent Infection Recent Flowsheet Documentation Taken 02/09/2025 0400 by Sophie Briggs RN Infection Prevention: environmental surveillance performed equipment surfaces disinfected hand hygiene promoted Taken 02/09/2025 0200 by Sophie Briggs RN Infection Prevention: environmental surveillance performed equipment surfaces disinfected hand hygiene promoted Taken 02/09/2025 0000 by Sophie Briggs RN Infection Prevention: environmental surveillance performed equipment surfaces disinfected hand hygiene promoted personal protective equipment utilized Taken 02/08/2025 2200 by Sophie Briggs RN Infection Prevention: environmental surveillance performed equipment surfaces disinfected hand hygiene promoted Taken 02/08/20252027 by Sophie Briggs RN Infection Prevention: environmental surveillance performed equipment surfaces disinfected hand hygiene promoted personal protective equipment utilized Goal: Optimal Comfort and Wellbeing Outcome: Progressing Intervention: Provide Person-Centered Care Recent Flowsheet Documentation Taken 02/08/20252027 by Sophie Briggs RN Trust Relationship/Rapport: care explained Goal: Readiness for Transition of Care Outcome: Progressing Problem: Comorbidity Management Goal: Blood Pressure in Desired Range Outcome: Progressing Intervention: Maintain Blood Pressure Management Recent Flowsheet Documentation Taken 02/08/20252027 by Sophie Briggs RN Medication Review/Management: medications reviewed Goal: Blood Glucose Level Within Target Range Outcome: Progressing Intervention: Monitor and Manage Glycemia Recent Flowsheet Documentation Taken 02/08/20252027 by Sophie Briggs RN Medication Review/Management: medications reviewed Goal: Blood Pressure in Desired Range Outcome: Progressing Intervention: Maintain Blood Pressure Management Recent Flowsheet Documentation Taken 02/08/20252027 by Sophie Briggs RN Medication Review/Management: medications reviewed Problem: Stroke, Ischemic (Includes Transient Ischemic Attack) Goal: Improved Communication Skills Outcome: Progressing Intervention: Optimize Communication Skills Recent Flowsheet Documentation Taken 02/08/20252027 by Sophie Briggs RN Communication Enhancement Strategies: call light answered in person Goal: Optimal Functional Ability Outcome: Progressing Intervention: Optimize Functional Ability Recent Flowsheet Documentation Taken 02/09/2025 0400 by Sophie Briggs RN Activity Management: activity encouraged Self-Care Promotion: independence encouraged Taken 02/09/2025 0200 by Sophie Briggs RN Activity Management: activity encouraged Self-Care Promotion: independence encouraged Taken 02/09/2025 0000 by Sophie Briggs RN Activity Management: activity encouraged Self-Care Promotion: independence encouraged BADL personal objects within reach Taken 02/08/2025 2200 by Sophie Briggs RN Activity Management: activity encouraged Self-Care Promotion: independence encouraged Taken 02/08/20252027 by Sophie Briggs RN Activity Management: activity encouraged Self-Care Promotion: independence encouraged BADL personal objects within reach Goal Outcome Evaluation: * Melinda Ross RN - 02/08/2025 4:34 PM EDT Goal Outcome Evaluation: * Amber Koo - 02/08/2025 3:05 PM EDT Goal Outcome Evaluation: Plan of Care Reviewed With: patient Progress: no change Outcome Evaluation: PT eval performed: Pt reports decline in functional mobility over past 2 weeks with left sided low back pain that occasionally radiates in L5 distribution to knee, pain worse withstanding/ walker, recent falls, pain improves with lumbar flexion. Pt's gait and pain signficantly improved with use of FWW. Without walker, pt with antalgic flexed knee gait with slight buckling L knee. With walker, SBA, 200', and no buckling, improved balance and pain. Pt would greatly benefit from being issued a FWW and OP PT to address strength and low back conditioning at d/c. Anticipated Discharge Disposition (PT): home with outpatient therapy services, home with assist * Priscilla Cespedes MA,CCC-LEGAL EDITOR - 02/08/2025 9:59 AM EDT Goal Outcome Evaluation: Plan of Care Reviewed With: patient Anticipated Discharge Disposition (LEGAL EDITOR): home with assist LEGAL EDITOR Diagnosis: mild, cognitive-linguistic disorder, dysarthria (02/08/25 0919) LEGAL EDITOR Swallowing Diagnosis: swallow WFL/no suspected pharyngeal impairment (02/08/25 0919) documented in this encounter Miscellaneous Notes * Case Management/Social Work - Evelyn Patel RN - 02/09/2025 1:24 PM EDT Images from the original note were not included. Discharge Planning Assessment [facility] Patient Name: Tera Larios Today's Date: 02/09/2025 Admit Date: 02/08/2025 Plan: IDP Discharge Needs Assessment No documentation. Discharge Plan Row Name 02/09/25 1317 Plan Plan IDP Patient/Family in Agreement with Plan yes Plan Comments Spoke with patient at bedside for IDP. Lives in [facility] in house alone. No DME/HH/OPPT. [facility]CP [facility] Medicare A&B. Plan is home with referral faxed to [facility] for OPPT per therapy rec. Plan is home with reliant service. Walker ordered r/t instability and gait with recent falls. Final Discharge Disposition Code 01 - home or self-care Continued Care and Services - Admitted Since 02/08/2025 No active coordination exists. Expected Discharge Date and Time Expected Discharge Date Expected Discharge Time Feb 09, 2025 Demographic Summary Row Name 02/09/25 1316 General Information Admission Type observation Arrived From hospital Referral Source admission list Reason for Consult decision-making Preferred Language Burundian Functional Status Row Name 02/09/25 1316 Functional Status Usual Activity Tolerance moderate Current Activity Tolerance moderate Physical Activity On average, how many days per week do you engage in moderate to strenuous exercise (like a brisk walk)? 3 days On average, how many minutes do you engage in exercise at this level? 30 min Number of minutes of exercise per week 90 Functional Status, IADL Medications independent Meal Preparation independent Housekeeping independent Laundry independent Shopping independent If for any reason you need help with day-to-day activities such as bathing, preparing meals, shopping, managing finances, etc., do you get the help you need? I get all the help I need Psychosocial No documentation. Abuse/Neglect No documentation. Legal No documentation. Substance Abuse No documentation. Patient Forms No documentation. Evelyn M Sharp, RN * Therapy Treatment Note - Mohini Pinzon, PT - 02/09/2025 1:16 PM EDT Images from the original note were not included. Patient Name: Tera Larios : 1935 Today's Date: 02/09/2025 Admit Date: 02/08/2025 Visit Dx: ICD-10-CM ICD-9-CM 1. 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 Dysarthria R47.1 784.51 Patient Active Problem List Diagnosis Dysarthria HTN (hypertension) Hyperlipidemia Hypothyroid Past Medical History: Diagnosis Date Hyperlipidemia Hypertension Stroke Past Surgical History: Procedure Laterality Date BACK SURGERY CAROTID STENT General Information Row Name 02/09/25 1340 Physical Therapy Time and Intention Document Type therapy note (daily note) -CD Mode of Treatment physical therapy -CD Row Name 02/09/25 1346 General Information Patient Profile Reviewed yes -CD Existing Precautions/Restrictions fall;spinal [place] -CD Barriers to Rehab none identified -CD Row Name 02/09/25 1345 Living Environment Current Living Arrangements home -CD Row Name 02/09/25 1346 Cognition Orientation Status (Cognition) oriented x 3 -CD Row Name 02/09/25 1349 Safety Issues/Impairments Affecting Functional Mobility Safety Issues Affecting Function (Mobility) safety precautions follow- through/compliance -CD Impairments Affecting Function (Mobility) balance;pain -CD Comment, Safety Issues/Impairments (Mobility) PAIN BETTER TODAY. DOES WELL WITH R WALKER AND WOULD BENEFIT FROM HHPT AND R WALKER AT D/C. REPORTS HISTORY OF 2 FALLS RELATED TO L LEG GIVING OUT -CD User Smith (r) = Recorded By, (t) = Taken By, (c) = Cosigned By Initials Name Provider Type CD Mohini Pinzon, PT Physical Therapist Mobility Row Name 02/09/25 2321 Bed Mobility Comment, (Bed Mobility) PT [facility]. DENIES DIZZINESS. -CD Row Name 02/09/25 1355 Transfers Comment, (Transfers) STS FROM RECLINER TO WALKER. -CD Row Name 02/09/25 1352 Sit-Stand Transfer Sit-Stand Sutton (Transfers) standby assist -CD Assistive Device (Sit-Stand Transfers) walker, front-wheeled -CD Row Name 02/09/25 1356 Gait/Stairs (Locomotion) Sutton Level (Gait) standby assist -CD Assistive Device (Gait) walker, front-wheeled -CD Distance in Feet (Gait) 350 -CD Bilateral Gait Deviations forward flexed posture -CD Comment, (Gait/Stairs) CUES FOR UPRIGHT POSTURE AND PROPER WALKER PLACEMENT. NO BUCKLING NOTED. EDUCATED IN OFF LOADING L LE WITH INCREASED LBP/L LE PAIN. NO LOB WITH USE OF R WALKER. -CD User Smith (r) = Recorded By, (t) = Taken By, (c) = Cosigned By Initials Name Provider Type CD Mohini Pinzon, PT Physical Therapist Obj/Interventions Row Name 02/09/25 3293 Balance Static Sitting Balance independent -CD Dynamic Sitting Balance independent -CD Position, Sitting Balance unsupported -CD Static Standing Balance supervision -CD Dynamic Standing Balance standby assist -CD Position/Device Used, Standing Balance supported;walker, rolling -CD Balance Interventions sitting;standing;sit to stand;supported;static;dynamic -CD Comment, Balance NO LOB WITH USE OF R WALKER. -CD User Smith (r) = Recorded By, (t) = Taken By, (c) = Cosigned By Initials Name Provider Type CD Mohini Pinzon, PT Physical Therapist Goals/Plan No documentation. Clinical Impression Row Name 02/09/25 3060 Pain Pretreatment Pain Rating 3/10 -CD Posttreatment Pain Rating 3/10 -CD Pain Location back;extremity -CD Pain Side/Orientation lower;left -CD Pain Management Interventions exercise or physical activity utilized;positioning techniques utilized -CD Response to Pain Interventions no change per patient report -CD Row Name 02/09/25 4925 Plan of Care Review Plan of Care Reviewed With patient -CD Progress improving -CD Outcome Evaluation PT REPORTS HISTORY OF 2 FALLS RELATED TO L LEG GIVING OUT . 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 BACK PAIN IS BETTER TODAY. NO LOB OR DIFFICULTY WITH TRANSFERS OR GAIT X 350 FEET USING R WALKER. WOULD BENEFIT FROM HHPT AND R WALKER AT D/C. -CD Row Name 02/09/25 1358 Therapy Assessment/Plan (PT) Patient/Family Therapy Goals Statement (PT) TO RESOLVE BACK PAIN. TO GO HOME. -CD Rehab Potential (PT) good -CD Criteria for Skilled Interventions Met (PT) yes;meets criteria;skilled treatment is necessary -CD Therapy Frequency (PT) daily -CD Row Name 02/09/25 1358 Vital Signs Post Systolic BP Rehab 138 -CD Post Treatment Diastolic BP 69 -CD Posttreatment Heart Rate (beats/min) 58 -CD O2 Delivery Pre Treatment room air -CD O2 Delivery Intra Treatment room air -CD O2 Delivery Post Treatment room air -CD Pre Patient Position Supine -CD Intra Patient Position Standing -CD Post Patient Position Sitting -CD Row Name 02/09/25 1358 Positioning and Restraints Pre-Treatment Position sitting in chair/recliner -CD Post Treatment Position chair -CD In Chair notified nsg;call light within reach;encouraged to call for assist;exit alarm on;sitting CONTACTED CM TO ARRANGE OPPT AND R WALKER AT D/C. -CD User Smith (r) = Recorded By, (t) = Taken By, (c) = Cosigned By Initials Name Provider Type CD Mohini Pinzon, PT Physical Therapist Outcome Measures Row Name 02/09/25 1415 How much help from another person do you currently need... Turning from your back to your side while in flat bed without using bedrails? 4 -CD Moving from lying on back to sitting on the side of a flat bed without bedrails? 3 -CD Moving to and from a bed to a chair (including a wheelchair)? 4 -CD Standing up from a chair using your arms (e.g., wheelchair, bedside chair)? 4 -CD Climbing 3-5 steps with a railing? 3 -CD To walk in hospital room? 4 -CD AM-PAC 6 Clicks Score (PT) 22 -CD Highest Level of Mobility Goal Walk 25 Feet or More-7 -CD Row Name 02/09/25 1415 02/09/25 0909 Modified Lemmon Scale Modified Lemmon Scale 1 - No significant disability despite symptoms. Able to carry out all usual duties and activities. -CD 1 - No significant disability despite symptoms. Able to carry out all usual duties and activities. -CS Row Name 02/09/25 0909 Functional Assessment Outcome Measure Options AM-PAC 6 Clicks Daily Activity (OT);Modified [place] -CS User Smith (r) = Recorded By, (t) = Taken By, (c) = Cosigned By Initials Name Provider Type CD Mohini Pinzon, PT Physical Therapist CS Pete Kerr, OT Occupational Therapist Physical Therapy Education Title: PT OT LEGAL EDITOR Therapies (In Progress) Topic: Physical Therapy (Done) Point: Mobility training (Done) Learning Progress Summary Patient Acceptance, E,D, VU,NR,DU by CD at 02/09/2025 1415 Comment: GAIT TRAINING WITH R WALKER. SPINAL PRECAUTIONS, POSITIONING. Acceptance, E, VU by KG at 02/08/2025 1606 Point: Home exercise program (Done) Learning Progress Summary Patient Acceptance, E,D, VU,NR,DU by CD at 02/09/2025 1415 Comment: GAIT TRAINING WITH R WALKER. SPINAL PRECAUTIONS, POSITIONING. Acceptance, E, VU by KG at 02/08/2025 1606 Point: Body mechanics (Done) Learning Progress Summary Patient Acceptance, E,D, VU,NR,DU by CD at 02/09/2025 1415 Comment: GAIT TRAINING WITH R WALKER. SPINAL PRECAUTIONS, POSITIONING. Acceptance, E, VU by KG at 02/08/2025 1606 Point: Precautions (Done) Learning Progress Summary Patient Acceptance, E,D, VU,NR,DU by CD at 02/09/2025 1415 Comment: GAIT TRAINING WITH R WALKER. SPINAL PRECAUTIONS, POSITIONING. User Smith Initials Effective Dates Name Provider Type Discipline CD 09/01/22 - Mohini Pinzon, PT Physical Therapist PT KG 07/11/24 - Amber Koo Physical Therapist PT PT Recommendation and Plan Progress: improving Outcome Evaluation: PT REPORTS HISTORY OF 2 FALLS RELATED TO L LEG GIVING OUT . 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 BACK PAIN IS BETTER TODAY. NO LOB OR DIFFICULTY WITH TRANSFERS OR GAIT X350 FEET USING R WALKER. WOULD BENEFIT FROM HHPT AND R WALKER AT D/C. Time Calculation: PT Charges Row Name 02/09/25 1416 Time Calculation Start Time 1316 -CD PT Received On 02/09/25 -CD Time Calculation- PT Total Timed Code Minutes- PT 27 minute(s) -CD Timed Charges 16272 - PT Therapeutic Exercise Minutes -- -CD 85356 - Gait Training Minutes 15 -CD 87448 - PT Therapeutic Activity Minutes 12 -CD Total Minutes Timed Charges Total Minutes 27 -CD Total Minutes 27 -CD User Smith (r) = Recorded By, (t) = Taken By, (c) = Cosigned By Initials Name Provider Type CD Mohini Pinzon, PT Physical Therapist Therapy Charges for Today Code Description Service Date Service Provider Modifiers Qty [id number] GAIT TRAINING EA 15 MIN 02/09/2025 Mohini Pinzon, PT GP 1 [id number] PT THERAPEUTIC ACT EA 15 MIN 02/09/2025 Mohini Pinzon, PT GP 1 PT G-Codes Outcome Measure Options: AM-PAC 6 Clicks Daily Activity (OT), Modified Lemmon AM-PAC 6 Clicks Score (PT): 22 AM-PAC 6 Clicks Score (OT): 23 Modified Quinton Scale: 1 - No significant disability despite symptoms. Able to carry out all usual duties and activities. PT Discharge Summary Anticipated Discharge Disposition (PT): home with outpatient therapy services Mohini Pinzon PT 02/09/2025 * Therapy Evaluation - Amber Koo - 02/08/2025 3:05 PM EDT Images from the original note were not included. Patient Name: Tera Larios : 1935 Today's Date: 02/08/2025 Admit Date: 02/08/2025 Visit Dx: ICD-10-CM ICD-9-CM 1. 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 315.32 Patient Active Problem List Diagnosis Dysarthria HTN (hypertension) Hyperlipidemia Hypothyroid Past Medical History: Diagnosis Date Hyperlipidemia Hypertension Stroke Past Surgical History: Procedure Laterality Date BACK SURGERY CAROTID STENT General Information Row Name 02/08/25 1548 Physical Therapy Time and Intention Document Type evaluation -KG Mode of Treatment physical therapy -KG Row Name 02/08/25 1548 General Information Patient Profile Reviewed yes -KG Prior Level of Function independent:;all household mobility;ADL's only AD has been crutches some past 2 weeks from pain in left low back, hip that sometimes radiates in L5 pattern to knee -KG Existing Precautions/Restrictions fall;spinal several recent falls -KG Barriers to Rehab none identified -KG Row Name 02/08/25 1548 Living Environment Current Living Arrangements home -KG People in Home alone -KG Row Name 02/08/25 1548 Home Main Entrance Number of Stairs, Main Entrance one -KG Stair Railings, Main Entrance none -KG Row Name 02/08/25 1548 Stairs Within Home, Primary Stairs, Within Home, Primary does not use stairs within home, lives on main level -KG Number of Stairs, Within Home, Primary twelve -KG Row Name 02/08/25 1548 Cognition Orientation Status (Cognition) oriented x 3 -KG Row Name 02/08/25 1548 Safety Issues/Impairments Affecting Functional Mobility Safety Issues Affecting Function (Mobility) insight into deficits/self- awareness;safety precaution awareness -KG Impairments Affecting Function (Mobility) balance -KG User Smith (r) = Recorded By, (t) = Taken By, (c) = Cosigned By Initials Name Provider Type KG Amber Koo Physical Therapist Mobility Row Name 02/08/25 1551 Bed Mobility Bed Mobility [id number] -KG Gqnrrz-Ayn-Jrwzoy Sutton (Bed Mobility) modified independence -KG Assistive Device (Bed Mobility) head of bed elevated -KG Comment, (Bed Mobility) cues log roll -KG Row Name 02/08/25 1551 Transfers Comment, (Transfers) SBA, FWW -KG Row Name 02/08/25 1551 Sit-Stand Transfer Sit-Stand Sutton (Transfers) standby assist;verbal cues;1 person assist -KG Assistive Device (Sit-Stand Transfers) walker, front-wheeled -KG Row Name 02/08/25 1551 Gait/Stairs (Locomotion) [place] Level (Gait) standby assist;1 person assist -KG Assistive Device (Gait) walker, front-wheeled -KG Patient was able to Ambulate yes -KG Distance in Feet (Gait) 200 -KG Deviations/Abnormal Patterns (Gait) antalgic;gait speed decreased -KG Bilateral Gait Deviations forward flexed posture -KG Comment, (Gait/Stairs) Pt's gait and pain signficantly improved with use of FWW. Without walker, ptwith antalgic flexed knee gait with slight buckling L knee. With walker, SBA, 200', and no buckling, improved balance and pain -KG User Smith (r) = Recorded By, (t) = Taken By, (c) = Cosigned By Initials Name Provider Type NIDHI Amber Koo Physical Therapist Obj/Interventions [facility] 02/08/25 1558 Range of Motion Comprehensive General Range of Motion no range of motion deficits identified -KG [facility] 02/08/25 1558 Strength Comprehensive (MMT) General Manual Muscle Testing (MMT) Assessment lower extremity strength deficits identified -KG Comment, General Manual Muscle Testing (MMT) Assessment LLE 4-/5, RLE 4/5 except 3/5 DF/ great toe extension -KG [facility] Name 02/08/25 1558 Motor Skills Therapeutic Exercise other (see comments) pelvic tilts, knee to chest stretch, STS -KG [facility] 02/08/25 1558 Balance Balance Assessment standing static balance -KG Static Standing Balance standby assist -KG Position/Device Used, Standing Balance supported;walker, rolling -KG Balance Interventions standing;sit to stand -KG User Smith (r) = Recorded By, (t) = Taken By, (c) = Cosigned By Initials Name Provider Type NIDHI Amber Koo Physical Therapist Goals/Plan [facility] 02/08/25 1604 Bed Mobility Goal 1 (PT) Activity/Assistive Device (Bed Mobility Goal 1, PT) sit to supine/supine to sit -KG [place] Level/Cues Needed (Bed Mobility Goal 1, PT) independent -KG Time Frame (Bed Mobility Goal 1, PT) short term goal (STG);2 days -KG Progress/Outcomes (Bed Mobility Goal 1, PT) continuing progress toward goal -KG [facility] 02/08/25 1604 Transfer Goal 1 (PT) Activity/Assistive Device (Transfer Goal 1, PT) sun-wc-zhmcg/orcqj-jn-pom;yya-yf-bethi/muqaf-it-fpv-KG Sutton Level/Cues Needed (Transfer Goal 1, PT) independent -KG Time Frame (Transfer Goal 1, PT) halfway goal (LTG);5 days -KG Progress/Outcome (Transfer Goal 1, PT) continuing progress toward goal -KG [facility] 02/08/25 1604 Gait Training Goal 1 (PT) Activity/Assistive Device (Gait Training Goal 1, PT) gait (walking locomotion);walker, rolling -KG Sutton Level (Gait Training Goal 1, PT) independent -KG Distance (Gait Training Goal 1, PT) 350 -KG Time Frame (Gait Training Goal 1, PT) halfway goal (LTG);5 days -KG Progress/Outcome (Gait Training Goal 1, PT) continuing progress toward goal -KG User Smith (r) = Recorded By, (t) = Taken By, (c) = Cosigned By Initials Name Provider Type NIDHI Amber Koo Physical Therapist Clinical Impression [facility] 02/08/25 1600 Pain Pretreatment Pain Rating 2/10 -KG Posttreatment Pain Rating 0/10 - no pain -KG Pain Location back;extremity -KG Pain Side/Orientation left -KG Pain Management Interventions exercise or physical activity utilized -KG Response to Pain Interventions activity participation with decreased pain -KG [facility] Name 02/08/25 1600 Plan of Care Review Plan of Care Reviewed With patient -KG Progress no change -KG Outcome Evaluation PT eval performed: Pt reports decline in functional mobility over past 2 weeks with left sided low back pain that occasionally radiates in L5 distribution to knee, pain worse with standing/ walker, recent falls, pain improves with lumbar flexion. Pt's gait and pain signficantly improved with use of FWW. Without walker, pt with antalgic flexed knee gait with slight buckling L knee. With walker, SBA, 200', and no buckling, improved balance and pain. Pt would greatly benefit from being issued a FWW and OP PT to address strength and low back conditioning at d/c. -KG [facility] 02/08/25 1600 Therapy Assessment/Plan (PT) Patient/Family Therapy Goals Statement (PT) improve pain and strength -KG Rehab Potential (PT) good -KG Criteria for Skilled Interventions Met (PT) yes;meets criteria;skilled treatment is necessary -KG Therapy Frequency (PT) daily -KG Predicted Duration of Therapy Intervention (PT) 5 days -KG [facility] Name 02/08/25 1600 Vital Signs Pre Systolic BP Rehab 147 -KG Pre Treatment Diastolic BP 78 -KG Post Systolic BP Rehab 158 -KG Post Treatment Diastolic BP 87 -KG Pretreatment Heart Rate (beats/min) 60 -KG Posttreatment Heart Rate (beats/min) 56 -KG Pre SpO2 (%) 94 -KG O2 Delivery Pre Treatment nasal cannula -KG Intra SpO2 (%) 91 -KG O2 Delivery Intra Treatment nasal cannula -KG Post SpO2 (%) 94 -KG O2 Delivery Post Treatment nasal cannula -KG [facility] 02/08/25 1600 Positioning and Restraints Pre-Treatment Position in bed -KG Post Treatment Position bed -KG In Bed notified nsg;fowlers;call light within reach;encouraged to call for assist;exit alarm on -KG User Smith (r) = Recorded By, (t) = Taken By, (c) = Cosigned By Initials Name Provider Type Amber Doty Physical Therapist Outcome Measures Row Name 02/08/25 1606 02/08/25 0721 How much help from another person do you currently need... Turning from your back to your side while in flat bed without using bedrails? 4 -KG 3 -HB Moving from lying on back to sitting on the side of a flat bed without bedrails? 3 -KG 4 -HB Moving to and from a bed to a chair (including a wheelchair)? 3 -KG 4 -HB Standing up from a chair using your arms (e.g., wheelchair, bedside chair)? 4 - KG 4 -HB Climbing 3-5 steps with a railing? 3 -KG 3 -HB To walk in hospital room? 3 -KG 3 -HB AM-PAC 6 Clicks Score (PT) 20 -KG 21 -HB Highest Level of Mobility Goal Walk 10 Steps or More-6 -KG Walk 10 Steps or More-6 -HB Row Name 02/08/25 1606 Modified Quinton Scale Pre-Stroke Modified Lemmon Scale 0 - No Symptoms at all. -KG Modified Quinton Scale 1 - No significant disability despite symptoms. Able to carry out all usual duties and activities. -KG Row Name 02/08/25 1606 Functional Assessment Outcome Measure Options AM-PAC 6 Clicks Basic Mobility (PT);Modified Lemmon -KG User Smith (r) = Recorded By, (t) = Taken By, (c) = Cosigned By Initials Name Provider Type Amber Doty Physical Therapist Melinda Ross RN Registered Nurse Physical Therapy Education Title: PT OT LEGAL EDITOR Therapies (In Progress) Topic: Physical Therapy (In Progress) Point: Mobility training (Done) Learning Progress Summary Patient Acceptance, E, VU by KG at 02/08/2025 1606 Point: Home exercise program (Done) Learning Progress Summary Patient Acceptance, E, VU by KG at 02/08/2025 1606 Point: Body mechanics (Done) Learning Progress Summary Patient Acceptance, E, VU by KG at 02/08/2025 1606 Point: Precautions (Not Started) Learner Progress: Not documented in this visit. User Smith Initials Effective Dates Name Provider Type Discipline KG 07/11/24 - Amber Koo Physical Therapist PT PT Recommendation and Plan Progress: no change Outcome Evaluation: PT eval performed: Pt reports decline in functional mobility over past 2 weeks with left sided low back pain that occasionally radiates in L5 distribution to knee, pain worse withstanding/ walker, recent falls, pain improves with lumbar flexion. Pt's gait and pain signficantly improved with use of FWW. Without walker, pt with antalgic flexed knee gait with slight buckling L knee. With walker, SBA, 200', and no buckling, improved balance and pain. Pt would greatly benefit from being issued a FWW and OP PT to address strength and low back conditioning at d/c. Time Calculation: PT Charges Row Name 02/08/25 1612 Time Calculation Start Time 1505 -KG PT Received On 02/08/25 -KG PT Goal Re-Cert Due Date 02/18/25 -KG Timed Charges 31342 - PT Therapeutic Exercise Minutes 15 -KG Total Minutes Timed Charges Total Minutes 15 -KG Total Minutes 15 -KG User Smith (r) = Recorded By, (t) = Taken By, (c) = Cosigned By Initials Name Provider Type KG Amber Koo Physical Therapist Therapy Charges for Today Code Description Service Date Service Provider Modifiers Qty 86357475402 HC PT EVAL LOW COMPLEXITY 4 02/08/2025 Amber Koo GP 1 28069498401 HC PT THER PROC EA 15 MIN 02/08/2025 Amber Koo GP 1 PT G-Codes Outcome Measure Options: AM-PAC 6 Clicks Basic Mobility (PT), Modified Lemmon AM-PAC 6 Clicks Score (PT): 20 Modified Lemmon Scale: 1 - No significant disability despite symptoms. Able to carry out all usual duties and activities. PT Discharge Summary Anticipated Discharge Disposition (PT): home with outpatient therapy services, home with assist Amber Koo 02/08/2025 * Therapy Evaluation - Priscilla Cespedes MA,CCC-LEGAL EDITOR - 02/08/2025 10:09 AM EDT Images from the original note were not included. Acute Care - Speech Language Pathology Swallow Initial Evaluation [facility] Clinical Swallow Evaluation Cognitive-Communication Evaluation Patient Name: Tera Larios : 1935 Today's Date: 02/08/2025 Admit Date: 02/08/2025 Visit Dx: ICD-10-CM ICD-9-CM 1. 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 Past Medical History: Diagnosis Date Hyperlipidemia Hypertension Stroke Past Surgical History: Procedure Laterality Date BACK SURGERY CAROTID STENT LEGAL EDITOR Recommendation and Plan LEGAL EDITOR Swallowing Diagnosis: swallow WFL/no suspected pharyngeal impairment (02/08/25918) LEGAL EDITOR Diet Recommendation: regular textures, thin liquids (02/08/25918) Recommended Precautions and Strategies: upright posture during/after eating, small bites of food and sips of liquid, general aspiration precautions (02/08/25918) LEGAL EDITOR Rec. for Method of Medication Administration: meds whole, with thin liquids, as tolerated (02/08/25918) Monitor for Signs of Aspiration: notify LEGAL EDITOR if any concerns (02/08/25918) Swallow Criteria for Skilled Therapeutic Interventions Met: baseline status (02/08/25918) Anticipated Discharge Disposition (LEGAL EDITOR): home with assist (02/08/25918) Therapy Frequency (Swallow): evaluation only (02/08/25918) Predicted Duration Therapy Intervention (Days): 1 week (02/08/25918) Oral Care Recommendations: Oral Care BID/PRN, Toothbrush (02/08/25918) SWALLOW EVALUATION (Last 72 Hours) LEGAL EDITOR Adult Swallow Evaluation Row Name 02/08/25918 General Information Current Method of Nutrition NPO -MD Prior Level of Function-Communication unknown -MD Prior Level of Function-Swallowing no diet consistency restrictions;thin liquids;regular textures -MD Oral Motor Structure and Function Secretion Management WNL/WFL -MD General Eating/Swallowing Observations Respiratory Support Currently in Use room air -MD Eating/Swallowing Skills fed by LEGAL EDITOR;self-fed;appropriate self-feeding skills observed -MD Positioning During Eating upright in bed -MD Utensils Used spoon;cup;straw -MD Consistencies Trialed regular textures;pureed;ice chips;thin liquids -MD Respiratory Respiratory Status WFL -MD Clinical Swallow Eval Oral Prep Phase WFL -MD Oral Transit WFL -MD Oral Residue WFL -MD Pharyngeal Phase no overt signs/symptoms of pharyngeal impairment -MD Esophageal Phase unremarkable -MD LEGAL EDITOR Evaluation Clinical Impression LEGAL EDITOR Swallowing Diagnosis swallow WFL/no suspected pharyngeal impairment -MD Functional Impact no impact on function -MD Swallow Criteria for Skilled Therapeutic Interventions Met baseline status -MD Recommendations Therapy Frequency (Swallow) evaluation only -MD LEGAL EDITOR Diet Recommendation regular textures;thin liquids -MD Recommended Diagnostics -- -MD Recommended Precautions and Strategies upright posture during/after eating;small bites of food and sips of liquid;general aspiration precautions -MD Oral Care Recommendations Oral Care BID/PRN;Toothbrush -MD LEGAL EDITOR Rec. for Method of Medication Administration meds whole;with thin liquids;as tolerated - Monitor for Signs of Aspiration notify LEGAL EDITOR if any concerns -MD User Smith (r) = Recorded By, (t) = Taken By, (c) = Cosigned By Initials Name Effective Dates Priscilla Aguilar MA,CCC-LEGAL EDITOR 01/01/25 - EDUCATION The patient has been educated in the following areas: Dysphagia (Swallowing Impairment) Oral Care/Hydration. LEGAL EDITOR GOALS Row Name 02/08/25 0919 02/08/25 0900 Patient will demonstrate functional cognitive-linguistic skills for return to discharge environment [place] Independently -MD -- -MD Time frame 1 week -MD -- -MD Progress/Outcomes new goal -MD -- -MD LEGAL EDITOR Diagnostic Treatment Patient will participate in further assessment in the following areas clarification of baseline cognitive communication status;motor speech -MD -- -MD Time Frame (Diagnostic) 1 week -MD -- -MD Progress/Outcomes (Additional Goal 1, LEGAL EDITOR) new goal -MD -- -MD Memory Skills Goal 1 (LEGAL EDITOR) Improve Memory Skills Through Goal 1 (LEGAL EDITOR) recalling related word lists with an imposed delay;recalling unrelated word lists with an imposed delay;visual memory task;use external memory aid;use memory strategies;90%;with minimal cues (75- 90%) -MD -- -MD Time Frame (Memory Skills Goal 1, LEGAL EDITOR) 1 week -MD -- -MD Progress/Outcomes (Memory Skills Goal 1, LEGAL EDITOR) new goal -MD -- -MD Functional Problem Solving Skills Goal 1 (LEGAL EDITOR) Improve Problem Solving Through Goal 1 (LEGAL EDITOR) determine solutions to multifactorial problems;complete organization/home management task;sequence steps in a task;use organization aids;90%;with minimal cues (75-90%) -MD -- -MD Time Frame (Problem Solving Goal 1, LEGAL EDITOR) 1 week -MD -- -MD Progress/Outcomes (Problem Solving Goal 1, LEGAL EDITOR) new goal -MD -- -MD User Smith (r) = Recorded By, (t) = Taken By, (c) = Cosigned By Initials Name Provider Type Priscilla Aguilar MA,CCC-LEGAL EDITOR Speech and Language Pathologist Time Calculation: Time Calculation- LEGAL EDITOR Row Name 02/08/25 1005 Time Calculation- LEGAL EDITOR LEGAL EDITOR Start Time 09 -MD LEGAL EDITOR Received On 02/08/25 -MD Untimed Charges LEGAL EDITOR Eval/Re-eval ST Eval Speech and Production w/ Language - 45634;ST Eval Oral Pharyng Swallow - 93982 -MD 63617-GE Eval Speech and Production w/ Language Minutes 55 -MD 18077-UC Eval Oral Pharyng Swallow Minutes 54 -MD Total Minutes Untimed Charges Total Minutes 109 -MD Total Minutes 109 -MD User Smith (r) = Recorded By, (t) = Taken By, (c) = Cosigned By Initials Name Provider Type Priscilla Aguilar MA,CCC-LEGAL EDITOR Speech and Language Pathologist Therapy Charges for Today Code Description Service Date Service Provider Modifiers Qty [id number] HC ST EVAL ORAL PHARYNG SWALLOW 4 02/08/2025 Priscilla Cespedes MA,CCC- LEGAL EDITOR GN [id number] EVAL SPEECH AND PROD W LANG 4 02/08/2025 Priscilla Cespedes MA,CCC- LEGAL EDITOR GN 1 Priscilla Cespedes MA,CCC-LEGAL EDITOR 02/08/2025 and Acute Care - Speech Language Pathology Initial Evaluation [facility] Patient Name: Tera Larios : 1935 Today's Date: 02/08/2025 Admit Date: 02/08/2025 Visit Dx: ICD-10-CM ICD-9-CM 1. 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 Past Medical History: Diagnosis Date Hyperlipidemia Hypertension Stroke Past Surgical History: Procedure Laterality Date BACK SURGERY CAROTID STENT LEGAL EDITOR Recommendation and Plan LEGAL EDITOR Diagnosis: mild, cognitive-linguistic disorder, dysarthria (02/08/25918) Monitor for Signs of Aspiration: notify LEGAL EDITOR if any concerns (02/08/25918) Swallow Criteria for Skilled Therapeutic Interventions Met: baseline status (02/08/25918) SLC Criteria for Skilled Therapy Interventions Met: yes (02/08/25918) Anticipated Discharge Disposition (LEGAL EDITOR): home with assist (02/08/25918) Therapy Frequency (Swallow): evaluation only (02/08/25918) Therapy Frequency (LEGAL EDITOR SLC): 5 days per week (02/08/25918) Predicted Duration Therapy Intervention (Days): 1 week (02/08/25918) Oral Care Recommendations: Oral Care BID/PRN, Toothbrush (02/08/25918) LEGAL EDITOR EVALUATION (Last 72 Hours) LEGAL EDITOR SLC Evaluation Row Name 02/08/25918 Communication Assessment/Intervention Document Type evaluation -MD Subjective Information no complaints -MD Patient Observations alert;cooperative -MD Patient/Family/Caregiver Comments/Observations No family present -MD Patient Effort good -MD Comment In collaboration with SM -MD Symptoms Noted During/After Treatment none -MD General Information Patient Profile Reviewed yes -MD Pertinent History Of Current Problem Presented to OSH w/ dysarthria and NIH of 1. Transferred for further stroke work up. PMH HTN, HLD, DM2, tabacco use, [place]. No imaging completed at time of evals. -MD Precautions/Limitations, Vision WFL with corrective lenses;for purposes of eval -MD Precautions/Limitations, Hearing WFL;for purposes of eval;hearing impairment, left;other (see comments) Used pocket talker in R ear but patient did not like it. 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 -MD Prior Level of Function-Communication unknown -MD Plans/Goals Discussed with patient;agreed upon -MD Barriers to Rehab none identified -MD Patient's Goals for Discharge return to home -MD Pain Pretreatment Pain Rating 6/10 -MD Posttreatment Pain Rating 6/10 -MD Pain Location back -MD Pain Side/Orientation generalized -MD Pain Management Interventions nursing notified -MD Response to Pain Interventions activity participation with tolerable pain -MD Comprehension Assessment/Intervention Comprehension Assessment/Intervention Auditory Comprehension;Reading Comprehension -MD Auditory Comprehension Assessment/Intervention Auditory Comprehension (Communication) WFL -MD Able to Identify Objects/Pictures (Communication) WFL;pictures of common objects -MD Answers Questions (Communication) WFL;yes/no;wh questions;personal;simple -MD Able to Follow Commands (Communication) WFL;1-step;2-step -MD Narrative Discourse WFL;conversational level -MD Successful Auditory Strategies (Communication) repetition;decrease environmental distractions;other(see comments) Must be looking directly at patient, when speaking to him. -MD Reading Comprehension Assessment/Intervention Reading Comprehension (Communication) WFL -MD Scanning (Reading) WFL;sentences;phrases;words -MD Single Word Level WFL -MD Phrase Level WFL -MD Paragraph Level WFL -MD Functional Reading Tasks WFL -MD Expression Assessment/Intervention Expression Assessment/Intervention verbal expression;graphic expression -MD Verbal Expression Assessment/Intervention Verbal Expression WFL -MD Automatic Speech (Communication) WF -MD Repetition WFL;words -MD Confrontational Naming WF -MD Spontaneous/Functional Words WF -MD Sentence Formulation WFL -MD Conversational Discourse/Fluency WFL -MD Graphic Expression Assessment/Intervention Graphic Expression WFL -MD Sentence Formulation WFL -MD Oral Motor Structure and Function Oral Motor Structure and Function WFL -MD Dentition Assessment natural, present and adequate;missing teeth -MD Mucosal Quality dry -MD Oral Musculature and Cranial Nerve Assessment Oral Motor General Assessment oral labial or buccal impairment -MD Oral Labial or Buccal Impairment, Detail, Cranial Nerve VII (Facial): right labial droop;other (seecomments) mild and did not negatively affect oral stage of swallow -MD Motor Speech Assessment/Intervention Motor Speech Function mild impairment -MD Characteristics Consistent with Dysarthria decreased articulation -MD Conversational Speech (Communication) WFL -MD Speech intelligibility 80%;in quiet environment;in connected speech;with unfamiliar listener -MD Motor Speech, Comment Admitted w/ dysarthria and no family present to confirm if current speech is his baseline. -MD Cursory Voice Assessment/Intervention Quality and Resonance (Voice) WFL -MD Cognitive Assessment Intervention- LEGAL EDITOR Cognitive Function (Cognition) mild impairment -MD Orientation Status (Cognition) WFL -MD Memory (Cognitive) mild impairment;delayed;simple;WFL;immediate -MD Attention (Cognitive) WFL -MD Thought Organization (Cognitive) WFL -MD Reasoning (Cognitive) WFL -MD Problem Solving (Cognitive) mild impairment;multifactorial;temporal -MD Functional Math (Cognitive) WFL;simple -MD Pragmatics (Communication) WFL -MD Right Hemisphere Function WFL -MD LEGAL EDITOR Evaluation Clinical Impressions LEGAL EDITOR Diagnosis mild;cognitive-linguistic disorder;dysarthria -MD Rehab Potential/Prognosis good -MD SLC Criteria for Skilled Therapy Interventions Met yes -MD Functional Impact difficulty completing home management task -MD Recommendations Therapy Frequency (LEGAL EDITOR SLC) 5 days per week -MD Predicted Duration Therapy Intervention (Days) 1 week -MD Anticipated Discharge Disposition (LEGAL EDITOR) home with assist -MD User Smith (r) = Recorded By, (t) = Taken By, (c) = Cosigned By Initials Name Effective Dates Priscilla Aguilar MA,[facility]-LEGAL EDITOR 01/01/25 - EDUCATION The patient has been educated in the following areas: Cognitive Impairment Communication Impairment. LEGAL EDITOR GOALS Row Name 02/08/25 0919 02/08/25 0900 Patient will demonstrate functional cognitive-linguistic skills for return to discharge environment [place] Independently -MD -- -MD Time frame 1 week -MD -- -MD Progress/Outcomes new goal -MD -- -MD LEGAL EDITOR Diagnostic Treatment Patient will participate in further assessment in the following areas clarification of baseline cognitive communication status;motor speech -MD -- -MD Time Frame (Diagnostic) 1 week -MD -- -MD Progress/Outcomes (Additional Goal 1, LEGAL EDITOR) new goal -MD -- -MD Memory Skills Goal 1 (LEGAL EDITOR) Improve Memory Skills Through Goal 1 (LEGAL EDITOR) recalling related word lists with an imposed delay;recalling unrelated word lists with an imposed delay;visual memory task;use external memory aid;use memory strategies;90%;with minimal cues (75- 90%) -MD -- -MD Time Frame (Memory Skills Goal 1, LEGAL EDITOR) 1 week -MD -- -MD Progress/Outcomes (Memory Skills Goal 1, LEGAL EDITOR) new goal -MD -- -MD Functional Problem Solving Skills Goal 1 (LEGAL EDITOR) Improve Problem Solving Through Goal 1 (LEGAL EDITOR) determine solutions to multifactorial problems;complete organization/home management task;sequence steps in a task;use organization aids;90%;with minimal cues (75-90%) -MD -- -MD Time Frame (Problem Solving Goal 1, LEGAL EDITOR) 1 week -MD -- -MD Progress/Outcomes (Problem Solving Goal 1, LEGAL EDITOR) new goal -MD -- -MD User Smith (r) = Recorded By, (t) = Taken By, (c) = Cosigned By Initials Name Provider Type Priscilla Aguilar MA,CCC-LEGAL EDITOR Speech and Language Pathologist Time Calculation: Time Calculation- LEGAL EDITOR Row Name 02/08/25 1005 Time Calculation- LEGAL EDITOR LEGAL EDITOR Start Time 09 -MD LEGAL EDITOR Received On 02/08/25 -MD Untimed Charges LEGAL EDITOR Eval/Re-eval ST Eval Speech and Production w/ Language - 97754;ST Eval Oral Pharyng Swallow - 63039 -MD 79406-SW Eval Speech and Production w/ Language Minutes 55 -MD 95933-MR Eval Oral Pharyng Swallow Minutes 54 -MD Total Minutes Untimed Charges Total Minutes 109 -MD Total Minutes 109 -MD User Smith (r) = Recorded By, (t) = Taken By, (c) = Cosigned By Initials Name Provider Type Priscilla Aguilar MA,CCC-LEGAL EDITOR Speech and Language Pathologist Therapy Charges for Today Code Description Service Date Service Provider Modifiers Qty [id number] HC ST EVAL ORAL PHARYNG SWALLOW 4 02/08/2025 Priscilla Cespedes MA,CCC- LEGAL EDITOR GN [id number] EVAL SPEECH AND PROD W LANG 4 02/08/2025 Priscilla Cespedes MA,CCC- LEGAL EDITOR GN 1 Priscilla Cespedes MA,[place]-LEGAL EDITOR 02/08/2025 documented in this encounter Plan of Treatment Scheduled Referrals Name Type Priority Associated Diagnoses Orde r Schedule Ambulatory Referral to Physical Therapy for Evaluation & Treatment Outpatient Referral Routine Cognitive communication disorder Dysarthria Ordered: 02/09/2025 documented as of this encounter Procedures Procedure Name Priority Date/Time Associated Diagnosis Comments CBC (NO DIFF) Urgent 02/09/2025 9:36 AM EDT BASIC METABOLIC PANEL Urgent 02/09/2025 9:36 AM EDT ECG 12-LEAD Routine 02/09/2025 1:52 AM EDT POCT GLUCOSE FINGERSTICK Routine 02/09/2025 12:03 AM EDT POCT GLUCOSE FINGERSTICK Routine 02/08/2025 7:16 PM EDT POCT GLUCOSE FINGERSTICK Routine 02/08/2025 4:03 PM EDT MRI BRAIN WO CONTRAST Routine 02/08/2025 11:20 AM EDT ECHO COMPLETE W/ DOPPLER AND COLOR FLOW Routine 02/08/2025 10:[address] OUTSIDE FILMS Routine 02/08/2025 7:[address] OUTSIDE FILMS Routine 02/08/2025 7:[address] OUTSIDE FILMS Routine 02/08/2025 7:57 AM EDT HEMOGLOBIN A1C Urgent 02/08/2025 7:31 AM EDT LIPID PANEL Urgent 02/08/2025 7:31 AM EDT POCT GLUCOSE FINGERSTICK Routine 02/08/2025 6:43 AM EDT documented in this encounter Results * (ABNORMAL) Basic Metabolic Panel (02/09/2025 9:36 AM EDT) [facility] Signature Glucose 115(H) 65 - 99 mg/dL 02/09/2025 10:56 AM EDT [facility] BUN 24.2(H) 8.0 - 23.0 mg/dL 02/09/2025 10:56 AM EDT [facility] Creatinine 1.13 0.76 - 1.27 mg/dL 02/09/2025 10:56 AM EDT [facility] Sodium 139 136 - 145 mmol/L 02/09/2025 10:56 AM EDT [facility] Potassium 4.4 3.5 - 5.2 mmol/L 02/09/2025 10:56 AM EDT [facility] Chloride 103 98 - 107 mmol/L 02/09/2025 10:56 AM EDT [facility] CO2 23.3 22.0 - 29.0 mmol/L 02/09/2025 10:56 AM EDT [facility] Calcium 9.3 8.6 - 10.5 mg/dL 02/09/2025 10:56 AM EDT [facility] BUN/Creatinine Ratio 21.4 7.0 - 25.0 02/09/2025 10:56 AM EDT [facility] Anion Gap 12.7 5.0 - 15.0 mmol/L 02/09/2025 10:56 AM EDT [facility] eGFR 62.1 >60.0 mL/min/1.7 3 02/09/2025 10:56 AM EDT [facility] Blood Venipuncture / Unknown 02/09/2025 9:36 AM EDT 02/09/2025 10:27 AM EDT [facility] - 02/09/2025 10:56 AM EDT GFR Categories in Chronic Kidney Disease (CKD) GFR Category GFR (mL/min/1.73) Interpretation G1 90 or greater Normal or high (1) G2 60-89 Mild decrease (1) G3a 45-59 Mild to moderate decrease G3b 30-44 Moderate to severe decrease G4 15-29 Severe decrease G5 14 or less Kidney failure (1)In the absence of evidence of kidney disease, neither GFR category G1 or G2 fulfill the criteria for CKD. eGFR calculation 2020 CKD-EPI creatinine equation, which does not include race as a factor us Alex Alan MD LAB BLOOD ORDERABLES Final Res ult [facility]
[address] [place] [address], * CBC (No Diff) (02/09/2025 9:36 AM EDT) WBC 7.80 3.40 - 10.80 10*3/mm3 02/09/2025 10:33 AM EDT [facility] RBC 4.59 4.14 - 5.80 10*6/mm3 02/09/2025 10:33 AM EDT [facility] Hemoglobin 13.8 13.0 - 17.7 g/dL 02/09/2025 10:33 AM EDT [facility] Hematocrit 42.1 37.5 - 51.0 % 02/09/2025 10:33 AM EDT [facility] MCV 91.7 79.0 - 97.0 fL 02/09/2025 10:33 AM EDT [facility] MCH 30.1 26.6 - 33.0 pg 02/09/2025 10:33 AM EDT [facility] MCHC 32.8 31.5 - 35.7 g/dL 02/09/2025 10:33 AM EDT [facility] RDW 13.3 12.3 - 15.4 % 02/09/2025 10:33 AM EDT [facility] RDW-SD 45.0 37.0 - 54.0 fl 02/09/2025 10:33 AM EDT [facility] MPV 11.0 6.0 - 12.0 fL 02/09/2025 10:33 AM EDT [facility] Platelets 207 140 - 450 10*3/mm3 02/09/2025 10:33 AM EDT [facility] Blood Venipuncture / Unknown 02/09/2025 9:36 AM EDT 02/09/2025 10:26 AM EDT us Alex Alan MD LAB BLOOD ORDERABLES Final Res ult [facility]
[address] [place] [address], * ECG 12 Lead Stroke Evaluation (02/09/2025 1:52 AM EDT) QT Interval 404 ms ECG QTC Interval 410 ms ECG 02/09/2025 1:52 AM EDT 02/09/2025 1:39 PM EDT Narrative ECG - 02/09/2025 1:39 PM EDT Test Reason : Stroke Evaluation Blood Pressure : */* mmHG Vent. Rate : 62 BPM Atrial Rate : 62 BPM P-R Int : 148 ms QRS Dur : 100 ms QT Int : 404 ms P-R-T Axes : 47 -43 31 degrees QTcB Int : 410 ms Normal sinus rhythm Left axis deviation Moderate voltage criteria for LVH, may be normal variant Abnormal ECG No previous ECGs available Confirmed by CATHERINE MARES ([id number]) on 02/09/2025 1:39:29 PM Referred By: DAJA Confirmed By: CATHERINE MARES Procedure Note Catherine Mares MD - 02/09/2025 Test Reason : Stroke Evaluation Blood Pressure : */* mmHG Vent. Rate : 62 BPM Atrial Rate : 62 BPM P-R Int : 148 ms QRS Dur : 100 ms QT Int : 404 ms P-R-T Axes : 47 -43 31 degrees QTcB Int : 410 ms Normal sinus rhythm Left axis deviation Moderate voltage criteria for LVH, may be normal variant Abnormal ECG No previous ECGs available Confirmed by CATHERINE MARES ([id number]) on 02/09/2025 1:39:29 PM Referred By: DAJA Confirmed By: CATHERINE MARES Alex Alan MD ECG ORDERABLES Final Result ECG * POC Glucose Once (02/09/2025 12:03 AM EDT) Glucose 104 70 - 130 mg/dL 02/09/2025 12:05 AM EDT [facility] Blood 02/09/2025 12:0 3 AM EDT 02/09/2025 12:05 AM EDT Alex Alan MD POINT OF CARE TEST ORDERABLES Final Result [facility]
[address] [place] [address], * POC Glucose Once (02/08/2025 7:16 PM EDT) Glucose 128 70 - 130 mg/dL 02/08/2025 7:17 PM EDT [facility] Blood 02/08/2025 7:16 PM EDT 02/08/2025 7:17 PM EDT us Alex Alan MD POINT OF CARE TEST ORDERABLES Final Result Performing Organization Address City/[facility]/ZIP Co de Phone Number [facility]
[address] [place] [address], * POC Glucose Once (02/08/2025 4:03 PM EDT) Glucose 106 70 - 130 mg/dL 02/08/2025 4:04 PM EDT [facility] Blood 02/08/2025 4:03 PM EDT 02/08/2025 4:04 PM EDT us Alex Alan MD POINT OF CARE TEST ORDERABLES Final Result Performing Organization Address City/[facility]/ZIP Co de Phone Number [facility]
[address] [place] [address], * MRI Brain Without Contrast (02/08/2025 11:20 AM EDT) Anatomical Region Laterality Modality Head, Neck N/A Magnetic Resonan ce 02/08/2025 11:4 2 AM EDT Impressions 02/08/2025 11:43 AM EDT Impression: Moderate chronic and age-related changes are noted as above. There is otherwise no evidence of acute infarct, hemorrhage, mass or mass effect. Electronically Signed: Joss Vance MD 02/08/2025 11:43 AM EDT Workstation ID: [id number] Narrative 02/08/2025 11:43 AM EDT MRI BRAIN WO CONTRAST Date of Exam: 02/08/2025 11:07 AM EDT Indication: Stroke, follow up dysarthria. Comparison: None available. Technique: Routine multiplanar/multisequence sequence images of the brain were obtained without contrast administration. Findings: No acute infarct is present on diffusion weighted sequences. Midline structures are normal and the craniocervical junction appears satisfactory. Age-related changes are present with moderate generalized volume loss and typical pontine and periventricular leukomalacia. There is otherwise no evidence of intracranial hemorrhage, mass or mass effect. There is ex vacuo prominence of the ventricles and sulci. The orbits are normal. The paranasal sinuses are grossly clear. Procedure Note Mio Vance MD - 02/08/2025 MRI BRAIN WO CONTRAST Date of Exam: 02/08/2025 11:07 AM EDT Indication: Stroke, follow up dysarthria. Comparison: None available. Technique: Routine multiplanar/multisequence sequence images of the brainwere obtained without contrast administration. Findings: No acute infarct is present on diffusion weighted sequences. Midlinestructures are normal and the craniocervical junction appearssatisfactory. Age-related changes are present with moderate generalizedvolume loss and typical pontine and periventricular leukomalacia. There is otherwise no evidence of intracranial hemorrhage,mass or mass effect. There is ex vacuo prominence of the ventricles andsulci. The orbits are normal. The paranasal sinuses are grossly clear. IMPRESSION: Impression: Moderate chronic and age-related changes are noted as above. There isotherwise no evidence of acute infarct, hemorrhage, mass or mass effect. Electronically Signed: Joss Vance MD 02/08/2025 11:43 AM EDT Workstation ID: [id number] us May Kuldip [facility] MRI ORDERABLES Kanwal l Result * ECHO COMPLETE W/ DOPPLER AND COLOR FLOW (02/08/2025 10:17 AM EDT) EF(MOD-bp) 69.9 % LVIDd 3.2 cm LVIDs 2.30 cm IVSd 0.90 cm LVPWd 0.90 cm FS 28.1 % IVS/LVPW 1.00 cm ESV(cubed) 12.2 ml LV Sys Vol (BSA corrected) 15.3 cm2 EDV(cubed) 32.8 ml LV Moss Vol (BSA corrected) 43.3 cm2 LV mass(C)d 77.3 grams LVOT area 3.1 cm2 LVOT diam 2.00 cm EDV(MOD-sp2) 64.6 ml EDV(MOD-sp4) 81.3 ml ESV(MOD-sp2) 17.6 ml ESV(MOD-sp4) 28.8 ml SV(MOD-sp2) 47.0 ml SV(MOD-sp4) 52.5 ml SVi(MOD-SP2) 25.0 ml/m2 SVi(MOD-SP4) 27.9 ml/m2 SVi (LVOT) 40.0 ml/m2 EF(MOD-sp2) 72.8 % EF(MOD-sp4) 64.6 % MV E max madhu 91.2 cm/sec MV A max madhu 123.0 cm/sec MV dec time 0.24 sec MV E/A 0.74 IVRT 90.0 ms LA ESV Index (BP) 19.4 ml/m2 Med Peak E' Madhu 6.5 cm/sec Lat Peak E' Madhu 7.0 cm/sec TR max madhu 219.5 cm/sec Avg E/e' ratio 13.51 SV(LVOT) 75.1 ml RV Base 2.9 cm RV Mid 3.0 cm RV Length 6.6 cm TAPSE (>1.6) 2.44 cm RV S' 13.3 cm/sec LA dimension (2D) 2.40 cm LV V1 max 105.0 cm/sec LV V1 max PG 4.4 mmHg LV V1 mean PG 2.00 mmHg LV V1 VTI 23.9 cm Ao pk madhu 126.0 cm/sec Ao max PG 6.4 mmHg Ao mean PG 3.0 mmHg Ao V2 VTI 29.9 cm ADRYAN(I,D) 2.5 cm2 Dimensionless Index 0.80 (DI) MV max PG 5.9 mmHg MV mean PG 2.00 mmHg MV V2 VTI 36.4 cm MV P1/2t 84.6 msec MVA(P1/2t) 2.6 cm2 MVA(VTI) 2.06 cm2 MV dec slope 328.0 cm/sec2 TR max PG 19.3 mmHg PA V2 max 79.3 cm/sec PA acc time 0.14 sec PI end-d madhu 53.5 cm/sec Ao root diam 3.5 cm RVSP(TR) 22 mmHg RAP systole 3 mmHg Ascending aorta 3.8 cm BH CV VAS BP RIGHT ARM 156/88 mmHg Echo EF Estimated 70.0 % Anatomical Region Laterality Modality Ultrasound Narrative 02/08/2025 3:51 PM EDT Left ventricular systolic function is normal. Estimated left ventricular EF = 70% Left ventricular wall thickness is consistent with mild concentric hypertrophy. Aortic valve is calcified with no significant stenosis or regurgitation present. Estimated right ventricular systolic pressure from tricuspid regurgitation is normal (<35 mmHg). Mild dilation of the ascending aorta is present. Left Ventricle Left ventricular systolic function is normal. Estimated left ventricular EF = 70% Normal left ventricular cavity size noted. Left ventricular wall thickness is consistent with mild concentric hypertrophy. All left ventricular wall segments contract normally. Left ventricular diastolic function is consistent with (grade I) impaired relaxation. Right Ventricle Normal right ventricular cavity size and systolic function noted. Left Atrium Normal left atrial size and volume noted. Saline test for shunting not performed. Not performed due to age protocol. Right Atrium Normal right atrial cavity size noted. The inferior vena cava is normally sized. The diameter of the inferior vena cava is 1.8 cm. Normal IVC inspiratory collapse of greater than 50% noted. Mitral Valve Mitral annular calcification is present. Trace to mild mitral valve regurgitation is present. No significant mitral valve stenosis is present. Tricuspid Valve The tricuspid valve is structurally normal with no significant stenosis present. Mild tricuspid valve regurgitation is present. Estimated right ventricular systolic pressure from tricuspid regurgitation is normal (<35 mmHg). Calculated right ventricular systolic pressure from tricuspid regurgitation is 22 mmHg. Aortic Valve No aortic valve regurgitation or stenosis is present. The aortic valve is abnormal in structure. There is calcification of the aortic valve. The aortic valve appears trileaflet. Pulmonic Valve The pulmonic valve is structurally normal with no significant stenosis present. There is trace pulmonic valve regurgitation present. Pericardium There is no evidence of pericardial effusion. . There is evidence of a fat pad present. Greater Vessels No dilation of the aortic root is present. Mild dilation of the ascending aorta is present. Study Quality The study is technically adequate for diagnosis. us May Kuldip TECHNICAL SERVICES REPRESENTATIVE CV ECHO ORDERABLES Kanwal l Result * CT Outside Films (02/08/2025 7:57 AM EDT) Narrative SYSTEMGENERATED, DOCUMENTATION - 02/08/2025 7:57 AM EDT This procedure was auto-finalized with no dictation required. us Radiant Outside Films IMG CT ORDERABLES Final Re sult * CT Outside Films (02/08/2025 7:57 AM EDT) Narrative SYSTEMGENERATED, DOCUMENTATION - 02/08/2025 7:57 AM EDT This procedure was auto-finalized with no dictation required. us [employer] Outside Films IMG CT ORDERABLES Final Re sult * CT Outside Films (02/08/2025 7:57 AM EDT) Narrative SYSTEMGENERATED, DOCUMENTATION - 02/08/2025 7:57 AM EDT This procedure was auto-finalized with no dictation required. us [employer]iant Outside Films IMG CT ORDERABLES Final Re sult * (ABNORMAL) Lipid Panel (02/08/2025 7:31 AM EDT) Total Cholesterol 162 0 - 200 mg/dL 02/08/2025 8:20 AM EDT [facility] Triglycerides 76 0 - 150 mg/dL 02/08/2025 8:20 AM EDT [facility] HDL Cholesterol 46 40 - 60 mg/dL 02/08/2025 8:20 AM EDT [facility] LDL Cholesterol 101(H) 0 - 100 mg/dL 02/08/2025 8:20 AM EDT [facility] VLDL Cholesterol 15 5 - 40 mg/dL 02/08/2025 8:20 AM EDT [facility] LDL/HDL Ratio 2.19 02/08/2025 8:20 AM EDT [facility] Blood Venipuncture / Unknown 02/08/2025 7:31 AM EDT 02/08/2025 7:53 AM EDT Narrative [facility] - 02/08/2025 8:20 AM EDT Cholesterol Reference Ranges (U.S. Department of Health and Human Services ATP III Classifications) Desirable <200 mg/dL Borderline High 200-239 mg/dL High Risk >240 mg/dL Triglyceride Reference Ranges (U.S. Department of Health and Human Services ATP III Classifications) Normal <150 mg/dL Borderline High 150-199 mg/dL High 200-499 mg/dL Very High >500 mg/dL HDL Reference Ranges (U.S. Department of Health and Human Services ATP III Classifications) Low <40 mg/dl (major risk factor for CHD) High >60 mg/dl ('negative' risk factor for CHD) LDL Reference Ranges (U.S. Department of Health and Human Services ATP III Classifications) Optimal <100 mg/dL Near Optimal 100-129 mg/dL Borderline High 130-159 mg/dL High 160-189 mg/dL Very High >189 mg/dL LDL is calculated using the NIH LDL-C calculation. us November Kuldip YANG LAB BLOOD ORDERABLES Fi nal Result [facility]
[address] [place] [address], * (ABNORMAL) Hemoglobin A1c (02/08/2025 7:31 AM EDT) Hemoglobin A1C 5.94(H) 4.80 - 5.60 % 02/08/2025 10:29 AM EDT [facility] Blood Venipuncture / Unknown 02/08/2025 7:31 AM EDT 02/08/2025 7:53 AM EDT Narrative [facility] - 02/08/2025 10:29 AM EDT Hemoglobin A1C Ranges: Increased Risk for Diabetes 5.7% to 6.4% Diabetes >= 6.5% Diabetic Goal < 7.0% Viola Christiansen TREY LAB BLOOD ORDERABLES Fi nal Result Performing Organization Address [facility] Co de Phone Number [facility]
[address] [place] [address], * POC Glucose Once (02/08/2025 6:43 AM EDT) [facility] Signature Glucose 83 70 - 130 mg/dL 02/08/2025 6:46 AM EDT [facility] Blood 02/08/2025 6:43 AM EDT 02/08/2025 6:46 AM EDT Nelly Dacosta MD POINT OF CARE TEST DUSTIN SINGH Final Result Performing Organization Address [facility] de Phone Number [facility]
[address] [place] [address], documented in this encounter Visit Diagnoses Diagnosis Dysarthria- Primary Cognitive communication disorder Dysarthria HTN (hypertension) Unspecified essential hypertension Hyperlipidemia Other and unspecified hyperlipidemia Hypothyroid Unspecified hypothyroidism documented in this encounter Admitting Diagnoses Diagnosis Dysarthria documented in this encounter Administered Medications Inactive Administered Medications - up to 3 most recent administrations Medication Order MAR Action Action Date Dose Rate Site acetaminophen (TYLENOL) 160 MG/5ML oral solution 650 mg 650 mg, Oral, Every 4 Hours PRN, Mild Pain, Starting on 02/08/25 at 1145, If given for fever, use fever parameter: fever greater than 100.4 F Based on patient request - if ordered for moderate or severe pain, provider allows for administration of a medication prescribed for a lower pain scale. Do not exceed 4 grams of acetaminophen in a 24 hr period. Max dose of 2gm for AST/ALT greater than 120 units/L. If given for pain, use the following pain scale: Mild Pain = Pain Score of 1-3, CPOT 1-2 Moderate Pain = Pain Score of 4-6, CPOT 3-4 Severe Pain = Pain Score of 7-10, CPOT 5-8 acetaminophen (TYLENOL) suppository 650 mg 650 mg, Rectal, Every 4 Hours PRN, Mild Pain, Starting on 02/08/25 at 1145, If given for fever, use fever parameter: fever greater than 100.4 F Based on patient request - if ordered for moderate or severe pain, provider allows for administration of a medication prescribed for a lower pain scale. Do not exceed 4 grams of acetaminophen in a 24 hr period. Max dose of 2gm for AST/ALT greater than 120 units/L. If given for pain, use the following pain scale: Mild Pain = Pain Score of 1-3, CPOT 1-2 Moderate Pain = Pain Score of 4-6, CPOT 3-4 Severe Pain = Pain Score of 7-10, CPOT 5-8 acetaminophen (TYLENOL) tablet 650 mg 650 mg, Oral, Every 4 Hours PRN, Mild Pain, Starting on 02/08/25 at 1145, If given for fever, use fever parameter: fever greater than 100.4 F Based on patient request - if ordered for moderate or severe pain, provider allows for administration of a medication prescribed for a lower pain scale. Do not exceed 4 grams of acetaminophen in a 24 hr period. Max dose of 2gm for AST/ALT greater than 120 units/L. If given for pain, use the following pain scale: Mild Pain = Pain Score of 1-3, CPOT 1-2 Moderate Pain = Pain Score of 4-6, CPOT 3-4 Severe Pain = Pain Score of 7-10, CPOT 5-8 Given 02/09/2025 8:04 AM EDT 650 mg aspirin suppository 300 mg 300 mg, Rectal, Daily, First dose on 02/08/25 at 0900, If patient fails dysphagia, MT option MUST be given. Do not exceed 4 grams of aspirin in a 24 hr period. If given for pain, use the following pain scale: Mild Pain = Pain Score of 1-3, CPOT 1-2 Moderate Pain = Pain Score of 4-6, CPOT 3-4 Severe Pain = Pain Score of 7-10, CPOT 5-8 aspirin tablet 325 mg 325 mg, Oral, Daily, First dose on 02/08/25 at 0900, If patient fails dysphagia, MT option MUST be given. Do not exceed 4 grams of aspirin in a 24 hr period. If given for pain, use the following pain scale: Mild Pain = Pain Score of 1-3, CPOT 1-2 Moderate Pain = Pain Score of 4-6, CPOT 3-4 Severe Pain = Pain Score of 7-10, CPOT 5-8 Given 02/09/2025 8:04 AM EDT 325 mg Given 02/08/2025 10:19 AM EDT 325 mg atorvastatin (LIPITOR) tablet 80 mg 80 mg, Oral, Nightly, First dose on 02/08/25 at 2100, Avoid grapefruit juice. Given 02/08/2025 8:28 PM EDT 80 mg bisacodyl (DULCOLAX) EC tablet 5 mg 5 mg, Oral, Daily PRN, Constipation, Use if polyethylene glycol is ineffective, Starting on 02/08/25 at 1145, Use if no bowel movement after 12 hours. Swallow whole. Do not crush, split, or chew tablet. bisacodyl (DULCOLAX) suppository 10 mg 10 mg, Rectal, Daily PRN, Constipation, Use if bisacodyl oral is ineffective, Starting on 02/08/25 at 1145, Use if no bowel movement after 12 hours. Hold for diarrhea montelukast (SINGULAIR) tablet 10 mg 10 mg, Oral, Nightly, First dose on 02/08/25 at 2100 Given 02/08/2025 8:28 PM EDT 10 mg ondansetron (ZOFRAN) injection 4 mg 4 mg, Intravenous, Every 6 Hours PRN, Nausea, Vomiting, Starting on 02/08/25 at 1145, If BOTH ondansetron (ZOFRAN) and promethazine (PHENERGAN) are ordered use ondansetron first and THEN promethazine IF ondansetron is ineffective. ondansetron ODT (ZOFRAN-ODT) disintegrating tablet 4 mg 4 mg, Oral, Every 6 Hours PRN, Nausea, Vomiting, Starting on 02/08/25 at 1145, If BOTH ondansetron (ZOFRAN) and promethazine (PHENERGAN) are ordered use ondansetron first and THEN promethazine IF ondansetron is ineffective. Place on tongue and allow to dissolve. polyethylene glycol (MIRALAX) packet 17 g 17 g, Oral, Daily PRN, Constipation, Use if senna-docusate is ineffective, Starting on 02/08/25 at 1145, Use if no bowel movement after 12 hours. Mix in 6-8 ounces of water. Use 4-8 ounces of water, tea, or juice for each 17 gram dose. pregabalin (LYRICA) capsule 50 mg 50 mg, Oral, 3 Times Daily, First dose on Sun02/08/25 at 1600, (ELIZABETH) Given 02/09/2025 4:40 PM EDT 50 mg Given 02/09/2025 8:04 AM EDT 50 mg Given 02/08/2025 8:28 PM EDT 50 mg sennosides-docusate (PERICOLACE) 8.6-50 MG per tablet 2 tablet 2 tablet, Oral, 2 Times Daily PRN, Constipation, Starting on Sun02/08/25 at 1145, Start bowel management regimen if patient has not had a bowel movement after 12 hours. sodium chloride 0.9 % flush 10 mL 10 mL, Intravenous, Every 12 Hours Scheduled, First dose on Sun02/08/25 at 0900 Given 02/08/2025 8:29 PM EDT 10 mL Given 02/08/2025 10:19 AM EDT 10 mL sodium chloride 0.9 % flush 10 mL 10 mL, Intravenous, As Needed, Line Care, Starting on Sun02/08/25 at 0713 sodium chloride 0.9 % flush 10 mL 10 mL, Intravenous, Every 12 Hours Scheduled, First dose on Sun02/08/25 at 1245 Given 02/09/2025 8:04 AM EDT 10 mL Given 02/08/2025 8:28 PM EDT 10 mL sodium chloride 0.9 % infusion 40 mL 40 mL, Intravenous, at 100 mL/hr, As Needed, Line Care, Starting on Sun02/08/25 at 0713, Following administration of an IV intermittent medication, flush line with 40mL NS at 100mL/hr. tamsulosin (FLOMAX) 24 hr capsule 0.4 mg 0.4 mg, Oral, Daily, First dose on Sun02/08/25 at 1245, Do not crush or chew the capsules or tablets. The drug may not work as designed if the capsule or tablet is crushed or chewed. Swallow whole. If patient unable to swallow whole, contact pharmacy for alternative. Given 02/09/2025 8:04 AM EDT 0.4 mg Given 02/08/2025 12:15 PM EDT 0.4 mg documented in this encounter Active and Recently Administered Medications Times are shown in EDT. Scheduled Medication Order 02/07/2025 02/08/2025 02/09/2025 aspirin suppository 300 mg(Linked Group 1) 300 mg, Rectal, Daily, First dose on 02/08/25 at 0900, If patient fails dysphagia, MT option MUST be given. Do not exceed 4 grams of aspirin in a 24 hr period. If given for pain, use the following pain scale: Mild Pain = Pain Score of 1-3, CPOT 1-2 Moderate Pain = Pain Score of 4-6, CPOT 3-4 Severe Pain = Pain Score of 7-10, CPOT 5-8 1019 (Not Given: See Alt - Provider: Melinda Ross RN) 0804 (Not Given: See Alt - Provider: Melinda Ross RN) aspirin tablet 325 mg(Linked Group 1) 325 mg, Oral, Daily, First dose on 02/08/25 at 0900, If patient fails dysphagia, MT option MUST be given. Do not exceed 4 grams of aspirin in a 24 hr period. If given for pain, use the following pain scale: Mild Pain = Pain Score of 1-3, CPOT 1-2 Moderate Pain = Pain Score of 4-6, CPOT 3-4 Severe Pain = Pain Score of 7-10, CPOT 5-8 1019 (Given - Provider: Melinda Ross RN) 0804 (Given - Provider: Melinda Ross RN) atorvastatin (LIPITOR) tablet 80 mg 80 mg, Oral, Nightly, First dose on 02/08/25 at 2100, Avoid grapefruit juice. 2027 (Given - Provider: Sophie Briggs RN) levothyroxine (SYNTHROID, LEVOTHROID) tablet 50 mcg 50 mcg, Oral, Every Mill [place] Head, First dose on Sun02/09/25 at 0600, Take on empty stomach. 0542 (Not Given - Provider: Sophie Kaberethi, RN - Reason: Patient/family refused) montelukast (SINGULAIR) tablet 10 mg 10 mg, Oral, Nightly, First dose on 02/08/25 at 2100 2027 (Given - Provider: Sophie Briggs RN) pregabalin (LYRICA) capsule 50 mg 50 mg, Oral, 3 Times Daily, First dose on 02/08/25 at 1600, (ELIZABETH) 1708 (Given - Provider: Melinda Ross RN)2027 (Given - Provider: Sophie Briggs RN) 0804 (Given - Provider: Melinda Ross RN)1640 (Given - Provider: Melinda Ross RN) sodium chloride 0.9 % flush 10 mL 10 mL, Intravenous, Every 12 Hours Scheduled, First dose on 02/08/25 at 0900 1019 (Given - Provider: Melinda Ross RN)2028 (Given - Provider: Sophie Briggs RN) 0805 (Canceled Entry - Provider: Melinda Ross RN) sodium chloride 0.9 % flush 10 mL 10 mL, Intravenous, Every 12 Hours Scheduled, First dose on 02/08/25 at 1245 1200 (Canceled Entry - Provider: Melinda Ross RN)2027 (Given - Provider: Sophie Briggs RN) 0804 (Given - Provider: Melinda Ross RN) tamsulosin (FLOMAX) 24 hr capsule 0.4 mg 0.4 mg, Oral, Daily, First dose on 02/08/25 at 1245, Do not crush or chew the capsules or tablets. The drug may not work as designed if the capsule or tablet is crushed or chewed. Swallow whole. If patient unable to swallow whole, contact pharmacy for alternative. 1215 (Given - Provider: Melinda Ross RN) 0804 (Given - Provider: Melinda Ross RN) PRN Medication Order 02/07/2025 02/08/2025 02/09/2025 acetaminophen (TYLENOL) 160 MG/5ML oral solution 650 mg(Linked Group 2) 650 mg, Oral, Every 4 Hours PRN, Mild Pain, Starting on 02/08/25 at 1145, If given for fever, use fever parameter: fever greater than 100.4 F Based on patient request - if ordered for moderate or severe pain, provider allows for administration of a medication prescribed for a lower pain scale. Do not exceed 4 grams of acetaminophen in a 24 hr period. Max dose of 2gm for AST/ALT greater than 120 units/L. If given for pain, use the following pain scale: Mild Pain = Pain Score of 1-3, CPOT 1-2 Moderate Pain = Pain Score of 4-6, CPOT 3-4 Severe Pain = Pain Score of 7-10, CPOT 5-8 0804 (Not Given: See Alt - Provider: Melinda Ross RN) acetaminophen (TYLENOL) suppository 650 mg(Linked Group 2) 650 mg, Rectal, Every 4 Hours PRN, Mild Pain, Starting on 02/08/25 at 1145, If given for fever, use fever parameter: fever greater than 100.4 F Based on patient request - if ordered for moderate or severe pain, provider allows for administration of a medication prescribed for a lower pain scale. Do not exceed 4 grams of acetaminophen in a 24 hr period. Max dose of 2gm for AST/ALT greater than 120 units/L. If given for pain, use the following pain scale: Mild Pain = Pain Score of 1-3, CPOT 1-2 Moderate Pain = Pain Score of 4-6, CPOT 3-4 Severe Pain = Pain Score of 7-10, CPOT 5-8 0804 (Not Given: See Alt - Provider: Melinda Ross RN) acetaminophen (TYLENOL) tablet 650 mg(Linked Group 2) 650 mg, Oral, Every 4 Hours PRN, Mild Pain, Starting on 02/08/25 at 1145, If given for fever, use fever parameter: fever greater than 100.4 F Based on patient request - if ordered for moderate or severe pain, provider allows for administration of a medication prescribed for a lower pain scale. Do not exceed 4 grams of acetaminophen in a 24 hr period. Max dose of 2gm for AST/ALT greater than 120 units/L. If given for pain, use the following pain scale: Mild Pain = Pain Score of 1-3, CPOT 1-2 Moderate Pain = Pain Score of 4-6, CPOT 3-4 Severe Pain = Pain Score of 7-10, CPOT 5-8 0804 (Given - Provid er: Melinda Ross RN) bisacodyl (DULCOLAX) EC tablet 5 mg(Linked Group 3) 5 mg, Oral, Daily PRN, Constipation, Use if polyethylene glycol is ineffective, Starting on 02/08/25 at 1145, Use if no bowel movement after 12 hours. Swallow whole. Do not crush, split, or chew tablet. bisacodyl (DULCOLAX) suppository 10 mg(Linked Group 3) 10 mg, Rectal, Daily PRN, Constipation, Use if bisacodyl oral is ineffective, Starting on 02/08/25 at 1145, Use if no bowel movement after 12 hours. Hold for diarrhea Calcium Replacement - Follow Nurse / BPA Driven Protocol Open Order & [facility] Electrolyte Replacement Protocol Algorithm to View Details Magnesium Standard Dose Replacement - Follow Nurse / BPA Driven Protocol Open Order & [facility] Electrolyte Replacement Protocol Algorithm to View Details ondansetron (ZOFRAN) injection 4 mg(Linked Group 4) 4 mg, Intravenous, Every 6 Hours PRN, Nausea, Vomiting, Starting on 02/08/25 at 1145, If BOTH ondansetron (ZOFRAN) and promethazine (PHENERGAN) are ordered use ondansetron first and THEN promethazine IF ondansetron is ineffective. ondansetron ODT (ZOFRAN-ODT) disintegrating tablet 4 mg(Linked Group 4) 4 mg, Oral, Every 6 Hours PRN, Nausea, Vomiting, Starting on 02/08/25 at 1145, If BOTH ondansetron (ZOFRAN) and promethazine (PHENERGAN) are ordered use ondansetron first and THEN promethazine IF ondansetron is ineffective. Place on tongue and allow to dissolve. Phosphorus Replacement - Follow Nurse / BPA Driven Protocol Open Order & [facility] Electrolyte Replacement Protocol Algorithm to View Details polyethylene glycol (MIRALAX) packet 17 g(Linked Group 3) 17 g, Oral, Daily PRN, Constipation, Use if senna-docusate is ineffective, Starting on 02/08/25 at 1145, Use if no bowel movement after 12 hours. Mix in 6-8 ounces of water. Use 4-8 ounces of water, tea, or juice for each 17 gram dose. Potassium Replacement - Follow Nurse / BPA Driven Protocol Open Order & [facility] Electrolyte Replacement Protocol Algorithm to View Details sennosides-docusate (PERICOLACE) 8.6-50 MG per tablet 2 tablet(Linked Group 3) 2 tablet, Oral, 2 Times Daily PRN, Constipation, Starting on 02/08/25 at 1145, Start bowel management regimen if patient has not had a bowel movement after 12 hours. sodium chloride 0.9 % flush 10 mL 10 mL, Intravenous, As Needed, Line Care, Starting on 02/08/25 at 0713 sodium chloride 0.9 % flush 10 mL 10 mL, Intravenous, As Needed, Line Care, Starting on 02/08/25 at 1144 sodium chloride 0.9 % infusion 40 mL 40 mL, Intravenous, at 100 mL/hr, As Needed, Line Care, Starting on 02/08/25 at 0713, Following administration of an IV intermittent medication, flush line with 40mL NS at 100mL/hr. sodium chloride 0.9 % infusion 40 mL 40 mL, Intravenous, at 100 mL/hr, As Needed, Line Care, Starting on 02/08/25 at 1144, Following administration of an IV intermittent medication, flush line with 40mL NS at 100mL/hr. Linked Groups Order Group 1: aspirin tablet 325 mgJump to med 325 mg, Oral, Daily, First dose on 02/08/25 at 0900, If patient fails dysphagia, MT option MUST be given. Do not exceed 4 grams of aspirin in a 24 hr period. If given for pain, use the following pain scale: Mild Pain = Pain Score of 1-3, CPOT 1-2 Moderate Pain = Pain Score of 4-6, CPOT 3-4 Severe Pain = Pain Score of 7-10, CPOT 5-8 Or aspirin suppository 300 mgJump to med 300 mg, Rectal, Daily, First dose on 02/08/25 at 0900, If patient fails dysphagia, MT option MUST be given. Do not exceed 4 grams of aspirin in a 24 hr period. If given for pain, use the following pain scale: Mild Pain = Pain Score of 1-3, CPOT 1-2 Moderate Pain = Pain Score of 4-6, CPOT 3-4 Severe Pain = Pain Score of 7-10, CPOT 5-8 Group 2: acetaminophen (TYLENOL) tablet 650 mgJump to med 650 mg, Oral, Every 4 Hours PRN, Mild Pain, Starting on 02/08/25 at 1145, If given for fever, use fever parameter: fever greater than 100.4 F Based on patient request - if ordered for moderate or severe pain, provider allows for administration of a medication prescribed for a lower pain scale. Do not exceed 4 grams of acetaminophen in a 24 hr period. Max dose of 2gm for AST/ALT greater than 120 units/L. If given for pain, use the following pain scale: Mild Pain = Pain Score of 1-3, CPOT 1-2 Moderate Pain = Pain Score of 4-6, CPOT 3-4 Severe Pain = Pain Score of 7-10, CPOT 5-8 Or acetaminophen (TYLENOL) 160 MG/5ML oral solution 650 mgJump to med 650 mg, Oral, Every 4 Hours PRN, Mild Pain, Starting on 02/08/25 at 1145, If given for fever, use fever parameter: fever greater than 100.4 F Based on patient request - if ordered for moderate or severe pain, provider allows for administration of a medication prescribed for a lower pain scale. Do not exceed 4 grams of acetaminophen in a 24 hr period. Max dose of 2gm for AST/ALT greater than 120 units/L. If given for pain, use the following pain scale: Mild Pain = Pain Score of 1-3, CPOT 1-2 Moderate Pain = Pain Score of 4-6, CPOT 3-4 Severe Pain = Pain Score of 7-10, CPOT 5-8 Or acetaminophen (TYLENOL) suppository 650 mgJump to med 650 mg, Rectal, Every 4 Hours PRN, Mild Pain, Starting on 02/08/25 at 1145, If given for fever, use fever parameter: fever greater than 100.4 F Based on patient request - if ordered for moderate or severe pain, provider allows for administration of a medication prescribed for a lower pain scale. Do not exceed 4 grams of acetaminophen in a 24 hr period. Max dose of 2gm for AST/ALT greater than 120 units/L. If given for pain, use the following pain scale: Mild Pain = Pain Score of 1-3, CPOT 1-2 Moderate Pain = Pain Score of 4-6, CPOT 3-4 Severe Pain = Pain Score of 7-10, CPOT 5-8 Group 3: sennosides-docusate (PERICOLACE) 8.6-50 MG per tablet 2 tabletJump to med 2 tablet, Oral, 2 Times Daily PRN, Constipation, Starting on 02/08/25 at 1145, Start bowel management regimen if patient has not had a bowel movement after 12 hours. And polyethylene glycol (MIRALAX) packet 17 gJump to med 17 g, Oral, Daily PRN, Constipation, Use if senna-docusate is ineffective, Starting on 02/08/25 at 1145, Use if no bowel movement after 12 hours. Mix in 6-8 ounces of water. Use 4-8 ounces of water, tea, or juice for each 17 gram dose. And bisacodyl (DULCOLAX) EC tablet 5 mgJump to med 5 mg, Oral, Daily PRN, Constipation, Use if polyethylene glycol is ineffective, Starting on 02/08/25 at 1145, Use if no bowel movement after 12 hours. Swallow whole. Do not crush, split, or chew tablet. And bisacodyl (DULCOLAX) suppository 10 mgJump to med 10 mg, Rectal, Daily PRN, Constipation, Use if bisacodyl oral is ineffective, Starting on 02/08/25 at 1145, Use if no bowel movement after 12 hours. Hold for diarrhea Group 4: ondansetron ODT (ZOFRAN-ODT) disintegrating tablet 4 mgJump to med 4 mg, Oral, Every 6 Hours PRN, Nausea, Vomiting, Starting on 02/08/25 at 1145, If BOTH ondansetron (ZOFRAN) and promethazine (PHENERGAN) are ordered use ondansetron first and THEN promethazine IF ondansetron is ineffective. Place on tongue and allow to dissolve. Or ondansetron (ZOFRAN) injection 4 mgJump to med 4 mg, Intravenous, Every 6 Hours PRN, Nausea, Vomiting, Starting on 02/08/25 at 1145, If BOTH ondansetron (ZOFRAN) and promethazine (PHENERGAN) are ordered use ondansetron first and THEN promethazine IF ondansetron is ineffective. documented in this encounter Care Teams Fifth Hand Relationship Specialty Start Date End Date Provider, [place] [address] PCP - General 02/08/25 documented as of this encounter
[2025-03-18 19:42] LABS: Hematocrit 46.4 % (42.0-52.0); Hemoglobin 14.0 g/dL (14.1-18.0); Mean Corpuscular HGB Conc 30.2 g/dL (31.8-35.4); Mean Corpuscular Hemoglobin 29.8 pg (27.0-31.2); Mean Corpuscular Volume 98.7 fl (80-94); Platelet Count 264 K/mm3 (142-424); Red Blood Count 4.70 M/mm3 (4.60-6.20); White Blood Count 9.4 K/mm3 (4.8-10.8)
[2025-03-18 20:29] LABS: RBC Morphology Normal
[2025-03-18 20:30] LABS: Total Cells Counted 100
[2025-03-18 21:47] LABS: Thyroid Stimulating Hormone 1.56 uIU/mL (0.465-4.68)
--- OUTSIDE RECORDS SUMMARY | 2025-03-20 13:44 | XMS_ITS | Encounter Summary ---
[facility] Address [address] [place] [address] Care Team Providers Care Architecture Intern Name Role Phone Provider, No Known Primary Care Provider Unavail able Encounter Details Date Type Department Care Team (Late st Contact Info) Description 02/10/2025 Transitional Care Management Telephone Encounter [facility] [address] [place] [phone] Paco Aranda, RN Social History Tobacco [...] or training? Not on file Preferred Language Argentine 02/09/2025 Sex and Gender Information Value Date Recorded Sex Assigned at Not on file Legal Sex Male 2:09 AM EDT Gender Identity Not on file Sexual Orientation Not on file documented as of this encounter Miscellaneous Notes * Outreach Note - Paco Aranda RN - 02/10/2025 11:00 AM EDT Call Center TCM Note Flowsheet Row Responses [facility] patient discharged from? [place] Does the patient have one of the following disease processes/diagnoses(primary or secondary)? Other TCM attempt successful? Yes Call start time 1111 Call end time 1121 General alerts for this patient [place] Discharge diagnosis Dysarthria Person spoke with today [...] this patient benefit from a Referral to [facility] Social Work? No Is the patient interested in additional calls from an ambulatory nurse case management? No Paco Edgar - Registered Nurse 02/10/2025, 11:21 EDT documented in this encounter Plan of Treatment Not on file documented as of this encounter Visit Diagnoses Not on filedocumented in this encounter Care Teams Architecture Intern Relationship Specialty Start Date End Date Provider, [place] [address] PCP - General 02/08/25 documented as of this encounter
--- OUTSIDE RECORDS SUMMARY | 2025-03-20 13:44 | XMS_ITS | Clinical Summary ---
Author Organization Healthcare Address [address] [place] [address] Care Team Providers Care Golf Superintendent Name Role Phone Yovani Mosley MD Primary Care Provider + [phone] Social History Tobacco Use Types Packs/Day Years [...] of Treatment Not on file Care Teams Golf Superintendent Relationship Specialty Start Date End Date Yovani Mosley MD [address] [place] [address] [place] [address] PCP - General 12/10/20
--- OUTSIDE RECORDS SUMMARY | 2025-03-20 13:45 | XMS_ITS | Clinical Summary ---
Author Organization [facility] Address [address] [place] [id number] Care Team Providers Care Rfid Engineer Name Role Phone Provider, No Known Primary [...] Department Care Team Description 02/23/2025 Readmission Management [facility] [address] [place] [address] Aubrie Ravi RN 02/10/2025 Transitional Care Management Telephone Encounter [facility] [address] [place] [address] Paco Aranda RN 02/09/2025 Readmission Management [facility] [address] [place] [address] Leisa Calloway RN 02/08/2025 6:35 AM EDT - 02/09/2025 5:27 PM EDT Hospital Encounter [address] [place] [address] Nelly Dacosta MD Lyons, Andrea [...] or training? Not on file Preferred Language Central African 02/09/2025 Sex and Gender Information Value Date [...] CBC (No Diff) (02/09/2025 9:36 AM EDT) [facility] WBC 7.80 3.40 - 10.80 10*3/mm3 02/09/2025 10:33 AM EDT [facility] RBC 4.59 4.14 - 5.80 10*6/mm3 02/09/2025 10:33 AM EDT [facility] Hemoglobin 13.8 13.0 - 17.7 g/dL 02/09/2025 10:33 AM EDT [facility] Hematocrit 42.1 37.5 - 51.0 % 02/09/2025 10:33 AM EDT [facility] MCV 91.7 79.0 - 97.0 fL 02/09/2025 10:33 AM EDT [facility] MCH 30.1 26.6 - 33.0 pg 02/09/2025 10:33 AM EDT [facility] MCHC 32.8 31.5 - 35.7 g/dL 02/09/2025 10:33 AM EDT [facility] RDW 13.3 12.3 - 15.4 % 02/09/2025 10:33 AM EDT [facility] RDW-SD 45.0 37.0 - 54.0 fl 02/09/2025 10:33 AM EDT [facility] MPV 11.0 6.0 - 12.0 fL 02/09/2025 10:33 AM EDT [facility] Platelets 207 140 - 450 10*3/mm3 02/09/2025 10:33 AM T [facility] Blood Venipuncture / Unknown 02/09/2025 9:36 AM EDT 02/09/2025 10:26 AM EDT us Alex Alan MD LAB BLOOD ORDERABLES Final Res ult [facility]
[address] [place] [address], * (ABNORMAL) Basic Metabolic Panel (02/09/2025 9:36 AM EDT) Glucose 115(H) 65 - 99 mg/dL 02/09/2025 10:56 AM EDT [facility] BUN 24.2(H) 8.0 - 23.0 mg/dL 02/09/2025 10:56 AM [facility] Creatinine 1.13 0.76 - 1.27 mg/dL 02/09/2025 10:56 AM [facility] Sodium 139 136 - 145 mmol/L 02/09/2025 10:56 AM [facility] Potassium 4.4 3.5 - 5.2 mmol/L 02/09/2025 10:56 AM [facility] Chloride 103 98 - 107 mmol/L 02/09/2025 10:56 AM [facility] CO2 23.3 22.0 - 29.0 mmol/L 02/09/2025 10:56 AM [facility] Calcium 9.3 8.6 - 10.5 mg/dL 02/09/2025 10:56 AM [facility] BUN/Creatinine Ratio 21.4 7.0 - 25.0 02/09/2025 10:56 AM [facility] Anion Gap 12.7 5.0 - 15.0 mmol/L 02/09/2025 10:56 AM [facility] eGFR 62.1 >60.0 mL/min/1.7 3 02/09/2025 10:56 AM [facility] Blood Venipuncture / Unknown 02/09/2025 9:36 AM EDT 02/09/2025 10:27 AM [facility] - 02/09/2025 10:56 AM EDT [...] MD LAB BLOOD ORDERABLES Final Res ult [facility]
[address] [place] [id number], * ECG 12 Lead Stroke Evaluation (02/09/2025 [...] previous ECGs available Confirmed by CATHERINE MULLIGAN ([id number]) on 02/09/2025 1:39:29 PM Referred By: DAJA [...] previous ECGs available Confirmed by CATHERINE MULLIGAN ([id number]) on 02/09/2025 1:39:29 PM Referred By: DAJA Confirmed By: CATHERINE MULLIGAN Alex Alan MD ECG ORDERABLES Final Result ECG * POC Glucose Once (02/09/2025 12:03 AM EDT) Only the most recent of4 resultswithin the time period is included. Glucose 104 70 - 130 mg/dL 02/09/2025 12:05 AM EDT [facility] Blood 02/09/2025 12:0 3 AM EDT 02/09/2025 12:05 AM EDT Alex Alan MD POINT OF CARE TEST ORDERABLES Final Result [facility]
[address] [place] [address], * MRI Brain Without Contrast (02/08/2025 11:20 AM EDT) Anatomical Region Laterality Modality Head, Neck N/A Magnetic Resonan ce 02/08/2025 11:4 2 AM EDT Impressions 02/08/2025 11:43 AM EDT Impression: Moderate chronic and age-related changes are noted as above. There is otherwise no evidence of acute infarct, hemorrhage, mass or mass effect. Electronically Signed: Joss Vance MD 02/08/2025 11:43 AM EDT Workstation ID: [id number] Narrative 02/08/2025 11:43 AM EDT MRI BRAIN [...] MD 02/08/2025 11:43 AM EDT Workstation ID: [id number] us May Kuldip YANG IMG MRI ORDERABLES [...] technically adequate for diagnosis. us May Ulises-Cary SLEEVE FIXER CV ECHO ORDERABLES Kanwal l Result * [...] - 5.60 % 02/08/2025 10:29 AM EDT [facility] Blood Venipuncture / Unknown 02/08/2025 7:31 AM EDT 02/08/2025 7:53 AM EDT [facility] - 02/08/2025 10:29 AM EDT Hemoglobin A1C Ranges: Increased Risk for Diabetes 5.7% to 6.4% Diabetes >= 6.5% Diabetic Goal < 7.0% us November Kuldip SLEEVE FIXER LAB BLOOD ORDERABLES Fi nal Result [facility]
[address] [place] [address], * (ABNORMAL) Lipid Panel (02/08/2025 7:31 AM EDT) Total Cholesterol 162 0 - 200 mg/dL 02/08/2025 8:20 AM EDT [facility] Triglycerides 76 0 - 150 mg/dL 02/08/2025 8:20 AM EDT [facility] HDL Cholesterol 46 40 - 60 mg/dL 02/08/2025 8:20 AM EDT [facility] LDL Cholesterol 101(H) 0 - 100 mg/dL 02/08/2025 8:20 AM EDT [facility] VLDL Cholesterol 15 5 - 40 mg/dL 02/08/2025 8:20 AM EDT [facility] LDL/HDL Ratio 2.19 02/08/2025 8:20 AM EDT [facility] Blood Venipuncture / Unknown 02/08/2025 7:31 AM EDT 02/08/2025 7:53 AM EDT [facility] - 02/08/2025 8:20 AM EDT [...] Kuldip YANG LAB BLOOD ORDERABLES nal Result [facility]
[address] [place] [address], from Last 3 Months Insurance MEDICARE A & B Member Subscriber Plan / Payer (Ef fective 2000-Present) Name:Kodak Bernstein Member ID:[id number] Relation to Subscriber:Self Name:Amandeep Kodak Raf Subscriber ID:[id number] Payer ID:[id number] Group ID:Not on file Type:Not on file Address: [address] [place] [id number] [facility] Advance Directives * CPR (Attempt to Resuscitate) (Latest Code Status on File) Date Activated Date Inactivated Comments 02/08/2025 11:45 AM 02/09/2025 7:27 PM Question Answer Comments Code Status (Patient has no pulse and is not breathing): CPR (Attempt to Resuscitate) Medical Interventions (Patie nt has pulse or is breathing): Full Support Level Of Support Discussed With: Patient Care Teams Rfid Engineer Relationship Specialty Start Date End Date Provider, No Known [facility] [place] [address] PCP - General 02/08/25
--- OUTSIDE RECORDS SUMMARY | 2025-03-20 13:45 | XMS_ITS | Clinical Summary ---
Author Organization [facility] Address [facility] [address] [facility] [address] Phone Care Team Providers Care Delivery Truck Driver Heavy Name Role Phone Lito Mehta MD Primary Care Provider [phone] Allergies Active Allergy Reactions Criticality Noted Date [...] Active fluticasone propionate (FLONASE) 50 mcg/actuation Nasl [place], Suspension 2 Sprays by Nasal route daily. [...] LENS ; Surgeon: Alessandro Avery MD; Location: [facility]; Service: Ophthalmology Medical devices from this surgery are in the Medical Devices section. CARDIAC SURGERY 07/30/2018 - 07/29/2019 cardiac stents CATARACT REMOVAL 2021 Eye/Left LEFT EYE COMPLEX CATARACT EXTRACTION WITH PHACOEMULSIFICATION AND INTRAOCULAR LENS; Surgeon: Alessandro Avery MD; Location: [facility]; Service: Ophthalmology Medical devices from this surgery are in the Medical Devices section. BACK SURGERY EYE SURGERY 08/02/2023 Right RIGHT EYE YAG LASER CAPSULOTOMY; Surgeon: Alessandro Avery MD; Location: [facility]; Service: Ophthalmology Medical History Medical [...] this topic Medical Devices Implanted Type Area Salesperson Meats Device Identifier Shelf Expiration Date Model / Serial / Lot Dental Implants X 6 Left Inguinal Hernia Mesh (~2008) Lens Intraocular Preloaded 19.0 Diopter - [id number] Implanted:Qty: 1 on 08/30/2016 by Alessandro Avery MD at [facility] Right: Eye V[facility]CTOR LAB:SURG [id number] 10/27/2018 AU00T0.190 / [id number] / Lens Iol 1-Piece 19.0 Diopter Preloaded Acrylic Foldable Pc - [id number] Implanted:Qty: 1 on 2021 by Alessandro Avery MD at [facility] Left: Eye V[facility]CTOR LAB:SURG [id number] 08/24/2024 CNA0T0.190 / [id number] / Insurance MEDICARE [place] PART A AND B Member Subscriber Plan / Payer (Ef fective 2000-Present) Name:Kodak Bernstein Member ID:[id number] Relation to Subscriber:Self Name:Kodak Bernstein Subscriber ID:[id number] Payer ID:Not on file Group ID:Not on file Type:Not on file Address: [facility] [address] Care Teams Delivery Truck Driver Heavy Relationship Specialty Start Date End Date Lito Mehta MD PCP - General Psychiatry & Neurology-Neurology 12/12/21
--- OUTSIDE RECORDS SUMMARY | 2025-03-20 13:45 | XMS_ITS | Encounter Summary ---
[facility] Organization [facility] Address [address] [place] [id number] Care Team Providers Care Account Support Analyst Name Role Phone Provider, No Known Primary [...] or training? Not on file Preferred Language South African 02/09/2025 Sex and Gender Information Value [...] 7:24 AM EDT Melinda Ross RN * [place] Suicide Severity Rating Scale (Screener/Recent Self-Report) Question Answer Date of Assessment Author 6. Suicidal Behavior (Lifetime) No 7:24 AM EDT Melinda Ross RN documented as of this encounter Plan of Treatment Not on file documented as of this encounter Visit Diagnoses Not on filedocumented in this encounter Care Teams Account Support Analyst Relationship Specialty Start Date End Date Provider, [place] [address] PCP - General 02/08/25 documented as of this encounter
--- OUTSIDE RECORDS SUMMARY | 2025-03-20 13:45 | XMS_ITS | Encounter Summary ---
[facility] Organization [facility] Address [address] [place] [address] Care Team Providers Care Carbide Powder Processor Name Role Phone Provider, No Known Primary Care Provider Unavail able Encounter Details Date Type Department Care Team (Late st Contact Info) Description 02/09/2025 Readmission Management [facility] [address] [place] [address] Leisa Calloway, RN Social History Tobacco [...] or training? Not on file Preferred Language Guinean 02/09/2025 Sex and Gender Information Value Date Recorded Sex Assigned at Not on file Legal Sex Male 2:09 AM EDT Gender Identity Not on file Sexual Orientation Not on file documented as of this encounter Miscellaneous Notes * Outreach Note - Leisa Calloway, RN - 02/09/2025 8:06 PM EDT Prep Survey Flowsheet Row [facility] L[facility] score < 7 ? No Eligibility [facility] Date of Admission 02/08/25 Date of [...] on filedocumented in this encounter Care Teams Carbide Powder Processor Relationship Specialty Start Date End Date Provider, [place] [address] PCP - General 02/08/25 documented as of this encounter
--- OUTSIDE RECORDS SUMMARY | 2025-03-20 13:45 | XMS_ITS | Encounter Summary ---
[facility] Organization [facility] Address [address] [place] [address] Care Team Providers Care Plug Shaper Hand Name Role Phone Provider, No Known Primary Care Provider Unavail able Encounter Details Date Type Department Care Team (Late st Contact Info) Description 02/23/2025 Readmission Management [facility] [address] [place] [address] Aubrie Ravi, RN Social History Tobacco [...] training? Not on file Preferred Language South Korean 02/09/2025 Sex and Gender Information Value Date Recorded Sex Assigned at Not on file Legal Sex Male 2:09 AM EDT Gender Identity Not on file Sexual Orientation Not on file documented as of this encounter Miscellaneous Notes * Outreach Note - Aubrie Ravi, RN - 02/23/2025 12:00 PM EDT Medical Week 2 Survey Flowsheet Row Responses [facility] patient discharged from? [place] Does the patient have one of the following disease processes/diagnoses(primary or secondary)? Other Week 2 attempt successful? No Unsuccessful attempts Attempt 1 Revoke Masha Goncalves - Registered Nurse documented in this encounter Plan of Treatment Not on file documented as of this encounter Visit Diagnoses Not on filedocumented in this encounter Care Teams Plug Shaper Hand Relationship Specialty Start Date End Date Provider, No Known [facility] [place] [address] PCP - General 02/08/25 documented as of this encounter
== END 2025-03-18 23:59 | disposition home or self-care (01) ==
LOC: LAB.DROPOF 03-20 13:37
PROVIDERS: PCP Family Medicine; Visit Provider Family Medicine
DX: R63.4 Abnormal weight loss (principal)
CPT/HCPCS: 84443; 85007; 85014; 85018; 85048; 85049

== ENCOUNTER 2025-03-24 10:00 | Outpatient (RCR) | payer MEDICARE, BC, SELFPAY | END 2025-03-24 23:59 | disposition home or self-care (01) | LOC: PT 10:00 | PROVIDERS: PCP Family Medicine; Visit Provider Family Medicine | DX: R29.898 Other symptoms and signs involving the musculoskeletal system (principal) | CPT/HCPCS: 97110 ==

== ENCOUNTER 2025-06-02 10:03 | Outpatient (CLI) | payer MEDICARE, BC, SELFPAY ==
[2025-06-02 15:18] LABS: Hematocrit 40.3 % (42.0-52.0); Hemoglobin 12.7 g/dL (14.1-18.0); Immature Granulocytes % 0.4 %; Mean Corpuscular HGB Conc 31.5 g/dL (31.8-35.4); Mean Corpuscular Hemoglobin 29.6 pg (27.0-31.2); Mean Corpuscular Volume 93.9 fl (80-94); Nucleated Red Blood Cells % 0 %; Platelet Count 280 K/mm3 (142-424); Red Blood Count 4.29 M/mm3 (4.60-6.20); Red Cell Distribution Width-SD 47.9 fL; White Blood Count 8.5 K/mm3 (4.8-10.8)
[2025-06-02 15:26] LABS: Alanine Aminotransferase 28 U/L (12-78); Albumin Level 3.4 g/dl (3.5-5.0); Albumin/Globulin Ratio 1.1 (1.1-1.8); Alkaline Phosphatase 64 U/L (38-126); Anion Gap 8.2 mEq/L (5-15); Aspartate Amino Transferase 37 U/L (17-59); Bilirubin,Total 0.5 mg/dl (0.2-1.3); Blood Urea Nitrogen 33 mg/dl (9-20); Calcium 8.8 mg/dl (8.4-10.2); Carbon Dioxide 25 mmol/L (22.0-30.0); Chloride 106 mmol/L (98-107); Creatinine,Serum 1.10 mg/dl (0.66-1.25); Estimated Glomerular Filt Rate 63 ml/min (>60); GFR (African American) 76 ML/MIN (>60); Globulin 3.1 g/dL (1.3-3.2); Glucose 117 mg/dl (74-100); Potassium 4.2 mmoL/L (3.5-5.1); Sodium 135 mmol/L (136-145); Total Protein,Serum 6.5 g/dl (6.3-8.2)
--- OUTSIDE RECORDS SUMMARY | 2025-06-04 10:15 | XMS_ITS | Clinical Summary ---
Author Organization [facility] Address [address] [place] [id number] Care Team Providers Care Mate Fourth Name Role Phone Provider, No Known Primary [...] HTN (hypertension) 02/08/2025 Hyperlipidemia 02/08/2025 Hypothyroid 02/08/2025 Social History Tobacco Use Types Packs/Day Years [...] or training? Not on file Preferred Language Togolese 02/09/2025 Sex and Gender Information Value Date [...] ZOSTER VACCINE (2 of 2) 03/05/2023 01/08/2023 ANNUAL WELLNESS VISIT 02/13/2025 INFLUENZA VACCINE 02/27/2025 04/03/2024, , 05/29/2022, Additional history exists COVID-19 Vaccine (7 - Pfizer risk 2023- season) 2025 04/03/2024, 05/23/2023, 05/08/2022, Additional history exists LIPID PANEL 02/08/2026 02/08/2025 TDAP/TD VACCINES (4 - Td or Tdap) 01/08/2033 01/08/2023, 02/24/2020, 10/03/1996 Procedures Procedure Name Priority Date/Time Associated Diagnosis Comments LIPID PANEL Urgent 02/08/2025 7:31 AM EDT from Last 3 Months or Most Recently Relevant to Health Maintenance Results * (ABNORMAL) Lipid Panel (02/08/2025 7:31 AM EDT) Total Cholesterol 162 0 - 200 mg/dL 02/08/2025 8:20 AM EDT [facility] Triglycerides 76 0 - 150 mg/dL 02/08/2025 8:20 AM EDT [facility] HDL Cholesterol 46 40 - 60 mg/dL 02/08/2025 8:20 AM EDT [facility] LDL Cholesterol 101(H) 0 - 100 mg/dL 02/08/2025 8:20 AM EDT [facility] VLDL Cholesterol 15 5 - 40 mg/dL 02/08/2025 8:20 AM EDT [facility] LDL/HDL Ratio 2.19 02/08/2025 8:20 AM EDT [facility] Blood Venipuncture / Unknown 02/08/2025 7:31 AM EDT 02/08/2025 7:53 AM EDT Narrative [facility] - 02/08/2025 8:20 AM EDT [...] is calculated using the NIH LDL-C calculation. November Kuldip YANG LAB BLOOD ORDERABLES nal Result [facility]
[address] [place] [address], from Last 3 Months or Most Recently Relevant to Health Maintenance Insurance MEDICARE A & B Member Subscriber Plan / Payer (Ef fective 2000-Present) Name:Kodak Bernstein Member ID:[id number] Relation to Subscriber:Self Name:Kodak Bernstein Subscriber ID:[id number] Payer ID:[id number] Group ID:Not on file Type:Not on file Address: [address] Advance Directives * CPR (Attempt to Resuscitate) (Latest Code Status on File) Date Activated Date Inactivated Comments 02/08/2025 11:45 AM 02/09/2025 7:27 PM Question Answer Comments Code Status (Patient has no pulse and is not breathing): CPR (Attempt to Resuscitate) Medical Interventions (Patie nt has pulse or is breathing): Full Support Level Of Support Discussed With: Patient Care Teams Mate Fourth Relationship Specialty Start Date End Date Provider, No Known [facility] [place] [address] PCP - General 02/08/25
--- OUTSIDE RECORDS SUMMARY | 2025-06-04 10:15 | XMS_ITS | Clinical Summary ---
Author Organization [facility] Address [facility] [place] [address] Phone Care Team Providers Care Agricultural Chemicals Inspector Name Role Phone Lito Mehta MD Primary Care Provider [phone] Allergies Active Allergy Reactions Criticality Noted Date [...] Active fluticasone propionate (FLONASE) 50 mcg/actuation Nasl [place], Suspension 2 Sprays by Nasal route daily. [...] LENS ; Surgeon: Alessandro Avery MD; Location: [facility]; Service: Ophthalmology Medical devices from this surgery are in the Medical Devices section. CARDIAC SURGERY 07/30/2018 - 07/29/2019 cardiac stents CATARACT REMOVAL 2021 Eye/Left LEFT EYE COMPLEX CATARACT EXTRACTION WITH PHACOEMULSIFICATION AND INTRAOCULAR LENS; Surgeon: Alessandro Avery MD; Location: [facility]; Service: Ophthalmology Medical devices from this surgery are in the Medical Devices section. BACK SURGERY EYE SURGERY 08/02/2023 Right RIGHT EYE YAG LASER CAPSULOTOMY; Surgeon: Alessandro Avery MD; Location: [facility]; Service: Ophthalmology Medical History Medical History [...] 75+ series) 12/20/2010 COVID-19 Vaccine ( season) 2025 05/08/2022, 10/06/2021, 03/31/2021, Additional history exists Influenza [...] this topic Medical Devices Implanted Type Area Sweet Potato Disintegrator Device Identifier Shelf Expiration Date Model / Serial / Lot Dental Implants X 6 Left Inguinal Hernia Mesh (~2008) Lens Intraocular Preloaded 19.0 Diopter - [id number] Implanted:Qty: 1 on 08/30/2016 by Alessandro Avery MD at [facility] Right: Eye V[facility] LAB:SURG [id number] 10/27/2018 AU00T0.190 / [id number] / Lens Iol 1-Piece 19.0 Diopter Preloaded Acrylic Foldable Pc - [id number] Implanted:Qty: 1 on 2021 by Alessandro Avery MD at [facility] Left: Eye VÍCTOR LAB:SURG [id number] 08/24/2024 CNA0T0.190 / [id number] 2 / Insurance MEDICARE [place] PART A AND B [address] Care Teams Agricultural Chemicals Inspector Relationship Specialty Start Date End Date Lito Mehta MD PCP - General Psychiatry & Neurology-Neurology 12/12/21
--- OUTSIDE RECORDS SUMMARY | 2025-06-04 10:15 | XMS_ITS | Clinical Summary ---
Author Organization [facility] Address [address] [place] [address] Care Team Providers Care Telemarketing Agent Name Role Phone Yovani Mosley MD Primary Care Provider [phone] Social History Tobacco Use Types Packs/Day Years [...] of Treatment Not on file Care Teams Telemarketing Agent Relationship Specialty Start Date End Date Yovani Mosley MD [address] [place] [address] [place] [address] PCP - General 12/10/20
== END 2025-06-02 23:59 ==
LOC: LAB.DROPOF 06-04 10:04
PROVIDERS: PCP Family Medicine; Visit Provider Family Medicine
DX: N47.1 Phimosis (principal)
CPT/HCPCS: 80053; 85025

== ENCOUNTER 2025-06-11 09:25 | Outpatient (CLI) | payer MEDICARE, BC, SELFPAY ==
--- OUTSIDE RECORDS SUMMARY | 2025-06-11 09:28 | XMS_ITS | Clinical Summary ---
Author Organization [facility] Address [address] [place] [phone] Care Team Providers Care Food And Beverage Order Clerk Name Role Phone Provider, No Known Primary [...] or training? Not on file Preferred Language Kuwaiti 02/09/2025 Sex and Gender Information Value Date [...] - 200 mg/dL 02/08/2025 8:20 AM EDT [facility] Triglycerides 76 0 - 150 mg/dL 02/08/2025 8:20 AM EDT [facility] HDL Cholesterol 46 40 - 60 mg/dL 02/08/2025 8:20 AM EDT [facility] LDL Cholesterol 101(H) 0 - 100 mg/dL 02/08/2025 8:20 AM EDT [facility] VLDL Cholesterol 15 5 - 40 mg/dL 02/08/2025 8:20 AM EDT [facility] LDL/HDL Ratio 2.19 02/08/2025 8:20 AM EDT [facility] Blood Venipuncture / Unknown 02/08/2025 7:31 AM EDT 02/08/2025 7:53 AM EDT Narrative [facility] - 02/08/2025 8:20 AM EDT [...] Kuldip YANG LAB BLOOD ORDERABLES nal Result [facility]
[address] [place] [address], from Last 3 Months or Most Recently Relevant to Health Maintenance Insurance MEDICARE A & B Member Subscriber Plan / Payer (Ef fective 2000-Present) Name:Kodak Bernstein Member ID:[id number] Relation to Subscriber:Self Name:Kodak Bernstein Subscriber ID:[id number] Payer ID:[id number] Group ID:Not on file Type:Not on file Address: [address] Advance Directives * CPR (Attempt to Resuscitate) (Latest Code Status on File) Date Activated Date Inactivated Comments 02/08/2025 11:45 AM 02/09/2025 7:27 PM Question Answer Comments Code Status (Patient has no pulse and is not breathing): CPR (Attempt to Resuscitate) Medical Interventions (Patie nt has pulse or is breathing): Full Support Level Of Support Discussed With: Patient Care Teams Food And Beverage Order Clerk Relationship Specialty Start Date End Date Provider, No Known [place] [address] PCP - General 02/08/25
--- OUTSIDE RECORDS SUMMARY | 2025-06-11 09:28 | XMS_ITS | Clinical Summary ---
Author Organization [facility] Address [address] [place] [address] Care Team Providers Care Lacquer Sizer Name Role Phone Yovani Mosley MD Primary Care Provider [phone] Social History Tobacco Use Types Packs/Day Years [...] of Treatment Not on file Care Teams Lacquer Sizer Relationship Specialty Start Date End Date Yovani Mosley MD [address] [place] [address] [place] [address] PCP - General 12/10/20
--- OUTSIDE RECORDS SUMMARY | 2025-06-11 09:28 | XMS_ITS | Clinical Summary ---
Author Organization [facility] Address [address] [facility] [place] [address] Phone Care Team Providers Care Bilingual Teacher Assistant Name Role Phone Lito Mehta MD Primary Care Provider [phone] Allergies Active Allergy Reactions Criticality Noted Date [...] Active fluticasone propionate (FLONASE) 50 mcg/actuation Nasl [place], Suspension 2 Sprays by Nasal route daily. [...] LENS ; Surgeon: Alessandro Avery MD; Location: [facility]; Service: Ophthalmology Medical devices from this surgery are in the Medical Devices section. CARDIAC SURGERY 07/30/2018 - 07/29/2019 cardiac stents CATARACT REMOVAL 2021 Eye/Left LEFT EYE COMPLEX CATARACT EXTRACTION WITH PHACOEMULSIFICATION AND INTRAOCULAR LENS; Surgeon: Alessandro Avery MD; Location: [facility]; Service: Ophthalmology Medical devices from this surgery are in the Medical Devices section. BACK SURGERY EYE SURGERY 08/02/2023 Right RIGHT EYE YAG LASER CAPSULOTOMY; Surgeon: Alessandro Avery MD; Location: [facility]; Service: Ophthalmology Medical History Medical [...] this topic Medical Devices Implanted Type Area Fourdrinier Machine Operator Device Identifier Shelf Expiration Date Model / Serial / Lot Dental Implants X 6 Left Inguinal Hernia Mesh (~2008) Lens Intraocular Preloaded 19.0 Diopter - [id number] Implanted:Qty: 1 on 08/30/2016 by Alessandro Avery MD at [facility] Right: Eye V[facility]CTOR LAB:SURG [id number] 10/27/2018 AU00T0.190 / [id number] / Lens Iol 1-Piece 19.0 Diopter Preloaded Acrylic Foldable Pc - [id number] Implanted:Qty: 1 on 2021 by Alessandro Avery MD at [facility] Left: Eye V[facility]CTOR LAB:SURG [id number] 08/24/2024 CNA0T0.190 / [id number] 2 / Insurance MEDICARE [place] PART A AND B [address] Care Teams Bilingual Teacher Assistant Relationship Specialty Start Date End Date Lito Mehta MD PCP - General Psychiatry & Neurology-Neurology 12/12/21
--- NOTE | 2025-06-11 10:00 | US_ITS ---
FINAL REPORT CLINICAL HISTORY: hematuria COMPARISON: None FINDINGS: RENAL ULTRASOUND Ultrasound images of the kidneys were obtained. The right kidney measures 9.1 cm in length. The left kidney measures 9.1 cm in length. There is normal renal size. No hydronephrosis. There are 2 complex mildly septated cysts in the right kidney, the larger measuring 27 mm. There is a simple cyst in the lower pole of the left kidney measuring up to 18 mm. No solid masses identified. IMPRESSION: No findings to account for patient's hematuria. Reviewed, Interpreted and Dictated by Stephania Craft MD Transcribed by Jessica Lewis Authenticated and [facility]
== END 2025-06-11 23:59 | disposition home or self-care (01) ==
LOC: RAD 09:25
PROVIDERS: PCP Family Medicine; Visit Provider Urology
DX: R31.9 Hematuria, unspecified (principal); N32.81 Overactive bladder
CPT/HCPCS: 76770

== ENCOUNTER 2025-06-22 10:30 | Outpatient (CLI) | payer MEDICARE, BC, SELFPAY ==
[2025-06-22 16:31] LABS: Reticulocyte % (Auto) 1.6 % (0.9-3.2)
[2025-06-22 17:05] LABS: Iron 73 ug/dL (49-181)
[2025-06-22 17:27] LABS: Total Iron Binding Capacity 291 ug/dL (261-462)
[2025-06-22 19:05] LABS: Vitamin B12 579 pg/mL (239-931)
[2025-06-22 19:34] LABS: Folate 9.88 ng/mL
--- OUTSIDE RECORDS SUMMARY | 2025-06-23 08:23 | XMS_ITS | Clinical Summary ---
Author Organization [facility] Address [address] [facility] [place] [address] Phone Care Team Providers Care Docket Specialist Name Role Phone Lito Mehta MD Primary Care Provider [phone] Allergies Active Allergy Reactions Criticality Noted Date [...] Active fluticasone propionate (FLONASE) 50 mcg/actuation Nasl [place], Suspension 2 Sprays by Nasal route daily. [...] LENS ; Surgeon: Alessandro Avery MD; Location: [facility]; Service: Ophthalmology Medical devices from this surgery are in the Medical Devices section. CARDIAC SURGERY 07/30/2018 - 07/29/2019 cardiac stents CATARACT REMOVAL 2021 Eye/Left LEFT EYE COMPLEX CATARACT EXTRACTION WITH PHACOEMULSIFICATION AND INTRAOCULAR LENS; Surgeon: Alessandro Avery MD; Location: [facility]; Service: Ophthalmology Medical devices from this surgery are in the Medical Devices section. BACK SURGERY EYE SURGERY 08/02/2023 Right RIGHT EYE YAG LASER CAPSULOTOMY; Surgeon: Alessandro Avery MD; Location: [facility]; Service: Ophthalmology Medical History Medical History [...] this topic Medical Devices Implanted Type Area Woods Overseer Device Identifier Shelf Expiration Date Model / Serial / Lot Dental Implants X 6 Left Inguinal Hernia Mesh (~2008) Lens Intraocular Preloaded 19.0 Diopter - [id number] Implanted:Qty: 1 on 08/30/2016 by Alessandro Avery MD at [facility] Right: Eye [facility] [id number] 10/27/2018 [id number] / [id number] / Lens Iol 1-Piece 19.0 Diopter Preloaded Acrylic Foldable Pc - [id number] Implanted:Qty: 1 on 2021 by Alessandro Avery MD at [facility] Left: Eye [facility] [id number] 08/24/2024 [id number] / [id number] / Insurance MEDICARE [place] PART A AND B [address] Care Teams Docket Specialist Relationship Specialty Start Date End Date Lito Mehta MD PCP - General Psychiatry & Neurology-Neurology 12/12/21
--- OUTSIDE RECORDS SUMMARY | 2025-06-23 08:23 | XMS_ITS | Clinical Summary ---
Author Organization Healthcare Address [address] [place] [address] Care Team Providers Care Paint Tinter Name Role Phone Yovani Mosley MD Primary Care Provider [phone] Social History Tobacco Use Types Packs/Day Years [...] of Treatment Not on file Care Teams Paint Tinter Relationship Specialty Start Date End Date Yovani Mosley MD [address] [place] [address] [place] [address] PCP - General 12/10/20
--- OUTSIDE RECORDS SUMMARY | 2025-06-23 08:23 | XMS_ITS | Clinical Summary ---
Author Organization [facility] Address [address] [place] [id number] Care Team Providers Care Expanded Function Dental Assistant Name Role Phone Provider, No Known Primary [...] or training? Not on file Preferred Language Stateless 02/09/2025 Sex and Gender Information Value Date [...] - 200 mg/dL 02/08/2025 8:20 AM EDT [facility] Triglycerides 76 0 - 150 mg/dL 02/08/2025 8:20 AM EDT [facility] HDL Cholesterol 46 40 - 60 mg/dL 02/08/2025 8:20 AM EDT [facility] LDL Cholesterol 101(H) 0 - 100 mg/dL 02/08/2025 8:20 AM EDT [facility] VLDL Cholesterol 15 5 - 40 mg/dL 02/08/2025 8:20 AM EDT [facility] LDL/HDL Ratio 2.19 02/08/2025 8:20 AM EDT [facility] Blood Venipuncture / Unknown 02/08/2025 7:31 AM EDT 02/08/2025 7:53 AM EDT Narrative [facility] - 02/08/2025 8:20 AM EDT [...] Kuldip YANG LAB BLOOD ORDERABLES nal Result [facility]
[address] [place] [address], from Last 3 Months or Most Recently Relevant to Health Maintenance Insurance MEDICARE A & B Member Subscriber Plan / Payer (Ef fective 2000-Present) Name:Kodak Bernstein Member ID:[id number] Relation to Subscriber:Self Name:Kodak Bernstein Subscriber ID:[id number] Payer ID:[id number] Group ID:Not on file Type:Not on file Address: [address] Advance Directives * CPR (Attempt to Resuscitate) (Latest Code Status on File) Date Activated Date Inactivated Comments 02/08/2025 11:45 AM 02/09/2025 7:27 PM Question Answer Comments Code Status (Patient has no pulse and is not breathing): CPR (Attempt to Resuscitate) Medical Interventions (Patie nt has pulse or is breathing): Full Support Level Of Support Discussed With: Patient Care Teams Expanded Function Dental Assistant Relationship Specialty Start Date End Date Provider, No Known [facility] [place] [address] PCP - General 02/08/25
--- OUTSIDE RECORDS SUMMARY | 2025-06-23 08:23 | XMS_ITS ---
Author Organization Unknown ENCOUNTERS Encounter Performer Location Date Diagnosis Diagnosis Status Pre Admit [facility] [address] [facility] [address] [place] [address] [id number] Emergency [place] [id number] [facility] [address] [place] [address] [id number] XSTH Pre Admit [facility] [address] [facility] [address] [place] [address] [id number] Emergency [facility] [address] [facility] [address] [place] [address] [id number] BEBETO Emergency [facility] [address] [facility] [address] [place] [address] [id number] BEBETO Pre Admit [facility] [address] [facility] [address] [place] [address] [id number] Emergency [facility] [address] [facility] [address] [place] [address] [id number] BEBETO Pre Admit [facility] [address] [place] [facility] [address] [place] [address] [id number] Emergency [facility] [address] [facility] [address] [place] [address] [id number] BEBETO Pre Admit [place] [id number] [facility] [address] [place] [address] [id number] [facility] [address] [facility] [address] [place] [address] [id number] BEBETO Emergency [facility] (ED) [facility] [address] [place] [facility] [address] [place] [address] [id number] Out[place] [id number] [facility] [address] [place] [address] [id number] BEBETO Emergency [facility] (ED) [facility] [address] [facility] [address] [place] [address] [id number] [facility] *Note: Encounters from your own facility or health system may be excluded. Allergies, Adverse Reactions, Alerts Allergen Type Severity Identification Date acetaminophen drug allergy 20191229 hydrocodone drug allergy 2 20191229 Medications Name Date Quantity Days Supplied GPI Number
== END 2025-06-22 23:59 ==
LOC: LAB.DROPOF 06-23 08:21
PROVIDERS: PCP Family Medicine; Visit Provider Family Medicine
DX: D64.9 Anemia, unspecified (principal)
CPT/HCPCS: 82607; 82746; 83540; 83550; 85044